=== PATIENT | male | born 1940 | race Caucasian/White ===

== ENCOUNTER 2018-04-21 15:10 | Emergency (ER) | payer MEDICARE ==
[2018-04-21 15:42] LABS: #Basophils 0.2 thou/uL (0.0-0.2); #Eosinphils 0.2 thou/uL (0.0-0.7); #Lymphocytes 0.9 thou/uL (1.20-3.40); #Monocytes 0.7 thou/uL (0.11-0.59); #Neutrophils 3.5 thou/uL (1.40-6.50); %Basophils 2.8 % (0.0-1.0); %Monocytes 12.7 % (0.0-10.0); %Neutrophils 65.5 % (42.0-75.0); Hemoglobin 8.1 g/dL (14.0-18.0); Mean Corpuscular Hemoglobin 32.4 pg (27.0-31.0); Mean Corpuscular Volume 98.4 fl (80.0-94.0); Mean Platelet Volume 7.6 fL (7.4-10.4); Platelet Count 163 thou/uL (130-400); RBC Distribution Width 14.8 % (11.5-14.5); Red Blood Cell (RBC) Count 2.51 mill/uL (4.70-6.10); White Blood Cell (WBC) Count 5.4 thou/uL (4.8-10.8)
[2018-04-21 15:51] LABS: Prothrombin Time 42.7 SEC (12.0-14.7)
[2018-04-21 15:53] LABS: INR-International Normal Ratio 4.2
[2018-04-21 16:05] LABS: ALT (SGPT) 8 U/L (8-55); AST (SGOT) 22 U/L (5-34); Albumin 3.9 g/dL (3.4-4.8); Alkaline Phosphatase 43 U/L (40-150); Anion Gap 14 mmol/L (10-20); BUN (Urea Nitrogen) 34 mg/dL (8.4-25.7); Bilirubin, Total 0.6 mg/dL (0.2-1.2); Calc. Creatinine Clearance 0 mL/min (70-130); Carbon Dioxide 24 mmol/L (23-31); Chloride 108 mmol/L (98-107); Estimated GFR-MDRD 39; Globulin 2.7 g/dL (2.4-3.5); Glucose 109 mg/dL (83-110); Potassium 3.5 mmol/L (3.5-5.1); Protein, Total 6.6 g/dL (5.8-8.1); Sodium 142 mmol/L (136-145)
[2018-04-21 16:08] LABS: CKMB 1.2 ng/mL (0-6.6); Troponin I Less than 0.010 ng/mL (< 0.028)
== END 2018-04-21 16:48 | disposition home or self-care (01) ==
LOC: ERS 15:10
DX: D50.0 Iron deficiency anemia secondary to blood loss (chronic) (principal); R79.1 Abnormal coagulation profile; E78.5 Hyperlipidemia, unspecified; I10 Essential (primary) hypertension; F17.210 Nicotine dependence, cigarettes, uncomplicated; Z79.899 Other long term (current) drug therapy; Z79.01 Long term (current) use of anticoagulants
CPT/HCPCS: 36415; 80053; 82553; 84484; 85025; 85610; 85730; 86850; 86900; 86901; 93005

== ENCOUNTER 2018-07-13 14:55 | Day surgery (SDC) | payer MEDICARE ==
[2018-07-14 05:58] LABS: Hemoglobin 9.6 g/dL (14.0-18.0)
[2018-07-14 08:09] VITALS: BP 145/76; TEMP 98.1
== END 2018-07-14 09:58 | disposition home or self-care (01) ==
LOC: ONC/OP 14:55 → 2SE 16:03 → ONC/OP 07-14 09:58
PROVIDERS: ATTEND Internal Medicine
PROC: 30233N1 Transfusion of Nonautologous Red Blood Cells into Peripheral Vein, Percutaneous Approach (ICD-10-PCS; principal; 2018-07-13)
DX: D64.9 Anemia, unspecified (principal)
CPT/HCPCS: 36415; 36430; 85014; 85018; 86850; 86900; 86901; P9016

== ENCOUNTER 2018-09-27 14:44 | Inpatient (IN) | payer MEDICARE ==
[2018-09-27 16:51] VITALS: BMI 22.3
[2018-09-27] MEDS ORDERED: Ondansetron PF 4 MG/2 ML Vial IVP PRN (17:28)
[2018-09-27] MEDS ORDERED: hydrALAZINE 20 MG/ML VIAL SLOW IVP PRN (17:28)
[2018-09-27 17:59] LABS: #Basophils 0.1 thou/uL (0.0-0.2); #Eosinphils 0.1 thou/uL (0.0-0.7); #Lymphocytes 0.6 thou/uL (1.20-3.40); #Monocytes 0.6 thou/uL (0.11-0.59); %Basophils 1.9 % (0.0-1.0); %Eosinophils 1.3 % (0.0-10.0); %Lymphocytes 11.3 % (21.0-51.0); %Monocytes 10.6 % (0.0-10.0); %Neutrophils 74.9 % (42.0-75.0); Mean Corpuscular HGB CONC 30.7 g/dL (32.0-36.0); Mean Corpuscular Hemoglobin 30.3 pg (27.0-31.0); Mean Corpuscular Volume 98.5 fL (78.0-98.0); Mean Platelet Volume 7.6 fL (7.4-10.4); Platelet Count 207 thou/uL (130-400); RBC Distribution Width 15.9 % (11.5-14.5); Red Blood Cell (RBC) Count 1.97 mill/uL (4.70-6.10); White Blood Cell (WBC) Count 5.3 thou/uL (4.8-10.8)
[2018-09-27] MEDS: Sodium Chloride 0.9% 1,000 ML IV SCH (18:04)
[2018-09-27 18:05] LABS: Prothrombin Time 48.3 SEC (12.0-14.7)
[2018-09-27 18:10] LABS: INR-International Normal Ratio 5.3
[2018-09-27 18:17] LABS: ALT (SGPT) 8 U/L (8-55); AST (SGOT) 17 U/L (5-34); Albumin 3.3 g/dL (3.4-4.8); Alkaline Phosphatase 41 U/L (40-150); Anion Gap 12 mmol/L (10-20); BUN (Urea Nitrogen) 45 mg/dL (8.4-25.7); Bilirubin, Total 0.5 mg/dL (0.2-1.2); Calc. Creatinine Clearance 34 mL/min (70-130); Calcium 8.4 mg/dL (7.8-10.44); Carbon Dioxide 28 mmol/L (23-31); Chloride 105 mmol/L (98-107); Estimated GFR-MDRD 40; Globulin 2.7 g/dL (2.4-3.5); Glucose 118 mg/dL (83-110); Potassium 3.4 mmol/L (3.5-5.1); Sodium 142 mmol/L (136-145)
[2018-09-27] MEDS ORDERED: Phytonadione 10 MG/ML AMP PO SCH (18:30)
--- NOTE | 2018-09-27 19:03 | HP ---
PRIMARY CARE PHYSICIAN: John Magana M.D. CHIEF COMPLAINT: Feeling weak and dizzy. HISTORY OF PRESENT ILLNESS: Mr. Desai is a pleasant 77-year-old gentleman that has a history of both aortic valve and mitral valve replacement. He says this was due to a "low grade fever" that he had f or years. He also has a history of recurrent GI bleeds, which he states in the past, they have not b een able to determine the source. He is on Coumadin. He was in his usual state of health until the last couple of days when he started feeling shaky and having "no energy." He also says that he feels dizzy when he gets up to start walking. He also notes some shortness of breath, but he says this is not more than usual. He denies having any abdominal pain, no vomiting. He has complained of some n ausea, but he equates that to feeling dizzy. He also says that he has dark stools and they are mushy , but he says this has been going on for years and is also noted that he is on iron therapy. He went in to see Dr. Magana and he did some lab work and has been reported that it was noted that his hemogl obin was approximately 5. It is unclear what his INR was, but he was referred to the Hospitalist Mendez son for direct admission. REVIEW OF SYSTEMS: All systems were reviewed and are negative except for that mentioned in history o f present illness. PAST MEDICAL HISTORY: Significant for atrial fibrillation as well as COPD and cerebrovascular accide nt. PAST SURGICAL HISTORY: He has had an aortic valve and mitral valve replacement. He also had a redo of his aortic valve about 20 years after the initial surgery. ALLERGIES: No known drug allergies. SOCIAL HISTORY: He is . He has 1 daughter, but they are estranged. He denies any alcohol us e, but he does smoke about a pack to a pack and a half a day. He would like to be a FULL CODE; usha er, he says that if he is on life support, he does not want to be on more than 3 days. If that is th e case, then he would like to be taken off. I asked if he has some surrogate decision maker or medic al power of regulatory attorney, he does not and says he would leave these decisions to his physicians. FAMILY HISTORY: Significant for breast cancer and a father who had cancer of the lungs due to coal m ining. MEDICATIONS: Include Plavix 75 mg daily, metoprolol 50 mg twice a day, furosemide 20 mg daily and Co umadin 10 mg daily. PHYSICAL EXAMINATION: GENERAL: He is alert and oriented. He appears to be in no acute distress. He is well-developed and well-nourished. VITAL SIGNS: Blood pressure was 116/58, heart rate 70, respiratory rate of 18, temperature is 97.9, O2 sat was 96% on room air. HEENT: His pupils are equal, round, and reactive. Extraocular muscles are intact. His sclerae slig htly pale and they are anicteric. Throat: There is no erythema, no exudates. NECK: There is no adenopathy, no bruits. LUNGS: Clear to auscultation. There is no wheezing, no rales, no rhonchi. CARDIOVASCULAR: He had a normal S1 and S2. There was no S3 or S4. No murmurs, clicks or rubs. ABDOMEN: Obese, it is soft, nontender, nondistended. Positive for bowel sounds. There is no reboun d, no guarding, no organomegaly. EXTREMITIES: There is no edema. He did have some chronic venous stasis changes. : Rectal exam was refused. He stated that his stools have not changed and he did not want an exam . NEUROLOGIC: His cranial nerves II-XII are intact. Muscle strength is 5/5 in both his upper and lowe r extremities. SKIN AND INTEGUMENT: There are some again chronic venous stasis changes, but no specific rash and no other lesions. LABORATORY DATA: We planned to recheck the CBC and the INR. ASSESSMENT AND PLAN: 1. This is a pleasant 77-year-old gentleman that was directly admitted from the physician's office d ue to generalized weakness with symptomatic anemia. He also is on chronic anticoagulation due to aor tic and mitral valve replacement. We will need to monitor his H&Hs, get a PT/INR stat to see what [place] his INR is currently. Place him on empiric proton pump inhibitors, place him on normal saline an d get stool for occult blood. Consult Gastroenterology for further recommendations. He will also be transfused 2 units. 2. For aortic and mitral valve replacement, depending on his INR will depend on whether or not Couma din will be discontinued. Given he has both the mitral and aortic valve replacement, if he does not show brisk active bleed, we will likely continue anticoagulation either in the form of Lovenox or a h eparin drip. Otherwise, further recommendations are to follow.
[2018-09-27] MEDS: Pantoprazole 40 MG VIAL IVP SCH (20:25)
[2018-09-28 05:23] LABS: #Basophils 0.1 thou/uL (0.0-0.2); #Eosinphils 0.1 thou/uL (0.0-0.7); #Lymphocytes 0.6 thou/uL (1.20-3.40); #Monocytes 0.5 thou/uL (0.11-0.59); #Neutrophils 3.1 thou/uL (1.40-6.50); %Basophils 1.7 % (0.0-1.0); %Eosinophils 1.6 % (0.0-10.0); %Lymphocytes 14.1 % (21.0-51.0); %Monocytes 11.6 % (0.0-10.0); Hemoglobin 7.1 g/dL (14.0-18.0); Mean Corpuscular Hemoglobin 29.7 pg (27.0-31.0); Mean Corpuscular Volume 95.9 fL (78.0-98.0); Mean Platelet Volume 7.3 fL (7.4-10.4); Platelet Count 175 thou/uL (130-400); Red Blood Cell (RBC) Count 2.38 mill/uL (4.70-6.10); White Blood Cell (WBC) Count 4.4 thou/uL (4.8-10.8)
[2018-09-28 05:29] LABS: Prothrombin Time 39.3 SEC (12.0-14.7)
[2018-09-28 05:35] LABS: INR-International Normal Ratio 4.1
[2018-09-28 05:39] LABS: Anion Gap 9 mmol/L (10-20); BUN (Urea Nitrogen) 44 mg/dL (8.4-25.7); Calc. Creatinine Clearance 39 mL/min (70-130); Calcium 8.2 mg/dL (7.8-10.44); Carbon Dioxide 28 mmol/L (23-31); Chloride 108 mmol/L (98-107); Estimated GFR-MDRD 46; Glucose 104 mg/dL (83-110); Potassium 3.4 mmol/L (3.5-5.1); Sodium 142 mmol/L (136-145)
[2018-09-28] MEDS: Sodium Chloride 0.9% 1,000 ML IV SCH ×3 (05:56→21:40)
[2018-09-28] MEDS: Pantoprazole 40 MG VIAL IVP SCH ×2 (09:03→21:39)
--- NOTE | 2018-09-28 10:10 | CON ---
DATE OF CONSULTATION: 09/27/2018 REASON FOR CONSULTATION: Symptomatic anemia, prior history of chronic gastrointestinal blood loss re lated to anticoagulation. HISTORY OF PRESENT ILLNESS: Mr. Giordano is a pleasant 77-year-old gentleman, who began having feelings of dyspnea and shortness of breath, went in to see his regular physician, Dr. John Magana, who perf ormed blood work and found to have he had a hemoglobin of 5. He was sent for admission to be transfu sed. He had had a hemoglobin of 8 or 9 back in July and had to get 3 units of blood at that kristina e. He is on Plavix 75 mg a day and Coumadin 2 mg a day for a prior history of aortic and mitral valv e replacement. He notes that his stools about once or twice a day and tend to always be dark and mus hy. He states he has not seen blood and they have not changed recently. He denies any weight loss o r change in appetite. He denies any NSAID use other than a baby aspirin. He last had endoscopies in 2011, at which time, Dr. Crabtree performed an EGD, which was normal and a colonoscopy that showed an as cending colon Dieulafoy lesion, 5 cm distal from the ileocecal valve and it was ablated. He has not had endoscopy since then and in 2013 he needed transfusion, he had a bleeding scan. Presently, he st ates he is inclined just to get the blood and to go home tomorrow as Thanksgiving is coming and then if his blood count is dropping in the outpatient setting, to proceed with endoscopy then. REVIEW OF SYSTEMS: Negative for nosebleeds, oral ulcers, erosions, hemorrhoidal bleeding, dysuria, f requency, urgency, hematuria, weight loss, change in appetite, abdominal pain, change in bowel functi on. He has had some shortness of breath. PAST MEDICAL HISTORY: Atrial fibrillation, COPD, CVA, noted to have valvular heart disease. ALLERGIES: None known. SOCIAL HISTORY: He is . He has a daughter. He does not drink. He does smoke a pack to a pa ck and half a day. FAMILY HISTORY: Breast cancer, lung cancer. MEDICATIONS AT HOME: As per HPI. MEDICATIONS HERE: Zofran, Protonix, normal saline at 75. PHYSICAL EXAMINATION: GENERAL: He is resting comfortably in bed. He has had snacks this evening. He is in no distress. VITAL SIGNS: Temperature 97, pulse 70, blood pressure 116/58. HEENT: Conjunctivae and sclerae are clear. Oropharynx without lesions. Nose without bleeding site. SKIN: Without ecchymosis. HEART: Regular rate and rhythm. Mechanical S1 and S2. EXTREMITIES: Reveal no clubbing, cyanosis, or edema. No spider angiomata. No palmar erythema. LABORATORY DATA: White count 5.3, hemoglobin 6, MCV 98, platelet count 207. INR is 5.3. BUN and cr eatinine are 45 and 1.69. Sodium 142, potassium 3.4. Liver function tests are normal. ASSESSMENT: Mr. Giordano was admitted with anemia. He states that he typically go and see Dr. Magana whe never he gets profoundly fatigued or anemic. He states the last time he was in was about a year ago, although it looks like he was transfused in July. He does not have any signs of acute gastroin testinal hemorrhage, although he has dark stools almost daily. This is usually just once or twice a day. He has had previous workup for the Dieulafoy found in the right colon. He is supratherapeutic with his INR. RECOMMENDATIONS: I agree with transfusion. I think if he shows any signs of bleeding, he will need to get some vitamin K, but otherwise they would be hold off on that for now. He is not inclined to h ave endoscopies presently. I will talk with Dr. Magana and see if we can find out what the history rodriguez s been recently and also review his chart in the clinic to see if he has had a capsule endoscopy of t he small bowel in the past. But if he is not acutely hemorrhaging, probably go home and have further workup in the outpatient setting; however, if this is something where his primary physician has felt that he needs to be reevaluated as he is requiring several transfusions in the past few months, then we can go ahead and embark on that here as he going to have to be bridged with Lovenox in light of h is prosthetic mitral valve.
--- NOTE | 2018-09-28 11:28 | PDOC.PN ---
- Subjective Encounter Start Date: 09/28/18 Encounter Start Time: 11:26 Mr. Desai was seen today in follow-up. He does not have any complaints. He says he needs to go home to take care of his animals. He refused any work-up from Dr. Haywood. - Objective Resuscitation Status: Resuscitation Status FULL:Full Resuscitation MAR Reviewed: Yes Vital Signs & Weight: Vital Signs (12 hours) Temp Pulse Pulse Pulse Resp BP BP 09/28/18 09:34 98.4 F 75 16 125/62 09/28/18 09:02 98.4 F 69 16 09/28/18 03:00 97.8 F 72 18 139/63 09/28/18 00:30 97 F L 72 18 112/80 09/28/18 00:11 97.9 F 74 18 116/70 09/28/18 00:10 97.9 F 74 18 09/28/18 00:00 97.8 F 74 18 116/70 BP Pulse Ox 09/28/18 09:34 94 L 09/28/18 09:02 110/80 94 L 09/28/18 03:00 95 09/28/18 00:30 95 09/28/18 00:11 96 09/28/18 00:10 116/70 96 09/28/18 00:00 Weight Weight 144 lb I&O: 09/27/18 09/28/18 09/29/18 06:59 06:59 06:59 Intake Total 1780 0 Output Total 700 Balance 1080 0 Result Diagrams: 09/28/18 05:12 09/28/18 05:12 Phys Exam - Physical Examination HEENT: PERRLA Respiratory: no wheezing, no rales, no rhonchi, clear to auscultation bilateral Cardiovascular: RRR, no significant murmur, no rub Gastrointestinal: soft, non-tender, no distention, positive bowel sounds Musculoskeletal: no edema Psychiatric: normal affect, A&O x 3 Dx/Plan (1) GI bleed Code(s): K92.2 - GASTROINTESTINAL HEMORRHAGE, UNSPECIFIED Status: Acute (2) Acute blood loss anemia Code(s): D62 - ACUTE POSTHEMORRHAGIC ANEMIA Status: Acute (3) Atrial fibrillation Code(s): I48.91 - UNSPECIFIED ATRIAL FIBRILLATION Status: Acute (4) Status post aortic valve and mitral valve replacement Code(s): Z95.2 - PRESENCE OF PROSTHETIC HEART VALVE Status: Acute - Plan * GI- bleed- source unknown- The patient declines work-up at this time- Will transfuse another unit of blood * Coagulaopthy- will give a small dose of Vitamin K. * AFIB- his heart rate is stable * AVR amd MVR- stable * He will need to follow-up tomorrow with Dr. Magana and have INR checked, and obtain further instructions on how to proceed.
[2018-09-28] MEDS ORDERED: GoLYTELY 4,000 ml Bottle PO SCH (12:30)
[2018-09-28] MEDS ORDERED: Phytonadione 10 MG/ML AMP SC SCH (14:45)
[2018-09-28 16:17] LABS: Hemoglobin 8.9 g/dL (14.0-18.0); Platelet Count 199 thou/uL (130-400)
--- NOTE | 2018-09-28 16:59 | PDOC.EVN ---
Event Note - Event Note Event Note: has decided to proceed with GI evaluation
[2018-09-29 05:57] LABS: Hemoglobin 7.6 g/dL (14.0-18.0)
[2018-09-29 05:59] LABS: INR-International Normal Ratio 1.6; Prothrombin Time 18.7 SEC (12.0-14.7)
[2018-09-29] MEDS: Pantoprazole 40 MG VIAL IVP SCH ×2 (08:10→21:45)
[2018-09-29] MEDS ORDERED: Promethazine HCl 25 MG/ML VIAL IM PRN (09:09)
[2018-09-29] MEDS ORDERED: Ondansetron HCl/PF 4 MG/2 ML Vial IVP PRN (09:09)
[2018-09-29] MEDS ORDERED: Promethazine HCl 25 MG/ML VIAL SLOW IVP PRN (09:09)
[2018-09-29] MEDS ORDERED: Lidocaine 1% PF 5 ML VIAL ONE (09:56)
[2018-09-29] MEDS ORDERED: PHENYLEPHRINE-NS 100 MCG/ML 10 ML SYRINGE ONE (09:56)
[2018-09-29] MEDS ORDERED: PROPOFOL 200 MG/20 ML VIAL ONE (09:56)
--- NOTE | 2018-09-29 11:08 | OP ---
DATE OF PROCEDURE: 09/29/2018. PROCEDURE PERFORMED: Esophagogastroduodenoscopy with biopsy, colonoscopy (diagnostic). INDICATION FOR PROCEDURE: Anemia, melena. DESCRIPTION OF PROCEDURE: After the risks and benefits of the procedures were explained to the patie nt including risks of bleeding, infection, perforation, reactions to anesthesia, aspiration and/or pa in, informed consent was obtained. The patient was then taken to the endoscopy suite where deep river tion was administered via propofol and anesthesia support. Once adequate sedation was achieved, the standard gastroscope was introduced into the mouth with intubation of the esophagus, stomach and the proximal small intestine with the findings listed below. Upon completion of this portion of the exam ination, all equipment was removed and the bed was rotated approximately 180 degrees. After external digital rectal examination, the standard colonoscope was introduced into the rectum and advanced to the cecum and terminal ileum with some difficulty requiring manual abdominal pressure in order to fac ilitate passage of the scope. The quality of the prep was poor with a significant amount of adherent black stool seen throughout the entire colon that was partially amenable to irrigation and suctionin g with copious amounts of sterile water. Inadequate views were obtained of the entire colon; however , despite irrigation and suctioning, the mucosa was then carefully examined upon withdrawal with the findings listed below. The patient tolerated the procedure well with no immediate perioperative comp lications and the patient was transferred to PACU in satisfactory condition. EGD FINDINGS: Esophagus: Normal appearing mucosa was seen in the proximal, mid and distal esophagus. There was no evidence of erosions, ulcerations, mass lesions or active/recent bleeding. Stomach: Mild increased mucosal erythema seen throughout the entire stomach and the cardia, fundus, body, greater curvature, antrum and incisura, but most especially within the lesser curvature and ant rum. There was the presence of small clots within the antrum and along the lesser curvature that upo n irrigation did not reveal any underlying pathology; however, in these areas, the lining of the stom ach assumed more of a mottled type appearance in addition to the increased mucosal erythema. Random biopsies were taken from the antrum and incisura for evaluation of possible H. pylori status. A 7-8 mm polyp was also seen in the gastric body with biopsies taken from the polyp for evaluation. Otherw ise, there were no erosions, ulcerations, mass lesions or active/recent bleeding. Duodenum: Normal appearing mucosa was seen in both the duodenal bulb and second portion of the duode num. There was no evidence of erosions, ulcerations, mass lesions or active/recent bleeding. IMPRESSION: 1. Mild diffuse gastritis with clot formation in the antrum and incisura, which could potentially ge nerate GI bleeding with a supratherapeutic INR. 2. A 7-8 mm gastric polyp most likely being hyperplastic. COLONOSCOPY FINDINGS: Digital rectal exam: Small perianal skin tags were seen on external examination. COLON FINDINGS: 1. A large amount of black adherent stool was seen throughout the entire colon as well as within the terminal ileum precluding any visualization of the colonic mucosa. With extensive irrigation and ashby ctioning of this adherent black stool, approximately 70% of the colonic mucosa was adequately visuali zed, but still inadequate for evaluation of fine mucosal lesions. However, there was no active/recen t bleeding seen throughout the entire colon. Upon visualization of approximately 70% of the colonic mucosa, there was increased friability with the passage of the standard colonoscope with increased mu cosal erythema with the passage of the scope. Otherwise, there were no erosions, ulcerations, mass l esions or active/recent bleeding seen in the terminal ileum, cecum, ascending colon, transverse colon , descending colon, sigmoid colon, and rectum. On rectal retroflexion, increased telangiectasias wer e seen adjacent to the anal orifice, but did not exhibit any active or recent bleeding. IMPRESSION: 1. A large amount of adherent black stool seen throughout the entire colon interfering with visualiz ation of the colonic mucosa (approximately 70% of the colonic mucosa adequately visualized during thi s examination). 2. Increased friability of the colonic mucosa with the passage of the standard colonoscope most like ly due to recent supratherapeutic INR. 3. Telangiectasias at the rectum consistent with possible radiation proctitis and/or hemorrhoidal fo rmation, but not actively bleeding. RECOMMENDATIONS: 1. We would continue to trend H&H and transfuse as necessary to maintain an H&H of 7/21. 2. Continue to monitor clinically for signs of active gastrointestinal bleeding. 3. We would hold any anticoagulation for the next 24-48 hours, but we would consider restarting Love nox or heparin based on the patient's mechanical valves. 4. We would continue PPI 40 mg b.i.d. at least for the next month. 5. Gastritis seen on upper endoscopy today and probable source of black stool seen within the colon today. 6. We will follow up on the biopsy results with placing the patient on triple therapy if positive fo r H. pylori. 7. If the patient's H&H continues to drop, we would consider a tagged red cell scan for further eval uation or localization of the GI bleed. 8. Agree with reversal of anticoagulation, but we would restart within the next 24-48 hours given th e patient's mechanical valves and we will monitor for any signs of bleeding after that. We will continue to follow. Please call with any questions.
[2018-09-29] MEDS: Sodium Chloride 0.9% 1,000 ML IV SCH ×3 (11:12→23:40)
--- NOTE | 2018-09-29 14:11 | PDOC.PN ---
- Subjective Encounter Start Date: 09/29/18 Encounter Start Time: 14:07 Mr. Desai was seen today in follow-up of GI Bleed. He does not have any complaints today - Objective Resuscitation Status: Resuscitation Status FULL:Full Resuscitation MAR Reviewed: Yes Vital Signs & Weight: Vital Signs (12 hours) Temp Pulse Resp BP BP Pulse Ox 09/29/18 11:10 97.7 F 74 18 154/67 H 96 09/29/18 07:27 98.6 F 94 16 140/67 95 09/29/18 04:40 98.8 F 91 14 117/56 L 92 L Weight Weight 146 lb 3.2 oz I&O: 09/28/18 09/29/18 09/30/18 06:59 06:59 06:59 Intake Total 1780 1140 Output Total 700 800 Balance 1080 340 Result Diagrams: 09/29/18 05:38 09/28/18 05:12 Phys Exam - Physical Examination HEENT: PERRLA Respiratory: no wheezing, no rales, no rhonchi Cardiovascular: RRR, no significant murmur, no rub Gastrointestinal: soft, non-tender, no distention, positive bowel sounds Musculoskeletal: no edema Dx/Plan (1) GI bleed Code(s): K92.2 - GASTROINTESTINAL HEMORRHAGE, UNSPECIFIED Status: Acute (2) Acute blood loss anemia Code(s): D62 - ACUTE POSTHEMORRHAGIC ANEMIA Status: Acute (3) Atrial fibrillation Code(s): I48.91 - UNSPECIFIED ATRIAL FIBRILLATION Status: Acute (4) Status post aortic valve and mitral valve replacement Code(s): Z95.2 - PRESENCE OF PROSTHETIC HEART VALVE Status: Acute - Plan * GI Bleed- probable upper GI bleed from gastritis- continue PPI, and will monitor his H&H. Coumadin is on hold. * Aortic and Mitral Valve replacement- will cover him with a Heparin drip- which can be turned off should he develop active bleeding * Acute blood loss anemia- transfuse for hemoglobin less than 7 * AFIB- his heart rate is stable. * Continue clear liquid diet to avoid injury to stomach
[2018-09-29 14:43] LABS: Hemoglobin 7.6 g/dL (14.0-18.0); Platelet Count 155 thou/uL (130-400)
[2018-09-29] MEDS: Heparin 25,000 units/D5W 500 ML IVPB SCH (15:41)
[2018-09-29] MEDS: Heparin 10,000 UNITS/ 10 ML VIAL SLOW IVP SCH ×2 (15:42→23:35)
[2018-09-30 06:18] LABS: #Eosinphils 0.1 thou/uL (0.0-0.7); #Lymphocytes 0.6 thou/uL (1.20-3.40); #Monocytes 0.6 thou/uL (0.11-0.59); #Neutrophils 2.9 thou/uL (1.40-6.50); %Eosinophils 2.5 % (0.0-10.0); %Lymphocytes 14.5 % (21.0-51.0); %Monocytes 14.5 % (0.0-10.0); %Neutrophils 68.5 % (42.0-75.0); Hemoglobin 7.6 g/dL (14.0-18.0); Mean Corpuscular HGB CONC 31.6 g/dL (32.0-36.0); Mean Corpuscular Hemoglobin 30.4 pg (27.0-31.0); Mean Corpuscular Volume 96.2 fL (78.0-98.0); Mean Platelet Volume 7.7 fL (7.4-10.4); Platelet Count 160 thou/uL (130-400); RBC Distribution Width 15.2 % (11.5-14.5); White Blood Cell (WBC) Count 4.2 thou/uL (4.8-10.8)
[2018-09-30] MEDS: Pantoprazole 40 MG VIAL IVP SCH ×2 (08:52→20:46)
[2018-09-30] MEDS: Acetaminophen 325 MG TAB PO PRN ×2 (08:56)
[2018-09-30 09:13] LABS: INR-International Normal Ratio 1.3; Prothrombin Time 16.2 SEC (12.0-14.7)
--- NOTE | 2018-09-30 11:28 | PDOC.PN ---
- Subjective Encounter Start Date: 09/30/18 Encounter Start Time: 11:26 Subjective: Doing well, saw some blood with stool - Objective Resuscitation Status: Resuscitation Status FULL:Full Resuscitation MAR Reviewed: Yes Vital Signs & Weight: Vital Signs (12 hours) Temp Pulse Resp BP BP Pulse Ox 09/30/18 08:40 98.7 F 103 H 16 139/74 139/74 95 09/30/18 04:00 98.9 F 87 16 132/60 92 L Weight Weight 148 lb I&O: 09/29/18 09/30/18 10/01/18 06:59 06:59 06:59 Intake Total 1140 1455.7 Output Total 800 1650 Balance 340 -194.3 Result Diagrams: 09/30/18 06:03 09/28/18 05:12 Phys Exam - Physical Examination HEENT: PERRLA, moist MMs, sclera anicteric, TM's clear, oral pharynx no lesions , 2+ tonsils Neck: no nodes, no JVD, supple, full ROM Respiratory: no wheezing, no rales Cardiovascular: RRR, no rub, irregular Gastrointestinal: soft, non-tender, no distention, positive bowel sounds Musculoskeletal: edema present Neurological: non-focal, normal sensation, moves all 4 limbs Psychiatric: normal affect, A&O x 3 Skin: no rash, normal turgor, cap refill <2 seconds Dx/Plan (1) Acute blood loss anemia Code(s): D62 - ACUTE POSTHEMORRHAGIC ANEMIA Status: Acute Comment: Admitted for acute blood loss anemia and Hb 6 and with complains of Melena. INR on admission was supratherapeuctic 4+. Patient treated with blood tansfusion, small dose of Vit K. Colonoscopy showed bloody stool allover the colon. No actual site of bleeding could be identified. Colon mucosa looked friable. Patient Hb now stable and is on heparin gtt and coumadin was on hold. Willl restart Coumadin and INR on 09/30 was 1.3 (2) Atrial fibrillation Code(s): I48.91 - UNSPECIFIED ATRIAL FIBRILLATION Status: Acute Qualifiers: Atrial fibrillation type: chronic Qualified Code(s): I48.2 - Chronic atrial fibrillation Comment: on heparin gtt, restart Coumadin, INR 1.3 (3) GI bleed Code(s): K92.2 - GASTROINTESTINAL HEMORRHAGE, UNSPECIFIED Status: Acute Qualifiers: GI bleed type/associated pathology: melena Qualified Code(s): K92.1 - Melena Comment: Restart Coumadin, Hb S/P transfusion is stable (4) Status post aortic valve and mitral valve replacement Code(s): Z95.2 - PRESENCE OF PROSTHETIC HEART VALVE Status: Acute (5) Melena Code(s): K92.1 - MELENA Status: Acute - Plan cont current plan of care, DVT proph w/heparin, DVT proph w/SCDs * .
[2018-09-30] MEDS ORDERED: Guaifenesin DM 100-10/5 ML UDCUP PO PRN (13:35)
[2018-09-30 15:02] LABS: PTT 59.5 SEC (22.9-36.1)
[2018-09-30 15:05] LABS: INR-International Normal Ratio 1.2; Prothrombin Time 15.3 SEC (12.0-14.7)
[2018-09-30] MEDS: Guaifenesin DM 100-10/5 ML UDCUP PO SCH ×2 (17:45→20:45)
[2018-09-30] MEDS: Heparin 25,000 units/D5W 500 ML IVPB SCH (17:52)
[2018-10-01] MEDS: Guaifenesin DM 100-10/5 ML UDCUP PO SCH ×6 (01:44→20:47)
[2018-10-01] MEDS: Sodium Chloride 0.9% 1,000 ML IV SCH ×2 (01:46→15:54)
[2018-10-01] MEDS: Pantoprazole 40 MG VIAL IVP SCH ×2 (09:27→20:48)
[2018-10-01 09:50] LABS: Anion Gap 9 mmol/L (10-20); BUN (Urea Nitrogen) 10 mg/dL (8.4-25.7); Calc. Creatinine Clearance 60 mL/min (70-130); Calcium 7.9 mg/dL (7.8-10.44); Carbon Dioxide 21 mmol/L (23-31); Chloride 110 mmol/L (98-107); Estimated GFR-MDRD 72; Glucose 108 mg/dL (83-110); Potassium 3.2 mmol/L (3.5-5.1); Sodium 137 mmol/L (136-145)
--- NOTE | 2018-10-01 14:45 | PDOC.PN ---
- Subjective Encounter Start Date: 10/01/18 Encounter Start Time: 10:30 Subjective: pt up in bed complains of not feeling well - Objective Resuscitation Status: Resuscitation Status FULL:Full Resuscitation Vital Signs & Weight: Vital Signs (12 hours) Temp Pulse Resp BP Pulse Ox 10/01/18 12:00 97.3 F L 89 16 136/75 10/01/18 08:00 98.3 F 86 18 143/63 H 94 L 10/01/18 04:00 98.5 F 90 16 132/63 93 L Weight Weight 152 lb I&O: 09/30/18 10/01/18 10/02/18 06:59 06:59 06:59 Intake Total 1455.7 3008 240 Output Total 1650 825 Balance -194.3 2183 240 Result Diagrams: 09/30/18 06:03 10/01/18 06:49 Phys Exam - Physical Examination Neck: no nodes, no JVD, supple, full ROM mild rhonchi all over Cardiovascular: RRR, no significant murmur, no rub, gallop, irregular Gastrointestinal: soft, non-tender, no distention, positive bowel sounds Musculoskeletal: no edema, pulses present, edema present Neurological: non-focal, normal sensation, moves all 4 limbs Dx/Plan (1) Acute blood loss anemia Code(s): D62 - ACUTE POSTHEMORRHAGIC ANEMIA Status: Acute Comment: Admitted for acute blood loss anemia and Hb 6 and with complains of Melena. INR on admission was supratherapeuctic 4+. Patient treated with blood tansfusion, small dose of Vit K. Colonoscopy showed bloody stool allover the colon. No actual site of bleeding could be identified. Colon mucosa looked friable. Patient Hb now stable and is on heparin gtt and coumadin was on hold. Willl restart Coumadin and INR on 09/30 was 1.3 (2) GI bleed Code(s): K92.2 - GASTROINTESTINAL HEMORRHAGE, UNSPECIFIED Status: Acute Qualifiers: GI bleed type/associated pathology: melena Qualified Code(s): K92.1 - Melena Comment: Restart Coumadin, Hb S/P transfusion is stable (3) Status post aortic valve and mitral valve replacement Code(s): Z95.2 - PRESENCE OF PROSTHETIC HEART VALVE Status: Acute - Plan pt states he just does not feel well -: mild rhonchi noted, will get cxr and viral swab -: will start his lasix and rx breathing tx -: diet advanced and coumadin started, discussed with gi * . Review of Systems - Review of Systems Respiratory: Cough Cardiovascular: negative: chest pain, palpitations, orthopnea, paroxysmal nocturnal dyspnea, edema, light headedness, other Gastrointestinal: negative: Nausea, Vomiting, Abdominal Pain, Diarrhea, Constipation, Melena, Hematochezia, Other Genitourinary: negative: Dysuria, Frequency, Incontinence, Hematuria, Retention , Other - Medications/Allergies Allergies/Adverse Reactions: Allergies Allergy/AdvReac Type Severity Reaction Status Date / Time No Known Allergies Allergy Verified 09/27/18 16:50 Medications: Current Medications Acetaminophen (Tylenol) 650 mg PO Q6H PRN PRN Reason: Headache/Fever or Pain Last Admin: 09/30/18 08:56 Dose: 650 mg Furosemide (Lasix) 40 mg PO DAILY [facility] Guaifenesin/Dextromethorphan (Robitussin Dm) 15 ml PO Q4HR [facility] Last Admin: 10/01/18 13:14 Dose: 15 ml Guaifenesin/Dextromethorphan (Robitussin Dm) 15 ml PO Q4H PRN PRN Reason: Cough Heparin Sodium (Porcine) (Heparin 1,000 Units/Ml (10 Ml)) 0 units SLOW IVP ASDIR [facility]; Protocol Last Admin: 09/29/18 23:35 Dose: 1,980 unit Hydralazine HCl (Apresoline) 10 mg SLOW IVP Q4H PRN PRN Reason: SBP > 180 and HR < 70 Sodium Chloride (Normal Saline 0.9%) 1,000 mls @ 75 mls/hr IV .[id number] [facility] Last Admin: 10/01/18 01:46 Dose: 1,000 mls Heparin Sodium/Dextrose (Heparin 25,000 Units/D5w 500 Ml) 500 mls @ 0 mls/hr IVPB INF [facility]; Protocol Last Admin: 09/30/18 17:52 Dose: 500 mls Ipratropium [place] (Atrovent) 2.5 ml NEB [id number] [facility] Metoprolol Tartrate (Lopressor) 50 mg PO BID [facility] Miscellaneous Medication (Pharmacy To Dose) 1 each PO DAILY PRN PRN Reason: LABS Ondansetron HCl (Zofran) 4 mg IVP Q6H PRN PRN Reason: Nausea/Vomiting Pantoprazole Sodium (Protonix) 40 mg IVP Q12HR [facility] Last Admin: 10/01/18 09:27 Dose: 40 mg Potassium Chloride (K-Dur) 40 meq PO ONE [facility] Sodium Chloride (Flush - Normal Saline) 10 ml IVF PRN PRN PRN Reason: Saline Flush Last Admin: 10/01/18 09:28 Dose: 10 ml Warfarin Sodium (Coumadin) 2.5 mg PO 1700 [facility]
[2018-10-01] MEDS ORDERED: Ipratropium Bromide 2.5 ml Neb ONE (14:55)
[2018-10-01] MEDS ORDERED: Potassium Chloride 20 MEQ TAB PO SCH (15:00)
[2018-10-01] MEDS ORDERED: Ipratropium Bromide 2.5 ml Neb NEB SCH (15:00)
--- NOTE | 2018-10-01 15:34 | RAD ---
RADIOGRAPH CHEST 1 VIEW: Date: 10/01/2018 Time: 2:03 p.m. HISTORY: A 77-year-old male with dyspnea. COMPARISON: 01/29/2015 FINDINGS: Again noted is the cardiomegaly, sternotomy wires, and triple-lead left subclavian pacemaker. Again noted is the pulmonary venous engorgement. There are interstitial densities in the bilateral lower l clem zones. The previously demonstrated elevation of the right hemidiaphragm has improved or resolved . There is a new finding of significant blunting of the lateral costophrenic angles bilaterally, lef t greater than right. No pneumothorax. IMPRESSION: 1. Evidence for congestive heart failure: Cardiomegaly and bilateral small pleural effusions. 2. Interstitial densities may or may not represent pulmonary interstitial edema. JUANA [] POS: [facility]
[2018-10-01 15:52] LABS: Hemoglobin 7.8 g/dL (14.0-18.0); Platelet Count 160 thou/uL (130-400)
[2018-10-01] MEDS ORDERED: Warfarin Sodium 2.5 MG TAB PO SCH (17:00)
[2018-10-01] MEDS: Ipratropium Bromide 2.5 ml Neb NEB SCH ×2 (19:31→22:33)
[2018-10-01] MEDS: Metoprolol Tartrate 50 MG TAB PO SCH (20:47)
[2018-10-01] MEDS: Heparin 25,000 units/D5W 500 ML IVPB SCH (22:59)
[2018-10-02] MEDS: Guaifenesin DM 100-10/5 ML UDCUP PO SCH ×6 (01:06→20:45)
[2018-10-02] MEDS: Ipratropium Bromide 2.5 ml Neb NEB SCH ×6 (03:05→23:10)
[2018-10-02] MEDS ORDERED: Furosemide 40 MG/4 ML VIAL SLOW IVP SCH (04:15)
[2018-10-02] MEDS: Sodium Chloride 0.9% 1,000 ML IV SCH (05:37)
[2018-10-02 06:10] LABS: INR-International Normal Ratio 1.2
[2018-10-02 06:11] LABS: PTT 70.6 SEC (22.9-36.1)
[2018-10-02 06:22] LABS: Anion Gap 11 mmol/L (10-20); BUN (Urea Nitrogen) 9 mg/dL (8.4-25.7); Calc. Creatinine Clearance 54 mL/min (70-130); Calcium 8.1 mg/dL (7.8-10.44); Carbon Dioxide 18 mmol/L (23-31); Chloride 113 mmol/L (98-107); Estimated GFR-MDRD 63; Glucose 134 mg/dL (83-110); Potassium 3.8 mmol/L (3.5-5.1); Sodium 138 mmol/L (136-145)
[2018-10-02] MEDS: Metoprolol Tartrate 50 MG TAB PO SCH ×2 (08:17→20:45)
[2018-10-02] MEDS: Furosemide 40 MG TAB PO SCH (08:17)
[2018-10-02] MEDS: Pantoprazole 40 MG VIAL IVP SCH ×2 (08:17→20:45)
[2018-10-02] MEDS ORDERED: WARFARIN PO PRN (09:00)
--- NOTE | 2018-10-02 12:41 | PDOC.PN ---
- Subjective Encounter Start Date: 10/02/18 Encounter Start Time: 10:30 Subjective: pt up in bed no complains - Objective Resuscitation Status: Resuscitation Status FULL:Full Resuscitation Vital Signs & Weight: Vital Signs (12 hours) Temp Pulse Resp BP BP Pulse Ox 10/02/18 10:40 73 16 91 L 10/02/18 08:00 98.2 F 71 18 142/61 H 92 L 10/02/18 07:44 72 16 92 L 10/02/18 04:00 98 F 75 16 127/68 93 L Weight Weight 155 lb I&O: 10/01/18 10/02/18 10/03/18 06:59 06:59 06:59 Intake Total 3008 2367 180 Output Total 825 952 Balance 2183 1415 180 Result Diagrams: 10/01/18 15:44 10/02/18 05:31 Phys Exam - Physical Examination Neck: no nodes, no JVD, supple, full ROM Respiratory: no wheezing, no rales, no rhonchi, wheezing present, clear to auscultation bilateral Cardiovascular: RRR, no significant murmur, no rub, gallop, irregular Gastrointestinal: soft, non-tender, no distention, positive bowel sounds Dx/Plan (1) Acute blood loss anemia Code(s): D62 - ACUTE POSTHEMORRHAGIC ANEMIA Status: Acute Comment: Admitted for acute blood loss anemia and Hb 6 and with complains of Melena. INR on admission was supratherapeuctic 4+. Patient treated with blood tansfusion, small dose of Vit K. Colonoscopy showed bloody stool allover the colon. No actual site of bleeding could be identified. Colon mucosa looked friable. Patient Hb now stable and is on heparin gtt and coumadin was on hold. Willl restart Coumadin and INR on 09/30 was 1.3 (2) GI bleed Code(s): K92.2 - GASTROINTESTINAL HEMORRHAGE, UNSPECIFIED Status: Acute Qualifiers: GI bleed type/associated pathology: melena Qualified Code(s): K92.1 - Melena Comment: Restart Coumadin, Hb S/P transfusion is stable (3) Status post aortic valve and mitral valve replacement Code(s): Z95.2 - PRESENCE OF PROSTHETIC HEART VALVE Status: Acute - Plan hh is stable -: pt states he feels much better -: inr is subtheraputic on heparin * . Review of Systems - Review of Systems Respiratory: negative: Cough, Dry, Shortness of Breath, Hemoptysis, SOB with Excertion, Pleuritic Pain, Sputum, Wheezing Cardiovascular: negative: chest pain, palpitations, orthopnea, paroxysmal nocturnal dyspnea, edema, light headedness, other Gastrointestinal: negative: Nausea, Vomiting, Abdominal Pain, Diarrhea, Constipation, Melena, Hematochezia, Other - Medications/Allergies Allergies/Adverse Reactions: Allergies Allergy/AdvReac Type Severity Reaction Status Date / Time No Known Allergies Allergy Verified 09/27/18 16:50 Medications: Current Medications Acetaminophen (Tylenol) 650 mg PO Q6H PRN PRN Reason: Headache/Fever or Pain Last Admin: 09/30/18 08:56 Dose: 650 mg Furosemide (Lasix) 40 mg PO DAILY [facility] Last Admin: 10/02/18 08:17 Dose: 40 mg Guaifenesin/Dextromethorphan (Robitussin Dm) 15 ml PO Q4HR [facility] Last Admin: 10/02/18 08:17 Dose: 15 ml Guaifenesin/Dextromethorphan (Robitussin Dm) 15 ml PO Q4H PRN PRN Reason: Cough Heparin Sodium (Porcine) (Heparin 1,000 Units/Ml (10 Ml)) 0 units SLOW IVP ASDIR [facility]; Protocol Last Admin: 09/29/18 23:35 Dose: 1,980 unit Hydralazine HCl (Apresoline) 10 mg SLOW IVP Q4H PRN PRN Reason: SBP > 180 and HR < 70 Heparin Sodium/Dextrose (Heparin 25,000 Units/D5w 500 Ml) 500 mls @ 0 mls/hr IVPB INF [facility]; Protocol Last Admin: 10/01/18 22:59 Dose: 500 mls Ipratropium [place] (Atrovent) 2.5 ml NEB [id number] [facility] Last Admin: 10/02/18 10:40 Dose: 2.5 ml Metoprolol Tartrate (Lopressor) 50 mg PO BID [facility] Last Admin: 10/02/18 08:17 Dose: 50 mg Miscellaneous Medication (Pharmacy To Dose) 1 each PO DAILY PRN PRN Reason: LABS Ondansetron HCl (Zofran) 4 mg IVP Q6H PRN PRN Reason: Nausea/Vomiting Pantoprazole Sodium (Protonix) 40 mg IVP Q12HR [facility] Last Admin: 10/02/18 08:17 Dose: 40 mg Sodium Chloride (Flush - Normal Saline) 10 ml IVF PRN PRN PRN Reason: Saline Flush Last Admin: 10/02/18 04:27 Dose: 10 ml Warfarin Sodium (Coumadin) 5 mg PO 1700 [facility]
[2018-10-02] MEDS ORDERED: Warfarin Sodium 5 MG TAB PO SCH (17:00)
[2018-10-02] MEDS: Heparin 25,000 units/D5W 500 ML IVPB SCH (22:56)
[2018-10-03] MEDS: Guaifenesin DM 100-10/5 ML UDCUP PO SCH ×6 (00:32→21:23)
[2018-10-03] MEDS: Ipratropium Bromide 2.5 ml Neb NEB SCH ×6 (03:30→23:47)
[2018-10-03 07:39] LABS: INR-International Normal Ratio 1.2; Prothrombin Time 15.4 SEC (12.0-14.7)
[2018-10-03 07:40] LABS: PTT 67.7 SEC (22.9-36.1)
[2018-10-03] MEDS: Pantoprazole 40 MG VIAL IVP SCH ×2 (09:23→21:23)
[2018-10-03] MEDS: Metoprolol Tartrate 50 MG TAB PO SCH ×2 (09:24→21:23)
[2018-10-03] MEDS: Furosemide 40 MG TAB PO SCH (09:24)
[2018-10-03 14:33] LABS: Hemoglobin 7.8 g/dL (14.0-18.0); Platelet Count 175 thou/uL (130-400)
--- NOTE | 2018-10-03 15:23 | PDOC.PN ---
- Subjective Encounter Start Date: 10/03/18 Encounter Start Time: 10:15 Subjective: pt up in bed no complains - Objective Resuscitation Status: Resuscitation Status FULL:Full Resuscitation Vital Signs & Weight: Vital Signs (12 hours) Temp Pulse Resp BP BP Pulse Ox 10/03/18 15:10 73 16 90 L 10/03/18 11:30 73 16 94 L 10/03/18 08:00 97.5 F L 69 14 141/60 H 96 10/03/18 07:36 74 16 93 L 10/03/18 03:50 98.8 F 74 14 127/59 L 93 L 10/03/18 03:30 92 L Weight Weight 158 lb 3.2 oz I&O: 10/02/18 10/03/18 10/04/18 06:59 06:59 06:59 Intake Total 2367 1164 Output Total 952 150 Balance 1415 1014 Result Diagrams: 10/03/18 14:21 10/02/18 05:31 Phys Exam - Physical Examination Neck: no nodes, no JVD, supple, full ROM Respiratory: no wheezing, no rales, no rhonchi, wheezing present, clear to auscultation bilateral Cardiovascular: RRR, no significant murmur, no rub, gallop, irregular Gastrointestinal: soft, non-tender, no distention, positive bowel sounds Dx/Plan (1) Acute blood loss anemia Code(s): D62 - ACUTE POSTHEMORRHAGIC ANEMIA Status: Acute Comment: Admitted for acute blood loss anemia and Hb 6 and with complains of Melena. INR on admission was supratherapeuctic 4+. Patient treated with blood tansfusion, small dose of Vit K. Colonoscopy showed bloody stool allover the colon. No actual site of bleeding could be identified. Colon mucosa looked friable. Patient Hb now stable and is on heparin gtt and coumadin was on hold. Willl restart Coumadin and INR on 09/30 was 1.3 (2) GI bleed Code(s): K92.2 - GASTROINTESTINAL HEMORRHAGE, UNSPECIFIED Status: Acute Qualifiers: GI bleed type/associated pathology: melena Qualified Code(s): K92.1 - Melena Comment: Restart Coumadin, Hb S/P transfusion is stable (3) Status post aortic valve and mitral valve replacement Code(s): Z95.2 - PRESENCE OF PROSTHETIC HEART VALVE Status: Acute - Plan pt's inr is still low, will get pt lovonox and continue bridge to coumadin -: pt concern about financial issues for lovonox -: pt's coumadin has been increased * . Review of Systems - Review of Systems Respiratory: negative: Cough, Dry, Shortness of Breath, Hemoptysis, SOB with Excertion, Pleuritic Pain, Sputum, Wheezing Cardiovascular: negative: chest pain, palpitations, orthopnea, paroxysmal nocturnal dyspnea, edema, light headedness, other Gastrointestinal: negative: Nausea, Vomiting, Abdominal Pain, Diarrhea, Constipation, Melena, Hematochezia, Other Genitourinary: negative: Dysuria, Frequency, Incontinence, Hematuria, Retention , Other - Medications/Allergies Allergies/Adverse Reactions: Allergies Allergy/AdvReac Type Severity Reaction Status Date / Time No Known Allergies Allergy Verified 09/27/18 16:50 Medications: Current Medications Acetaminophen (Tylenol) 650 mg PO Q6H PRN PRN Reason: Headache/Fever or Pain Last Admin: 09/30/18 08:56 Dose: 650 mg Furosemide (Lasix) 40 mg PO DAILY [facility] Last Admin: 10/03/18 09:24 Dose: 40 mg Guaifenesin/Dextromethorphan (Robitussin Dm) 15 ml PO Q4HR [facility] Last Admin: 10/03/18 12:35 Dose: Not Given Guaifenesin/Dextromethorphan (Robitussin Dm) 15 ml PO Q4H PRN PRN Reason: Cough Heparin Sodium (Porcine) (Heparin 1,000 Units/Ml (10 Ml)) 0 units SLOW IVP ASDIR [facility]; Protocol Last Admin: 09/29/18 23:35 Dose: 1,980 unit Hydralazine HCl (Apresoline) 10 mg SLOW IVP Q4H PRN PRN Reason: SBP > 180 and HR < 70 Heparin Sodium/Dextrose (Heparin 25,000 Units/D5w 500 Ml) 500 mls @ 0 mls/hr IVPB INF [facility]; Protocol Last Admin: 10/02/18 22:56 Dose: 500 mls Ipratropium [place] (Atrovent) 2.5 ml NEB [id number] [facility] Last Admin: 10/03/18 15:10 Dose: 2.5 ml Metoprolol Tartrate (Lopressor) 50 mg PO BID [facility] Last Admin: 10/03/18 09:24 Dose: 50 mg Miscellaneous Medication (Pharmacy To Dose) 1 each PO DAILY PRN PRN Reason: LABS Ondansetron HCl (Zofran) 4 mg IVP Q6H PRN PRN Reason: Nausea/Vomiting Pantoprazole Sodium (Protonix) 40 mg IVP Q12HR [facility] Last Admin: 10/03/18 09:23 Dose: 40 mg Sodium Chloride (Flush - Normal Saline) 10 ml IVF PRN PRN PRN Reason: Saline Flush Last Admin: 10/02/18 04:27 Dose: 10 ml Warfarin Sodium (Coumadin) 10 mg PO 1700 [facility]
[2018-10-03] MEDS: Warfarin Sodium 10 MG TAB PO SCH (16:35)
[2018-10-03] MEDS: Heparin 25,000 units/D5W 500 ML IVPB SCH (23:40)
[2018-10-04] MEDS: Guaifenesin DM 100-10/5 ML UDCUP PO SCH ×4 (01:01→12:00)
[2018-10-04] MEDS: Ipratropium Bromide 2.5 ml Neb NEB SCH ×4 (03:40→14:22)
[2018-10-04 05:55] LABS: INR-International Normal Ratio 1.3; Prothrombin Time 15.9 SEC (12.0-14.7)
[2018-10-04] MEDS ORDERED: Sodium Chloride 0.9% 20 ML ONE (08:29)
[2018-10-04] MEDS: Metoprolol Tartrate 50 MG TAB PO SCH (09:52)
[2018-10-04] MEDS: Pantoprazole 40 MG VIAL IVP SCH (09:52)
[2018-10-04] MEDS: Furosemide 40 MG TAB PO SCH (09:52)
[2018-10-04] MEDS ORDERED: Enoxaparin Sodium 80 MG/0.8 ML SYRINGE SC SCH (13:45)
[2018-10-04] MEDS: Warfarin Sodium 10 MG TAB PO SCH (16:26)
[2018-10-04 16:34] VITALS: BP 137/74; TEMP 97
--- NOTE | 2018-10-05 00:22 | DIS ---
DATE OF ADMISSION: 09/27/2018 DATE OF DISCHARGE: 10/04/2018 DISCHARGE DIAGNOSES: 1. Gastrointestinal bleed. 2. Melena. 3. Mechanical valve. 4. Supratherapeutic INR. 5. Coronary artery disease. HOSPITAL COURSE: The patient is a 77-year-old male who initially presented from his PCP's office for low H&H. The patient at this time was seen by GI and was found to have an INR of 4. The patient wa s given appropriate medications for reversal of INR and he did undergo a colonoscopy and an endoscopy . The patient's endoscopy findings indicated mild diffuse gastritis with clot formation in the antru m and incisura, which could potentially generate the GI bleed. A 7-8 mm gastric polyp most likely be nign, hyperplastic was noted also and the colonoscopy showed that he had a large amount of adherent b lack stool seen throughout the entire colon and also he had some telangiectasia in the rectum consist ent with possible inflammation, but no active bleed was noted. He also had increased friability of t he colonic mucosa with the passage of the standard colonoscope. The patient's H&H continued to remai n stable. He was put on PPI, continued on a PPI twice a day. He was bridged with Lovenox and his Co umadin was also continued. The patient tolerated p.o. meals well. He will be discharged home. Foll ow up with his primary care doctor. 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 At this time, I will restart the Plavix and also continue the Coumadin and also bridge him with Lovenox. MEDICATIONS: The patient's medications are as of the following: Lasix 40 mg daily, warfarin 10 mg d aily, metoprolol 50 mg b.i.d., pantoprazole 40 mg b.i.d., q.12 hours and clopidogrel connie y. FOLLOWUP: Again, he will follow up with his primary care doctor. PHYSICAL EXAMINATION: VITAL SIGNS: Temperature 97.5, pulse 71, respirations 16, sats 92% on room air, blood pressure 140/6 3. GENERAL: He is awake, alert, oriented x3. He does not appear in any distress. CARDIOVASCULAR: S1, S2 present. No murmurs, rubs or gallops. ABDOMEN: Soft, nontender. Bowel sounds are present x2. EXTREMITIES: No edema. Pedal pulses present x2.
--- NOTE | 2018-10-07 10:03 | PQF ---
CAITLIN DIANE BALA GARZA [id number] CLINICAL DOCUMENTATION CLARIFICATION FORM: POST DISCHARGE DATE: 10/07/2018 ATTN: Dr. Somers Please exercise your independent, professional judgment in responding to the clarification form. Clinical indicators are provided on the bottom of this form for your review Please clarify cause of patient's diffuse gastritis with bleeding as: Please check appropriate box(s): [ x ] Supratherapeutic INR. [ ] Other diagnosis (please specify) [ ] Unable to determine In addition, please specify: Present on Admission (POA): [ x] Yes [ ] No [ ] Unable to determine For continuity of documentation, please document condition throughout progress notes and discharge summary. Thank You. CLINICAL INDICATORS - SIGNS / SYMPTOMS / LABS Per H&P: Weak and dizzy. Symptomatic anemia with hemoglobin of 5. EGD showed diffuse gastritis with clot formation in the antrum and incisura, which could potentially generate the GI bleed. Supratherapeutic INR of 5.3 on 09/27. 4.1 on 09/28. . RISK FACTORS Per consult: On Coumadin due to aortic/mitral jamal replacements with supratherapeutic INR of 5.3 on admission with history of chronic GI blood loss related to anticoagulation. TREATMENTS: Blood transfusion. . EGD with biopsy/Colonoscopy. Zofran/Protonix. Normal saline at 75. Reversal of INR. (This form is maintained as a part of the permanent medical record) 2014 [employer]. All Rights Reserved Sanjana [email or web address] [phone] CLEO
== END 2018-10-04 16:38 | disposition home or self-care (01) | DRG 813 ==
LOC: 2NO 15:55
PROVIDERS: ADMIT Internal Medicine; ATTEND Internal Medicine
PROC: 30233N1 Transfusion of Nonautologous Red Blood Cells into Peripheral Vein, Percutaneous Approach (ICD-10-PCS; 2018-09-27)
PROC: 0DB68ZX Excision of Stomach, Via Natural or Artificial Opening Endoscopic, Diagnostic (ICD-10-PCS; principal; 2018-09-29)
PROC: 0DJD8ZZ Inspection of Lower Intestinal Tract, Via Natural or Artificial Opening Endoscopic (ICD-10-PCS; 2018-09-29)
DX: D68.32 Hemorrhagic disorder due to extrinsic circulating anticoagulants (principal); K29.71 Gastritis, unspecified, with bleeding; D62 Acute posthemorrhagic anemia; I48.91 Unspecified atrial fibrillation; J44.9 Chronic obstructive pulmonary disease, unspecified; F17.210 Nicotine dependence, cigarettes, uncomplicated; K31.7 Polyp of stomach and duodenum; Z86.73 Personal history of transient ischemic attack (TIA), and cerebral infarction without residual deficits; Z79.01 Long term (current) use of anticoagulants; Z95.2 Presence of prosthetic heart valve; Z79.02 Long term (current) use of antithrombotics/antiplatelets; Z79.899 Other long term (current) drug therapy; T45.515A Adverse effect of anticoagulants, initial encounter
CPT/HCPCS: 36415; 36430; 71045; 80048; 80053; 85014; 85018; 85025; 85049; 85610; 85730; 86850; 86900; 86901; 87633; 87798; 88305; 88312; 94640; C9113; J1644; J1650; J1940; J2001; J2704; J3430; P9016

== ENCOUNTER 2019-05-31 14:34 | Day surgery (SDC) | payer MEDICARE, OTHER ==
[2019-06-01 05:44] LABS: Hemoglobin 7.7 g/dL (14.0-18.0)
[2019-06-01 07:37] VITALS: BP 151/71; TEMP 98.4
== END 2019-06-01 08:23 | disposition home or self-care (01) ==
LOC: ONC/OP 14:34 → ONC 14:37 → ONC/OP 06-01 08:23
PROVIDERS: ATTEND Internal Medicine
DX: R79.9 Abnormal finding of blood chemistry, unspecified (principal)
CPT/HCPCS: 36415; 36430; 85014; 85018; 86850; 86900; 86901; P9016

== ENCOUNTER 2020-03-30 17:38 | Inpatient (IN) | payer MEDICARE ==
[~2020-03-30 17:38] MED LIST: Iopamidol-370 76% 500 ML 1 ML ONE
[2020-03-30] MEDS ORDERED: Fentanyl 100 MCG/2 ML VIAL ONE (17:46)
[2020-03-30] MEDS ORDERED: Adacel (T-DAP) 0.5 ML SYRINGE ONE (17:46)
[2020-03-30 18:21] LABS: #Basophils 0.2 thou/uL (0.0-0.2); #Eosinphils 0.2 thou/uL (0.0-0.7); #Lymphocytes 0.6 thou/uL (1.20-3.40); #Monocytes 0.7 thou/uL (0.11-0.59); #Neutrophils 9.3 thou/uL (1.40-6.50); %Basophils 1.5 % (0.0-1.0); %Eosinophils 1.9 % (0.0-10.0); %Lymphocytes 5.6 % (21.0-51.0); %Monocytes 6.5 % (0.0-10.0); %Neutrophils 84.6 % (42.0-75.0); Hemoglobin 8.5 g/dL (14.0-18.0); Mean Corpuscular HGB CONC 30.8 g/dL (32.0-36.0); Mean Corpuscular Hemoglobin 31.8 pg (27.0-31.0); Mean Platelet Volume 8.1 fL (7.4-10.4); Platelet Count 198 thou/uL (130-400); RBC Distribution Width 16.3 % (11.5-14.5); Red Blood Cell (RBC) Count 2.67 mill/uL (4.70-6.10); White Blood Cell (WBC) Count 10.9 thou/uL (4.8-10.8)
[2020-03-30 18:30] LABS: ALT (SGPT) 14 U/L (8-55); AST (SGOT) 32 U/L (5-34); Albumin 3.5 g/dL (3.4-4.8); Alkaline Phosphatase 52 U/L (40-110); Anion Gap 13 mmol/L (10-20); BUN (Urea Nitrogen) 25 mg/dL (8.4-25.7); Bilirubin, Total 0.9 mg/dL (0.2-1.2); Calc. Creatinine Clearance 0 mL/min (70-130); Calcium 8.3 mg/dL (7.8-10.44); Carbon Dioxide 23 mmol/L (23-31); Chloride 110 mmol/L (98-107); Estimated GFR-MDRD 27; Globulin 2.9 g/dL (2.4-3.5); Glucose 115 mg/dL (83-110); Potassium 3.6 mmol/L (3.5-5.1); Protein, Total 6.4 g/dL (5.8-8.1); Sodium 142 mmol/L (136-145)
--- NOTE | 2020-03-30 19:23 | RAD ---
PELVIS ONE VIEW: 03/30/20 HISTORY: Injury. COMPARISON: CT same day. FINDINGS: The left sacral fractures are not well seen nor are the left pubic root or inferior pubic rami fractu res. There is also poor visualization of the right iliac wing fracture. IMPRESSION: Poor visualization of the known pelvic fractures. POS: HOME
[2020-03-30] MEDS ORDERED: Morphine 4 MG/ML VIAL ONE (19:31)
--- NOTE | 2020-03-30 19:39 | RAD ---
CHEST ONE VIEW: 03/30/20 HISTORY: Trauma. COMPARISON: CT examination same day. FINDINGS: The right sided rib fractures are again seen. There is background emphysema. The right pleural effus ion is poorly delineated. Marked cardiomegaly. Left upper lobe mass also is not well seen. IMPRESSION: Poor visualization of the known right pleural effusion and left upper lobe mass. POS: HOME
--- NOTE | 2020-03-30 19:49 | RAD ---
RIGHT SHOULDER THREE VIEW: 03/30/20 HISTORY: Injury. Pain. COMPARISON: None. FINDINGS: There is a minimally superior displaced two cortex width distal clavicular fracture. There is some os sification and possibly a small fracture of the acromion near the acromioclavicular joint. Right fourth and fifth rib fractures are seen and are healing subacute fractures seen on CT. IMPRESSION: 1. Minimally displaced distal clavicular fracture near the acromioclavicular joint with possible small fracture superior aspect of the acromion at the acromioclavicular joint. 2. Subacute right fourth and fifth rib fractures as seen on the CT exam. POS: HOME
[2020-03-30 19:55] LABS: INR-International Normal Ratio 3.6; Prothrombin Time 35.5 sec (12.0-14.7)
--- NOTE | 2020-03-30 20:00 | CT ---
CT CERVICAL SPINE WITHOUT CONTRAST: 03/30/20 HISTORY: Trauma, injury. COMPARISON: None. FINDINGS: The occipital condyles are intact. The odontoid process is intact. Osseous fusion of the right C3-4 p osterior elements in the left C2-3 posterior elements. There is a grade I C4-5 anterolisthesis due to relatively high grade facet arthrosis. There is no acute fracture or malalignment of the cervical spine. Incomplete evaluation of what appea rs to be a spiculated mass in the left lung apex within the anterior pleura measuring approximately 1 4 mm. Relatively high grade centrilobular emphysema. Moderate layering right pleural effusion. The visualized ribs are intact. Transverse processes are intact. The spinous processes are intact. IMPRESSION: 1. No acute fracture or malalignment of the cervical spine. 2. Spiculated mass left upper lobe incompletely evaluated, highly suggestive of malignancy. None mergent pulmonary consultation advised. 3. Moderate right layering pleural effusion. 4. Moderate background centrilobular emphysema. POS: HOME
[2020-03-30 20:07] LABS: Magnesium 2.1 mg/dL (1.6-2.6); Phosphorus 3.1 mg/dL (2.3-4.7)
[2020-03-30 20:24] LABS: Actual Bicarbonate (HCO3a) 23.4 mEq/L (22-28); Analyzer IN Cardio ER; Calcium, Ionized 1.05 mmol/L (1.12-1.30); Carboxyhemoglobin (COHb) 1.5 gm% (0.0-3.0); Hemoglobin (Hb) 8.5 g/dL (14.0-18.0); Potassium - ABG Lab 3.68 mmol/L (3.70-5.30); pH, Arterial 7.42 (7.35-7.45)
[2020-03-30 20:25] LABS: O2 Tension (PaO2), arterial 57.8 mmHg (> 70.0); Puncture Site LRA
[2020-03-30] MEDS ORDERED: hydrALAZINE 20 MG/ML VIAL SLOW IVP PRN (20:38)
[2020-03-30] MEDS ORDERED: Dextrose 50% Abboject 50 ML SYRINGE SLOW IVP PRN (20:38)
[2020-03-30] MEDS ORDERED: Morphine 4 MG/ML VIAL SLOW IVP PRN (20:38)
[2020-03-30] MEDS ORDERED: Ondansetron PF 4 MG/2 ML Vial IVP PRN (20:38)
[2020-03-30] MEDS ORDERED: Dextrose 5% in Water 1,000 ML IV PRN (20:38)
[2020-03-30] MEDS ORDERED: Calcium Chloride 1 GM/10 ML Abboject SYRINGE IVP SCH (20:45)
[2020-03-30] MEDS ORDERED: traMADol HCl 50 MG TAB PO PRN (20:46)
[2020-03-30] MEDS ORDERED: Morphine 2 MG/ML SYRINGE SLOW IVP PRN (20:48)
[2020-03-30] MEDS ORDERED: Phytonadione 5 MG in Sodium Chloride 0.9% 50 ML IVPB SCH (21:15)
[2020-03-30] MEDS ORDERED: Acetaminophen 500 MG TAB ONE (21:34)
--- NOTE | 2020-03-30 21:37 | CT ---
CT CHEST WITH CONTRAST CT ABDOMEN WITH CONTRAST CT PELVIS WITH CONTRAST LIMITED CT THORACIC SPINE WITH CONTRAST LIMITED CT LUMBOSACRAL SPINE WITH CONTRAST: Date: 03/30/2020 HISTORY: Trauma. COMPARISON: None. FINDINGS: Spiculated mass left upper lobe measuring 1.4 cm in size. Moderate centrilobular emphysematous change s. Moderate right layering pleural effusion. No pneumothorax. No pneumatocele is appreciated. There is a nodule in the right lower lobe measuring 7.0 mm anterior segment right lower lobe. There is a 3.0 mm nodule in the posterior segment of right lower lobe. Pulmonary trunk is dilated. Heart size markedly enlarged. No significant pericardial fluid. No eviden ce of acute aortic injury. There is an incomplete burst fracture of T8 which involves the superior and inferior end plates and p osterior superior 1 mm retropulsion. The remainder of the thoracic spine is without acute fracture. Old right lateral T4 and T5 rib fractu res. Relatively acute right anterior 8th rib fracture. The sternum and manubrium appear to be intact. Visualized portions of the clavicles medially are inta ct. The distal clavicles are not evaluated. The lumbar spine transverse processes are intact. The transverse processes of the thoracic spine are intact. There is a mildly comminuted fracture of the right iliac wing with minimal external rotation. The fra cture does not extend into the SI joint. The right obturator ring is intact. The left obturator ring is intact. No acetabular fracture. The femoral heads and necks are intact. The left sacrum has a vertical fracture of S1 and S2 through Zone 1. No widening of the pubic symphys is. Nondisplaced fracture of the left pubic root and left inferior pubic ramus. Small volume ascites. There is cholelithiasis. Mildly nodular contour of the liver. Portal vein is pa tent. The perihepatic fluid is of low attenuation and not felt to be hemorrhage. No hydronephrosis. Aortic contour is nonaneurysmal. Mild atherosclerotic plaque. Adrenal glands are unremarkable. The aorta has extensive calcifications without aneurysmal dilatation . IMPRESSION: 1. 1.4 cm mass in the left upper lobe, highly suggestive of malignancy. Pulmonary consultation advis ed. 2. Nondisplaced right anterior 8th rib fracture. 3. Moderate right layering pleural effusion. 4. Right iliac wing fracture sparing the SI joint. 5. Left S1 and S2 vertically oriented fracture through Zone 1. 6. Nondisplaced pubic root fracture and left inferior pubic ramus fracture. 7. Small left pelvic side wall hematoma and right iliacus muscle hematoma from iliac wing fracture. 8. Hepatic cirrhosis with small volume ascites. 9. Incomplete burst fracture of T8 with 40% anterior height loss and minimal retropulsion of the pos terior superior end plate. Dr. Calderon notified of the findings via telephone at 1841 hours. CODE CR. POS: HOME
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
[2020-03-30 23:23] VITALS: BMI 24.9
[2020-03-31] MEDS: Acetaminophen 500 MG TAB PO SCH ×5 (02:13→19:42)
[2020-03-31] MEDS ORDERED: Senokot S 8.6-50 MG TAB PO SCH (02:15)
[2020-03-31] MEDS ORDERED: Gabapentin 100 MG CAP PO SCH (02:15)
[2020-03-31] MEDS ORDERED: Famotidine/PF 20 mg/2ml Vial SLOW IVP SCH (02:15)
[2020-03-31] MEDS: traMADol HCl 50 MG TAB PO SCH ×3 (02:18→19:42)
[2020-03-31] MEDS: methylPREDNISolone Sod Succ 40 MG VIAL IVP SCH ×4 (02:21→17:33)
[2020-03-31] MEDS: Famotidine/PF 20 mg/2ml Vial SLOW IVP SCH ×2 (02:50→08:27)
[2020-03-31] MEDS: Senokot S 8.6-50 MG TAB PO SCH ×3 (02:50→19:41)
[2020-03-31] MEDS: Sodium Chloride 0.9% 1,000 ML IV SCH ×2 (02:50→08:17)
[2020-03-31] MEDS: Gabapentin 100 MG CAP PO SCH ×3 (02:50→19:41)
[2020-03-31 04:06] LABS: INR-International Normal Ratio 1.7; Prothrombin Time 20.1 sec (12.0-14.7)
[2020-03-31 04:17] LABS: Anion Gap 13 mmol/L (10-20); BUN (Urea Nitrogen) 24 mg/dL (8.4-25.7); Calc. Creatinine Clearance 32 mL/min (70-130); Calcium 8.8 mg/dL (7.8-10.44); Carbon Dioxide 22 mmol/L (23-31); Chloride 111 mmol/L (98-107); Estimated GFR-MDRD 35; Glucose 127 mg/dL (83-110); Magnesium 2.1 mg/dL (1.6-2.6); Phosphorus 3.3 mg/dL (2.3-4.7); Potassium 3.4 mmol/L (3.5-5.1); Sodium 143 mmol/L (136-145)
[2020-03-31 04:44] LABS: Hemoglobin 6.9 g/dL (14.0-18.0); Mean Corpuscular HGB CONC 30.4 g/dL (32.0-36.0); Mean Corpuscular Hemoglobin 31.1 pg (27.0-31.0); Mean Platelet Volume 8.1 fL (7.4-10.4); Platelet Count 135 thou/uL (130-400); RBC Distribution Width 16.2 % (11.5-14.5); Red Blood Cell (RBC) Count 2.23 mill/uL (4.70-6.10); White Blood Cell (WBC) Count 5.8 thou/uL (4.8-10.8)
[2020-03-31 04:45] LABS: Band 8 % (5-11); Eosinophils 2 % (0-10); Lymphocytes 9 % (21-51); MDiff Complete? YES; Monocytes 4 % (0-10); Neutrophil 77 % (42-75)
[2020-03-31 05:51] LABS: #Lymphocytes 0.3 thou/uL (1.20-3.40); #Monocytes 0.2 thou/uL (0.11-0.59); #Neutrophils 4.6 thou/uL (1.40-6.50); %Basophils 0.3 % (0.0-1.0); %Eosinophils 0.8 % (0.0-10.0); %Lymphocytes 5.6 % (21.0-51.0); %Neutrophils 89.2 % (42.0-75.0); Hemoglobin 6.9 g/dL (14.0-18.0); Mean Corpuscular HGB CONC 30.7 g/dL (32.0-36.0); Mean Corpuscular Hemoglobin 31.3 pg (27.0-31.0); Mean Platelet Volume 7.9 fL (7.4-10.4); Platelet Count 126 thou/uL (130-400); RBC Distribution Width 16.1 % (11.5-14.5); Red Blood Cell (RBC) Count 2.19 mill/uL (4.70-6.10); White Blood Cell (WBC) Count 5.2 thou/uL (4.8-10.8)
[2020-03-31] MEDS ORDERED: Potassium Phosphate 30 MMOL in Sodium Chloride 0.9% 250 ML 250 ML IVPB SCH (06:15)
--- NOTE | 2020-03-31 06:48 | PDOC.EVN ---
Event Note - Event Note Event Note: Patient will receive 1U PRBC this AM for a HBG of 6.9 sp trauma. Shira Son PA-C Trauma Surgery
[2020-03-31] MEDS: Polyethylene Glycol 3350 17 GM Packet PO SCH (08:26)
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
[2020-03-31 15:50] LABS: Hemoglobin 8.6 g/dL (14.0-18.0)
[2020-03-31] MEDS: Cyclobenzaprine 10 MG TAB PO PRN (17:42)
[2020-03-31] MEDS: Metoprolol Tartrate 50 MG TAB PO SCH (19:41)
[2020-04-01] MEDS: methylPREDNISolone Sod Succ 40 MG VIAL IVP SCH ×5 (00:28→23:00)
[2020-04-01] MEDS: Acetaminophen 500 MG TAB PO SCH ×2 (02:19→08:55)
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
[2020-04-01 04:20] LABS: INR-International Normal Ratio 1.5; Prothrombin Time 17.8 sec (12.0-14.7)
[2020-04-01 04:32] LABS: Band 5 % (5-11); Hemoglobin 8.1 g/dL (14.0-18.0); Lymphocytes 3 % (21-51); MDiff Complete? YES; Mean Corpuscular Hemoglobin 31.9 pg (27.0-31.0); Mean Platelet Volume 9.4 fL (7.4-10.4); Monocytes 3 % (0-10); Neutrophil 89 % (42-75); Platelet Count 111 thou/uL (130-400); Platelet Morphology Comment Appears Decreased; RBC Distribution Width 15.9 % (11.5-14.5); Red Blood Cell (RBC) Count 2.53 mill/uL (4.70-6.10); White Blood Cell (WBC) Count 6.7 thou/uL (4.8-10.8)
[2020-04-01 04:54] LABS: Anion Gap 14 mmol/L (10-20); BUN (Urea Nitrogen) 37 mg/dL (8.4-25.7); Calc. Creatinine Clearance 30 mL/min (70-130); Calcium 7.8 mg/dL (7.8-10.44); Carbon Dioxide 20 mmol/L (23-31); Chloride 109 mmol/L (98-107); Estimated GFR-MDRD 31; Glucose 181 mg/dL (83-110); Magnesium 2.2 mg/dL (1.6-2.6); Phosphorus 5.2 mg/dL (2.3-4.7); Potassium 4.3 mmol/L (3.5-5.1); Sodium 139 mmol/L (136-145)
[2020-04-01] MEDS: traMADol HCl 50 MG TAB PO SCH (08:55)
[2020-04-01] MEDS: Metoprolol Tartrate 50 MG TAB PO SCH ×2 (08:56→20:14)
[2020-04-01] MEDS: Gabapentin 100 MG CAP PO SCH ×2 (08:56→20:14)
[2020-04-01] MEDS: Polyethylene Glycol 3350 17 GM Packet PO SCH (08:56)
[2020-04-01] MEDS: Senokot S 8.6-50 MG TAB PO SCH ×2 (08:56→20:14)
[2020-04-01] MEDS: Famotidine/PF 20 mg/2ml Vial SLOW IVP SCH (08:56)
[2020-04-01] MEDS ORDERED: Acetaminophen/Codeine 30-300mg Tablet PO PRN (10:45)
[2020-04-01] MEDS ORDERED: Acetaminophen/Codeine 30-300mg Tablet PO SCH (10:45)
[2020-04-01] MEDS: Acetaminophen/Codeine 30-300mg Tablet PO SCH ×3 (11:36→17:50)
[2020-04-01] MEDS: Cyclobenzaprine 10 MG TAB PO PRN (11:36)
[2020-04-01] MEDS ORDERED: Acetaminophen 325 MG TAB PO SCH (12:00)
--- NOTE | 2020-04-01 13:29 | RAD ---
EXAM CHEST ONE VIEW: History: Chest pain FINDINGS: There appear to be several nondisplaced right rib fractures. Cardiomegaly with post op midline sterno ariana and left ICD changes. Evidence for small right pleural effusion. Prominent proximal pulmonary ar nicholas segments bilaterally. Poorly defined small opacity in the left apex. Vertical height loss of T8 vertebral body. IMPRESSION: Stable cardiomegaly and some increased markings bilaterally. No pneumothorax. Poorly defined nodular density in the left apex. Continue short term follow up. No significant new process. POS: [facility]
[2020-04-01] MEDS ORDERED: Gabapentin 100 MG CAP PO SCH (15:00)
[2020-04-01] MEDS: Acetaminophen 325 MG TAB PO SCH ×2 (15:04→23:00)
[2020-04-01] MEDS ORDERED: Sodium Chloride 0.9% 500 ML IVPB ONE (18:00)
--- NOTE | 2020-04-01 18:53 | CT ---
CT BRAIN WITHOUT CONTRAST: History: Altered mental status, history of CVA. Confusion, forgetfulness. Comparison: 01-29-15 FINDINGS: Atrophy and chronic white matter ischemic changes are noted. No focal mass or midline shift. No intra or extraaxial hemorrhage. There are some scattered small old infarct changes, stable. IMPRESSION: Atrophy and chronic white matter ischemic changes and small stable old infarct change. No mass or ble ed or other acute process. POS: [facility]
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
[2020-04-02 05:29] LABS: Bilirubin Negative (Negative); Blood, Urine Negative (Negative); Clarity Clear (Clear); Glucose, Urine (Dipstick) Normal (Negative); Leukocyte Negative Leu/uL (Negative); Nitrite Negative (Negative); Protein, Urine (Dipstick) 10 mg/dL (Neg-Trace); RBC/HPF 0-3 HPF (0-3); Squamous Epithelial 0-3 HPF (0-3); WBC/HPF 0-3 HPF (0-3)
[2020-04-02 05:35] LABS: Bacteria/HPF 1+ HPF (None Seen)
[2020-04-02 05:36] LABS: Urine Culture Reflex Yes Yes
[2020-04-02] MEDS: methylPREDNISolone Sod Succ 40 MG VIAL IVP SCH ×3 (05:46→18:08)
[2020-04-02] MEDS: Acetaminophen 325 MG TAB PO SCH ×4 (05:46→22:14)
[2020-04-02 06:02] LABS: Anion Gap 16 mmol/L (10-20); BUN (Urea Nitrogen) 55 mg/dL (8.4-25.7); Calc. Creatinine Clearance 24 mL/min (70-130); Carbon Dioxide 20 mmol/L (23-31); Chloride 105 mmol/L (98-107); Estimated GFR-MDRD 24; Glucose 123 mg/dL (83-110); Magnesium 2.3 mg/dL (1.6-2.6); Phosphorus 5.3 mg/dL (2.3-4.7); Potassium 4.7 mmol/L (3.5-5.1); Sodium 136 mmol/L (136-145)
[2020-04-02 06:15] LABS: Mean Corpuscular HGB CONC 31.4 g/dL (32.0-36.0); Mean Corpuscular Hemoglobin 31.6 pg (27.0-31.0); Mean Platelet Volume 8.8 fL (7.4-10.4); Platelet Count 110 thou/uL (130-400); RBC Distribution Width 16.2 % (11.5-14.5); Red Blood Cell (RBC) Count 2.54 mill/uL (4.70-6.10); White Blood Cell (WBC) Count 12.9 thou/uL (4.8-10.8)
[2020-04-02 07:45] LABS: Anisocytosis MODERATE=16-30 cells (100X) (0-5/hpf); Band 15 % (5-11); Elliptocytes SLIGHT = 2-5 cells (100X) (0-1/hpf); Lymphocytes 4 % (21-51); MDiff Complete? YES; Monocytes 2 % (0-10); Neutrophil 79 % (42-75); Platelet Morphology Comment Appears Decreased
[2020-04-02] MEDS: Gabapentin 100 MG CAP PO SCH ×2 (09:05→22:05)
[2020-04-02] MEDS: Famotidine/PF 20 mg/2ml Vial SLOW IVP SCH (09:05)
[2020-04-02] MEDS: Cipro 250 MG TAB PO SCH ×2 (09:05→22:05)
[2020-04-02] MEDS: Senokot S 8.6-50 MG TAB PO SCH ×2 (09:06→22:04)
[2020-04-02] MEDS: Metoprolol Tartrate 50 MG TAB PO SCH ×2 (09:06→22:05)
[2020-04-02] MEDS: Polyethylene Glycol 3350 17 GM Packet PO SCH (09:07)
[2020-04-02] MEDS: Acetaminophen/Codeine 30-300mg Tablet PO PRN (09:07)
[2020-04-02] MEDS ORDERED: Sodium Chloride 0.9% 500 ML IV SCH ×2 (12:15→21:45)
[2020-04-02] MEDS ORDERED: Furosemide 20 MG/2 ML VIAL SLOW IVP SCH (14:30)
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
[2020-04-02 20:57] LABS: Hemoglobin 8.7 g/dL (14.0-18.0); Mean Corpuscular HGB CONC 30.7 g/dL (32.0-36.0); Mean Corpuscular Hemoglobin 31.3 pg (27.0-31.0); Mean Platelet Volume 9.3 fL (7.4-10.4); Platelet Count 140 thou/uL (130-400); RBC Distribution Width 16.1 % (11.5-14.5); Red Blood Cell (RBC) Count 2.78 mill/uL (4.70-6.10); White Blood Cell (WBC) Count 15.3 thou/uL (4.8-10.8)
[2020-04-02] MEDS ORDERED: Enoxaparin Sodium 40 MG/0.4 ML SYRINGE SC SCH (21:00)
[2020-04-02 21:14] LABS: Anion Gap 15 mmol/L (10-20); BUN (Urea Nitrogen) 61 mg/dL (8.4-25.7); Calc. Creatinine Clearance 23 mL/min (70-130); Carbon Dioxide 21 mmol/L (23-31); Chloride 105 mmol/L (98-107); Estimated GFR-MDRD 23; Glucose 112 mg/dL (83-110); Magnesium 2.4 mg/dL (1.6-2.6); Potassium 5.2 mmol/L (3.5-5.1); Sodium 136 mmol/L (136-145)
[2020-04-02 21:17] LABS: Band 7 % (5-11); Lymphocytes 2 % (21-51); MDiff Complete? YES; Monocytes 4 % (0-10); Neutrophil 87 % (42-75)
[2020-04-03] MEDS: methylPREDNISolone Sod Succ 40 MG VIAL IVP SCH ×4 (00:04→17:58)
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
[2020-04-03] MEDS: Acetaminophen 325 MG TAB PO SCH ×3 (05:18→23:33)
[2020-04-03 05:22] LABS: #Basophils 0.1 thou/uL (0.0-0.2); #Lymphocytes 0.4 thou/uL (1.20-3.40); #Monocytes 0.9 thou/uL (0.11-0.59); #Neutrophils 12.5 thou/uL (1.40-6.50); %Basophils 0.5 % (0.0-1.0); %Eosinophils 0.2 % (0.0-10.0); %Lymphocytes 2.6 % (21.0-51.0); %Monocytes 6.1 % (0.0-10.0); %Neutrophils 90.6 % (42.0-75.0); Hemoglobin 8.8 g/dL (14.0-18.0); Mean Corpuscular HGB CONC 31.1 g/dL (32.0-36.0); Mean Corpuscular Hemoglobin 31.8 pg (27.0-31.0); Mean Platelet Volume 9.6 fL (7.4-10.4); Platelet Count 124 thou/uL (130-400); RBC Distribution Width 16.2 % (11.5-14.5); Red Blood Cell (RBC) Count 2.77 mill/uL (4.70-6.10); White Blood Cell (WBC) Count 13.8 thou/uL (4.8-10.8)
[2020-04-03 05:31] LABS: INR-International Normal Ratio 1.9; PTT 38.3 sec (22.9-36.1); Prothrombin Time 21.4 sec (12.0-14.7)
[2020-04-03 05:51] LABS: Anion Gap 17 mmol/L (10-20); BUN (Urea Nitrogen) 66 mg/dL (8.4-25.7); Calc. Creatinine Clearance 23 mL/min (70-130); Calcium 7.8 mg/dL (7.8-10.44); Carbon Dioxide 17 mmol/L (23-31); Chloride 106 mmol/L (98-107); Estimated GFR-MDRD 23; Glucose 100 mg/dL (83-110); Magnesium 2.4 mg/dL (1.6-2.6); Phosphorus 4.7 mg/dL (2.3-4.7); Potassium 5.2 mmol/L (3.5-5.1); Sodium 135 mmol/L (136-145)
[2020-04-03] MEDS: Polyethylene Glycol 3350 17 GM Packet PO SCH (08:28)
[2020-04-03] MEDS: Senokot S 8.6-50 MG TAB PO SCH ×2 (08:29→20:09)
[2020-04-03] MEDS: Gabapentin 100 MG CAP PO SCH ×2 (08:29→20:09)
[2020-04-03] MEDS: Cipro 250 MG TAB PO SCH ×2 (08:29→20:09)
[2020-04-03] MEDS: Famotidine/PF 20 mg/2ml Vial SLOW IVP SCH (08:30)
[2020-04-03] MEDS: Acetaminophen/Codeine 30-300mg Tablet PO PRN ×2 (08:30→14:51)
[2020-04-03] MEDS: Metoprolol Tartrate 50 MG TAB PO SCH ×2 (08:31→20:09)
[2020-04-03] MEDS ORDERED: Milk Of Magnesia 30 ML UDCUP PO SCH (09:00)
--- NOTE | 2020-04-03 10:42 | RAD ---
Chest one view HISTORY: Dyspnea. CHF. COMPARISON: 03/02/2020. FINDINGS: Cardiac silhouette is magnified and enlarged. Pulmonary vasculature more engorged than on t he prior study. Ill-defined patchy areas of parenchymal infiltrate within each lung have also progressed slightly. Right hilar prominence correlates with large pulmonary arteries. Blunting of eac h costophrenic angle consistent with bilateral pleural fluid. Mediastinum is midline with postoperative changes, aortic calcification, and a multi lead left subcla vian cardiac electronic device. No evidence of pneumothorax. IMPRESSION : Increasing pulmonary vascular congestion. Bilateral pleural fluid and other findings are stable.
[2020-04-03] MEDS ORDERED: Furosemide 40 MG/4 ML VIAL SLOW IVP SCH (11:15)
[2020-04-03] MEDS: Warfarin Sodium 10 MG TAB PO SCH (15:59)
[2020-04-03] MEDS ORDERED: Furosemide 20 MG/2 ML VIAL SLOW IVP SCH (18:15)
[2020-04-03] MEDS ORDERED: Sodium Bicarbonate 150 MEQ in Dextrose 5% in Water 1,000 ML IV SCH ×2 (19:15→23:59)
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
[2020-04-03] MEDS: Enoxaparin Sodium 30 MG/0.3 ML SYRINGE SC SCH (20:08)
[2020-04-03] MEDS ORDERED: diphenhydrAMINE 25 MG CAP PO PRN (23:26)
[2020-04-04] MEDS: methylPREDNISolone Sod Succ 40 MG VIAL IVP SCH ×5 (00:36→23:21)
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
[2020-04-04] MEDS: Acetaminophen 325 MG TAB PO SCH ×4 (06:30→22:38)
[2020-04-04 06:31] LABS: Anion Gap 16 mmol/L (10-20); BUN (Urea Nitrogen) 80 mg/dL (8.4-25.7); Calc. Creatinine Clearance 21 mL/min (70-130); Calcium 7.9 mg/dL (7.8-10.44); Carbon Dioxide 20 mmol/L (23-31); Chloride 104 mmol/L (98-107); Estimated GFR-MDRD 21; Glucose 128 mg/dL (83-110); Magnesium 2.6 mg/dL (1.6-2.6); Phosphorus 4.5 mg/dL (2.3-4.7); Potassium 5.3 mmol/L (3.5-5.1); Sodium 135 mmol/L (136-145)
[2020-04-04 06:32] LABS: INR-International Normal Ratio 1.7; Prothrombin Time 19.6 sec (12.0-14.7)
[2020-04-04 06:33] LABS: PTT 37.5 sec (22.9-36.1)
[2020-04-04 07:02] LABS: #Basophils 0.1 thou/uL (0.0-0.2); #Lymphocytes 0.3 thou/uL (1.20-3.40); #Monocytes 0.6 thou/uL (0.11-0.59); %Basophils 0.6 % (0.0-1.0); %Eosinophils 0.1 % (0.0-10.0); %Lymphocytes 3.3 % (21.0-51.0); %Monocytes 6.2 % (0.0-10.0); %Neutrophils 89.8 % (42.0-75.0); Hemoglobin 8.6 g/dL (14.0-18.0); Mean Corpuscular HGB CONC 31.9 g/dL (32.0-36.0); Mean Corpuscular Hemoglobin 32.4 pg (27.0-31.0); Mean Platelet Volume 9.9 fL (7.4-10.4); Platelet Count 105 thou/uL (130-400); Red Blood Cell (RBC) Count 2.65 mill/uL (4.70-6.10)
[2020-04-04] MEDS ORDERED: Furosemide 40 MG/4 ML VIAL SLOW IVP ONE (08:30)
[2020-04-04] MEDS ORDERED: Furosemide 40 MG TAB PO SCH (09:00)
[2020-04-04] MEDS: Polyethylene Glycol 3350 17 GM Packet PO SCH (09:07)
[2020-04-04] MEDS: Gabapentin 100 MG CAP PO SCH ×2 (09:08→20:00)
[2020-04-04] MEDS: Senokot S 8.6-50 MG TAB PO SCH ×2 (09:09→20:00)
[2020-04-04] MEDS: Metoprolol Tartrate 50 MG TAB PO SCH ×2 (09:09→20:00)
[2020-04-04] MEDS: Cipro 250 MG TAB PO SCH ×2 (09:09→20:00)
[2020-04-04] MEDS ORDERED: Metolazone 2.5 MG TAB PO SCH (10:30)
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
[2020-04-04] MEDS: Warfarin Sodium 10 MG TAB PO SCH (17:42)
--- NOTE | 2020-04-04 19:13 | PRG ---
DATE OF SERVICE: 04/04/2020 The patient sustained bilateral inferior and superior iliac fractures, fractures at the S1 and S2, right distal clavicle fracture, and right acromion fracture. The patient is a little confused, but has fairly good pain control. She also had a T8 burst fractures treated with a TLSO. The right upper extremity is neurovascularly intact. The patient will continue to work with Physical and Occupational Therapy. The patient will follow up with me in 2 weeks after discharge. Job ID: [id number]
[2020-04-04] MEDS: Furosemide 40 MG TAB PO SCH (20:00)
[2020-04-04] MEDS: Enoxaparin Sodium 30 MG/0.3 ML SYRINGE SC SCH (20:00)
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
[2020-04-05 05:54] LABS: Anion Gap 17 mmol/L (10-20); BUN (Urea Nitrogen) 91 mg/dL (8.4-25.7); Calc. Creatinine Clearance 24 mL/min (70-130); Calcium 8.4 mg/dL (7.8-10.44); Carbon Dioxide 19 mmol/L (23-31); Chloride 104 mmol/L (98-107); Estimated GFR-MDRD 22; Glucose 100 mg/dL (83-110); Magnesium 2.9 mg/dL (1.6-2.6); Phosphorus 5.5 mg/dL (2.3-4.7); Potassium 5.3 mmol/L (3.5-5.1); Sodium 135 mmol/L (136-145)
[2020-04-05] MEDS: methylPREDNISolone Sod Succ 40 MG VIAL IVP SCH ×4 (06:08→23:37)
[2020-04-05] MEDS: Acetaminophen 325 MG TAB PO SCH ×3 (06:08→20:29)
[2020-04-05 06:41] LABS: Hemoglobin 8.9 g/dL (14.0-18.0); Mean Corpuscular HGB CONC 29.9 g/dL (32.0-36.0); Mean Corpuscular Hemoglobin 30.9 pg (27.0-31.0); Mean Platelet Volume 10.2 fL (7.4-10.4); Platelet Count 97 thou/uL (130-400); RBC Distribution Width 15.7 % (11.5-14.5); Red Blood Cell (RBC) Count 2.88 mill/uL (4.70-6.10)
[2020-04-05 06:47] LABS: #Lymphocytes 0.4 thou/uL (1.20-3.40); #Monocytes 0.3 thou/uL (0.11-0.59); #Neutrophils 7.2 thou/uL (1.40-6.50); %Basophils 0.3 % (0.0-1.0); %Eosinophils 0.1 % (0.0-10.0); %Lymphocytes 5.2 % (21.0-51.0); %Neutrophils 90.4 % (42.0-75.0); MDiff Complete? YES; Macrocytosis SLIGHT = 6-15 cells (100X) (0-5/hpf); Platelet Morphology Comment Appears Decreased
[2020-04-05] MEDS ORDERED: Metolazone 2.5 MG TAB PO SCH (09:00)
[2020-04-05] MEDS ORDERED: Furosemide 40 MG/4 ML VIAL SLOW IVP SCH (09:00)
[2020-04-05] MEDS: Gabapentin 100 MG CAP PO SCH ×2 (09:23→20:28)
[2020-04-05] MEDS: Cipro 250 MG TAB PO SCH (09:23)
[2020-04-05] MEDS: Metoprolol Tartrate 50 MG TAB PO SCH ×2 (09:24→20:29)
[2020-04-05] MEDS: Senokot S 8.6-50 MG TAB PO SCH ×2 (09:24→20:28)
[2020-04-05] MEDS: Furosemide 40 MG TAB PO SCH ×2 (09:25→20:29)
[2020-04-05 09:35] LABS: INR-International Normal Ratio 1.5; Prothrombin Time 17.6 sec (12.0-14.7)
[2020-04-05] MEDS: Polyethylene Glycol 3350 17 GM Packet PO SCH (09:39)
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
[2020-04-05] MEDS: Warfarin Sodium 10 MG TAB PO SCH (17:45)
[2020-04-05] MEDS: Enoxaparin Sodium 30 MG/0.3 ML SYRINGE SC SCH (20:28)
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
[2020-04-06 05:32] LABS: INR-International Normal Ratio 1.6; Prothrombin Time 18.5 sec (12.0-14.7)
[2020-04-06] MEDS: methylPREDNISolone Sod Succ 40 MG VIAL IVP SCH (05:35)
[2020-04-06] MEDS: Acetaminophen 325 MG TAB PO SCH (05:35)
[2020-04-06] MEDS ORDERED: Warfarin Sodium 5 MG TAB PO SCH (08:30)
[2020-04-06] MEDS: Furosemide 40 MG TAB PO SCH (10:34)
[2020-04-06] MEDS: Gabapentin 100 MG CAP PO SCH (10:34)
[2020-04-06] MEDS: Metoprolol Tartrate 50 MG TAB PO SCH (10:35)
[2020-04-06] MEDS: Polyethylene Glycol 3350 17 GM Packet PO SCH (10:35)
[2020-04-06] MEDS: Senokot S 8.6-50 MG TAB PO SCH (10:35)
[2020-04-06 11:29] VITALS: BP 152/74; TEMP 97.6
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
--- NOTE | 2020-04-09 01:29 | PQF ---
SAP Reporter Anchor Crystal Reports Winform Viewer CAITLIN DIANE TAJQUINCYNICHOLAS Daniel [id number] [facility]- [id number] CLINICAL DOCUMENTATION CLARIFICATION FORM: POST DISCHARGE Addendum to original discharge summary date: ____ Late entry note date: __ DATE:04/09/20 ATTN:Stanley Miller Please exercise your independent, professional judgment in responding to the clarification form. Clinical indicators are provided on the bottom of this form for your review Can you please further clarify the type of CHF exacerbation? Please check appropriate box(s): HEART FAILURE: A. TYPE: [ x ] Systolic / HFrEF [ ] Diastolic / HFpEF [ ] Combined Systolic / Diastolic [ ] Other diagnosis please specify [ ] Unable to determine In addition, please specify: Present on Admission (POA): [x ] Yes [ ] No [ ] Unable to determine For continuity of documentation, please document condition throughout progress notes and discharge summary. Thank You. CLINICAL INDICATORS - SIGNS / SYMPTOMS / LABS Echocardiogram-EF 50-55% PN 04/04 pg.1- he develop no sign of severe CHF at the moment PN 04/05- yesterday the patient experienced some dyspnea, work up suggestive of acute CHF exacerbation Laboratory- BNP 182.5H, 201.7H, 228.3H Chest X ray- poor visualization of the known right pleural effusion and left upper lobe mass Chest X ray 04/01- stable cardiomegaly ans some increased markings bilaterally Chest X ray 04/03- increasing pulmonary vascular congestion RISKS: AFIB- H and P pg.1 COPD- H and P pg.1 CKD 3- PN pg.2 acute respiratory distress 79 years old- H and P pg.1 CAD- PN pg.1 HTN- H and P pg.1 TREATMENTS: BNP Monitoring IV Lasix 40mg- MAR BiPAP H and P pg.4 Oxygen supplementation Chest X ray 04/01 Echocardiogram 04/04 BNP Monitoring- Laboratory (This form is maintained as a part of the permanent medical record) 2014 [employer]. All Rights Reserved [email or web address]
== END 2020-04-06 14:11 | DRG 551 ==
LOC: ERS 17:38 → IMCU/EMU 20:43 → SURG A 03-31 20:39
PROVIDERS: ADMIT Surgery; ATTEND Surgery
PROC: 30233N1 Transfusion of Nonautologous Red Blood Cells into Peripheral Vein, Percutaneous Approach (ICD-10-PCS; principal; 2020-03-30)
DX: S22.061A Stable burst fracture of T7-T8 vertebra, initial encounter for closed fracture (principal); J96.01 Acute respiratory failure with hypoxia; I50.23 Acute on chronic systolic (congestive) heart failure; S32.10XA Unspecified fracture of sacrum, initial encounter for closed fracture; S32.82XA Multiple fractures of pelvis without disruption of pelvic ring, initial encounter for closed fracture; N17.9 Acute kidney failure, unspecified; R18.8 Other ascites; D62 Acute posthemorrhagic anemia; S32.391A Other fracture of right ilium, initial encounter for closed fracture; S32.399A Other fracture of unspecified ilium, initial encounter for closed fracture; I13.0 Hypertensive heart and chronic kidney disease with heart failure and stage 1 through stage 4 chronic kidney disease, or unspecified chronic kidney disease; S42.001A Fracture of unspecified part of right clavicle, initial encounter for closed fracture; X58.XXXA Exposure to other specified factors, initial encounter; I25.10 Atherosclerotic heart disease of native coronary artery without angina pectoris; E78.5 Hyperlipidemia, unspecified; I48.91 Unspecified atrial fibrillation; J44.9 Chronic obstructive pulmonary disease, unspecified; S42.121A Displaced fracture of acromial process, right shoulder, initial encounter for closed fracture; S30.0XXA Contusion of lower back and pelvis, initial encounter; K74.60 Unspecified cirrhosis of liver; R91.8 Other nonspecific abnormal finding of lung field; S42.034A Nondisplaced fracture of lateral end of right clavicle, initial encounter for closed fracture; E87.6 Hypokalemia; R06.03 Acute respiratory distress; N18.3 Chronic kidney disease, stage 3 (moderate); Z95.1 Presence of aortocoronary bypass graft; Z95.2 Presence of prosthetic heart valve; Z95.810 Presence of automatic (implantable) cardiac defibrillator; R09.02 Hypoxemia
CPT/HCPCS: 36415; 36416; 36430; 70450; 71045; 71260; 72125; 72170; 74177; 80048; 80053; 81001; 82533; 82550; 82805; 83605; 83735; 83880; 84100; 85007; 85025; 85027; 85610; 85730; 86850; 86900; 86901; 87077; 87086; 87186; 90471; 90715; 93306; 94640; 94660; 96361; 96365; 96375; G0390; J1650; J1940; J2270; J2405; J2920; J3010; J3430; J7030; J7050; J7070; J7620; P9016; P9045; P9059; Q0163; Q9967; S0028

== ENCOUNTER 2020-07-15 10:36 | Inpatient (IN) | payer MEDICARE, OTHER ==
[2020-07-15] MEDS ORDERED: Albuterol Sulfate 2.5 mg/3 ml Neb ONE (11:10)
[2020-07-15] MEDS ORDERED: Dexamethasone 10 MG/ML VIAL ONE (11:11)
[2020-07-15] MEDS ORDERED: Magnesium 2 GM/50 ML BAG (IN WATER) ONE (11:14)
[2020-07-15 11:23] LABS: Actual Bicarbonate (HCO3a) 23.5 mEq/L (22-28); Analyzer IN Cardio ER; Base Excess (BEa) -2.5 mEq/L (-2.0 to +3.0); CO2 Tension 45.6 mmHg (35.0-45.0); Calcium, Ionized (arterial) 1.16 mmol/L (1.12-1.30); Hemoglobin (Hb) 10.7 g/dL (14.0-18.0); O2 Tension (PaO2), arterial 133.9 mmHg (> 70.0); Potassium - ABG Lab 3.91 mmol/L (3.70-5.30); pH, Arterial 7.33 (7.35-7.45)
[2020-07-15 11:23] LABS: #Basophils 0.1 thou/uL (0.0-0.2); #Eosinphils 0.1 thou/uL (0.0-0.7); #Lymphocytes 0.7 thou/uL (1.20-3.40); #Monocytes 1.1 thou/uL (0.11-0.59); #Neutrophils 5.6 thou/uL (1.40-6.50); %Eosinophils 0.7 % (0.0-10.0); %Lymphocytes 9.7 % (21.0-51.0); %Neutrophils 74.5 % (42.0-75.0); Hemoglobin 10.4 g/dL (14.0-18.0); Mean Corpuscular HGB CONC 30.5 g/dL (32.0-36.0); Mean Corpuscular Volume 98.3 fL (78.0-98.0); Mean Platelet Volume 8.6 fL (7.4-10.4); Platelet Count 155 thou/uL (130-400); RBC Distribution Width 15.2 % (11.5-14.5); Red Blood Cell (RBC) Count 3.47 mill/uL (4.70-6.10); White Blood Cell (WBC) Count 7.5 thou/uL (4.8-10.8)
--- NOTE | 2020-07-15 11:33 | RAD ---
PORTABLE CHEST 1 VIEW: DATE: 07/15/2020. TIME: 11:08 AM. HISTORY: Shortness of breath. COMPARISON: 06/19/2020. FINDINGS: Changes of median sternotomy are again seen. The heart size is stable. Left-sided pacing device rem ains in place. There is patchy consolidation in the right medial lung base. No pneumothoraces or pl eural effusions are seen. IMPRESSION: Findings suspicious for right basilar pneumonia. POS: OFF
[2020-07-15 11:40] LABS: ALT (SGPT) 7 U/L (8-55); AST (SGOT) 26 U/L (5-34); Albumin 3.8 g/dL (3.4-4.8); Alkaline Phosphatase 74 U/L (40-110); Anion Gap 18 mmol/L (10-20); BUN (Urea Nitrogen) 31 mg/dL (8.4-25.7); Bilirubin, Total 1.7 mg/dL (0.2-1.2); CK (CPK) 39 U/L (30-200); Calc. Creatinine Clearance 0 mL/min (70-130); Calcium 8.7 mg/dL (7.8-10.44); Carbon Dioxide 22 mmol/L (23-31); Chloride 106 mmol/L (98-107); Estimated GFR-MDRD 34; Glucose 104 mg/dL (83-110); Lipase 31 U/L (8-78); Potassium 4.2 mmol/L (3.5-5.1); Protein, Total 7.8 g/dL (5.8-8.1); Sodium 142 mmol/L (136-145)
[2020-07-15 11:44] LABS: CKMB 3.7 ng/mL (0-6.6)
[2020-07-15 11:52] LABS: Puncture Site RBRACH
[2020-07-15] MEDS ORDERED: Iopamidol-370 76% 500 ML 1 ML ONE (11:56)
--- NOTE | 2020-07-15 12:45 | CT ---
CT PULMONARY ANGIOGRAM WITH IV COTNRAST AND 3D POSTPROCESSING: HISTORY: Elevated D-dimer, COPD, CHF, worsening shortness of breath, and wheezing. FINDINGS: No filling defects are seen in the well opacified pulmonary arterial vasculature to suggest pulmonary embolism. There are vascular calcifications without evidence of aneurysmal dilatation of the thorac ic aorta. No pericardial effusion is seen. There is a small left and a moderate right pleural effus ion with adjacent atelectatic change. No pneumothoraces are identified. There is a 14 mm spiculated nodule in the left upper lobe. There are degenerative changes in the spine. Old right-sided rib fr actures are present. Upper abdominal tomograms demonstrate ascites. The 1.4 cm nodule in the left upper lobe is stable since 03/30/2020. The incomplete burst fracture of T8 with 40% anterior height loss and minimal retropulsion of the posterior superior end plate is sta ble. IMPRESSION: 1. No CT evidence of pulmonary embolism. 2. Bilateral pleural effusions, right larger than left. 3. Left upper lobe lung nodule is suspicious for malignancy. This should be evaluated with PET scan . 4. Ascites. CODE T POS: OFF
[2020-07-15 14:04] LABS: SARS-CoV-2 NAA Rapid Test Not Detected (NotDetected)
[2020-07-15] MEDS ORDERED: Ondansetron ODT 4 MG TAB SL PRN (15:10)
[2020-07-15] MEDS ORDERED: Ondansetron PF 4 MG/2 ML Vial IVP PRN ×2 (15:10→16:24)
[2020-07-15] MEDS ORDERED: Sodium Chloride 0.9% 1,000 ML IV SCH (15:15)
[2020-07-15] MEDS ORDERED: Ondansetron ODT 4 MG TAB PO PRN (16:24)
[2020-07-15] MEDS ORDERED: Acetaminophen 500 MG TAB PO PRN (16:24)
[2020-07-15] MEDS ORDERED: hydrALAZINE 20 MG/ML VIAL SLOW IVP PRN (16:24)
[2020-07-15] MEDS ORDERED: Furosemide 40 MG/4 ML VIAL SLOW IVP SCH (16:30)
[2020-07-15 19:15] LABS: Troponin I 0.029 ng/mL (< 0.028)
[2020-07-15] MEDS: Famotidine 20 MG TAB PO SCH (20:39)
[2020-07-15] MEDS: Metoprolol Tartrate 50 MG TAB PO SCH (20:39)
[2020-07-15 21:28] LABS: Troponin I 0.025 ng/mL (< 0.028)
[2020-07-15] MEDS ORDERED: Dexamethasone 4 mg/ml Vial SLOW IVP SCH (23:00)
--- NOTE | 2020-07-15 23:43 | HP ---
PRIMARY CARE PROVIDER: John Magana MD CHIEF COMPLAINT: Shortness of breath. HISTORY OF PRESENT ILLNESS: This is a 79-year-old male, who initially presented to [facility] Emergency Department complaining of increasing shortness of breath over the last 2 to 3 days. The patient states he had increased shortness of breath with minimal exertion, worse with lying down and associated with some swelling of his lower extremities. The patient states he has been taking a diuretic pill at home without specific improvement. The patient admits to dry cough. No fever, chills, recent exposure history. The patient states he was admitted in April 2020, after experiencing a crush injury after his truck fell on him while working on the vehicle, which led to a prolonged hospital stay and subsequent inpatient rehabilitation stay for approximately one month, transitioning to skilled care, which the patient was recently released back home two weeks prior to this evaluation. The patient states he has been ambulating with the use of a cane and has some assistance with meals and grocery shopping as he is unable to drive. The patient denies any use of nebulizers or metered-dose inhalers at home or home oxygen. The patient denied any other change to his chronic medication regimen and states he has been compliant. The patient denies any current smoking. In the emergency room, the patient underwent general evaluation including chest imaging showing likely bilateral pleural effusions. CT angiogram of the chest was also performed showing right greater than left pleural effusions without evidence of pulmonary embolus. The patient received IV normal saline x1 L in addition to DuoNeb, Levaquin, Decadron, and magnesium sulfate. PAST MEDICAL HISTORY: 1. Status post crush injury to the chest and pelvis with multiple fractures involving the pelvic, clavicle, acromion, thoracic, and S1-S2 region. 2. Chronic obstructive pulmonary disease. 3. Former tobacco use. 4. History of atrial fibrillation, on chronic anticoagulation with Coumadin. 5. Hypertension. 6. Congestive heart failure, unknown type. 7. Hyperlipidemia. 8. Coronary artery disease. 9. Aortic and mitral valvular disease. PAST SURGICAL HISTORY: 1. Status post aortic and mitral valve replacement. 2. Status post redo of the aortic valve replacement. 3. Status post coronary artery bypass grafting. 4. Status post hemorrhoidectomy. 5. Status post pacemaker placement. CURRENT MEDICATIONS: 1. Metoprolol tartrate 50 mg p.o. b.i.d. 2. Lasix 40 mg p.o. b.i.d. 3. Coumadin 10 mg p.o. daily. 4. Tylenol No. 3, 300/30 mg one tablet p.o. q.4 hours p.r.n. pain. ALLERGIES: NO KNOWN DRUG ALLERGIES. FAMILY HISTORY: Positive for breast cancer and a history of lung cancer due to exposure to coal mining. ALLERGIES: NO KNOWN DRUG ALLERGIES. SOCIAL HISTORY: . One daughter, who is the medical power of certified tumor registrar. No current alcohol, tobacco, or illicit drug use. Quit smoking in the last year after smoking for approximately 60 years. Remains full code. Ambulatory with a cane. Resides at his apartment in [place], [place]. REVIEW OF SYSTEMS: CONSTITUTIONAL: Negative for weight loss or gain, ability to conduct usual activities. SKIN: Negative for rash, itching. EYES: Negative for double vision, pain. ENT/MOUTH: Negative for nose bleeding, neck stiffness, pain, tenderness. CARDIOVASCULAR: Negative for palpitations, dyspnea on exertion, orthopnea. RESPIRATORY: Negative for shortness of breath, wheezing, cough, hemoptysis, fever or night sweats. GASTROINTESTINAL: Negative for poor appetite, abdominal pain, heartburn, nausea, vomiting, constipation, or diarrhea. GENITOURINARY: Negative for urgency, frequency, dysuria, nocturia. MUSCULOSKELETAL: Negative for pain, swelling. NEUROLOGIC/PSYCHIATRIC: Negative for anxiety, depression. ALLERGY/IMMUNOLOGIC: Negative for skin rash, bleeding tendency. Otherwise negative except as stated per HPI. PHYSICAL EXAMINATION: VITAL SIGNS: On admission, blood pressure 138/78, pulse 81, respiratory rate 16, temperature 98.3 degrees Fahrenheit, O2 saturation 98% on 2 L/minute by nasal cannula. GENERAL APPEARANCE: This is a 79-year-old male, alert and oriented x3, pleasant, responsive, in no acute distress. HEENT: Pupils are equal, round, reactive to light and accommodation. Extraocular muscles are intact. No scleral icterus. No conjunctival injection. Nares patent. OP is clear. Teeth in fair repair. NECK: Supple. No cervical adenopathy. No thyromegaly. No carotid bruits. No JVD appreciated. Cervical spine with full active and passive range of motion. No meningeal signs noted. CHEST: Diminished breath sounds in the bases bilaterally, right greater than left. Positive rhonchi and crackles bilaterally. CARDIOVASCULAR: S1, S2 with distant heart sounds. 2/6 systolic ejection murmur in the left upper sternal border. Left upper chest wall with pacemaker device in place. ABDOMEN: Rounded, soft with mild tenderness to palpation. No rebound or guarding noted. No palpable mass. Bowel sounds are positive in all 4 quadrants. EXTREMITIES: Warm and dry with fair turgor. No clubbing, cyanosis, or asymmetric edema appreciated. Pulses palpable distally at the dorsalis pedis, posterior tibial, and popliteal arteries bilaterally. Capillary refill less than 2 seconds. NEUROLOGIC: Cranial nerves 2 through 12 are grossly intact. No focal or lateralizing signs appreciated. PERTINENT LABORATORY AND X-RAY FINDINGS: Sodium 142, potassium 4.2, chloride 106, CO2 of 22, BUN 31, creatinine 1.92, estimated GFR of 34, glucose 104, lactic acid level 1.7, calcium 8.7, total bilirubin 1.7, AST 26, ALT of 7, alkaline phosphatase 74, total CK of 39. Troponin I negative x1. BNP 643; previously noted 159, 04/16/2020. Lipase 31. CBC showed a white blood cell count of 7.5, hemoglobin 10.4, hematocrit 34, MCV 98, platelet count 155 with normal differential. D-dimer 1.14. ABG dated 07/15/2020, showed a pH of 7.33, pCO2 of 46, pO2 of 134, bicarb 23.5, O2 saturation 98% on room air. SARS-CoV-2 PCR not detected. Portable chest x-ray dated, 07/15/2020, showed right basilar infiltrate. CT angiogram of the chest dated, 07/15/2020, showed bilateral pleural effusions, right greater than left. No evidence for pulmonary embolus. Left upper lobe lung nodule, suspicious for malignant process. Positive ascites. EKG dated, 07/15/2020, by my interpretation shows a V-paced rhythm in the 80s. ASSESSMENT AND PLAN: 1. Acute on chronic congestive heart failure. Review of the electronic medical record shows ejection fraction of 50% to 55% in March 2020. We will repeat 2D transthoracic echocardiogram given patient's presentation. Suspect multifactorial volume overload in addition to previous valvular disease with recent crush injury in April 2020. Continue Lasix 40 mg IV b.i.d. Repeat BNP in the a.m. Check magnesium level in the a.m. Continue serial cardiac biomarker monitoring. 2. Acute hypoxic respiratory failure. Continue oxygen supplementation to maintain O2 saturation greater than or equal to 90%. Add DuoNeb q.4 hours p.r.n. Suspect multifactorial. 3. Chronic obstructive pulmonary disease. No specific evidence of an acute exacerbation. Continue general pulmonary supportive management. 4. Chronic kidney disease stage 3. Avoid nephrotoxic agents and limit contrast exposure. Serial creatinine monitoring. 5. Chronic anticoagulation. Repeat PT/INR daily. Continue Coumadin 10 mg p.o. daily. 6. Status post crush injury to the chest and pelvis. Stable currently. We will obtain PT/OT evaluation for functional assessment. General fall risk precautions. 7. Prophylaxis. SCDs while in bed. Pepcid 20 mg p.o. b.i.d.. CODE STATUS: Full. Surrogate medical decision maker is the patient's daughter. Job ID: [id number]
[2020-07-16 04:20] LABS: INR-International Normal Ratio 2.4
[2020-07-16 04:23] LABS: #Basophils 0.1 thou/uL (0.0-0.2); #Lymphocytes 0.3 thou/uL (1.20-3.40); #Monocytes 0.4 thou/uL (0.11-0.59); #Neutrophils 2.7 thou/uL (1.40-6.50); %Basophils 1.6 % (0.0-1.0); %Eosinophils 0.5 % (0.0-10.0); %Lymphocytes 8.9 % (21.0-51.0); %Monocytes 10.4 % (0.0-10.0); %Neutrophils 78.6 % (42.0-75.0); Hemoglobin 9.1 g/dL (14.0-18.0); Mean Corpuscular HGB CONC 30.6 g/dL (32.0-36.0); Mean Corpuscular Hemoglobin 29.8 pg (27.0-31.0); Mean Corpuscular Volume 97.6 fL (78.0-98.0); Mean Platelet Volume 8.7 fL (7.4-10.4); Platelet Count 114 thou/uL (130-400); RBC Distribution Width 15.3 % (11.5-14.5); Red Blood Cell (RBC) Count 3.04 mill/uL (4.70-6.10); White Blood Cell (WBC) Count 3.4 thou/uL (4.8-10.8)
[2020-07-16 04:42] LABS: ALT (SGPT) Less than 7 U/L (8-55); AST (SGOT) 17 U/L (5-34); Albumin 3.2 g/dL (3.4-4.8); Alkaline Phosphatase 62 U/L (40-110); Anion Gap 12 mmol/L (10-20); BUN (Urea Nitrogen) 33 mg/dL (8.4-25.7); Calc. Creatinine Clearance 14 mL/min (70-130); Calcium 8.3 mg/dL (7.8-10.44); Carbon Dioxide 25 mmol/L (23-31); Chloride 106 mmol/L (98-107); Estimated GFR-MDRD 31; Globulin 3.5 g/dL (2.4-3.5); Glucose 152 mg/dL (83-110); Magnesium 2.6 mg/dL (1.6-2.6); Potassium 4.1 mmol/L (3.5-5.1); Protein, Total 6.7 g/dL (5.8-8.1); Sodium 139 mmol/L (136-145)
[2020-07-16] MEDS: Furosemide 40 MG/4 ML VIAL SLOW IVP SCH ×2 (05:30→14:31)
[2020-07-16] MEDS: Metoprolol Tartrate 50 MG TAB PO SCH ×2 (08:57→20:15)
[2020-07-16] MEDS: Famotidine 20 MG TAB PO SCH ×2 (08:57→20:15)
[2020-07-16] MEDS: Aspirin 81 mg Enteric Coated Tablet PO SCH (08:57)
[2020-07-16] MEDS ORDERED: Enoxaparin Sodium 40 MG/0.4 ML SYRINGE SC SCH (09:00)
[2020-07-16] MEDS ORDERED: Warfarin Sodium 10 MG TAB PO SCH (09:00)
[2020-07-16] MEDS: Piperacillin/Tazobactam 3.375 GM in Sodium Chloride 0.9% 100 ML IVPB SCH ×3 (11:01→23:48)
[2020-07-16] MEDS ORDERED: methylPREDNISolone Sod Succ 40 MG VIAL IVP SCH (12:15)
--- NOTE | 2020-07-16 15:34 | PDOC.HOSPP ---
- Subjective Encounter Date: 07/16/20 Encounter Time: 11:15 Subjective: pt up in bed no complains. - Objective Vital Signs & Weight: Vital Signs (12 hours) Temp Pulse Pulse Pulse Resp BP BP 07/16/20 13:37 77 18 07/16/20 12:29 97.6 F 74 16 07/16/20 09:37 78 78 141/71 H 148/69 H 07/16/20 07:57 98.4 F 77 14 07/16/20 07:55 BP Pulse Ox Pulse Ox 07/16/20 13:37 100 07/16/20 12:29 138/62 07/16/20 09:37 97 07/16/20 07:57 154/70 H 96 07/16/20 07:55 96 Weight Admit Weight 159 lb 6.4 oz Weight 157 lb 4.8 oz I&O: 07/15/20 07/16/20 07/17/20 06:59 06:59 06:59 Intake Total 720 360 Output Total 475 100 Balance 245 260 Result Diagrams: 07/16/20 04:00 07/16/20 04:00 Hospitalist ROS - Review of Systems Cardiovascular: denies: chest pain, palpitations, orthopnea, paroxysmal noc. dyspnea, edema, light headedness, other Gastrointestinal: denies: nausea, vomiting, abdominal pain, diarrhea, constipation, melena, hematochezia, other Genitourinary: denies: dysuria, frequency, incontinence, hematuria, retention, other - Medication Medications: Active Medications Generic Name Dose Route Start Last Admin Trade Name Freq PRN Reason Stop Dose Admin Aspirin 81 mg 07/16/20 09:00 07/16/20 08:57 Ecotrin PO 81 mg DAILY FRANDY Administration Famotidine 20 mg 07/15/20 21:00 07/16/20 08:57 Pepcid PO 20 mg BID FRANDY Administration Furosemide 40 mg 07/16/20 06:00 07/16/20 14:31 Lasix SLOW IVP 40 mg 0600,1400 FRANDY Administration Piperacillin Sod/Tazobactam 100 mls @ 200 mls/hr 07/16/20 12:00 07/16/20 11: 01 Sod 3.375 gm/ Sodium Chloride IVPB 100 mls Q6HR FRANDY Administration Metoprolol Tartrate 50 mg 07/15/20 21:00 07/16/20 08:57 Lopressor PO 50 mg BID FRANDY Administration Warfarin Sodium 10 mg 07/16/20 09:00 07/16/20 08:58 Coumadin PO 10 mg DAILY FRANDY Administration - Exam Heart: negative: RRR, no murmur, no gallops, no rubs, normal peripheral pulses, irregular, diminshed peripheral pulses, murmur present, II/IV, III/IV Respiratory: negative: CTAB, no wheezes, no rales, no ronchi, normal chest expansion, no tachypnea, normal percussion, rales, rhonchi, tachypneic, wheezes Gastrointestinal: negative: soft, non-tender, non-distended, normal bowel sounds , no palpable masses, no hepatomegaly, no splenomegaly, no bruit, no guarding, no rigidity, tender to palpation, distended, diminished bowl sounds, voluntary guarding Extremities: 2+ LE edema Extremities - other findings: lower ext Hosp A/P (1) Bacteremia Code(s): R78.81 - BACTEREMIA Status: Acute (2) Sepsis Code(s): A41.9 - SEPSIS, UNSPECIFIED ORGANISM Status: Acute (3) Atrial fibrillation Code(s): I48.91 - UNSPECIFIED ATRIAL FIBRILLATION Status: Acute Qualifiers: (4) Status post aortic valve and mitral valve replacement Code(s): Z95.2 - PRESENCE OF PROSTHETIC HEART VALVE Status: Acute (5) CKD (chronic kidney disease) Code(s): N18.9 - CHRONIC KIDNEY DISEASE, UNSPECIFIED Status: Acute (6) SOB (shortness of breath) Code(s): R06.02 - SHORTNESS OF BREATH Status: Acute (7) Lung nodule Code(s): R91.1 - SOLITARY PULMONARY NODULE Status: Acute - Plan will start pt on abx for now. will also put him on some steroids. sob possible due to copd exab vs valvular insufficiency. will also continue lasix for now. pt 's inr is therapeutic.
[2020-07-16] MEDS: Acetaminophen/Codeine 30-300mg Tablet PO PRN (16:13)
[2020-07-17 04:59] LABS: INR-International Normal Ratio 2.4; Prothrombin Time 25.9 sec (12.0-14.7)
[2020-07-17] MEDS: Piperacillin/Tazobactam 3.375 GM in Sodium Chloride 0.9% 100 ML IVPB SCH ×3 (05:18→17:49)
[2020-07-17] MEDS: Metolazone 2.5 MG TAB PO SCH (08:40)
[2020-07-17] MEDS: Aspirin 81 mg Enteric Coated Tablet PO SCH (08:40)
[2020-07-17] MEDS: Metoprolol Tartrate 50 MG TAB PO SCH ×2 (08:40→20:46)
[2020-07-17] MEDS ORDERED: predniSONE 20 MG TAB PO SCH (08:45)
[2020-07-17] MEDS ORDERED: Furosemide 40 MG/4 ML VIAL SLOW IVP SCH (09:00)
[2020-07-17] MEDS: Acetaminophen/Codeine 30-300mg Tablet PO PRN (09:57)
--- NOTE | 2020-07-17 13:27 | PDOC.HOSPP ---
- Subjective Encounter Date: 07/17/20 Encounter Time: 11:30 Subjective: pt up in bed no complains. - Objective Vital Signs & Weight: Vital Signs (12 hours) Temp Pulse Resp BP BP Pulse Ox 07/17/20 12:35 97.5 F L 65 14 120/56 L 98 07/17/20 07:10 97.6 F 77 16 144/72 H 99 07/17/20 03:47 97.9 F 77 18 156/74 H 97 Weight Admit Weight 159 lb 6.4 oz Weight 156 lb 6.4 oz I&O: 07/16/20 07/17/20 07/18/20 06:59 06:59 06:59 Intake Total 720 1437 Output Total 475 950 Balance 245 487 Result Diagrams: 07/16/20 04:00 07/16/20 04:00 Hospitalist ROS - Review of Systems Cardiovascular: denies: chest pain, palpitations, orthopnea, paroxysmal noc. dyspnea, edema, light headedness, other Gastrointestinal: denies: nausea, vomiting, abdominal pain, diarrhea, constipation, melena, hematochezia, other Genitourinary: denies: dysuria, frequency, incontinence, hematuria, retention, other - Medication Medications: Active Medications Generic Name Dose Route Start Last Admin Trade Name Freq PRN Reason Stop Dose Admin Acetaminophen/Codeine Phosphate 1 tab 07/15/20 16:24 07/17/20 09:57 Tylenol #3 PO 1 tab Q4H PRN Administration Moderate to Severe Pain (6-10) Aspirin 81 mg 07/16/20 09:00 07/17/20 08:40 Ecotrin PO 81 mg DAILY FRANDY Administration Furosemide 40 mg 07/17/20 09:00 07/17/20 08:40 Lasix SLOW IVP 40 mg DAILY FRANDY Administration Piperacillin Sod/Tazobactam 100 mls @ 200 mls/hr 07/16/20 12:00 07/17/20 12: 47 Sod 3.375 gm/ Sodium Chloride IVPB 100 mls Q6HR FRANDY Administration Metolazone 2.5 mg 07/17/20 08:30 07/17/20 08:40 Zaroxolyn PO 2.5 mg 0830 FRANDY Administration Metoprolol Tartrate 50 mg 07/15/20 21:00 07/17/20 08:40 Lopressor PO 50 mg BID FRANDY Administration - Exam Heart: negative: RRR, no murmur, no gallops, no rubs, normal peripheral pulses, irregular, diminshed peripheral pulses, murmur present, II/IV, III/IV Respiratory: wheezes Gastrointestinal: negative: soft, non-tender, non-distended, normal bowel sounds , no palpable masses, no hepatomegaly, no splenomegaly, no bruit, no guarding, no rigidity, tender to palpation, distended, diminished bowl sounds, voluntary guarding Extremities: 2+ LE edema Hosp A/P (1) Bacteremia Code(s): R78.81 - BACTEREMIA Status: Acute (2) Sepsis Code(s): A41.9 - SEPSIS, UNSPECIFIED ORGANISM Status: Acute (3) Atrial fibrillation Code(s): I48.91 - UNSPECIFIED ATRIAL FIBRILLATION Status: Acute Qualifiers: (4) Status post aortic valve and mitral valve replacement Code(s): Z95.2 - PRESENCE OF PROSTHETIC HEART VALVE Status: Acute (5) CKD (chronic kidney disease) Code(s): N18.9 - CHRONIC KIDNEY DISEASE, UNSPECIFIED Status: Acute (6) SOB (shortness of breath) Code(s): R06.02 - SHORTNESS OF BREATH Status: Acute (7) Lung nodule Code(s): R91.1 - SOLITARY PULMONARY NODULE Status: Acute - Plan will start pt on abx for now. will also put him on some steroids. sob possible due to copd exab vs valvular insufficiency. will also continue lasix for now. pt 's inr is therapeutic. 07/17 will continue to monitor. will continue lasix and steroids. INR is therapeutic. pt was suppose to see pulmonary and daughter wants me to consult pulm.
--- NOTE | 2020-07-17 14:14 | EKG ---
Test Reason : Blood Pressure : / mmHG Vent. Rate : 080 BPM Atrial Rate : 097 BPM P-R Int : 000 ms QRS Dur : 094 ms QT Int : 388 ms P-R-T Axes : 000 101 227 degrees QTc Int : 447 ms Ventricular-paced rhythm Abnormal ECG Confirmed by RONAK LUJAN MD ([id number]), dictionary editor LUCIANA ELIZALDE ([id number]) on 07/17/2020 2:13:54 PM Referred By: Confirmed By:RONAK LUJAN MD
[2020-07-17] MEDS: Warfarin Sodium 10 MG TAB PO SCH (17:50)
[2020-07-17] MEDS: Famotidine 20 MG TAB PO SCH (20:46)
[2020-07-18] MEDS: Piperacillin/Tazobactam 3.375 GM in Sodium Chloride 0.9% 100 ML IVPB SCH ×2 (00:55→05:29)
[2020-07-18 04:29] LABS: INR-International Normal Ratio 2.9; Prothrombin Time 29.7 sec (12.0-14.7)
[2020-07-18 04:43] LABS: Anion Gap 16 mmol/L (10-20); BUN (Urea Nitrogen) 48 mg/dL (8.4-25.7); Calc. Creatinine Clearance 25 mL/min (70-130); Calcium 8.4 mg/dL (7.8-10.44); Carbon Dioxide 24 mmol/L (23-31); Chloride 105 mmol/L (98-107); Estimated GFR-MDRD 26; Glucose 105 mg/dL (83-110); Potassium 4.1 mmol/L (3.5-5.1); Sodium 141 mmol/L (136-145)
[2020-07-18] MEDS: Aspirin 81 mg Enteric Coated Tablet PO SCH (08:44)
[2020-07-18] MEDS: predniSONE 20 MG TAB PO SCH (08:44)
[2020-07-18] MEDS: Metoprolol Tartrate 50 MG TAB PO SCH ×2 (08:44→20:19)
[2020-07-18] MEDS: Metolazone 2.5 MG TAB PO SCH (09:01)
--- NOTE | 2020-07-18 15:25 | PDOC.HOSPP ---
- Subjective Encounter Date: 07/18/20 Encounter Time: 11:30 Subjective: pt up in bed is oriented but unable to have a meaningful conversation. - Objective Vital Signs & Weight: Vital Signs (12 hours) Temp Pulse Pulse Pulse Resp BP BP 07/18/20 14:28 64 18 07/18/20 11:37 97.7 F 64 17 157/89 H 07/18/20 11:20 64 20 07/18/20 08:42 67 65 168/75 H 07/18/20 07:20 97.9 F 65 16 110/55 L 07/18/20 03:29 97.7 F 66 20 124/60 Pulse Ox 07/18/20 14:28 99 07/18/20 11:37 96 07/18/20 11:20 92 L 07/18/20 08:42 07/18/20 07:20 93 L 07/18/20 03:29 96 Weight Admit Weight 159 lb 6.4 oz Weight 157 lb 12.8 oz I&O: 07/17/20 07/18/20 07/19/20 06:59 06:59 06:59 Intake Total 1437 600 Output Total 950 175 Balance 487 425 Result Diagrams: 07/16/20 04:00 07/18/20 03:59 Hospitalist ROS - Review of Systems Cardiovascular: denies: chest pain, palpitations, orthopnea, paroxysmal noc. dyspnea, edema, light headedness, other Gastrointestinal: denies: nausea, vomiting, abdominal pain, diarrhea, constipation, melena, hematochezia, other Genitourinary: denies: dysuria, frequency, incontinence, hematuria, retention, other - Medication Medications: Active Medications Generic Name Dose Route Start Last Admin Trade Name Freq PRN Reason Stop Dose Admin Acetaminophen/Codeine Phosphate 1 tab 07/15/20 16:24 07/17/20 09:57 Tylenol #3 PO 1 tab Q4H PRN Administration Moderate to Severe Pain (6-10) Albuterol/Ipratropium 3 ml 07/18/20 10:30 07/18/20 14:28 Duoneb NEB 3 ml [id number] FRANDY Administration Aspirin 81 mg 07/16/20 09:00 07/18/20 08:44 Ecotrin PO 81 mg DAILY FRANDY Administration Famotidine 20 mg 07/17/20 21:00 07/17/20 20:46 Pepcid PO 20 mg 2100 FRANDY Administration Metoprolol Tartrate 50 mg 07/15/20 21:00 07/18/20 08:44 Lopressor PO 50 mg BID FRANDY Administration Prednisone 40 mg 07/18/20 08:00 07/18/20 08:44 Prednisone PO 07/20/20 09:00 40 mg QAM-WM FRANDY Administration Sodium Chloride 10 ml 07/17/20 21:00 07/18/20 08:48 Flush - Normal Saline IVF 10 ml Q12HR FRANDY Administration Warfarin Sodium 10 mg 07/17/20 17:00 07/17/20 17:50 Coumadin PO 10 mg 1700 FRANDY Administration - Exam Neck: negative: supple, symmetric, no JVD, no thyromegaly, no lymphadenopathy, no carotid bruit, JVD Heart: negative: RRR, no murmur, no gallops, no rubs, normal peripheral pulses, irregular, diminshed peripheral pulses, murmur present, II/IV, III/IV Respiratory: negative: CTAB, no wheezes, no rales, no ronchi, normal chest expansion, no tachypnea, normal percussion, rales, rhonchi, tachypneic, wheezes Gastrointestinal: negative: soft, non-tender, non-distended, normal bowel sounds , no palpable masses, no hepatomegaly, no splenomegaly, no bruit, no guarding, no rigidity, tender to palpation, distended, diminished bowl sounds, voluntary guarding Extremities: 2+ LE edema Hosp A/P (1) Bacteremia Code(s): R78.81 - BACTEREMIA Status: Acute (2) Sepsis Code(s): A41.9 - SEPSIS, UNSPECIFIED ORGANISM Status: Acute (3) Atrial fibrillation Code(s): I48.91 - UNSPECIFIED ATRIAL FIBRILLATION Status: Acute Qualifiers: (4) Status post aortic valve and mitral valve replacement Code(s): Z95.2 - PRESENCE OF PROSTHETIC HEART VALVE Status: Acute (5) CKD (chronic kidney disease) Code(s): N18.9 - CHRONIC KIDNEY DISEASE, UNSPECIFIED Status: Acute (6) SOB (shortness of breath) Code(s): R06.02 - SHORTNESS OF BREATH Status: Acute (7) Lung nodule Code(s): R91.1 - SOLITARY PULMONARY NODULE Status: Acute (8) SHANTELL (acute kidney injury) Code(s): N17.9 - ACUTE KIDNEY FAILURE, UNSPECIFIED Status: Acute - Plan will start pt on abx for now. will also put him on some steroids. sob possible due to copd exab vs valvular insufficiency. will also continue lasix for now. pt 's inr is therapeutic. 07/17 will continue to monitor. will continue lasix and steroids. INR is therapeutic. pt was suppose to see pulmonary and daughter wants me to consult pulm. 07/18 will stop lasix for now. will monitor creatinine. pt's is oriented x3 but i do not feel he can take care of himself at home.He is not safe to be alone. He gets confused at night. I spoke with his daughter who is trying to move him closer to her but this will take time. According to her he signed out AMA from the last [facility]. I do not think this pt can make safe decisions for himself. spoke with complex case manager for possible placement.
[2020-07-18] MEDS: Warfarin Sodium 10 MG TAB PO SCH (17:21)
[2020-07-18] MEDS: Famotidine 20 MG TAB PO SCH (20:19)
[2020-07-18] MEDS: Acetaminophen/Codeine 30-300mg Tablet PO PRN (20:19)
[2020-07-19 05:06] LABS: INR-International Normal Ratio 3.1; Prothrombin Time 31.7 sec (12.0-14.7)
[2020-07-19] MEDS: predniSONE 20 MG TAB PO SCH (08:10)
[2020-07-19] MEDS: Aspirin 81 mg Enteric Coated Tablet PO SCH (08:10)
[2020-07-19] MEDS: Metoprolol Tartrate 50 MG TAB PO SCH ×2 (08:10→21:29)
[2020-07-19 13:59] VITALS: BMI 24.7
--- NOTE | 2020-07-19 14:00 | PDOC.HOSPP ---
- Subjective Encounter Date: 07/19/20 Encounter Time: 11:30 Subjective: pt up in bed no complains. - Objective Vital Signs & Weight: Vital Signs (12 hours) Temp Pulse Resp BP Pulse Ox 07/19/20 11:22 98.2 F 74 16 120/56 L 98 07/19/20 10:27 76 16 89 L 07/19/20 08:03 97.6 F 53 L 20 134/72 94 L 07/19/20 07:14 89 L 07/19/20 07:13 69 16 89 L 07/19/20 04:35 97.7 F 74 18 144/72 H 93 L Weight Admit Weight 159 lb 6.4 oz Weight 157 lb 15.026 oz I&O: 07/18/20 07/19/20 07/20/20 06:59 06:59 06:59 Intake Total 600 1240 Output Total 175 850 Balance 425 390 Result Diagrams: 07/16/20 04:00 07/18/20 03:59 Hospitalist ROS - Review of Systems Respiratory: denies: cough, dry, shortness of breath, hemoptysis, SOB with excertion, pleuritic pain, sputum, wheezing, other Cardiovascular: denies: chest pain, palpitations, orthopnea, paroxysmal noc. dyspnea, edema, light headedness, other Gastrointestinal: denies: nausea, vomiting, abdominal pain, diarrhea, constipation, melena, hematochezia, other - Medication Medications: Active Medications Generic Name Dose Route Start Last Admin Trade Name Freq PRN Reason Stop Dose Admin Acetaminophen/Codeine Phosphate 1 tab 07/15/20 16:24 07/18/20 20:19 Tylenol #3 PO 1 tab Q4H PRN Administration Moderate to Severe Pain (6-10) Albuterol/Ipratropium 3 ml 07/18/20 10:30 07/19/20 10:27 Duoneb NEB 3 ml [id number] FRANDY Administration Aspirin 81 mg 07/16/20 09:00 07/19/20 08:10 Ecotrin PO 81 mg DAILY FRANDY Administration Famotidine 20 mg 07/17/20 21:00 07/18/20 20:19 Pepcid PO 20 mg 2100 FRANDY Administration Metoprolol Tartrate 50 mg 07/15/20 21:00 07/19/20 08:10 Lopressor PO 50 mg BID FRANDY Administration Prednisone 40 mg 07/18/20 08:00 07/19/20 08:10 Prednisone PO 07/20/20 09:00 40 mg QAM-WM FRANDY Administration Sodium Chloride 10 ml 07/17/20 21:00 07/19/20 08:10 Flush - Normal Saline IVF 10 ml Q12HR FRANDY Administration Warfarin Sodium 10 mg 07/17/20 17:00 07/18/20 17:21 Coumadin PO 10 mg 1700 FRANDY Administration - Exam Neck: negative: supple, symmetric, no JVD, no thyromegaly, no lymphadenopathy, no carotid bruit, JVD Heart: negative: RRR, no murmur, no gallops, no rubs, normal peripheral pulses, irregular, diminshed peripheral pulses, murmur present, II/IV, III/IV Respiratory: negative: CTAB, no wheezes, no rales, no ronchi, normal chest expansion, no tachypnea, normal percussion, rales, rhonchi, tachypneic, wheezes Gastrointestinal: negative: soft, non-tender, non-distended, normal bowel sounds , no palpable masses, no hepatomegaly, no splenomegaly, no bruit, no guarding, no rigidity, tender to palpation, distended, diminished bowl sounds, voluntary guarding Hosp A/P (1) Bacteremia Code(s): R78.81 - BACTEREMIA Status: Acute (2) Sepsis Code(s): A41.9 - SEPSIS, UNSPECIFIED ORGANISM Status: Acute (3) Atrial fibrillation Code(s): I48.91 - UNSPECIFIED ATRIAL FIBRILLATION Status: Acute Qualifiers: (4) Status post aortic valve and mitral valve replacement Code(s): Z95.2 - PRESENCE OF PROSTHETIC HEART VALVE Status: Acute (5) CKD (chronic kidney disease) Code(s): N18.9 - CHRONIC KIDNEY DISEASE, UNSPECIFIED Status: Acute (6) SOB (shortness of breath) Code(s): R06.02 - SHORTNESS OF BREATH Status: Acute (7) Lung nodule Code(s): R91.1 - SOLITARY PULMONARY NODULE Status: Acute (8) SHANTELL (acute kidney injury) Code(s): N17.9 - ACUTE KIDNEY FAILURE, UNSPECIFIED Status: Acute - Plan will start pt on abx for now. will also put him on some steroids. sob possible due to copd exab vs valvular insufficiency. will also continue lasix for now. pt 's inr is therapeutic. 07/17 will continue to monitor. will continue lasix and steroids. INR is therapeutic. pt was suppose to see pulmonary and daughter wants me to consult pulm. 07/18 will stop lasix for now. will monitor creatinine. pt's is oriented x3 but i do not feel he can take care of himself at home.He is not safe to be alone. He gets confused at night. I spoke with his daughter who is trying to move him closer to her but this will take time. According to her he signed out AMA from the last care home. I do not think this pt can make safe decisions for himself. spoke with corrections caseworker for possible placement. 07/19 pt medically improving. I was informed that pt's daughter will not be able to pick him up until Thursday. pt's inr is therapeutic.
[2020-07-19 14:46] LABS: Anion Gap 17 mmol/L (10-20); BUN (Urea Nitrogen) 55 mg/dL (8.4-25.7); Calc. Creatinine Clearance 22 mL/min (70-130); Calcium 8.7 mg/dL (7.8-10.44); Carbon Dioxide 22 mmol/L (23-31); Chloride 104 mmol/L (98-107); Estimated GFR-MDRD 23; Glucose 126 mg/dL (83-110); Potassium 4.4 mmol/L (3.5-5.1); Sodium 139 mmol/L (136-145)
[2020-07-19] MEDS: Warfarin Sodium 10 MG TAB PO SCH (16:39)
[2020-07-19] MEDS ORDERED: Sodium Chloride 0.9% 500 ML IV SCH (17:15)
[2020-07-19] MEDS: Acetaminophen/Codeine 30-300mg Tablet PO PRN (18:18)
[2020-07-19] MEDS: Famotidine 20 MG TAB PO SCH (21:29)
--- NOTE | 2020-07-19 21:34 | PQF ---
CLINICAL DOCUMENTATION CLARIFICATION FORM: Dear Dr. BALA TAYLOR Date: 07-19-20 Please exercise your independent, professional judgment in responding to the clarification form. Clinical indicators are provided on the bottom of this form for your review. Diagnosis: SEPSIS Present on Admission (POA): [ ] Yes [ x ] No [ ] Unable to determine For continuity of documentation, please document condition throughout progress notes and discharge summary. Thank You. To be completed by CDI/Coding staff for physician review: no penumonia noted. CLINICAL INDICATORS - SIGNS / SYMPTOMS / LABS / RESULTS AND LOCATION IN MR: ER DX: RLL PNEUMONIA WITH HYPOXIA, CHF, COPD H&P 07-15-20: ACUTE ON CHRONIC CHF, ACUTE HYPOXIC RESPIRATORY FAILURE, COPD, CKD [address] TAYLOR 07-16-20: BACTEREMIA, ACUTE SEPSIS WBC: 07-16-20: 3.4 NEUTROPHILS %: 07-16-20: 78.6% RISK FACTORS / RESULTS AND LOCATION IN MR: PN DR. TAYLOR 07-16-20: BACTEREMIA, ACUTE SEPSIS H&P 07-15-20: ACUTE ON CHRONIC CHF, ACUTE HYPOXIC RESPIRATORY FAILURE, COPD, CKD 3 TREATMENT / RESULTS AND LOCATION IN MR: ER NOTES 07-15-20: NS IVF, LEVAQUIN IVP, MAGNESIUM SULFATE IVP CDS Signature: Cher Buckley Phone #:[phone] Date: 07-19-20 This is a permanent part of the Medical Record [facility]
[2020-07-20] MEDS: Acetaminophen/Codeine 30-300mg Tablet PO PRN ×2 (03:30→19:57)
[2020-07-20 06:14] LABS: INR-International Normal Ratio 3.9; Prothrombin Time 37.7 sec (12.0-14.7)
[2020-07-20 06:32] LABS: Anion Gap 14 mmol/L (10-20); BUN (Urea Nitrogen) 59 mg/dL (8.4-25.7); Calc. Creatinine Clearance 24 mL/min (70-130); Calcium 8.3 mg/dL (7.8-10.44); Carbon Dioxide 25 mmol/L (23-31); Chloride 105 mmol/L (98-107); Estimated GFR-MDRD 24; Glucose 99 mg/dL (83-110); Potassium 4.3 mmol/L (3.5-5.1); Sodium 140 mmol/L (136-145)
[2020-07-20] MEDS ORDERED: Warfarin Sodium 7.5 MG TAB PO SCH (07:45)
[2020-07-20] MEDS: Metoprolol Tartrate 50 MG TAB PO SCH ×2 (08:41→19:55)
[2020-07-20] MEDS: Aspirin 81 mg Enteric Coated Tablet PO SCH (08:42)
[2020-07-20] MEDS: predniSONE 20 MG TAB PO SCH (08:42)
--- NOTE | 2020-07-20 09:23 | PRG ---
DATE OF SERVICE: 07/20/2020 SUBJECTIVE: Dustin Desai was seen in followup. He was scheduled to have an appointment with me this week, but was in the hospital. His radiographs have been reviewed. Pulmonary nodule, he is seeing me for is unchanged in size. As an outpatient, we need to set up PET imaging, although it is debatable whether he is a candidate for any type of surgical procedure. He may be a candidate for stereotactic radiation. Functionally, he is much older than his age in my opinion. An echocardiogram was done in this admission that is of poor quality. He can't tell me who his toll line mechanic is. Looking back through medical records, I do not see where he has been seen by any toll line mechanic here. He tells me he has been seen by Dr. Mahmood here, but does not routinely see Dr. Mahmood. He has spelled the name of a toll line mechanic that is not in this town, but he says the patient, his toll line mechanic is in town. CT scan shows stable nodule in his upper lobe. He has right greater than left pleural effusions, which are overwhelmingly likely to be of cardiac origin. He had no evidence of thromboembolic disease. PHYSICAL EXAMINATION: VITAL SIGNS: He is afebrile, heart rate is 80, respiratory rate is 20, oximetry is 95% on room air, blood pressure is 127/95. HEAD AND NECK: Unremarkable. He appears older than his age. He appears to be mildly encephalopathic. LUNGS: Clear. HEART: Regular rhythm. He has grade 2/6 systolic murmur. ABDOMEN: Soft and nontender. EXTREMITIES: Without edema. LABORATORY DATA: White count 3.4, hemoglobin 9.1, platelets 114,000. BUN is 59, creatinine is 2.59. Creatinine on the 7th was 2.05. Intakes and outputs, positive 450, although there is no output recorded. His BNP was 643 on admission. IMPRESSION AND PLAN: 1. Stable pulmonary nodule with marginal functional status. PET imaging would be helpful and working this up. It has not grown in 4 months. 2. Pancytopenia. 3. Acute on chronic kidney disease. 4. Hypoalbuminemia. 5. Right greater than left pleural effusion, most likely of cardiac etiology. I encouraged him to make an appointment to see me in 2 to 3 weeks. Job ID: [id number]
--- NOTE | 2020-07-20 10:19 | ULT ---
ULTRASOUND RETROPERITONEUM COMPLETE: (RENAL) DATE: 07/20/2020 HISTORY: 79-year-old male with acute kidney injury FINDINGS: Moderate volume of free intraperitoneal fluid. Right kidney: 7.5 x 4 x 4 cm. Left kidney: 9 x 4.5 x 4 cm. No hydronephrosis. No moderate sized or large renal cyst or solid mass. Urinary bladder volume 90 mL at time of scan with normal, thin galeano. IMPRESSION: 1) ascites. 2) no hydronephrosis. 3) bilateral kidneys are slightly small.
[2020-07-20] MEDS ORDERED: Sodium Chloride 0.9% 500 ML IV SCH (11:45)
--- NOTE | 2020-07-20 11:47 | PDOC.HOSPP ---
- Subjective Encounter Date: 07/20/20 Encounter Time: 11:45 Subjective: pt up in bed no complains. - Objective Vital Signs & Weight: Vital Signs (12 hours) Temp Pulse Resp BP Pulse Ox 07/20/20 08:00 98.0 F 76 20 144/65 H 89 L 07/20/20 07:00 95 07/20/20 06:57 76 24 H 07/20/20 03:34 97.5 F L 81 20 127/95 H 95 07/20/20 00:20 98.2 F 63 19 117/71 93 L Weight Admit Weight 159 lb 6.4 oz Weight 160 lb 9.708 oz I&O: 07/19/20 07/20/20 07/21/20 06:59 06:59 06:59 Intake Total 1240 450 Output Total 850 Balance 390 450 Result Diagrams: 07/16/20 04:00 07/20/20 05:37 Hospitalist ROS - Review of Systems Respiratory: denies: cough, dry, shortness of breath, hemoptysis, SOB with excertion, pleuritic pain, sputum, wheezing, other Cardiovascular: denies: chest pain, palpitations, orthopnea, paroxysmal noc. dyspnea, edema, light headedness, other Gastrointestinal: denies: nausea, vomiting, abdominal pain, diarrhea, constipation, melena, hematochezia, other - Medication Medications: Active Medications Generic Name Dose Route Start Last Admin Trade Name Freq PRN Reason Stop Dose Admin Acetaminophen/Codeine Phosphate 1 tab 07/15/20 16:24 07/20/20 03:30 Tylenol #3 PO 1 tab Q4H PRN Administration Moderate to Severe Pain (6-10) Albuterol/Ipratropium 3 ml 07/18/20 10:30 07/20/20 06:57 Duoneb NEB 3 ml [id number] FRANDY Administration Aspirin 81 mg 07/16/20 09:00 07/20/20 08:42 Ecotrin PO 81 mg DAILY FRANDY Administration Famotidine 20 mg 07/17/20 21:00 07/19/20 21:29 Pepcid PO 20 mg 2100 FRANDY Administration Metoprolol Tartrate 50 mg 07/15/20 21:00 07/20/20 08:41 Lopressor PO 50 mg BID FRANYD Administration Sodium Chloride 10 ml 07/17/20 21:07/20/20 08:43 Flush - Normal Saline IVF 10 ml Q12HR FRANDY Administration - Exam Neck: negative: supple, symmetric, no JVD, no thyromegaly, no lymphadenopathy, no carotid bruit, JVD Heart: negative: RRR, no murmur, no gallops, no rubs, normal peripheral pulses, irregular, diminshed peripheral pulses, murmur present, II/IV, III/IV Respiratory: negative: CTAB, no wheezes, no rales, no ronchi, normal chest expansion, no tachypnea, normal percussion, rales, rhonchi, tachypneic, wheezes Gastrointestinal: negative: soft, non-tender, non-distended, normal bowel sounds , no palpable masses, no hepatomegaly, no splenomegaly, no bruit, no guarding, no rigidity, tender to palpation, distended, diminished bowl sounds, voluntary guarding Extremities: 2+ LE edema Hosp A/P (1) Bacteremia Code(s): R78.81 - BACTEREMIA Status: Acute (2) Sepsis Code(s): A41.9 - SEPSIS, UNSPECIFIED ORGANISM Status: Acute (3) Atrial fibrillation Code(s): I48.91 - UNSPECIFIED ATRIAL FIBRILLATION Status: Acute Qualifiers: (4) Status post aortic valve and mitral valve replacement Code(s): Z95.2 - PRESENCE OF PROSTHETIC HEART VALVE Status: Acute (5) CKD (chronic kidney disease) Code(s): N18.9 - CHRONIC KIDNEY DISEASE, UNSPECIFIED Status: Acute (6) SOB (shortness of breath) Code(s): R06.02 - SHORTNESS OF BREATH Status: Acute (7) Lung nodule Code(s): R91.1 - SOLITARY PULMONARY NODULE Status: Acute (8) SHANTELL (acute kidney injury) Code(s): N17.9 - ACUTE KIDNEY FAILURE, UNSPECIFIED Status: Acute - Plan will start pt on abx for now. will also put him on some steroids. sob possible due to copd exab vs valvular insufficiency. will also continue lasix for now. pt 's inr is therapeutic. 07/17 will continue to monitor. will continue lasix and steroids. INR is therapeutic. pt was suppose to see pulmonary and daughter wants me to consult pulm. 07/18 will stop lasix for now. will monitor creatinine. pt's is oriented x3 but i do not feel he can take care of himself at home.He is not safe to be alone. He gets confused at night. I spoke with his daughter who is trying to move him closer to her but this will take time. According to her he signed [facility]. I do not think this pt can make safe decisions for himself. spoke with caser up for possible placement. 07/19 pt medically improving. I was informed that pt's daughter will not be able to pick him up until Thursday. pt's inr is therapeutic. 07/20 will give another 500ml bolus of ns. renal ultrasound no acute changes. pt seen by pulmonary will need to follow up with pulmonary in the next 2-4 weeks. pt and family updated. His inr was elelvated will cut back on his coumadin.
[2020-07-20] MEDS: Famotidine 20 MG TAB PO SCH (19:54)
[2020-07-21 06:49] LABS: INR-International Normal Ratio 3.8; Prothrombin Time 37.5 sec (12.0-14.7)
[2020-07-21 06:58] LABS: Anion Gap 13 mmol/L (10-20); BUN (Urea Nitrogen) 66 mg/dL (8.4-25.7); Calc. Creatinine Clearance 27 mL/min (70-130); Calcium 8.3 mg/dL (7.8-10.44); Carbon Dioxide 26 mmol/L (23-31); Chloride 105 mmol/L (98-107); Estimated GFR-MDRD 27; Glucose 96 mg/dL (83-110); Potassium 4.5 mmol/L (3.5-5.1); Sodium 139 mmol/L (136-145)
[2020-07-21] MEDS: Aspirin 81 mg Enteric Coated Tablet PO SCH (08:13)
[2020-07-21] MEDS: Metoprolol Tartrate 50 MG TAB PO SCH (08:14)
[2020-07-21 11:10] VITALS: TEMP 97.8
--- NOTE | 2020-07-21 12:15 | RAD ---
PORTABLE CHEST: Date: 07/21/2020 HISTORY: Pleural effusions. COMPARISON: 07/15/2020. FINDINGS: Cardiomegaly with postop sternotomy change. Pacemaker leads again noted. There is hazy infiltrate in the right lower lung which appears new. The bilateral effusions do not appear significantly changed o n this portable upright exam. Vascular markings upper normal and stable. IMPRESSION: Evidence of new or increasing infiltrate in the right lower lung. Bilateral effusions appear stable. POS: AGW
[2020-07-21 15:51] VITALS: BP 125/70
[2020-07-21] MEDS ORDERED: Warfarin Sodium 7.5 MG TAB PO SCH (17:00)
--- NOTE | 2020-07-23 12:32 | DIS ---
DATE OF ADMISSION: 07/15/2020 DATE OF DISCHARGE: 07/21/2020 DISCHARGE DIAGNOSES: 1. Acute hypoxic respiratory failure secondary to pulmonary edema versus right lower lobe pneumonia. 2. Acute kidney injury. 3. Elevated troponin, likely secondary to type 2 demand ischemia. 4. ESSIE nodule CONSULTATIONS: None. PROCEDURES PERFORMED: None. BRIEF HISTORY OF PRESENT ILLNESS: This is a 79-year-old male with a past medical history of tobacco use, atrial fibrillation, and hypertension, presented to the emergency room with increasing shortness of breath for the last 2 to 3 days. The patient reported orthopnea and peripheral edema. When the patient presented to the emergency room, he had a CT of his chest, which showed bilateral pleural effusions without evidence of a pulmonary embolism. He was given antibiotics and normal saline and admitted for further workup. HOSPITAL COURSE: Acute hypoxic respiratory failure secondary to pulmonary edema versus pneumonia: The patient was originally started on IV Zosyn on 07/15, steroids and lasix. His Lasix was discontinued due to worsening creatinine on 07/18. His oxygen requirement improved, and the patient was weaned down to room air. The patient states he has oxygen at home, but has not had to use it recently. Repeat chest x-ray on the day of discharge showed persistent bilateral effusions with a new or increasing infiltrate in the right lower lung. He was given a prescription for Levaquin for an additional 2 days to complete a 5-day course of antibiotics. Given that his creatinine improved with 2 days of IV fluids, he was told not to resume his Lasix until . He should get a repeat chest x-ray within 6 weeks. He should follow up with his PCP in a week. Left upper lobe lung nodule: This was incidentally noted on CT of the chest. It was [address] Ferguson saw the patient and recommended followup in 3 to 4 weeks. He should get an outpatient PET scan. Supratherapeutic INR: The patient received Coumadin while in the hospital, and his INR increased to 3.1 on 07/19. On 07/21, his INR was 3.8. His Coumadin was held on discharge. I spoke with his daughter and the patient as well to have INR rechecked on Thursday. She stated she would ask her home health nurse to check INR and follow up results with his PCP. Elevated troponin: The patient's troponin slightly peaked to 0.29. He denied any complaints of chest pain. Echocardiogram showed [id number]-[id number] tricuspid regurgitation, severely elevated pulmonary artery pressure, and an ejection fraction of 50% to 55%, but no wall motion abnormalities. Consider followup with a fiction and nonfiction writer prose as an outpatient. Acute kidney injury: The patient's creatinine was 1.92 on admission and increased to 2.72 with diuretic therapy. He was given IV fluids on 07/19 and 07/20, and his creatinine improved to 2.35. He should repeat his BMP in 1 week with his PCP. Renal ultrasound was done on 07/20, which showed mild ascites, but no hydronephrosis. DISCHARGE PHYSICAL EXAMINATION: VITAL SIGNS: Temperature 97.8, HR 74, RR 18, O2 saturation 93% on room air, BP 125/70. GENERAL: The patient is alert, awake, and oriented x3. CVS: The patient has a mechanical mitral valve. Difficult to assess murmurs. LUNGS: Slightly diminished at the bases. ABDOMEN: Positive bowel sounds. Soft, nontender, and nondistended. EXTREMITIES: No edema. PERTINENT LABORATORY DATA: CBC, 07/16: White count 3.4, hemoglobin 9.1, hematocrit 29.6, platelet count 114. BMP, 07/16: Shows a BUN of 33; creatinine 2.05, which is improved from 2.59 on 07/20. Troponin I: Peaked at 0.029 and then came down to 0.025. CK-MB: 3.7. LFTs, 07/16: Normal. BNP, 07/16: 634. TSH, 07/16: 1.4. COVID PCR, 07/15: Negative. IMAGING STUDIES: Chest x-ray, 07/15: Right basilar pneumonia. CTA thorax, 07/15: Bilateral pleural effusions, right greater than left. Left upper lobe nodule is suspicious for malignancy. Ascites. Renal ultrasound, 07/20: No hydronephrosis. Ascites. Bilateral kidneys are small. Chest x-ray, 07/21: Evidence of new or increasing infiltrate in the right lower lung. Bilateral effusions appear stable. Echo, 07/18: Ejection fraction 50% to 55%. Mechanical mitral valve in place. Lzcmzgyz-ij-ujwnoc tricuspid regurgitation. Xdeebpqx-we-heogennb elevated pulmonary artery pressure. DISCHARGE CONDITION: Stable. ACTIVITY: As tolerated. DIET: Heart-healthy diet with a 2 L fluid restriction. DISCHARGE MEDICATIONS: 1. Lasix 40 mg p.o. b.i.d. 2. Metoprolol 50 mg p.o. b.i.d. 3. Tylenol 650 mg p.o. q.8 hours. 4. Flexeril 5 mg p.o. t.i.d. 5. Levaquin 750 mg daily for 2 tables. DISCHARGE INSTRUCTIONS: The patient should follow up with her PCP in a week and get a BMP repeated in a week. He should resume his Lasix on 07/24. Continue antibiotics for an additional few days. Follow up with Dr. Ferguson in 3 to 4 weeks for his left upper lobe lung nodule. Please have your INR checked on Thursday. Job ID: [id number] MTDD
--- NOTE | 2020-07-24 08:14 | PQF ---
CLINICAL DOCUMENTATION CLARIFICATION FORM: Dear Dr. BALA TAYLOR Date: 07-23-20 Please exercise your independent, professional judgment in responding to the clarification form. Clinical indicators are provided on the bottom of this form for your review. Please check appropriate box(es) to clarify if the following diagnosis has been ruled in our ruled out: RLL PNEUMONIA [ ] Ruled in diagnosis [ ] Continue to treat [ ] Resolved [ ] Ruled out diagnosis [ ] Other diagnosis [ ] Unable to determine In addition, please specify: Present on Admission (POA): [ ] Yes [ ] No [ ] Unable to determine For continuity of documentation, please document condition throughout progress notes and discharge summary. Thank You. To be completed by CDI/Coding staff for physician review: CLINICAL INDICATORS - SIGNS / SYMPTOMS / LABS / RESULTS AND LOCATION IN MR: ER DX: 07-15-20: RLL PNEUMONIA WITH HYPOXIA, CHF, COPD H&P 07-15-20: SOB, A/P: ACUTE ON CHRONIC CONGESTIVE HEART FAILURE, ACUTE HYPOXIC RESPIRATORY FAILURE, COPD, CKD3 CTA CHEST 07-15-20: BILATERAL PLEURAL EFFUSIONS, RIGHT LARGER THAN LEFT, LEFT UPPER LOBE LUNG NODULE IS SUSPICIOUS FOR MALIGNANCY, ASCITES RISK FACTORS / RESULTS AND LOCATION IN MR: H&P: HX COPD, FORMER TOBACCO USE, CHF, CAD, HTN, A FIB TREATMENTS / RESULTS AND LOCATION IN MR: ER NOTES 07-15-20: NS IVF, DUONEBS, ALBUTEROL INH, LEVAQUIN IV Pulmonary consult 07-20-20 CDS Signature: Cher Buckley Phone #: [phone] Date: 07-23-20 This is a permanent part of the Medical Record [facility]
== END 2020-07-21 17:24 | disposition home or self-care (01) | DRG 189 ==
LOC: ERS 10:36 → 2NO 12:40 → T4-A 07-19 17:16
PROVIDERS: ADMIT Family Medicine; ATTEND Family Medicine
DX: J96.01 Acute respiratory failure with hypoxia (principal); A41.9 Sepsis, unspecified organism; J18.9 Pneumonia, unspecified organism; I13.0 Hypertensive heart and chronic kidney disease with heart failure and stage 1 through stage 4 chronic kidney disease, or unspecified chronic kidney disease; N17.9 Acute kidney failure, unspecified; J44.1 Chronic obstructive pulmonary disease with (acute) exacerbation; D61.818 Other pancytopenia; I24.8 Other forms of acute ischemic heart disease; I07.1 Rheumatic tricuspid insufficiency; Z20.828 Contact with and (suspected) exposure to other viral communicable diseases; R91.1 Solitary pulmonary nodule; I50.9 Heart failure, unspecified; E78.5 Hyperlipidemia, unspecified; I25.10 Atherosclerotic heart disease of native coronary artery without angina pectoris; I48.91 Unspecified atrial fibrillation; N18.3 Chronic kidney disease, stage 3 (moderate); Z95.1 Presence of aortocoronary bypass graft; Z95.2 Presence of prosthetic heart valve; Z95.0 Presence of cardiac pacemaker; Z87.891 Personal history of nicotine dependence; Z79.01 Long term (current) use of anticoagulants; Z79.899 Other long term (current) drug therapy
CPT/HCPCS: 36415; 36600; 71045; 71275; 76770; 80048; 80053; 82550; 82553; 82805; 83605; 83690; 83735; 83880; 84443; 84484; 85025; 85379; 85610; 87040; 87149; 93005; 93798; 94640; 94644; 97139; J1100; J1650; J1940; J1956; J2543; J2920; J3475; J3490; J7512; J7611; J7620; Q9967; U0002

== ENCOUNTER 2020-07-24 17:56 | Inpatient (IN) | payer MEDICARE ==
--- NOTE | 2020-07-24 19:02 | CT ---
Head CT without contrast 07/24/2020: COMPARISON: 04/01/2020 HISTORY: Altered mental status TECHNIQUE: Axial CT imaging at 5 mm intervals from vertex through skull base without contrast FINDINGS: The visualized paranasal sinuses and mastoid air cells are well aerated. No displaced jarrod rial fracture is seen. Stable periventricular hypodensity, right greater than left, suggesting small vessel disease. No intracranial hemorrhage, midline shift, or mass effect. IMPRESSION: No acute findings.
--- NOTE | 2020-07-24 19:15 | RAD ---
Portable frontal chest radiograph: 07/24/2020 COMPARISON: 07/21/2020 HISTORY: Altered mental status FINDINGS: Midline sternotomy wires are present. Stable transvenous pacing device. No pneumothorax is seen. Hazy increased density noted in the perihilar regions and both lung bases, right greater than left, w orsened when compared to the prior examination. Questionable small volume pleural effusions bilaterally. IMPRESSION: Worsening nonspecific perihilar and bibasilar parenchymal opacity, right greater than lef t. Findings may signify worsening edema, infectious pneumonitis, and/or aspiration. Follow-up imaging following treatment to document resolution advised.
[2020-07-24 19:29] LABS: Albumin 3.5 g/dL (3.4-4.8); Hemoglobin 6.3 g/dL (14.0-18.0); Mean Corpuscular Volume 96.8 fL (78.0-98.0); Mean Platelet Volume 8.4 fL (7.4-10.4); Platelet Count 191 thou/uL (130-400); RBC Distribution Width 16.3 % (11.5-14.5); White Blood Cell (WBC) Count 6.3 thou/uL (4.8-10.8)
[2020-07-24 19:30] LABS: Chloride 111 mmol/L (98-107); Sodium 144 mmol/L (136-145)
[2020-07-24 19:30] LABS: Bilirubin Negative (Negative); Blood, Urine Negative (Negative); Clarity Clear (Clear); Glucose, Urine (Dipstick) Normal (Negative); Ketone, Urine Negative (Negative); Leukocyte Negative Leu/uL (Negative); Nitrite Negative (Negative); Protein, Urine (Dipstick) Negative (Neg-Trace); Specific Gravity, Urine 1.016 (1.002-1.036); Urobilinogen Normal mg/dL (Less than 2); pH, Urine 5.5 (5.0-9.0)
[2020-07-24 19:31] LABS: Calcium 8.1 mg/dL (7.8-10.44); Glucose 103 mg/dL (83-110)
[2020-07-24 19:32] LABS: Globulin 2.8 g/dL (2.4-3.5); Protein, Total 6.3 g/dL (5.8-8.1)
[2020-07-24 19:33] LABS: Anion Gap 13 mmol/L (10-20); Bilirubin, Total 0.9 mg/dL (0.2-1.2); Carbon Dioxide 24 mmol/L (23-31); PTT 32.6 sec (22.9-36.1); Prothrombin Time 22.6 sec (12.0-14.7)
[2020-07-24 19:34] LABS: Alcohol Less than 10 mg/dL (Less than 10); Alkaline Phosphatase 54 U/L (40-110)
[2020-07-24 19:35] LABS: Calc. Creatinine Clearance 0 mL/min (70-130); Estimated GFR-MDRD 31
[2020-07-24 19:36] LABS: AST (SGOT) 19 U/L (5-34); BUN (Urea Nitrogen) 80 mg/dL (8.4-25.7)
[2020-07-24 19:37] LABS: ALT (SGPT) 8 U/L (8-55); Acetaminophen Less than 6.0 mcg/mL (10.0-30.0); Salicylate Less than 8.0 mg/dL (15.0-30.0)
[2020-07-24 19:40] LABS: Amphetamine Not Detected (NotDetected); Barbiturates Screen Not Detected (NotDetected); Benzodiazepine Screen Not Detected (NotDetected); Cocaine Metabolite Screen Not Detected (NotDetected); Medtox Control Line Valid? VALID (VALID); Medtox Reader # READER 4; Methadone Not Detected (NotDetected); Methamphetamine Not Detected (NotDetected); Opiate Screen Detected (NotDetected); Oxycodone Screen Not Detected (NotDetected); Phencyclidine (PCP) Not Detected (NotDetected); THC/Cannabinoid Screen Not Detected (NotDetected); Tricyclic Screen Not Detected (NotDetected)
[2020-07-24 19:45] LABS: Anisocytosis SLIGHT = 6-15 cells (100X) (0-5/hpf); Band 4 % (5-11); Eosinophils 1 % (0-10); Hypochromia SLIGHT = 6-15 cells (100X) (0-5/hpf); Lymphocytes 13 % (21-51); MDiff Complete? YES; Monocytes 13 % (0-10); Neutrophil 68 % (42-75); Platelet Morphology Comment Appears Adequate; Polychromasia SLIGHT = 2-3 cells (100X) (0-2/hpf); Reactive Lymphocytes 1 % (0-10)
[2020-07-24] MEDS ORDERED: Furosemide 40 MG/4 ML VIAL ONE (20:07)
[2020-07-25] MEDS ORDERED: Furosemide 40 MG/4 ML VIAL SLOW IVP SCH ×2 (00:30→12:30)
[2020-07-25] MEDS ORDERED: Metoprolol Tartrate 5 MG/5 ML VIAL IVP PRN (00:50)
[2020-07-25] MEDS ORDERED: Pantoprazole 40 MG VIAL IVP SCH (01:00)
--- NOTE | 2020-07-25 01:32 | HP ---
REASON FOR ADMISSION: Fatigue. HISTORY OF PRESENT ILLNESS: This is a 79-year-old male patient who was recently discharged from this hospital a couple of days ago. He was admitted and treated for CHF and pneumonia. He remained hospitalized for approximately 6 days, during which he was started on IV Zosyn and steroids and Lasix. At some point, his creatinine got worse. Lasix was put on hold. At the day of the discharge, his chest x-ray showed persistent bilateral pleural effusion with a new or increasing infiltrate in the right lower lung. He was given a prescription for Levaquin. An echocardiogram was done that showed severe tricuspid regurgitation and ejection fraction of 50% to 55%. After going home, there were conflicting reports by his neighbor that the patient did not fill his Levaquin prescription that his daughter who lives far away from here did not instruct him to fill the prescription. The neighbor was concerned and it is him who called the ambulance. The patient is currently on Med-Surg and he reports that he has been fatigued. Otherwise, denies chest pain. Denies cough. Denies sputum production. His blood work did reveal severe anemia when he was questioned by the ER physician concerning if he had episodes of melena, he told the ER physician no, but to me he said that he does have dark stools, but he denied abdominal pain. PAST MEDICAL HISTORY: 1. Pelvic fracture. 2. COPD. 3. Atrial fibrillation, on Coumadin. 4. High blood pressure. 5. CHF of unknown type. 6. High cholesterol. 7. Coronary artery disease. 8. Aortic and mitral valve disease. 9. Post aortic and mitral valve replacement. 10. Post redo of aortic valve replacement. 11. Post CABG. 12. Post hemorrhoidectomy. 13. Post pacemaker placement. ALLERGIES: NO NOTE OF ANY DRUG ALLERGY. FAMILY HISTORY: Positive for breast cancer. REVIEW OF SYSTEMS: All systems reviewed except the above mentioned, found to be negative. SOCIAL HISTORY: He does not smoke. Does not drink alcohol. PHYSICAL EXAMINATION: GENERAL: Awake, alert, and oriented, does not appear in distress. VITAL SIGNS: His blood pressure is , his heart rate 68, temperature is 97.6, and saturating 95% on 2.5 L nasal cannula. HEENT: Head is nontraumatic and normocephalic. Pupils equal and reactive. Extraocular movements are intact. Nonicteric sclerae. Well injected conjunctivae. Oral mucosa normal. Nasal mucosa normal. NECK: Supple. No adenopathy. No murmur. Thyroid is not palpable. Trachea is midline. No supraclavicular lymphadenopathy. HEART: S1 and S2, regular. No murmur. No gallops. No friction rubs. No displacement of PMI. LUNGS: Decreased air entry bilaterally. Poor inspiratory effort. Bowel sounds are positive. Nontender abdomen. No visceromegaly. No lower extremity edema. No cyanosis noted. NEUROLOGIC: Cranial nerves 2 through 12 within normal limits. Normal motor function. Normal sensory function. Normal reflexes. LABORATORY DATA: Blood work shows a WBC of 6.3, hemoglobin of 6.3, previously 9.1, platelets of 191. INR of 2. Sodium of 144, potassium 4, creatinine 2, previously 2.35. BNP 755.5. Urinalysis does not show any evidence of infection. A chest x-ray shows worsening nonspecific perihilar and bibasilar parenchymal opacity, right greater than left, may signify worsening edema/infectious pneumonitis and/or aspiration. CT of brain shows no acute findings. ASSESSMENT AND PLAN: This is a 79-year-old male patient, who is presenting with fatigue, found to be anemic. He is on Coumadin. He does have history of atrial fibrillation and he does have a mechanical mitral valve. It is possible that he is having a slow gastrointestinal bleed. Gastroenterology. The patient will be kept n.p.o., will be on IV Protonix. We will consult Gastroenterology. We will perform a guaiac and we need to stop the Coumadin at some point. Currently, his INR is therapeutic, but we need to have him on a heparin drip. I plan to start that at some point, but without giving him any bolus since he is already anticoagulated. We will decide when we recheck his INR. In regard of his anemia, we will transfuse him with PRBC and we will give him IV Lasix to prevent fluid overload. For his pneumonia, we will have him continued on IV Levaquin. For his congestive heart failure, he will be on IV Lasix. For his renal insufficiency, we will continue to monitor his kidney function. It might get worse with IV diuresis. For his blood pressure, we will control it with IV Lopressor. I did discuss with him his code status. He wishes to be a full code. Job ID: [id number]
[2020-07-25 08:33] LABS: INR-International Normal Ratio 1.8; Prothrombin Time 21.2 sec (12.0-14.7)
[2020-07-25 09:03] LABS: Anion Gap 14 mmol/L (10-20); BUN (Urea Nitrogen) 75 mg/dL (8.4-25.7); Calc. Creatinine Clearance 32 mL/min (70-130); Calcium 8.2 mg/dL (7.8-10.44); Carbon Dioxide 25 mmol/L (23-31); Chloride 110 mmol/L (98-107); Estimated GFR-MDRD 32; Glucose 91 mg/dL (83-110); Mean Corpuscular HGB CONC 32.4 g/dL (32.0-36.0); Mean Corpuscular Hemoglobin 31.1 pg (27.0-31.0); Mean Corpuscular Volume 95.9 fL (78.0-98.0); Mean Platelet Volume 7.9 fL (7.4-10.4); Platelet Count 152 thou/uL (130-400); Potassium 3.6 mmol/L (3.5-5.1); RBC Distribution Width 15.9 % (11.5-14.5); Red Blood Cell (RBC) Count 2.57 mill/uL (4.70-6.10); Sodium 145 mmol/L (136-145); White Blood Cell (WBC) Count 5.2 thou/uL (4.8-10.8)
[2020-07-25] MEDS: Pantoprazole 40 MG VIAL IVP SCH ×2 (09:43→21:00)
[2020-07-25 10:14] LABS: Band 3 % (5-11); Eosinophils 3 % (0-10); Hypochromia SLIGHT = 6-15 cells (100X) (0-5/hpf); Lymphocytes 11 % (21-51); MDiff Complete? YES; Monocytes 16 % (0-10); Myelocyte 3 % (0-0); Neutrophil 63 % (42-75); Platelet Morphology Comment Appears Adequate; Polychromasia MODERATE = 3-4 cells (100X) (0-2/hpf)
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
[2020-07-25 13:23] VITALS: BMI 25.0
[2020-07-25] MEDS ORDERED: Warfarin Sodium 5 MG TAB PO SCH (17:00)
--- NOTE | 2020-07-25 17:05 | CON ---
DATE OF CONSULTATION: 07/25/2020 REASON FOR CONSULTATION: Severe anemia, black stool. HISTORY OF PRESENT ILLNESS: Mr. Desai is a 79-year-old male, who was recently admitted to this facility 2 weeks ago for CHF and pneumonia. He was discharged to home on oral antibiotics, but it was unsure whether he actually took the medication or obtained the medication. The patient reports feeling fatigued with poor energy. He also reports having an episode of black tarry stool approximately 3 days ago. He denies any nausea or vomiting. There is no localized abdominal pain or discomfort. The patient does have sporadic cough, although states that he is not severely short of breath. The patient has a long history of recurrent GI bleeding, Coumadin taken for his heart valve. Over the years, he has had several admissions for transfusion. In 2018, he was admitted for supratherapeutic INR with GI bleeding. Upper endoscopy performed at that time showed nonbleeding gastritis, however, clot was noted in the gastric antrum and incisura. His colonoscopy showed melenic stool and radiation telangiectasia in the rectum that was nonbleeding. He subsequently underwent an outpatient small bowel capsule endoscopy that showed active bleeding in the small bowel, and determine whether from underlying small bowel ulcer or AVM. The patient was subsequently referred to Hematology for intravenous iron therapy. He also referred for deep small bowel enteroscopy, which he did not go. On current admission, he was noted to have an anemia with hemoglobin of 6. His current hemoglobin is 8 g/dL after 1 unit transfusion. Of note, his hemoglobin was 9.1 on discharge a week ago. PAST MEDICAL HISTORY: 1. COPD. 2. Atrial fibrillation. 3. Hypertension. 4. CHF. 5. Coronary artery disease. 6. Status post aortic and mitral valve replacement. 7. Coronary artery disease, status post CABG. 8. History of pacemaker placement. 9. Pelvic fracture. ALLERGIES: NO KNOWN DRUG ALLERGY. MEDICATIONS: At home include; 1. Flexeril. 2. Lopressor. 3. Levaquin. 4. Lasix. SOCIAL HISTORY: The patient lives by himself. He does have his daughter as his caregiver. No active tobacco usage. FAMILY HISTORY: Negative for any known GI problem, liver disease, GI malignancy. REVIEW OF SYSTEMS: Ten-point review of systems did not show any other symptoms, not otherwise reported in the HPI. PHYSICAL EXAMINATION: VITAL SIGNS: Temperature is 97.7, blood pressure 121/58, pulse of 67. GENERAL: He is alert, pale, but in no distress. HEENT: Shows anicteric sclerae. Oropharynx is clear and moist. CV: Shows normal S1 and S2. Regular rate and rhythm. CHEST: Shows distant breath sounds. No wheezing or rhonchi. ABDOMEN: Soft, mildly protuberant, but no tympanitic or distention. He has appreciated. He has active bowel sounds. No tenderness. EXTREMITIES: Show multiple ecchymosis. No peripheral edema. LABORATORY DATA: Electrolytes within normal range. Creatinine is 2.0. Bilirubin 0.9, AST of 19, ALT of 8, and alkaline phosphatase 54. His INR is 1.8. Today, his WBC is 5.2, hemoglobin 8.0 (after 1 unit from 6.3), platelet count of 152. Abdominal CT without contrast showed dilated pancreatic duct with a hypodense lesion in the pancreatic body, bilateral pleural effusion with atelectasis or consolidation in the right lower lung, ascites, and cirrhotic morphology of the liver. ASSESSMENT: 1. The patient with history of recurrent chronic GI bleed, on warfarin over the years with last GI evaluation 2 years ago showed active bleeding source in the small bowel on capsule endoscopy; however, the patient did not follow through with referral for deep bowel enteroscopy at that time. He was evaluated by Hematology for intravenous iron infusion for a brief period of time. He now presents back with an episode of melenic stool 2 to 3 days ago by report. Currently, there are no signs of active bleeding. He is not supratherapeutic on his INR (INR 2) when he presented this time with a hemoglobin of 6.3. I suspect he may have proximal source of GI bleed, likely in the small bowel, but can also be from the stomach or even from esophageal varices given his cirrhosis seen on imaging study. 2. Abnormal CT with suggestion of a hypodensity lesion in the body of the pancreas associated with pancreatic ductal dilatation. Possibilities include solid tumor versus cystic neoplasm of the pancreas. 3. Congestive heart failure/pneumonia. 4. Status post AVR and MVR, on Coumadin. 5. Hypertension. RECOMMENDATIONS: 1. Continue to trend hemoglobin, maintain above 7 g/dL. 2. Agree with resumption of warfarin at this point and watch for any overt bleeding. 3. We will proceed with upper endoscopy tomorrow given his isolated episode of melenic stool in the setting of acute on chronic anemia. 4. MRI of the pancreas to elucidate the hypodensity lesion seen on the CT involving the body of the pancreas. Job ID: [id number]
[2020-07-25] MEDS ORDERED: Enoxaparin Sodium 80 MG/0.8 ML SYRINGE SC SCH (21:00)
[2020-07-26 05:46] LABS: Hemoglobin 7.3 g/dL (14.0-18.0); Mean Corpuscular HGB CONC 31.8 g/dL (32.0-36.0); Mean Corpuscular Volume 94.4 fL (78.0-98.0); Mean Platelet Volume 8.1 fL (7.4-10.4); Platelet Count 151 thou/uL (130-400); Red Blood Cell (RBC) Count 2.42 mill/uL (4.70-6.10); White Blood Cell (WBC) Count 4.3 thou/uL (4.8-10.8)
[2020-07-26 06:07] LABS: ALT (SGPT) 9 U/L (8-55); AST (SGOT) 16 U/L (5-34); Alkaline Phosphatase 49 U/L (40-110); Anion Gap 12 mmol/L (10-20); BUN (Urea Nitrogen) 68 mg/dL (8.4-25.7); Bilirubin, Total 1.6 mg/dL (0.2-1.2); Calc. Creatinine Clearance 28 mL/min (70-130); Calcium 7.7 mg/dL (7.8-10.44); Carbon Dioxide 26 mmol/L (23-31); Chloride 107 mmol/L (98-107); Estimated GFR-MDRD 29; Globulin 2.7 g/dL (2.4-3.5); Glucose 85 mg/dL (83-110); Potassium 3.3 mmol/L (3.5-5.1); Protein, Total 5.7 g/dL (5.8-8.1); Sodium 142 mmol/L (136-145)
[2020-07-26 08:07] LABS: SARS-CoV-2 NAA Rapid Test Not Detected (NotDetected)
[2020-07-26] MEDS ORDERED: Potassium Chloride 20 MEQ in Premix Bag 1 BAG IVPB SCH (08:15)
[2020-07-26] MEDS: Pantoprazole 40 MG VIAL IVP SCH ×2 (08:23→20:16)
[2020-07-26] MEDS ORDERED: PROPOFOL 200 MG/20 ML VIAL ONE (10:36)
[2020-07-26] MEDS ORDERED: Enoxaparin Sodium 80 MG/0.8 ML SYRINGE SC SCH (13:00)
--- NOTE | 2020-07-26 13:46 | PDOC.HOSPP ---
- Subjective Encounter Date: 07/26/20 Encounter Time: 08:00 Subjective: The patient denies complaints. He has no abd pain, blood in stools, dizziness or lightheadedness. He has no SOB Plan for EGD today - Objective Vital Signs & Weight: Vital Signs (12 hours) Temp Pulse Resp BP BP Pulse Ox 07/26/20 08:00 96 07/26/20 07:51 97.9 F 95 16 104/55 L 89 L 07/26/20 04:00 98.2 F 68 18 100/52 L 96 Weight Admit Weight 166 lb 10.72 oz Weight 160 lb 1.6 oz I&O: 07/25/20 07/26/20 07/27/20 06:59 06:59 06:59 Intake Total 0 240 Output Total 500 Balance 0 -260 Result Diagrams: 07/26/20 05:23 07/26/20 05:23 Hospitalist ROS - Review of Systems Constitutional: denies: fever, chills - Medication Medications: Active Medications Generic Name Dose Route Start Last Admin Trade Name Jose Miguel PRN Reason Stop Dose Admin Levofloxacin 750 mg/ Device 150 mls @ 100 mls/hr 07/25/20 20:00 07/25/20 21:00 IVPB 150 mls Q24HR FRANDY Administration Pantoprazole Sodium 40 mg 07/25/20 09:00 07/26/20 08:23 Protonix IVP 40 mg Q12HR FRANDY Administration - Exam General Appearance: NAD, awake alert General - other findings: on nasal cannula Eye: PERRL, anicteric sclera ENT: normocephalic atraumatic, no oropharyngeal lesions Neck: no JVD Heart: RRR, no murmur, no gallops, no rubs Respiratory: CTAB, no wheezes, no rales, no ronchi Gastrointestinal: soft, non-tender, non-distended, normal bowel sounds, no palpable masses, no hepatomegaly, no splenomegaly, no bruit Extremities: no cyanosis, no clubbing, no edema Skin: normal turgor, no lesions, no rashes Neurological: cranial nerve grossly intact, normal sensation to touch, no focal deficits, no new deficit Musculoskeletal: normal tone, normal strength, no muscle wasting Psychiatric: normal affect, normal behavior, A&O x 3 Hosp A/P - Plan CT abdomen: cardiomegaly, moderate ascites, cirrhosis, L4 vertebral body fracture, remote fractures involving the pelvis and previously seen fracture T8 vertebral body. Cholelithiasis. This is 79 year old male with mechanical heart valve who was brought in by ambulance due to concerns that family was neglecting him Acute anemia - patient has received PRBC with improvement in hemoglobin to 8 - hemoglobin down to 7 today. Plan for EGD today -check iron panel, folate/B12/TSH in am Pancreatic hypodense lesion with ductal dilation -MRI cannot be done since not pacemaker compatible Bilateral pulmonary edema - got lasix 40 mg IV 07/26. Will repeat chest X ray to evaluate for improvement History of mechanical mitral valve - will resume coumadin tonight at 5 mg assuming no complications from EGD -s/p one dose of therapeutic lovenox 07/26 in the am CKD - creatinine stable at 2.19 Cirrhosis of liver with ascites - patient doesn't drink alcohol - s/p one dose of IV lasix 07/26 L4 vertebral body fracture and old pelvic fracture - chronic, patient is asymptomatic Choleithiasis - noted on CT scan, asymptomatic Dispo: d/c when anemia stable and INR therapeutic
[2020-07-26 14:06] LABS: Hemoglobin 7.6 g/dL (14.0-18.0); Platelet Count 143 thou/uL (130-400)
--- NOTE | 2020-07-26 14:40 | RAD ---
EXAM: Single view of the chest HISTORY: Pulmonary edema COMPARISON: 07/24/2020 FINDINGS: Single view of the chest shows an enlarged but stable cardiomediastinal silhouette. The pa tient is status post sternotomy. The pacemaker is unchanged in position. There are stable mixed multifocal infiltrates in the lungs. No acute osseous abnormality. IMPRESSION: Stable multifocal infiltrates versus pulmonary edema.
--- NOTE | 2020-07-26 16:27 | OP ---
DATE OF PROCEDURE: 07/26/2020 PROCEDURE PERFORMED: Esophagogastroduodenoscopy with control of hemorrhage and biopsy. PREOPERATIVE DIAGNOSES: Chronic iron-deficiency anemia and anemia of acute blood loss, on chronic anticoagulation with prior small-bowel capsule endoscopy suggesting a small bowel bleeding source. DESCRIPTION OF PROCEDURE: Informed consent was obtained from the patient. He was sedated with total intravenous anesthesia. The colonoscope was used to advance down to the proximal jejunum. The mucosa of the jejunum was unremarkable. There were 2 small vascular ectasias measuring 2 to 3 mm each in the second and third portions of the duodenum, which were cauterized with a 10-[place] Gold Probe. The rest of the duodenal mucosa was unremarkable. The pylorus was unremarkable. The stomach had atrophic-appearing gastritis and a biopsy was obtained from the antrum. He bled somewhat from the biopsy sites and multiple biopsies were not obtained. He did have a few polyps in the proximal gastric body, which were biopsied. Retroflexed views in the stomach were otherwise unremarkable. The stomach was normal. IMPRESSION: 1. Two vascular ectasias measuring 2 to 3 mm each were cauterized in the second portion of the duodenum with good hemostasis confirmed. They did bleed actively when touched with the Gold Probe. 2. Atrophic-appearing gastritis, antral biopsies obtained. 3. Gastric polyps in the proximal gastric body, biopsied. 4. Otherwise, unremarkable EGD. RECOMMENDATIONS: 1. Advance diet. 2. Follow trend of his hemoglobin. 3. Proton-pump inhibitor. Job ID: [id number]
[2020-07-26] MEDS: Warfarin Sodium 2 MG TAB PO SCH (17:56)
[2020-07-27 06:11] LABS: Hemoglobin 7.1 g/dL (14.0-18.0); Mean Corpuscular HGB CONC 31.5 g/dL (32.0-36.0); Mean Corpuscular Volume 95.3 fL (78.0-98.0); Mean Platelet Volume 8.2 fL (7.4-10.4); Platelet Count 149 thou/uL (130-400); RBC Distribution Width 16.1 % (11.5-14.5); Red Blood Cell (RBC) Count 2.37 mill/uL (4.70-6.10); White Blood Cell (WBC) Count 4.8 thou/uL (4.8-10.8)
[2020-07-27 06:19] LABS: INR-International Normal Ratio 1.4; Prothrombin Time 17.2 sec (12.0-14.7)
[2020-07-27 06:43] LABS: Iron 37 ug/dL (65-175); Iron Binding Capacity, Total 253 mcg/dL (261-462)
[2020-07-27 07:06] LABS: Ferritin 181.52 ng/mL (22-322); Thyroid Stimulating Hormone 7.9575 uIU/mL (0.35-4.94)
[2020-07-27 09:37] LABS: Anion Gap 12 mmol/L (10-20); BUN (Urea Nitrogen) 49 mg/dL (8.4-25.7); Calc. Creatinine Clearance 31 mL/min (70-130); Calcium 7.7 mg/dL (7.8-10.44); Carbon Dioxide 24 mmol/L (23-31); Chloride 107 mmol/L (98-107); Estimated GFR-MDRD 32; Glucose 86 mg/dL (83-110); Potassium 3.4 mmol/L (3.5-5.1); Sodium 140 mmol/L (136-145)
[2020-07-27] MEDS: Pantoprazole 40 MG VIAL IVP SCH ×2 (09:43→19:53)
[2020-07-27] MEDS: Folic Acid 1 MG TAB PO SCH (09:43)
[2020-07-27] MEDS ORDERED: Potassium Chloride 20 MEQ TAB PO SCH (12:15)
--- NOTE | 2020-07-27 15:43 | PDOC.HOSPP ---
- Subjective Encounter Date: 07/27/20 Encounter Time: 10:00 Subjective: F/u: GI bleed The patient reports that he is constipated and has not had a BM yet, but he feels he is not straining He does not have cough or SOB, he is off oxygen. Awaiting blood transfusion stilll - Objective Vital Signs & Weight: Vital Signs (12 hours) Temp Pulse Resp BP BP Pulse Ox 07/27/20 11:13 98.0 F 86 18 123/66 91 L 07/27/20 08:00 100 07/27/20 07:28 98.2 F 79 16 124/72 100 Weight Admit Weight 166 lb 10.72 oz Weight 160 lb 1.6 oz I&O: 07/26/20 07/27/20 07/28/20 06:59 06:59 06:59 Intake Total 240 630 200 Output Total 500 400 Balance -260 230 200 Result Diagrams: 07/27/20 05:41 07/27/20 05:41 Hospitalist ROS - Review of Systems Constitutional: denies: fever, chills - Medication Medications: Active Medications Generic Name Dose Route Start Last Admin Trade Name Freq PRN Reason Stop Dose Admin Folic Acid 1 mg 07/27/20 09:00 07/27/20 09:43 Folic Acid 1 Mg Tab PO 1 mg DAILY FRANDY Administration Pantoprazole Sodium 40 mg 07/25/20 09:00 07/27/20 09:43 Protonix IVP 40 mg Q12HR FRANDY Administration Warfarin Sodium 2 mg 07/26/20 17:00 07/26/20 17:56 Warfarin Sodium 2 Mg Tab PO 2 mg 1700 FRANDY Administration - Exam General Appearance: NAD, awake alert Eye: PERRL, anicteric sclera ENT: normocephalic atraumatic, no oropharyngeal lesions Neck: no JVD Heart: RRR, no murmur, no gallops, no rubs Respiratory: CTAB, no wheezes, no rales, no ronchi Gastrointestinal: soft, non-tender, non-distended, normal bowel sounds Extremities: no cyanosis, no clubbing, no edema Skin: normal turgor, no lesions, no rashes Neurological: cranial nerve grossly intact, normal sensation to touch, no focal deficits, no new deficit Musculoskeletal: normal tone, normal strength, no muscle wasting Hosp A/P - Plan CT abdomen: cardiomegaly, moderate ascites, cirrhosis, L4 vertebral body fracture, remote fractures involving the pelvis and previously seen fracture T8 vertebral body. Cholelithiasis. Endoscopy: two vascular ectasias measuring 3-3 mm that were cauterized in second portion of duodenum, bled actively. Atrophic appearing gastritis. Gastric polyps This is 79 year old male with mechanical heart valve who was brought in by ambulance due to concerns that family was neglecting him Acute GI bleed secondary to vascular ectasias s/p cauterization - patient had EGD 07/26 which showed vascular ectasias s/p cauterization. Hb downtrending to 7 today, will transfuse another unit of blood and repeat cBC after - iron panel consistent with anemia of chronic disease - start folate supplement for folic acid deficiency. B12 normal. TSH elevated but free T4 normal Pancreatic hypodense lesion with ductal dilation -MRI cannot be done since not pacemaker compatible Pneumonia with pulmonary edema - got lasix 40 mg IV 07/26. Repeat chest X ray 07/27 shows stable infiltrates - continue zosyn History of mechanical mitral valve -s/p one dose of therapeutic lovenox 07/26 in the am - INR 1.4. Hb 7, needs transfusion. Can resume coumadin after if no blood in stool noted CKD - creatinine stable at 2.0 Cirrhosis of liver with ascites - patient doesn't drink alcohol - s/p one dose of IV lasix 07/26 L4 vertebral body fracture and old pelvic fracture - chronic, patient is asymptomatic Choleithiasis - noted on CT scan, asymptomatic Dispo: d/c when anemia stable and INR therapeutic
--- NOTE | 2020-07-27 16:00 | PRG ---
DATE OF SERVICE: 07/27/2020 SUBJECTIVE: Mr. Desai reports one black stool today. His hemoglobin was 7.1 today, down from 7.6 yesterday. He is receiving a blood transfusion today. OBJECTIVE: VITAL SIGNS: Temperature 98, pulse 86, blood pressure 123/66. GENERAL: He is in no acute distress. Alert and oriented x3. LUNGS: Clear to auscultation bilaterally. HEART: Regular rate and rhythm without murmur. ABDOMEN: Soft, nontender, and nondistended. Bowel sounds are present. EXTREMITIES: No lower extremity edema. IMPRESSION: 1. Iron deficiency anemia. Cautery of two small arteriovenous malformations was performed. He could have further AVMs throughout the small bowel potentially. At this point, he can receive oral or plus-minus IV iron and is receiving blood transfusion today. 2. Pancreas lesion by CT scan, which was noncontrast. I will order a CT scan with contrast tomorrow to better define the pancreas lesion. He has a pacemaker and is not a candidate for MRI. 3. Dr. Clemens will be covering the weekend. Job ID: [id number]
[2020-07-27] MEDS: Warfarin Sodium 2 MG TAB PO SCH (18:21)
[2020-07-27] MEDS: Senokot S 8.6-50 MG TAB PO SCH (19:53)
[2020-07-27] MEDS: Sodium Chloride 0.9% (PF) 10 ML VIAL FS PRN (19:53)
[2020-07-28 00:12] LABS: Hemoglobin 8.4 g/dL (14.0-18.0); Mean Corpuscular HGB CONC 31.3 g/dL (32.0-36.0); Mean Corpuscular Hemoglobin 29.9 pg (27.0-31.0); Mean Corpuscular Volume 95.7 fL (78.0-98.0); Mean Platelet Volume 7.9 fL (7.4-10.4); Platelet Count 147 thou/uL (130-400); RBC Distribution Width 15.7 % (11.5-14.5); Red Blood Cell (RBC) Count 2.81 mill/uL (4.70-6.10); White Blood Cell (WBC) Count 5.3 thou/uL (4.8-10.8)
[2020-07-28 07:16] LABS: INR-International Normal Ratio 1.4; Prothrombin Time 16.9 sec (12.0-14.7)
[2020-07-28 07:35] LABS: Anion Gap 11 mmol/L (10-20); BUN (Urea Nitrogen) 33 mg/dL (8.4-25.7); Calc. Creatinine Clearance 36 mL/min (70-130); Calcium 7.9 mg/dL (7.8-10.44); Carbon Dioxide 23 mmol/L (23-31); Chloride 110 mmol/L (98-107); Estimated GFR-MDRD 39; Glucose 90 mg/dL (83-110); Potassium 3.7 mmol/L (3.5-5.1); Sodium 140 mmol/L (136-145)
[2020-07-28] MEDS: Pantoprazole 40 MG VIAL IVP SCH ×2 (09:00→20:45)
[2020-07-28] MEDS: Sodium Chloride 0.9% (PF) 10 ML VIAL FS PRN (09:00)
[2020-07-28] MEDS: Folic Acid 1 MG TAB PO SCH ×2 (09:00→10:56)
[2020-07-28] MEDS ORDERED: Iopamidol-370 76% 500 ML 1 ML ONE (10:12)
--- NOTE | 2020-07-28 10:30 | CT ---
ABDOMEN CT SCAN WITH AND WITHOUT CONTRAST WITH MULTIPHASE IMAGING: HISTORY: Pancreatic mass. COMPARISON: 07/25/2020 study. FINDINGS: There is abnormal tortuosity and dilatation of the pancreatic duct from approximately the pancreatic body into the pancreatic tail. At the level of the pancreatic body at the start of the dilatation of the duct there are 2 cystic foci. One measures 1.2 cm in size and another one measures 1.3 x 1.8 cm in size. These certainly could represent small cystic pancreatic neoplasms. The head and proximal body of the pancreas appear normal. Several gallstones are noted in a nondistended gallbladder. The re is again noted to be appearance of cirrhosis with extensive ascites as well as evidence for portal hypertension. No evidence for significant adenopathy. IMPRESSION: What appear to be 2 small cystic masses in the body of the pancreas as above with tortuosity and some dilatation of the pancreatic duct distal to these 2 small cystic masses, certainly neoplasm is a con sideration. Extensive ascites, evidence for cirrhosis, and gallstones within a nondistended gallbladder. No evidence for significant adenopathy. POS: OFF
--- NOTE | 2020-07-28 10:50 | PDOC.HOSPP ---
- Subjective Encounter Date: 07/28/20 Encounter Time: 07:00 Subjective: awake, drinking contrast for CT no complaints says he feels better - Objective Vital Signs & Weight: Vital Signs (12 hours) Temp Pulse Resp BP Pulse Ox 07/28/20 08:00 97.5 F L 97 07/28/20 07:37 97.5 F L 99 18 130/68 96 Weight Admit Weight 166 lb 10.72 oz Weight 160 lb 1.6 oz I&O: 07/27/20 07/28/20 07/29/20 06:59 06:59 06:59 Intake Total 630 1320 Output Total 400 650 Balance 230 670 Result Diagrams: 07/28/20 00:03 07/28/20 06:54 Hospitalist ROS - Medication Medications: Active Medications Generic Name Dose Route Start Last Admin Trade Name Freq PRN Reason Stop Dose Admin Folic Acid 1 mg 07/27/20 09:00 07/28/20 09:00 Folic Acid 1 Mg Tab PO Not Given DAILY FRANDY Pantoprazole Sodium 40 mg 07/25/20 09:00 07/28/20 09:00 Protonix IVP 40 mg Q12HR FRANDY Administration Senna/Docusate Sodium 1 tab 07/27/20 21:00 07/27/20 19:53 Senokot S 8.6-50 Mg Tab PO 1 tab BID FRANDY Administration Sodium Chloride 10 ml 07/25/20 00:55 07/27/20 19:53 Normal Saline Pf FS 10 ml PRN PRN Administration RECONSTITUTION Warfarin Sodium 2 mg 07/26/20 17:00 07/27/20 18:21 Warfarin Sodium 2 Mg Tab PO 2 mg 1700 FRANDY Administration - Exam General Appearance: awake alert Eye: PERRL, anicteric sclera ENT: normocephalic atraumatic, moist mucosa Neck: supple, no JVD Heart: RRR, no murmur Respiratory: no wheezes, no rales Gastrointestinal: soft, non-tender, non-distended, normal bowel sounds Extremities: no cyanosis, 1+ LE edema Neurological: cranial nerve grossly intact, no focal deficits Hosp A/P (1) PNA (pneumonia) Code(s): J18.9 - PNEUMONIA, UNSPECIFIED ORGANISM Status: Acute Qualifiers: Pneumonia type: due to unspecified organism Laterality: bilateral (2) Pancreatic lesion Code(s): K86.9 - DISEASE OF PANCREAS, UNSPECIFIED Status: Acute (3) Cirrhosis Code(s): K74.60 - UNSPECIFIED CIRRHOSIS OF LIVER Status: Suspected Qualifiers: Hepatic cirrhosis type: unspecified hepatic cirrhosis Ascites presence: with ascites Qualified Code(s): K74.60 - Unspecified cirrhosis of liver; R18.8 - Other ascites (4) SHANTELL (acute kidney injury) Code(s): N17.9 - ACUTE KIDNEY FAILURE, UNSPECIFIED Status: Acute (5) Acute blood loss anemia Code(s): D62 - ACUTE POSTHEMORRHAGIC ANEMIA Status: Acute (6) Atrial fibrillation Code(s): I48.91 - UNSPECIFIED ATRIAL FIBRILLATION Status: Chronic Qualifiers: Atrial fibrillation type: paroxysmal Qualified Code(s): I48.0 - Paroxysmal atrial fibrillation (7) CKD (chronic kidney disease) Code(s): N18.9 - CHRONIC KIDNEY DISEASE, UNSPECIFIED Status: Chronic Qualifiers: Chronic kidney disease stage: stage 2 (mild) Qualified Code(s): N18.2 - Chronic kidney disease, stage 2 (mild) (8) GI bleed Code(s): K92.2 - GASTROINTESTINAL HEMORRHAGE, UNSPECIFIED Status: Acute Qualifiers: GI bleed type/associated pathology: angiodysplasia of stomach and duodenum Qualified Code(s): K31.811 - Angiodysplasia of stomach and duodenum with bleeding - Plan is on levaquin for pna, protonix bid, coumadin 2mg daily inr is around 1.4 oral diet to mobilize as tolerated shantell is resolving, has mitral mech valve on coumadin pancreatic lesion per GI advice, not sure if he is a candidate for chemo?/surgery
[2020-07-28] MEDS: Senokot S 8.6-50 MG TAB PO SCH ×2 (10:56→20:42)
[2020-07-28] MEDS: Warfarin Sodium 2 MG TAB PO SCH (16:40)
--- NOTE | 2020-07-28 20:20 | PRG ---
DATE OF SERVICE: 07/28/2020 SUBJECTIVE: This is a 79-year-old male, hospitalized because of melena, anemia, etc. The patient underwent EGD and enteroscopy by Dr. 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 The patient had abdominal CAT scan done today. The CAT scan showed multiple abnormal findings. He had dilation of the pancreatic duct and also 2 cystic lesions at the junction of body and tail. He also had gallstones, and the liver appears to be cirrhotic and has some free fluid in the belly. The patient offers no complaints. No abdominal pain. No nausea. No vomiting. PHYSICAL EXAMINATION: GENERAL: He is thin built, appears comfortable, in no acute distress. VITAL SIGNS: Afebrile, pulse is 99, blood pressure 130/68. CARDIOVASCULAR: Normal heart sounds. LUNGS: Clear to auscultation. ABDOMEN: Soft. Abdomen is nondistended. Abdomen is nontender. LABORATORY DATA: CBC; WBC 5300, hemoglobin 8.4, hematocrit 26.9. Lytes are normal. BUN is 33, creatinine is 1.69. IMPRESSION: 1. Recurrent gastrointestinal bleeding. 2. Small-bowel arteriovenous malformations, status post cautery. 3. Dilation of pancreatic duct with 2 cystic lesions at the pancreas. 4. Gallstones. 5. Liver morphology suggests liver cirrhosis ascites. RECOMMENDATIONS: 1. Continue supportive care. 2. Transfuse p.r.n. 3. I leave to Dr. Marcus Cabrales to decide whether the patient . Job ID: [id number]
[2020-07-29 06:12] LABS: INR-International Normal Ratio 1.4; Prothrombin Time 16.7 sec (12.0-14.7)
[2020-07-29] MEDS: Furosemide 20 MG TAB PO SCH (08:13)
[2020-07-29] MEDS: Senokot S 8.6-50 MG TAB PO SCH ×2 (08:13→20:17)
[2020-07-29] MEDS: Folic Acid 1 MG TAB PO SCH (08:13)
[2020-07-29] MEDS: Metoprolol Tartrate 25 MG TAB PO SCH ×2 (08:14→20:17)
[2020-07-29] MEDS ORDERED: Metoprolol Tartrate 50 MG TAB PO SCH (09:00)
[2020-07-29] MEDS ORDERED: Furosemide 40 MG TAB PO SCH (09:00)
[2020-07-29 09:36] LABS: Platelet Count 134 thou/uL (130-400)
[2020-07-29 09:37] LABS: Hemoglobin 8.5 g/dL (14.0-18.0)
--- NOTE | 2020-07-29 15:20 | PDOC.HOSPP ---
- Subjective Encounter Date: 07/29/20 Encounter Time: 10:15 Subjective: no c/o abd pain or maciel bleeding no sob is eating better per patient says he mobilized to the door and back with rw - Objective Vital Signs & Weight: Vital Signs (12 hours) Temp Pulse Resp BP BP Pulse Ox 07/29/20 08:00 98.1 F 07/29/20 07:31 98.1 F 109 H 18 106/57 L 07/29/20 05:35 97.0 F L 93 16 114/69 89 L Weight Admit Weight 166 lb 10.72 oz Weight 160 lb 1.6 oz I&O: 07/28/20 07/29/20 07/30/20 06:59 06:59 06:59 Intake Total 1320 680 180 Output Total 650 350 Balance 670 330 180 Result Diagrams: 07/29/20 09:09 07/28/20 06:54 Additional Labs: Accuchecks 07/28/20 23:49 POC Glucose 118 H Hospitalist ROS - Medication Medications: Active Medications Generic Name Dose Route Start Last Admin Trade Name Freq PRN Reason Stop Dose Admin Folic Acid 1 mg 07/27/20 09:00 07/29/20 08:13 Folic Acid 1 Mg Tab PO 1 mg DAILY FRANDY Administration Furosemide 20 mg 07/29/20 09:00 07/29/20 08:13 Furosemide 20 Mg Tab PO 20 mg DAILY FRANDY Administration Levofloxacin 750 mg/ Device 150 mls @ 100 mls/hr 07/28/20 20:00 07/28/20 20:42 IVPB 150 mls Q2D@2000 FRANDY Administration Metoprolol Tartrate 25 mg 07/29/20 09:00 07/29/20 08:14 Metoprolol Tartrate 25 Mg Tab PO 25 mg BID FRANDY Administration Pantoprazole Sodium 40 mg 07/29/20 09:00 07/29/20 08:14 Pantoprazole 40 Mg Tab PO 40 mg BID FRANDY Administration Senna/Docusate Sodium 1 tab 07/27/20 21:00 07/29/20 08:13 Senokot S 8.6-50 Mg Tab PO Not Given BID FRANDY Sodium Chloride 10 ml 07/25/20 00:55 07/28/20 09:00 Normal Saline Pf FS 10 ml PRN PRN Administration RECONSTITUTION - Exam General Appearance: awake alert Eye: PERRL, anicteric sclera ENT: no oropharyngeal lesions, moist mucosa Neck: supple, no JVD Heart: RRR, murmur present Respiratory: no wheezes, no rales Gastrointestinal: soft, non-tender, non-distended, normal bowel sounds Extremities: no cyanosis, no edema Neurological: cranial nerve grossly intact, no focal deficits Hosp A/P (1) PNA (pneumonia) Code(s): J18.9 - PNEUMONIA, UNSPECIFIED ORGANISM Status: Acute Qualifiers: Pneumonia type: due to unspecified organism Laterality: bilateral (2) Pancreatic lesion Code(s): K86.9 - DISEASE OF PANCREAS, UNSPECIFIED Status: Acute (3) Cirrhosis Code(s): K74.60 - UNSPECIFIED CIRRHOSIS OF LIVER Status: Suspected Qualifiers: Hepatic cirrhosis type: unspecified hepatic cirrhosis Ascites presence: with ascites Qualified Code(s): K74.60 - Unspecified cirrhosis of liver; R18.8 - Other ascites (4) SHANTELL (acute kidney injury) Code(s): N17.9 - ACUTE KIDNEY FAILURE, UNSPECIFIED Status: Acute (5) Acute blood loss anemia Code(s): D62 - ACUTE POSTHEMORRHAGIC ANEMIA Status: Acute (6) Atrial fibrillation Code(s): I48.91 - UNSPECIFIED ATRIAL FIBRILLATION Status: Chronic Qualifiers: Atrial fibrillation type: paroxysmal Qualified Code(s): I48.0 - Paroxysmal atrial fibrillation (7) CKD (chronic kidney disease) Code(s): N18.9 - CHRONIC KIDNEY DISEASE, UNSPECIFIED Status: Chronic Qualifiers: Chronic kidney disease stage: stage 2 (mild) Qualified Code(s): N18.2 - Chronic kidney disease, stage 2 (mild) (8) GI bleed Code(s): K92.2 - GASTROINTESTINAL HEMORRHAGE, UNSPECIFIED Status: Acute Qualifiers: GI bleed type/associated pathology: angiodysplasia of stomach and duodenum Qualified Code(s): K31.811 - Angiodysplasia of stomach and duodenum with bleeding - Plan is on levaquin for pna, protonix bid, coumadin 3mg daily inr is around 1.4 oral diet to mobilize as tolerated shantell is resolving, has mitral mech valve on coumadin pancreatic lesion per GI advice, not sure if he is a candidate for chemo?/surgery dc plan when inr is around 2
[2020-07-29] MEDS ORDERED: Warfarin Sodium 3 MG TAB PO SCH (17:00)
--- NOTE | 2020-07-29 19:45 | PRG ---
DATE OF SERVICE: 07/29/2020 SUBJECTIVE: 79-year-old male with GI bleeding, status post small bowel AVM with BICAP therapy by Dr. Marcus Cabrales. The patient is doing well. He has had no active bleeding. He has no abdominal pain, no nausea, no vomiting. Denies any hematuria. No history of hematochezia or melena. He offers no complaints. He is anxious to get home. I did talk to Dr. Teresa Miller, the hospitalist. Apparently, he has had a valve replacement in the past and needs to be on anticoagulation OBJECTIVE: GENERAL: He appears very comfortable. He is thin built. VITAL SIGNS: Afebrile. Pulse is 69, blood pressure 132/ . CARDIOVASCULAR SYSTEM: Normal heart sounds. LUNGS: Clear to auscultation. ABDOMEN: Soft. No organomegaly. No tenderness. No masses. LABORATORY DATA: Hemoglobin 8.5, hematocrit 27.3. RECOMMENDATIONS: Continue present treatment. When the PT comes to therapeutic level, hopefully, the patient can be discharged home. Job ID: [id number]
[2020-07-30 05:52] LABS: INR-International Normal Ratio 1.3; Prothrombin Time 16.2 sec (12.0-14.7)
[2020-07-30] MEDS ORDERED: Enoxaparin Sodium 40 MG/0.4 ML SYRINGE SC SCH (07:15)
[2020-07-30] MEDS: [UNRECOGNIZED DRUG - OTHER] SC SCH ×2 (09:55→20:29)
[2020-07-30] MEDS: Senokot S 8.6-50 MG TAB PO SCH ×2 (09:57→20:31)
[2020-07-30] MEDS: Folic Acid 1 MG TAB PO SCH (09:58)
[2020-07-30] MEDS: Furosemide 20 MG TAB PO SCH (09:58)
[2020-07-30] MEDS: Metoprolol Tartrate 25 MG TAB PO SCH ×2 (09:59→20:31)
--- NOTE | 2020-07-30 11:26 | PDOC.HOSPP ---
- Subjective Encounter Date: 07/30/20 Encounter Time: 08:50 Subjective: no sob, feels better wants to go home - Objective Vital Signs & Weight: Vital Signs (12 hours) Temp Pulse Resp BP Pulse Ox 07/30/20 08:00 92 L 07/30/20 07:33 98.0 F 77 18 110/50 L 92 L Weight Admit Weight 166 lb 10.72 oz Weight 160 lb 1.6 oz I&O: 07/29/20 07/30/20 07/31/20 06:59 06:59 06:59 Intake Total 680 880 Output Total 350 600 Balance 330 280 Result Diagrams: 07/29/20 09:09 07/28/20 06:54 Hospitalist ROS - Medication Medications: Active Medications Generic Name Dose Route Start Last Admin Trade Name Freq PRN Reason Stop Dose Admin Enoxaparin Sodium 70 mg 07/30/20 09:00 07/30/20 09:55 Lonenox 80 Mg SC 70 mg Q12HR FRANDY Administration Folic Acid 1 mg 07/27/20 09:00 07/30/20 09:58 Folic Acid 1 Mg Tab PO 1 mg DAILY FRANDY Administration Furosemide 20 mg 07/29/20 09:00 07/30/20 09:58 Furosemide 20 Mg Tab PO 20 mg DAILY FRANDY Administration Levofloxacin 750 mg/ Device 150 mls @ 100 mls/hr 07/28/20 20:00 07/28/20 20:42 IVPB 150 mls Q2D@2000 FRANDY Administration Metoprolol Tartrate 25 mg 07/29/20 09:00 07/30/20 09:59 Metoprolol Tartrate 25 Mg Tab PO Not Given BID FRANDY Pantoprazole Sodium 40 mg 07/29/20 09:00 07/30/20 09:57 Pantoprazole 40 Mg Tab PO 40 mg BID FRANDY Administration Senna/Docusate Sodium 1 tab 07/27/20 21:00 07/30/20 09:57 Senokot S 8.6-50 Mg Tab PO 1 tab BID FRANDY Administration Sodium Chloride 10 ml 07/25/20 00:55 07/28/20 09:00 Normal Saline Pf FS 10 ml PRN PRN Administration RECONSTITUTION - Exam General Appearance: awake alert Eye: PERRL, anicteric sclera ENT: no oropharyngeal lesions, moist mucosa Neck: supple, no JVD Heart: RRR, murmur present Respiratory: no wheezes, no rales, rhonchi Gastrointestinal: soft, non-tender, non-distended, normal bowel sounds Extremities: no cyanosis, no edema Neurological: cranial nerve grossly intact, no focal deficits Psychiatric: normal affect, A&O x 3 Hosp A/P (1) Acute blood loss anemia Code(s): D62 - ACUTE POSTHEMORRHAGIC ANEMIA Status: Acute (2) SHANTELL (acute kidney injury) Code(s): N17.9 - ACUTE KIDNEY FAILURE, UNSPECIFIED Status: Acute (3) PNA (pneumonia) Code(s): J18.9 - PNEUMONIA, UNSPECIFIED ORGANISM Status: Acute Qualifiers: Pneumonia type: due to unspecified organism Laterality: bilateral (4) Pancreatic lesion Code(s): K86.9 - DISEASE OF PANCREAS, UNSPECIFIED Status: Acute (5) Cirrhosis Code(s): K74.60 - UNSPECIFIED CIRRHOSIS OF LIVER Status: Suspected Qualifiers: Hepatic cirrhosis type: unspecified hepatic cirrhosis Ascites presence: w ith ascites Qualified Code(s): K74.60 - Unspecified cirrhosis of liver; R18.8 - Other ascites (6) Atrial fibrillation Code(s): I48.91 - UNSPECIFIED ATRIAL FIBRILLATION Status: Chronic Qualifiers: Atrial fibrillation type: paroxysmal Qualified Code(s): I48.0 - Paroxysmal atrial fibrillation (7) CKD (chronic kidney disease) Code(s): N18.9 - CHRONIC KIDNEY DISEASE, UNSPECIFIED Status: Chronic Qualifiers: Chronic kidney disease stage: stage 2 (mild) Qualified Code(s): N18.2 - Chronic kidney disease, stage 2 (mild) (8) GI bleed Code(s): K92.2 - GASTROINTESTINAL HEMORRHAGE, UNSPECIFIED Status: Acute Qualifiers: GI bleed type/associated pathology: angiodysplasia of stomach and duodenum Qualified Code(s): K31.811 - Angiodysplasia of stomach and duodenum with bleeding - Plan is on levaquin for pna, protonix bid, coumadin 10mg daily (will bridge with lovenox in view of [facility] mitral valve) inr is around 1.3 oral diet to mobilize as tolerated shantell is resolving pancreatic lesion per GI advice, not sure if he is a candidate for chemo?/surgery dc plan when inr is around 2 atleast
[2020-07-30] MEDS: Warfarin Sodium 10 MG TAB PO SCH (16:35)
[2020-07-30] MEDS ORDERED: Warfarin Sodium 5 MG TAB PO SCH (17:00)
[2020-07-31 05:40] LABS: INR-International Normal Ratio 1.3; Prothrombin Time 15.7 sec (12.0-14.7)
[2020-07-31] MEDS: Senokot S 8.6-50 MG TAB PO SCH ×2 (08:31→20:31)
[2020-07-31] MEDS: Furosemide 20 MG TAB PO SCH (08:31)
[2020-07-31] MEDS: Metoprolol Tartrate 25 MG TAB PO SCH ×2 (08:31→20:30)
[2020-07-31] MEDS: Folic Acid 1 MG TAB PO SCH (08:31)
[2020-07-31] MEDS: [UNRECOGNIZED DRUG - OTHER] SC SCH ×2 (08:31→20:30)
--- NOTE | 2020-07-31 13:05 | PDOC.HOSPP ---
- Subjective Encounter Date: 07/31/20 Encounter Time: 11:15 Subjective: no sob, feels better is eager to go home/asst living - Objective Vital Signs & Weight: Vital Signs (12 hours) Temp Pulse Resp BP Pulse Ox 07/31/20 07:30 98.0 F 67 18 110/68 92 L Weight Admit Weight 166 lb 10.72 oz Weight 160 lb 1.6 oz I&O: 07/30/20 07/31/20 08/01/20 06:59 06:59 06:59 Intake Total 880 Output Total 600 Balance 280 Result Diagrams: 07/29/20 09:09 07/28/20 06:54 Hospitalist ROS - Medication Medications: Active Medications Generic Name Dose Route Start Last Admin Trade Name Freq PRN Reason Stop Dose Admin Enoxaparin Sodium 70 mg 07/30/20 09:00 07/31/20 08:31 Lonenox 80 Mg SC 70 mg Q12HR FRANDY Administration Furosemide 20 mg 07/29/20 09:00 07/31/20 08:31 Furosemide 20 Mg Tab PO 20 mg DAILY FRANDY Administration Metoprolol Tartrate 25 mg 07/29/20 09:00 07/31/20 08:31 Metoprolol Tartrate 25 Mg Tab PO 25 mg BID FRANDY Administration Pantoprazole Sodium 40 mg 07/29/20 09:00 07/31/20 08:31 Pantoprazole 40 Mg Tab PO 40 mg BID FRANDY Administration Senna/Docusate Sodium 1 tab 07/27/20 21:00 07/31/20 08:31 Senokot S 8.6-50 Mg Tab PO Not Given BID FRANDY Sodium Chloride 10 ml 07/25/20 00:55 07/28/20 09:00 Normal Saline Pf FS 10 ml PRN PRN Administration RECONSTITUTION Warfarin Sodium 10 mg 07/30/20 17:00 07/30/20 16:35 Warfarin Sodium 10 Mg Tab PO 10 mg 1700 FRANDY Administration - Exam General Appearance: awake alert Eye: PERRL, anicteric sclera ENT: no oropharyngeal lesions, moist mucosa Neck: symmetric, no JVD Heart: RRR, no murmur Respiratory: no wheezes, no rales Gastrointestinal: soft, non-tender, non-distended, normal bowel sounds Extremities: no cyanosis, no edema Neurological: cranial nerve grossly intact, no focal deficits Hosp A/P (1) Acute blood loss anemia Code(s): D62 - ACUTE POSTHEMORRHAGIC ANEMIA Status: Acute (2) SHANTELL (acute kidney injury) Code(s): N17.9 - ACUTE KIDNEY FAILURE, UNSPECIFIED Status: Acute (3) PNA (pneumonia) Code(s): J18.9 - PNEUMONIA, UNSPECIFIED ORGANISM Status: Acute Qualifiers: Pneumonia type: due to unspecified organism Laterality: bilateral (4) Pancreatic lesion Code(s): K86.9 - DISEASE OF PANCREAS, UNSPECIFIED Status: Acute (5) Cirrhosis Code(s): K74.60 - UNSPECIFIED CIRRHOSIS OF LIVER Status: Suspected Qualifiers: Hepatic cirrhosis type: unspecified hepatic cirrhosis Ascites presence: with ascites Qualified Code(s): K74.60 - Unspecified cirrhosis of liver; R18.8 - Other ascites (6) Atrial fibrillation Code(s): I48.91 - UNSPECIFIED ATRIAL FIBRILLATION Status: Chronic Qualifiers: Atrial fibrillation type: paroxysmal Qualified Code(s): I48.0 - Paroxysmal atrial fibrillation (7) CKD (chronic kidney disease) Code(s): N18.9 - CHRONIC KIDNEY DISEASE, UNSPECIFIED Status: Chronic Qualifiers: Chronic kidney disease stage: stage 2 (mild) Qualified Code(s): N18.2 - Chronic kidney disease, stage 2 (mild) (8) GI bleed Code(s): K92.2 - GASTROINTESTINAL HEMORRHAGE, UNSPECIFIED Status: Resolved Qualifiers: GI bleed type/associated pathology: angiodysplasia of stomach and duodenum Qualified Code(s): K31.811 - Angiodysplasia of stomach and duodenum with bleeding - Plan is on levaquin for pna, protonix bid, coumadin 10mg daily (will bridge with lovenox in view of [facility] mitral valve) inr is around 1.3 oral coumadin prudent diet to mobilize as tolerated shantell is resolving pancreatic lesion per GI advice, not sure if he is a candidate for chemo?/surgery dc plan when inr is around 2 atleast d/w daughter Ms.Patricia Alvarado [phone] and gave full updates.
[2020-07-31] MEDS: Warfarin Sodium 10 MG TAB PO SCH (19:07)
[2020-08-01 05:51] LABS: INR-International Normal Ratio 1.3; Prothrombin Time 16.3 sec (12.0-14.7)
[2020-08-01] MEDS: [UNRECOGNIZED DRUG - OTHER] SC SCH ×2 (08:29→21:30)
[2020-08-01] MEDS: Senokot S 8.6-50 MG TAB PO SCH ×2 (08:30→21:34)
[2020-08-01] MEDS: Metoprolol Tartrate 25 MG TAB PO SCH ×2 (08:31→21:30)
[2020-08-01] MEDS: Furosemide 20 MG TAB PO SCH (08:31)
[2020-08-01 09:34] LABS: Hemoglobin 8.4 g/dL (14.0-18.0)
[2020-08-01 09:40] LABS: Platelet Count 107 thou/uL (130-400)
--- NOTE | 2020-08-01 13:46 | PDOC.HOSPP ---
- Subjective Encounter Date: 08/01/20 Encounter Time: 08:45 Subjective: no sob or chest pain no bleeding per rectum - Objective Vital Signs & Weight: Vital Signs (12 hours) Temp Pulse Resp BP BP Pulse Ox 08/01/20 08:00 98.1 F 77 16 122/78 99 08/01/20 07:57 98.1 F 77 20 112/59 L 93 L Weight Admit Weight 166 lb 10.72 oz Weight 160 lb 1.6 oz Result Diagrams: 08/01/20 09:06 07/28/20 06:54 Hospitalist ROS - Medication Medications: Active Medications Generic Name Dose Route Start Last Admin Trade Name Freq PRN Reason Stop Dose Admin Enoxaparin Sodium 70 mg 07/30/20 09:00 08/01/20 08:29 Lonenox 80 Mg SC 70 mg Q12HR FRANDY Administration Furosemide 20 mg 07/29/20 09:00 08/01/20 08:31 Furosemide 20 Mg Tab PO 20 mg DAILY FRANDY Administration Levofloxacin 250 mg 08/01/20 06:00 08/01/20 05:42 Levofloxacin 250 Mg Tab PO 250 mg 0600 FRANDY Administration Metoprolol Tartrate 25 mg 07/29/20 09:00 08/01/20 08:31 Metoprolol Tartrate 25 Mg Tab PO 25 mg BID FRANDY Administration Pantoprazole Sodium 40 mg 07/29/20 09:00 08/01/20 08:31 Pantoprazole 40 Mg Tab PO 40 mg BID FRANDY Administration Senna/Docusate Sodium 1 tab 07/27/20 21:00 08/01/20 08:30 Senokot S 8.6-50 Mg Tab PO Not Given BID FRANDY Sodium Chloride 10 ml 07/25/20 00:55 07/28/20 09:00 Normal Saline Pf FS 10 ml PRN PRN Administration RECONSTITUTION - Exam General Appearance: awake alert Eye: PERRL, anicteric sclera ENT: no oropharyngeal lesions, moist mucosa Neck: supple, no JVD Heart: RRR, murmur present Respiratory: no wheezes, no rales Gastrointestinal: soft, non-tender, non-distended, normal bowel sounds Extremities: no cyanosis, no edema Neurological: cranial nerve grossly intact, no focal deficits Psychiatric: normal affect, A&O x 3 Hosp A/P (1) Acute blood loss anemia Code(s): D62 - ACUTE POSTHEMORRHAGIC ANEMIA Status: Acute (2) SHANTELL (acute kidney injury) Code(s): N17.9 - ACUTE KIDNEY FAILURE, UNSPECIFIED Status: Acute (3) PNA (pneumonia) Code(s): J18.9 - PNEUMONIA, UNSPECIFIED ORGANISM Status: Acute Qualifiers: Pneumonia type: due to unspecified organism Laterality: bilateral (4) Pancreatic lesion Code(s): K86.9 - DISEASE OF PANCREAS, UNSPECIFIED Status: Acute (5) Cirrhosis Code(s): K74.60 - UNSPECIFIED CIRRHOSIS OF LIVER Status: Suspected Qualifiers: Hepatic cirrhosis type: unspecified hepatic cirrhosis Ascites presence: with ascites Qualified Code(s): K74.60 - Unspecified cirrhosis of liver; R18.8 - Other ascites (6) Atrial fibrillation Code(s): I48.91 - UNSPECIFIED ATRIAL FIBRILLATION Status: Chronic Qualifiers: Atrial fibrillation type: paroxysmal Qualified Code(s): I48.0 - Paroxysmal atrial fibrillation (7) CKD (chronic kidney disease) Code(s): N18.9 - CHRONIC KIDNEY DISEASE, UNSPECIFIED Status: Chronic Qualifiers: Chronic kidney disease stage: stage 2 (mild) Qualified Code(s): N18.2 - Chronic kidney disease, stage 2 (mild) (8) GI bleed Code(s): K92.2 - GASTROINTESTINAL HEMORRHAGE, UNSPECIFIED Status: Resolved Qualifiers: GI bleed type/associated pathology: angiodysplasia of stomach and duodenum Qualified Code(s): K31.811 - Angiodysplasia of stomach and duodenum with bleeding - Plan is on levaquin for pna, protonix bid, coumadin 12mg daily (will bridge with lovenox in view of [facility] mitral valve) inr is around 1.3 oral coumadin prudent diet to mobilize as tolerated shantell is resolving pancreatic lesion per GI advice, not sure if he is a candidate for chemo?/surgery dc plan when inr is around 2 atleast d/w daughter Ms.Patricia Choiyesimassimo [phone] and gave full updates.
[2020-08-01] MEDS ORDERED: Warfarin Sodium 3 MG TAB PO SCH (17:00)
[2020-08-01] MEDS ORDERED: Warfarin Sodium 10 MG TAB PO SCH (17:00)
[2020-08-02 06:28] LABS: INR-International Normal Ratio 1.5; Prothrombin Time 18.1 sec (12.0-14.7)
[2020-08-02] MEDS: [UNRECOGNIZED DRUG - OTHER] SC SCH ×2 (08:19→20:16)
[2020-08-02] MEDS: Senokot S 8.6-50 MG TAB PO SCH ×2 (08:20→20:16)
[2020-08-02] MEDS: Furosemide 20 MG TAB PO SCH (08:21)
[2020-08-02] MEDS: Metoprolol Tartrate 25 MG TAB PO SCH ×2 (08:21→20:16)
[2020-08-02 08:45] LABS: #Eosinphils 0.1 thou/uL (0.0-0.7); #Lymphocytes 0.7 thou/uL (1.20-3.40); #Monocytes 0.6 thou/uL (0.11-0.59); #Neutrophils 3.1 thou/uL (1.40-6.50); %Eosinophils 3.2 % (0.0-10.0); %Lymphocytes 15.9 % (21.0-51.0); %Monocytes 13.7 % (0.0-10.0); %Neutrophils 67.2 % (42.0-75.0); Hemoglobin 8.4 g/dL (14.0-18.0); Mean Corpuscular HGB CONC 31.2 g/dL (32.0-36.0); Mean Corpuscular Hemoglobin 30.4 pg (27.0-31.0); Mean Corpuscular Volume 97.5 fL (78.0-98.0); Mean Platelet Volume 7.9 fL (7.4-10.4); Platelet Count 95 thou/uL (130-400); RBC Distribution Width 15.9 % (11.5-14.5); Red Blood Cell (RBC) Count 2.75 mill/uL (4.70-6.10); White Blood Cell (WBC) Count 4.7 thou/uL (4.8-10.8)
[2020-08-02 09:05] LABS: Anion Gap 11 mmol/L (10-20); BUN (Urea Nitrogen) 18 mg/dL (8.4-25.7); Calc. Creatinine Clearance 35 mL/min (70-130); Calcium 7.8 mg/dL (7.8-10.44); Carbon Dioxide 24 mmol/L (23-31); Chloride 106 mmol/L (98-107); Estimated GFR-MDRD 38; Glucose 94 mg/dL (83-110); Potassium 3.5 mmol/L (3.5-5.1); Sodium 137 mmol/L (136-145)
--- NOTE | 2020-08-02 09:47 | RAD ---
CHEST 1 VIEW: INDICATION: History of followup examination. COMPARISON: Prior exam dated 07/16/2020. FINDINGS: Airspace disease of the right lower lobe persists. Cardiomegaly is similar. Pulmonary vascular colt estion is similar-appearing. There are tiny bilateral pleural effusions. Dual-lead pacemaker is unc hanged. Midline sternotomy change is similar-appearing. IMPRESSION: Stable exam. POS: BH
--- NOTE | 2020-08-02 11:33 | PDOC.HOSPP ---
- Subjective Encounter Date: 08/02/20 Encounter Time: 07:35 Subjective: no sob, feels better no bleeding, is tolerating oral diet - Objective Vital Signs & Weight: Vital Signs (12 hours) Temp Pulse Resp BP Pulse Ox 08/02/20 08:00 98.8 F 65 18 121/63 94 L Weight Admit Weight 166 lb 10.72 oz Weight 160 lb 1.6 oz I&O: 08/01/20 08/02/20 08/03/20 06:59 06:59 06:59 Output Total 120 Balance -120 Result Diagrams: 08/02/20 08:31 08/02/20 08:31 Hospitalist ROS - Medication Medications: Active Medications Generic Name Dose Route Start Last Admin Trade Name Freq PRN Reason Stop Dose Admin Enoxaparin Sodium 70 mg 07/30/20 09:00 08/02/20 08:19 Lonenox 80 Mg SC 70 mg Q12HR FRANDY Administration Furosemide 20 mg 07/29/20 09:00 08/02/20 08:21 Furosemide 20 Mg Tab PO 20 mg DAILY FRANDY Administration Levofloxacin 250 mg 08/01/20 06:00 08/02/20 05:34 Levofloxacin 250 Mg Tab PO 250 mg 0600 FRANDY Administration Metoprolol Tartrate 25 mg 07/29/20 09:00 08/02/20 08:21 Metoprolol Tartrate 25 Mg Tab PO 25 mg BID FRANDY Administration Pantoprazole Sodium 40 mg 07/29/20 09:00 08/02/20 08:20 Pantoprazole 40 Mg Tab PO 40 mg BID FRANDY Administration Senna/Docusate Sodium 1 tab 07/27/20 21:00 08/02/20 08:20 Senokot S 8.6-50 Mg Tab PO 1 tab BID FRANDY Administration Sodium Chloride 10 ml 07/25/20 00:55 07/28/20 09:00 Normal Saline Pf FS 10 ml PRN PRN Administration RECONSTITUTION - Exam General Appearance: awake alert Eye: PERRL, anicteric sclera ENT: no oropharyngeal lesions, moist mucosa Neck: supple, no JVD Heart: RRR, murmur present Respiratory: no wheezes, no rales, rhonchi Gastrointestinal: soft, non-tender, non-distended, normal bowel sounds Extremities: no cyanosis, no edema Neurological: cranial nerve grossly intact, no focal deficits Psychiatric: A&O x 3 Hosp A/P (1) Acute blood loss anemia Code(s): D62 - ACUTE POSTHEMORRHAGIC ANEMIA Status: Acute (2) SHANTELL (acute kidney injury) Code(s): N17.9 - ACUTE KIDNEY FAILURE, UNSPECIFIED Status: Acute (3) PNA (pneumonia) Code(s): J18.9 - PNEUMONIA, UNSPECIFIED ORGANISM Status: Acute Qualifiers: Pneumonia type: due to unspecified organism Laterality: bilateral (4) Pancreatic lesion Code(s): K86.9 - DISEASE OF PANCREAS, UNSPECIFIED Status: Acute (5) Cirrhosis Code(s): K74.60 - UNSPECIFIED CIRRHOSIS OF LIVER Status: Suspected Qualifiers: Hepatic cirrhosis type: unspecified hepatic cirrhosis Ascites presence: with ascites Qualified Code(s): K74.60 - Unspecified cirrhosis of liver; R18.8 - Other ascites (6) Atrial fibrillation Code(s): I48.91 - UNSPECIFIED ATRIAL FIBRILLATION Status: Chronic Qualifiers: Atrial fibrillation type: paroxysmal Qualified Code(s): I48.0 - Paroxysmal atrial fibrillation (7) CKD (chronic kidney disease) Code(s): N18.9 - CHRONIC KIDNEY DISEASE, UNSPECIFIED Status: Chronic Qualifiers: Chronic kidney disease stage: stage 2 (mild) Qualified Code(s): N18.2 - Chronic kidney disease, stage 2 (mild) (8) GI bleed Code(s): K92.2 - GASTROINTESTINAL HEMORRHAGE, UNSPECIFIED Status: Resolved Qualifiers: GI bleed type/associated pathology: angiodysplasia of stomach and duodenum Qualified Code(s): K31.811 - Angiodysplasia of stomach and duodenum with bleeding - Plan is on levaquin for pna, protonix bid, coumadin 15mg daily (bridge with lovenox in view of [facility] mitral valve) inr is around 1.5 oral coumadin prudent diet to mobilize as tolerated shantell is resolving pancreatic lesion per GI advice, not sure if he is a candidate for chemo?/surgery dc plan when inr is around 2 atleast d/w daughter Ms.Patricia Alvarado [phone] and gave full updates 08/01.
[2020-08-02] MEDS: Warfarin Sodium 5 MG TAB PO SCH (17:24)
[2020-08-03 05:32] LABS: INR-International Normal Ratio 1.9; Prothrombin Time 21.3 sec (12.0-14.7)
[2020-08-03] MEDS: Senokot S 8.6-50 MG TAB PO SCH ×2 (09:38→20:18)
[2020-08-03] MEDS: Furosemide 20 MG TAB PO SCH (09:39)
[2020-08-03] MEDS: Metoprolol Tartrate 25 MG TAB PO SCH ×2 (09:39→20:18)
--- NOTE | 2020-08-03 12:19 | PDOC.HOSPP ---
- Subjective Encounter Date: 08/03/20 Encounter Time: 10:00 Subjective: no bleeding per rectum or abd pain no sob or palp feels better is eating well - Objective Vital Signs & Weight: Vital Signs (12 hours) Temp Pulse Resp BP Pulse Ox 08/03/20 08:00 95 08/03/20 07:22 97.7 F 66 18 103/62 95 Weight Admit Weight 166 lb 10.72 oz Weight 160 lb 1.6 oz I&O: 08/02/20 08/03/20 08/04/20 06:59 06:59 06:59 Output Total 120 Balance -120 Result Diagrams: 08/02/20 08:31 08/02/20 08:31 Hospitalist ROS - Medication Medications: Active Medications Generic Name Dose Route Start Last Admin Trade Name Freq PRN Reason Stop Dose Admin Furosemide 20 mg 07/29/20 09:00 08/03/20 09:39 Furosemide 20 Mg Tab PO 20 mg DAILY FRANDY Administration Levofloxacin 250 mg 08/01/20 06:00 08/03/20 06:05 Levofloxacin 250 Mg Tab PO 250 mg 0600 FRANDY Administration Metoprolol Tartrate 25 mg 07/29/20 09:00 08/03/20 09:39 Metoprolol Tartrate 25 Mg Tab PO Not Given BID FRANDY Pantoprazole Sodium 40 mg 07/29/20 09:00 08/03/20 09:38 Pantoprazole 40 Mg Tab PO 40 mg BID FRANDY Administration Senna/Docusate Sodium 1 tab 07/27/20 21:00 08/03/20 09:38 Senokot S 8.6-50 Mg Tab PO 1 tab BID FRANDY Administration Sodium Chloride 10 ml 07/25/20 00:55 07/28/20 09:00 Normal Saline Pf FS 10 ml PRN PRN Administration RECONSTITUTION Warfarin Sodium 15 mg 08/02/20 17:00 08/02/20 17:24 Warfarin Sodium 5 Mg Tab PO 15 mg 1700 FRANDY Administration - Exam General Appearance: awake alert Eye: PERRL, anicteric sclera ENT: no oropharyngeal lesions, moist mucosa Neck: supple, no JVD Heart: RRR, no murmur Respiratory: no wheezes, no rales Gastrointestinal: soft, non-tender, non-distended, normal bowel sounds Extremities: no cyanosis, no edema Neurological: cranial nerve grossly intact, no focal deficits Psychiatric: A&O x 3 Hosp A/P (1) Acute blood loss anemia Code(s): D62 - ACUTE POSTHEMORRHAGIC ANEMIA Status: Acute (2) SHANTELL (acute kidney injury) Code(s): N17.9 - ACUTE KIDNEY FAILURE, UNSPECIFIED Status: Acute (3) PNA (pneumonia) Code(s): J18.9 - PNEUMONIA, UNSPECIFIED ORGANISM Status: Acute Qualifiers: Pneumonia type: due to unspecified organism Laterality: bilateral (4) Pancreatic lesion Code(s): K86.9 - DISEASE OF PANCREAS, UNSPECIFIED Status: Acute (5) Cirrhosis Code(s): K74.60 - UNSPECIFIED CIRRHOSIS OF LIVER Status: Suspected Qualifiers: Hepatic cirrhosis type: unspecified hepatic cirrhosis Ascites presence: with ascites Qualified Code(s): K74.60 - Unspecified cirrhosis of liver; R18.8 - Other ascites (6) Atrial fibrillation Code(s): I48.91 - UNSPECIFIED ATRIAL FIBRILLATION Status: Chronic Qualifiers: Atrial fibrillation type: paroxysmal Qualified Code(s): I48.0 - Paroxysmal atrial fibrillation (7) CKD (chronic kidney disease) Code(s): N18.9 - CHRONIC KIDNEY DISEASE, UNSPECIFIED Status: Chronic Qualifiers: Chronic kidney disease stage: stage 2 (mild) Qualified Code(s): N18.2 - Chronic kidney disease, stage 2 (mild) (8) GI bleed Code(s): K92.2 - GASTROINTESTINAL HEMORRHAGE, UNSPECIFIED Status: Resolved Qualifiers: GI bleed type/associated pathology: angiodysplasia of stomach and duodenum Qualified Code(s): K31.811 - Angiodysplasia of stomach and duodenum with bleeding - Plan finished full course of levaquin for pna, protonix bid, coumadin 15mg daily inr is around 1.9, has [facility] mitral valve d/w pcp and who manages his coumadin, pt is on high dose coumadin now (prior to admission was on 6 or 7mg coumadin) 08/03/2020 oral coumadin prudent diet to mobilize as tolerated shantell is resolving pancreatic lesion per GI advice, not sure if he is a candidate for chemo?/surgery dc plan on thursday?, hoping his coumadin dose will be lower than 15mg daily d/w daughter Ms.Patricia Alvarado [phone] and gave full updates 08/01.
[2020-08-03] MEDS: Warfarin Sodium 5 MG TAB PO SCH (17:06)
[2020-08-04 05:41] LABS: INR-International Normal Ratio 2.3; Prothrombin Time 25.4 sec (12.0-14.7)
[2020-08-04] MEDS: Metoprolol Tartrate 25 MG TAB PO SCH ×2 (08:20→20:11)
[2020-08-04] MEDS: Furosemide 20 MG TAB PO SCH (08:20)
[2020-08-04] MEDS: Senokot S 8.6-50 MG TAB PO SCH ×2 (08:20→20:15)
[2020-08-04 08:37] LABS: Hemoglobin 8.4 g/dL (14.0-18.0)
[2020-08-04 08:42] LABS: Platelet Count 88 thou/uL (130-400)
--- NOTE | 2020-08-04 14:47 | PDOC.HOSPP ---
- Subjective Encounter Date: 08/04/20 Encounter Time: 14:45 Subjective: Mr. Desai was seen today in follow-up of GI bleed,and AV- malformation. He does not have any new complaints. - Objective Vital Signs & Weight: Vital Signs (12 hours) Temp Pulse Resp BP BP Pulse Ox 08/04/20 08:00 97.7 F 78 20 122/65 122/65 94 L Weight Admit Weight 166 lb 10.72 oz Weight 160 lb 1.6 oz Result Diagrams: 08/04/20 08:28 08/02/20 08:31 Hospitalist ROS - Medication Medications: Active Medications Generic Name Dose Route Start Last Admin Trade Name Freq PRN Reason Stop Dose Admin Furosemide 20 mg 07/29/20 09:00 08/04/20 08:20 Furosemide 20 Mg Tab PO 20 mg DAILY FRANDY Administration Metoprolol Tartrate 25 mg 07/29/20 09:00 08/04/20 08:20 Metoprolol Tartrate 25 Mg Tab PO 25 mg BID FRANDY Administration Pantoprazole Sodium 40 mg 08/04/20 09:00 08/04/20 08:20 Pantoprazole 40 Mg Tab PO 40 mg DAILY FRANDY Administration Senna/Docusate Sodium 1 tab 07/27/20 21:00 08/04/20 08:20 Senokot S 8.6-50 Mg Tab PO 1 tab BID FRANDY Administration Sodium Chloride 10 ml 07/25/20 00:55 07/28/20 09:00 Normal Saline Pf FS 10 ml PRN PRN Administration RECONSTITUTION - Exam Eye: PERRL, anicteric sclera Heart: RRR, no murmur, no gallops, no rubs, normal peripheral pulses Respiratory: CTAB, no wheezes, no rales, no ronchi, normal chest expansion, no tachypnea Gastrointestinal: soft, non-tender, non-distended, normal bowel sounds, no palpable masses, no hepatomegaly Extremities: no cyanosis, no edema Hosp A/P (1) AV malformation, acquired Code(s): I77.89 - OTHER SPECIFIED DISORDERS OF ARTERIES AND ARTERIOLES Status: Acute (2) PNA (pneumonia) Code(s): J18.9 - PNEUMONIA, UNSPECIFIED ORGANISM Status: Acute Qualifiers: Pneumonia type: due to unspecified organism Laterality: bilateral (3) Status post aortic valve and mitral valve replacement Code(s): Z95.2 - PRESENCE OF PROSTHETIC HEART VALVE Status: Acute (4) Atrial fibrillation Code(s): I48.91 - UNSPECIFIED ATRIAL FIBRILLATION Status: Chronic Qualifiers: Atrial fibrillation type: paroxysmal Qualified Code(s): I48.0 - Paroxysmal atrial fibrillation (5) GI bleed Code(s): K92.2 - GASTROINTESTINAL HEMORRHAGE, UNSPECIFIED Status: Resolved Qualifiers: GI bleed type/associated pathology: angiodysplasia of stomach and duodenum Qualified Code(s): K31.811 - Angiodysplasia of stomach and duodenum with bleeding (6) Chronic anticoagulation Code(s): Z79.01 - BREWMASTER (CURRENT) USE OF ANTICOAGULANTS Status: Chronic - Plan * GI bleed due to AV Malformation- he is s/p cautery, with hemostasis * Pneumonia- he has completed a full course of antibiotics * Chronic anticoagulation- his INR is now therapeutic. His dose is much different than his home dose. He says he was stable on 10mg a day for years. He notes that at home his diet consists mostly of meat and potatoes. Will reduce his dose to 12.5mg tonight and monitor his INR * The plan is discharge home on Thursday with Home Health if his INR is stable * AFIB- stable
[2020-08-04] MEDS ORDERED: Warfarin Sodium 5 MG TAB PO SCH ×3 (17:00)
[2020-08-04] MEDS ORDERED: Warfarin Sodium 7.5 MG TAB PO SCH ×2 (17:00)
[2020-08-04] MEDS: Acetaminophen 325 MG TAB PO PRN (22:13)
[2020-08-05 05:56] LABS: INR-International Normal Ratio 2.9; Prothrombin Time 29.7 sec (12.0-14.7)
[2020-08-05] MEDS: Senokot S 8.6-50 MG TAB PO SCH ×2 (08:21→22:07)
[2020-08-05] MEDS: Metoprolol Tartrate 25 MG TAB PO SCH ×2 (08:21→22:07)
[2020-08-05] MEDS: Furosemide 20 MG TAB PO SCH (08:22)
--- NOTE | 2020-08-05 15:36 | PDOC.HOSPP ---
- Subjective Encounter Date: 08/05/20 Encounter Time: 15:34 Subjective: Mr. Desai was seen today in follow-up of GI Bleed and anticoagulation. He does not have any complaints. - Objective Vital Signs & Weight: Vital Signs (12 hours) Temp Pulse Resp BP Pulse Ox 08/05/20 08:15 94 L 08/05/20 07:39 97.7 F 65 18 106/58 L 94 L Weight Admit Weight 166 lb 10.72 oz Weight 160 lb 1.6 oz I&O: 08/04/20 08/05/20 08/06/20 06:59 06:59 06:59 Intake Total 470 720 Balance 470 720 Result Diagrams: 08/04/20 08:28 08/02/20 08:31 Hospitalist ROS - Medication Medications: Active Medications Generic Name Dose Route Start Last Admin Trade Name Freq PRN Reason Stop Dose Admin Acetaminophen 650 mg 08/04/20 22:10 08/04/20 22:13 Acetaminophen 325 Mg Tab PO 650 mg Q6H PRN Administration Fever or Pain Furosemide 20 mg 07/29/20 09:00 08/05/20 08:22 Furosemide 20 Mg Tab PO 20 mg DAILY FRANDY Administration Metoprolol Tartrate 25 mg 07/29/20 09:00 08/05/20 08:21 Metoprolol Tartrate 25 Mg Tab PO 25 mg BID FRANDY Administration Pantoprazole Sodium 40 mg 08/04/20 09:00 08/05/20 08:21 Pantoprazole 40 Mg Tab PO 40 mg DAILY FRANDY Administration Senna/Docusate Sodium 1 tab 07/27/20 21:00 08/05/20 08:21 Senokot S 8.6-50 Mg Tab PO 1 tab BID FRANDY Administration Sodium Chloride 10 ml 07/25/20 00:55 07/28/20 09:00 Normal Saline Pf FS 10 ml PRN PRN Administration RECONSTITUTION - Exam Eye: PERRL, anicteric sclera Heart: RRR, no murmur, no gallops, no rubs, normal peripheral pulses Respiratory: CTAB, no wheezes, no rales, no ronchi, normal chest expansion, no tachypnea Gastrointestinal: soft, non-tender, non-distended, normal bowel sounds, no palpable masses, no hepatomegaly Extremities: no cyanosis, no edema Hosp A/P (1) AV malformation, acquired Code(s): I77.89 - OTHER SPECIFIED DISORDERS OF ARTERIES AND ARTERIOLES Status: Acute (2) PNA (pneumonia) Code(s): J18.9 - PNEUMONIA, UNSPECIFIED ORGANISM Status: Acute Qualifiers: Pneumonia type: due to unspecified organism Laterality: bilateral (3) Status post aortic valve and mitral valve replacement Code(s): Z95.2 - PRESENCE OF PROSTHETIC HEART VALVE Status: Acute (4) Atrial fibrillation Code(s): I48.91 - UNSPECIFIED ATRIAL FIBRILLATION Status: Chronic Qualifiers: Atrial fibrillation type: paroxysmal Qualified Code(s): I48.0 - Paroxysmal atrial fibrillation (5) GI bleed Code(s): K92.2 - GASTROINTESTINAL HEMORRHAGE, UNSPECIFIED Status: Resolved Qualifiers: GI bleed type/associated pathology: angiodysplasia of stomach and duodenum Qualified Code(s): K31.811 - Angiodysplasia of stomach and duodenum with bleeding (6) Chronic anticoagulation Code(s): Z79.01 - HALF-WAY (CURRENT) USE OF ANTICOAGULANTS Status: Chronic - Plan * GI bleed due to AV Malformation- he is s/p cautery, with hemostasis * Pneumonia- treated * Chronic anticoagulation-INR was 2.9 today- will reduce his dose to 10mg a day, which is his usual dose * AFIB- stable * Hopefully home tomorrow if the INR is stable
[2020-08-05 16:51] LABS: Anion Gap 10 mmol/L (10-20); BUN (Urea Nitrogen) 22 mg/dL (8.4-25.7); Calc. Creatinine Clearance 41 mL/min (70-130); Calcium 7.7 mg/dL (7.8-10.44); Carbon Dioxide 26 mmol/L (23-31); Chloride 106 mmol/L (98-107); Estimated GFR-MDRD 45; Glucose 109 mg/dL (83-110); Potassium 3.7 mmol/L (3.5-5.1); Sodium 138 mmol/L (136-145)
[2020-08-05] MEDS ORDERED: Warfarin Sodium 10 MG TAB PO SCH (17:00)
[2020-08-05] MEDS: Acetaminophen 325 MG TAB PO PRN (22:08)
[2020-08-06 05:52] LABS: Prothrombin Time 30.7 sec (12.0-14.7)
[2020-08-06] MEDS: Senokot S 8.6-50 MG TAB PO SCH (08:58)
[2020-08-06] MEDS: Metoprolol Tartrate 25 MG TAB PO SCH (08:58)
[2020-08-06] MEDS: Furosemide 20 MG TAB PO SCH (08:58)
--- NOTE | 2020-08-06 09:15 | PDOC.HOSPP ---
- Subjective Encounter Date: 08/06/20 Encounter Time: 09:13 - Objective Vital Signs & Weight: Vital Signs (12 hours) Temp Pulse Resp BP Pulse Ox 08/06/20 07:27 97.7 F 70 18 119/68 92 L Weight Admit Weight 166 lb 10.72 oz Weight 160 lb 1.6 oz I&O: 08/05/20 08/06/20 08/07/20 06:59 06:59 06:59 Intake Total 470 1560 Output Total 625 Balance 470 935 Result Diagrams: 08/04/20 08:28 08/05/20 16:10 Hospitalist ROS - Medication Medications: Active Medications Generic Name Dose Route Start Last Admin Trade Name Freq PRN Reason Stop Dose Admin Acetaminophen 650 mg 08/04/20 22:10 08/05/20 22:08 Acetaminophen 325 Mg Tab PO 650 mg Q6H PRN Administration Fever or Pain Furosemide 20 mg 07/29/20 09:00 08/06/20 08:58 Furosemide 20 Mg Tab PO 20 mg DAILY FRANDY Administration Metoprolol Tartrate 25 mg 07/29/20 09:00 08/06/20 08:58 Metoprolol Tartrate 25 Mg Tab PO 25 mg BID FRANDY Administration Pantoprazole Sodium 40 mg 08/04/20 09:00 08/06/20 08:58 Pantoprazole 40 Mg Tab PO 40 mg DAILY FRANDY Administration Senna/Docusate Sodium 1 tab 07/27/20 21:00 08/06/20 08:58 Senokot S 8.6-50 Mg Tab PO 1 tab BID FRANDY Administration Sodium Chloride 10 ml 07/25/20 00:55 07/28/20 09:00 Normal Saline Pf FS 10 ml PRN PRN Administration RECONSTITUTION Warfarin Sodium 10 mg 08/05/20 17:00 08/05/20 16:46 Warfarin Sodium 10 Mg Tab PO 10 mg 1700 FRANDY Administration - Exam Eye: PERRL, anicteric sclera Heart: RRR, no murmur, no gallops, no rubs, normal peripheral pulses Respiratory: CTAB, no wheezes, no rales, no ronchi, normal chest expansion, no tachypnea Gastrointestinal: soft, non-tender, non-distended, normal bowel sounds, no palpable masses Extremities: no cyanosis, no edema Hosp A/P (1) AV malformation, acquired Code(s): I77.89 - OTHER SPECIFIED DISORDERS OF ARTERIES AND ARTERIOLES Status: Acute (2) PNA (pneumonia) Code(s): J18.9 - PNEUMONIA, UNSPECIFIED ORGANISM Status: Acute Qualifiers: Pneumonia type: due to unspecified organism Laterality: bilateral (3) Status post aortic valve and mitral valve replacement Code(s): Z95.2 - PRESENCE OF PROSTHETIC HEART VALVE Status: Acute (4) Atrial fibrillation Code(s): I48.91 - UNSPECIFIED ATRIAL FIBRILLATION Status: Chronic Qualifiers: Atrial fibrillation type: paroxysmal Qualified Code(s): I48.0 - Paroxysmal atrial fibrillation (5) GI bleed Code(s): K92.2 - GASTROINTESTINAL HEMORRHAGE, UNSPECIFIED Status: Resolved Qualifiers: GI bleed type/associated pathology: angiodysplasia of stomach and duodenum Qualified Code(s): K31.811 - Angiodysplasia of stomach and duodenum with bleeding (6) Chronic anticoagulation Code(s): Z79.01 - CUSTODIAL (CURRENT) USE OF ANTICOAGULANTS Status: Chronic - Plan * GI bleed due to AV Malformation- resolved * Pneumonia- treated * Chronic anticoagulation-INR was 3.0 today- * Stable for discharge home
[2020-08-06 12:30] VITALS: BP 123/60; TEMP 97.4
--- NOTE | 2020-08-07 01:59 | DIS ---
DATE OF ADMISSION: 07/24/2020 DATE OF DISCHARGE: 08/06/2020 DISCHARGE DISPOSITION: Home with home health. DISCHARGE DIAGNOSES: 1. Gastrointestinal bleed secondary to AV malformation. 2. Acute blood loss anemia. 3. Atrial fibrillation. 4. Chronic anticoagulation. 5. History of aortic as well as mitral valve replacement. 6. Pneumonia, resolved. 7. Chronic kidney disease. 8. History of cirrhosis. DISCHARGE MEDICATIONS: Include: 1. Coumadin 10 mg p.o. daily. 2. Lopressor 50 mg p.o. b.i.d. 3. Lasix 40 mg p.o. twice a day. 4. Flexeril 5 mg p.o. t.i.d. IMAGING DONE DURING THE HOSPITAL STAY: The patient had a CT scan of the brain showing no acute intracranial abnormality. The patient had a CT scan of the abdomen showing dilatation of the pancreatic duct involving the distal body and tail of the pancreas. There was a markedly large right and small left pleural effusion and there was a superimposed pneumonia in the right lung and indeterminate age compression fracture in L4 vertebrae. The patient had a repeat scan of the abdomen three days later, this time showing extensive ascites, gallstones in the gallbladder and evidence of some cystic masses within the body of the pancreas. CODE STATUS: Full code. ALLERGIES: NO KNOWN DRUG ALLERGIES. HOSPITAL COURSE: Mr. Desai is a pleasant 79-year-old gentleman, who presented to the emergency room with fatigue. He was found to have a significant anemia and evidence of GI bleed. He was evaluated by the telecommunications administrator. He underwent an upper endoscopy showing vascular ectasias in the upper portion of the duodenum. These were cauterized and hemostasis was established. During this time, he was taken off Coumadin. After the procedure, the Coumadin was restarted and he was found to be a little bit refractory to Coumadin postop and required several days for him to reestablish an INR between 2 and 3. He was a bit deconditioned due to the anemia and his advanced age. He was approached about potentially going to penitentiary or rehab. However, he refused both and the patient elected to go home with home health instead. The patient was subsequently discharged home and he is to have followup in approximately 1 to 2 weeks. Job ID: [id number]
== END 2020-08-06 12:26 | disposition home or self-care (01) | DRG 377 ==
LOC: ERS 17:56 → T4-A 20:58 → EEVIPCON 20:58
PROVIDERS: ADMIT Internal Medicine; ATTEND Internal Medicine
PROC: 30233N1 Transfusion of Nonautologous Red Blood Cells into Peripheral Vein, Percutaneous Approach (ICD-10-PCS; 2020-07-25)
PROC: 0W3P8ZZ Control Bleeding in Gastrointestinal Tract, Via Natural or Artificial Opening Endoscopic (ICD-10-PCS; principal; 2020-07-26)
PROC: 0DB68ZX Excision of Stomach, Via Natural or Artificial Opening Endoscopic, Diagnostic (ICD-10-PCS; 2020-07-26)
PROC: 0DB78ZX Excision of Stomach, Pylorus, Via Natural or Artificial Opening Endoscopic, Diagnostic (ICD-10-PCS; 2020-07-26)
DX: K31.811 Angiodysplasia of stomach and duodenum with bleeding (principal); J18.9 Pneumonia, unspecified organism; D62 Acute posthemorrhagic anemia; I13.0 Hypertensive heart and chronic kidney disease with heart failure and stage 1 through stage 4 chronic kidney disease, or unspecified chronic kidney disease; J44.0 Chronic obstructive pulmonary disease with (acute) lower respiratory infection; M48.56XA Collapsed vertebra, not elsewhere classified, lumbar region, initial encounter for fracture; N17.9 Acute kidney failure, unspecified; R18.8 Other ascites; Z20.828 Contact with and (suspected) exposure to other viral communicable diseases; K74.60 Unspecified cirrhosis of liver; E78.5 Hyperlipidemia, unspecified; I50.9 Heart failure, unspecified; E78.00 Pure hypercholesterolemia, unspecified; K86.89 Other specified diseases of pancreas; K80.20 Calculus of gallbladder without cholecystitis without obstruction; K29.70 Gastritis, unspecified, without bleeding; K31.7 Polyp of stomach and duodenum; I48.0 Paroxysmal atrial fibrillation; N18.2 Chronic kidney disease, stage 2 (mild); Z79.899 Other long term (current) drug therapy; Z95.0 Presence of cardiac pacemaker; Z28.21 Immunization not carried out because of patient refusal; Z79.01 Long term (current) use of anticoagulants; Z95.2 Presence of prosthetic heart valve; Z95.1 Presence of aortocoronary bypass graft
CPT/HCPCS: 36415; 36416; 36430; 70450; 71045; 74150; 74170; 80048; 80053; 80306; 80307; 81003; 82274; 82607; 82728; 82746; 83540; 83550; 83605; 83880; 84439; 84443; 84484; 85014; 85018; 85025; 85027; 85610; 85730; 86850; 86900; 86901; 87635; 88305; 88312; 93005; 94760; 96365; 96366; 96375; C9113; J1650; J1940; J1956; J2704; J3480; P9016; Q9967; U0002; U0003

== ENCOUNTER 2020-08-27 01:39 | Inpatient (IN) | payer MEDICARE, OTHER ==
[2020-08-27 02:17] LABS: #Lymphocytes 0.5 thou/uL (1.20-3.40); #Monocytes 0.5 thou/uL (0.11-0.59); #Neutrophils 2.5 thou/uL (1.40-6.50); %Eosinophils 0.1 % (0.0-10.0); %Lymphocytes 15.3 % (21.0-51.0); %Monocytes 14.3 % (0.0-10.0); %Neutrophils 70.2 % (42.0-75.0); Hemoglobin 8.4 g/dL (14.0-18.0); Mean Corpuscular HGB CONC 31.1 g/dL (32.0-36.0); Mean Corpuscular Volume 86.7 fL (78.0-98.0); Mean Platelet Volume 9.4 fL (7.4-10.4); Platelet Count 114 thou/uL (130-400); RBC Distribution Width 17.3 % (11.5-14.5); Red Blood Cell (RBC) Count 3.12 mill/uL (4.70-6.10); White Blood Cell (WBC) Count 3.5 thou/uL (4.8-10.8)
[2020-08-27 02:35] LABS: Anion Gap 17 mmol/L (10-20); BUN (Urea Nitrogen) 66 mg/dL (8.4-25.7); Calc. Creatinine Clearance 0 mL/min (70-130); Calcium 7.9 mg/dL (7.8-10.44); Carbon Dioxide 23 mmol/L (23-31); Chloride 102 mmol/L (98-107); Estimated GFR-MDRD 20; Glucose 111 mg/dL (83-110); Potassium 4.3 mmol/L (3.5-5.1); Sodium 138 mmol/L (136-145)
--- NOTE | 2020-08-27 03:20 | PDOC.HHP ---
Hospitalist HPI - History of Present Illness Dizziness History of Present Illness: 79-year-old gentleman with a history of COPD, chronic atrial fibrillation on Coumadin anticoagulation, that is post pacemaker history of hypertension congestive heart failure on Lasix therapy presents to the emergency department with a complaint of dizziness which occurred yesterday in the afternoon. Patient denied any palpitation, denied any chest pain or shortness of breath. He is a very poor historian and could not provide much history. Blood work in the emergency department demonstrated SHANTELL with a creatinine of 3.1 compared to a baseline of 1.5. His hemoglobin was 8.4 which is about baseline. Noted patient is on maintenance Lasix therapy. He denied any dizziness during my examination in the ED. He is admitted for further management of SHANTELL. Hospitalist ROS - Review of Systems Other: Except as documented, all other systems reviewed and negative. - Medication Medications: Medication Instructions Recorded Confirmed Type Furosemide [Lasix] 40 mg PO BID 05/15/14 07/25/20 History Metoprolol Tartrate [Lopressor] 50 mg PO BID 05/15/14 07/25/20 History Acetaminophen [Tylenol Regular 650 mg PO Q8HR tab 04/06/20 07/25/20 Rx Strength] Cyclobenzaprine [Flexeril] 5 mg PO TID PRN tab 04/06/20 07/25/20 Rx Warfarin Sodium [Coumadin] 10 mg PO 1700 tab 08/06/20 Rx Warfarin Sodium [Coumadin] 10 mg PO DAILY #60 tab 08/06/20 Rx Hospitalist History - Past Medical History Other Medical History: COPD Chronic respiratory failure on home oxygen Atrial fibrillation on Coumadin Hypertension Congestive heart failure Coronary artery disease Aortic and mitral valve disease - Past Surgical History Other Surgical History: Aortic and mitral valve replacement Redo of aortic valve replacement CABG Hemorrhoidectomy Pacemaker placement - Family History Family History: reports: cancer (breast) - Social History Smoking Status: Never smoker Alcohol: reports: None Living Situation: Alone - Exam General Appearance: NAD, awake alert, ill appearing Eye: PERRL, anicteric sclera ENT: normocephalic atraumatic, no oropharyngeal lesions, moist mucosa Neck: supple, symmetric, no JVD, no thyromegaly Heart: no murmur, no gallops, irregular Respiratory: CTAB, no wheezes, no rales, no ronchi Gastrointestinal: soft, distended (Mildly distended, ascites.) Extremities: no cyanosis, 2+ LE edema (Bilateral) Skin: normal turgor, no rashes Skin - other findings: Healing abrasion on left forehead. Neurological: cranial nerve grossly intact, no weakness, no focal deficits Musculoskeletal: normal tone, normal strength Psychiatric: normal affect, A&O x 3 Hospitalist Results - Labs Result Diagrams: 08/27/20 02:02 08/27/20 02:02 Lab results: WBC 3.5 thou/uL (4.8-10.8) L 08/27/20 02:02 Hgb 8.4 g/dL (14.0-18.0) L 08/27/20 02:02 Hct 27.0 % (42.0-52.0) L 08/27/20 02:02 MCV 86.7 fL (78.0-98.0) 08/27/20 02:02 Plt Count 114 thou/uL (130-400) L 08/27/20 02:02 Neutrophils % 70.2 % (42.0-75.0) 08/27/20 02:02 Sodium 138 mmol/L (136-145) 08/27/20 02:02 Potassium 4.3 mmol/L (3.5-5.1) 08/27/20 02:02 Chloride 102 mmol/L (98-107) 08/27/20 02:02 Carbon Dioxide 23 mmol/L (23-31) 08/27/20 02:02 BUN 66 mg/dL (8.4-25.7) H 08/27/20 02:02 Creatinine 3.10 mg/dL (0.7-1.3) H 08/27/20 02:02 Glucose 111 mg/dL (83-110) H 08/27/20 02:02 Calcium 7.9 mg/dL (7.8-10.44) 08/27/20 02:02 Hospitalist H&P A/P - Problem (1) Dizziness Code(s): R42 - DIZZINESS AND GIDDINESS Status: Acute Assessment and Plan: Now resolved. (2) Acute worsening of stage 3 chronic kidney disease Code(s): N18.30 - CHRONIC KIDNEY DISEASE, STAGE 3 UNSPECIFIED Status: Acute (3) Atrial fibrillation Code(s): I48.91 - UNSPECIFIED ATRIAL FIBRILLATION Status: Chronic Qualifiers: Atrial fibrillation type: paroxysmal Qualified Code(s): I48.0 - Paroxysmal atrial fibrillation (4) Chronic anemia Code(s): D64.9 - ANEMIA, UNSPECIFIED Status: Acute (5) Status post aortic valve and mitral valve replacement Code(s): Z95.2 - PRESENCE OF PROSTHETIC HEART VALVE Status: Acute (6) Cirrhosis Code(s): K74.60 - UNSPECIFIED CIRRHOSIS OF LIVER Status: Suspected Qualifiers: Hepatic cirrhosis type: unspecified hepatic cirrhosis Ascites presence: with ascites Qualified Code(s): K74.60 - Unspecified cirrhosis of liver; R18.8 - Other ascites (7) Chronic anticoagulation Code(s): Z79.01 - NURSING HOME (CURRENT) USE OF ANTICOAGULANTS Status: Chronic - Plan Plan: Admit to the medical floor. Patient dizziness is resolved. It could be related to his atrial fibrillation. He has been normotensive since presentation. Obtain EKG and chest x-ray. Hold Lasix Patient given IV fluid in the ED. We will not continue IV fluid given the presence of significant anasarca/ascites. Obtain renal ultrasound Consult to nephrology. Lasix and albumin infusion per nephrology. Monitor CBC, transfuse for hemoglobin less than 8. Hemoglobin is at baseline. Check PT and INR and continue Coumadin as appropriate. Patient is a poor historian with poor insight and could not discuss advanced care planning with him.
[2020-08-27 06:41] LABS: Albumin 3.2 g/dL (3.4-4.8); Anion Gap 15 mmol/L (10-20); BUN (Urea Nitrogen) 67 mg/dL (8.4-25.7); BUN/Creatinine Ratio 21.75; Calc. Creatinine Clearance 18 mL/min (70-130); Calcium 7.5 mg/dL (7.8-10.44); Carbon Dioxide 26 mmol/L (23-31); Chloride 103 mmol/L (98-107); Estimated GFR-MDRD 20; Glucose 102 mg/dL (83-110); Phosphorus 5.8 mg/dL (2.3-4.7); Potassium 4.1 mmol/L (3.5-5.1); Sodium 140 mmol/L (136-145)
--- NOTE | 2020-08-27 07:32 | ULT ---
Renal sonogram HISTORY: Renal insufficiency. FINDINGS: Right kidney is 7.7 cm length and left is 8.5 cm. Diffuse increase in echogenicity of the c ortex with thinning of the right renal cortex. No hydronephrosis or mass evident. Urinary bladder is unremarkable. Ureteral jets not seen at the time of sonography. Large amount of free fluid evident throughout the abdomen. IMPRESSION : No evidence of urinary tract obstruction. Findings of nonspecific chronic medical renal disease. Ascites.
[2020-08-27] MEDS ORDERED: FLU VACC QS2020-21(65YR UP)/PF 240 MCG/0.7 ML SYRINGE IM ONE (08:00)
--- NOTE | 2020-08-27 08:29 | PDOC.HOSPP ---
- Subjective Encounter Date: 08/27/20 Encounter Time: 08:23 Subjective: no secific complaints - Objective Vital Signs & Weight: Vital Signs (12 hours) Temp Pulse Resp BP BP Pulse Ox 08/27/20 08:19 97.3 F L 65 20 144/70 H 08/27/20 04:10 98 F 66 18 138/76 100 Weight Weight 147 lb 9.6 oz I&O: 08/26/20 08/27/20 08/28/20 06:59 06:59 06:59 Intake Total 110 Balance 110 Result Diagrams: 08/27/20 02:02 08/27/20 05:53 - Exam General Appearance: ill appearing Neck: no JVD Heart: irregular Respiratory - other findings: coarse on left, markedly diminished on R Gastrointestinal: soft, normal bowel sounds Extremities: no edema Hosp A/P (1) PNA (pneumonia) Code(s): J18.9 - PNEUMONIA, UNSPECIFIED ORGANISM Status: Acute Qualifiers: Pneumonia type: due to unspecified organism Laterality: right Lung location: middle lobe of lung Qualified Code(s): J18.9 - Pneumonia, unspecified organism (2) Acute worsening of stage 3 chronic kidney disease Code(s): N18.30 - CHRONIC KIDNEY DISEASE, STAGE 3 UNSPECIFIED Status: Chronic (3) Chronic anemia Code(s): D64.9 - ANEMIA, UNSPECIFIED Status: Chronic (4) SHANTELL (acute kidney injury) Code(s): N17.9 - ACUTE KIDNEY FAILURE, UNSPECIFIED Status: Acute (5) Status post aortic valve and mitral valve replacement Code(s): Z95.2 - PRESENCE OF PROSTHETIC HEART VALVE Status: Chronic (6) Atrial fibrillation Code(s): I48.91 - UNSPECIFIED ATRIAL FIBRILLATION Status: Chronic Qualifiers: Atrial fibrillation type: paroxysmal Qualified Code(s): I48.0 - Paroxysmal atrial fibrillation (7) Chronic anticoagulation Code(s): Z79.01 - REC THERAPIST (CURRENT) USE OF ANTICOAGULANTS Status: Chronic (8) Cirrhosis Code(s): K74.60 - UNSPECIFIED CIRRHOSIS OF LIVER Status: Suspected Qualifiers: Hepatic cirrhosis type: unspecified hepatic cirrhosis Ascites presence: with ascites Qualified Code(s): K74.60 - Unspecified cirrhosis of liver; R18.8 - Other ascites - Plan pulmonary consult
[2020-08-27] MEDS ORDERED: Heparin 5,000 UNITS/ML VIAL SC SCH (09:00)
--- NOTE | 2020-08-27 09:08 | RAD ---
PORTABLE CHEST: COMPARISON: 08/02/2020 exam. HISTORY: Dizziness. FINDINGS: Heart size is enlarged. There are postop sternotomy changes. Pleural and parenchymal changes in the right lung base are somewhat more consolidated in appearance on this exam. A more prominent density in the right infrahilar region. The left lung remains clear. IMPRESSION: Worsening appearance to the right infrahilar lung changes. Also some associated pleural changes. El evation of the right hemidiaphragm, some of which could represent a subpulmonic effusion. POS: NAMITA
[2020-08-27 09:30] LABS: ALT (SGPT) 8 U/L (8-55); AST (SGOT) 47 U/L (5-34); Albumin 3.3 g/dL (3.4-4.8); Alkaline Phosphatase 66 U/L (40-110); Bilirubin, Direct 0.8 mg/dL (0.1-0.3); Bilirubin, Total 1.1 mg/dL (0.2-1.2); Protein, Total 6.7 g/dL (5.8-8.1)
[2020-08-27 10:00] LABS: Prothrombin Time 49.2 sec (12.0-14.7)
[2020-08-27 10:02] LABS: INR-International Normal Ratio 5.2
[2020-08-27 10:20] LABS: Iron 22 ug/dL (65-175); Iron Binding Capacity, Total 279 mcg/dL (261-462)
[2020-08-27 10:23] LABS: Albumin 3.2 g/dL (3.4-4.8); Anion Gap 13 mmol/L (10-20); BUN (Urea Nitrogen) 66 mg/dL (8.4-25.7); BUN/Creatinine Ratio 21.78; Calc. Creatinine Clearance 19 mL/min (70-130); Calcium 7.7 mg/dL (7.8-10.44); Carbon Dioxide 26 mmol/L (23-31); Chloride 104 mmol/L (98-107); Estimated GFR-MDRD 20; Glucose 106 mg/dL (83-110); Iron 21 ug/dL (65-175); Phosphorus 5.8 mg/dL (2.3-4.7); Potassium 4.2 mmol/L (3.5-5.1); Sodium 139 mmol/L (136-145)
--- NOTE | 2020-08-27 11:39 | CON ---
DATE OF CONSULTATION: 08/27/2020 REASON FOR CONSULTATION: Abnormal x-ray. CONSULTING PHYSICIAN: Kulwinder Kendrick MD HISTORY OF PRESENT ILLNESS: The following encompassed 75 minutes of time. The patient is a 79-year-old male, who was admitted to the hospital yesterday because he was uncomfortable when lying in a flat position. He said he had been having some shortness of breath, but it was mainly bothered by dizziness. He is a very poor historian. History and physical indicates that he had a history of valvular heart disease. I have also found that he had a history of cirrhosis. PAST MEDICAL HISTORY: 1. COPD. 2. Chronic hypoxic respiratory failure requiring home oxygen. 3. Atrial fibrillation. 4. Hypertension. 5. Diastolic congestive heart failure. 6. Coronary artery disease. 7. Aortic and mitral valve disease. 8. Question of cirrhosis. PAST SURGICAL HISTORY: 1. Aortic and mitral valve replacements. 2. CABG. 3. Redo aortic valve replacement. 4. Hemorrhoidectomy. 5. Pacemaker placement. FAMILY MEDICAL HISTORY: Remarkable for breast cancer. SOCIAL HISTORY: Does not smoke. Says he quit drinking many years ago. MEDICATIONS: Prior to admission; 1. Furosemide. 2. Metoprolol. 3. Acetaminophen. 4. Flexeril. 5. Coumadin. REVIEW OF SYSTEMS: Remarkable for shortness of breath, abdominal swelling, and lower extremity swelling. PHYSICAL EXAMINATION: VITAL SIGNS: Temperature 97.3, pulse 65, respirations 20, O2 saturation 100% on 4 L, and blood pressure 144/70. GENERAL: He is a disheveled appearing male. HEENT: Pupils are reactive. Sclerae anicteric. Oropharynx, poor dentition. NECK: No adenopathy or JVD. LUNGS: Coarse rhonchi bilaterally with diminished breath sounds at bases. CARDIOVASCULAR: S1 and S2. Regular. ABDOMEN: Tense ascites present. EXTREMITIES: Edematous. LABORATORY DATA: Sodium 140, potassium 4.1, chloride 103, CO2 of 26, BUN 67, creatinine 3.0, glucose 102, and albumin is 3.3. INR is 5.2. White blood cell count 3.5, hematocrit 27, and platelet count 114. His x-ray shows right lower lobe effusion versus some atelectasis. BNP level is pending. ASSESSMENT: The patient is presenting with ascites, pleural effusion, and a state consistent with overall fluid overload. Additionally, he has renal insufficiency, hypoalbuminemia, and a history of congestive heart failure with an aortic valve and mitral valve replacement. RECOMMENDATION: When his INR is corrected, I would recommend therapeutic paracentesis and see what his x-ray looks like afterward. In the meantime, continue diuresis. Based on constellation of symptoms, I doubt this is pneumonia. SBP would be a possibility given the degree of ascites. Therefore, a paracentesis should help with some. Job ID: [id number]
[2020-08-27] MEDS: Piperacillin/Tazobactam 3.375 GM in Sodium Chloride 0.9% 100 ML IVPB SCH ×3 (13:05→23:40)
--- NOTE | 2020-08-27 15:11 | PDOC.EVN ---
Event Note - Event Note Event Note: INR 5.2. hold warfarin. monitor INR. will get therapeutic paracentesis when safe
[2020-08-27 16:40] LABS: SARS-CoV-2 MS2 Positive; SARS-CoV-2 N Gene Positive; SARS-CoV-2 S Gene Positive; SARS-CoV-2 by NAA DETECTED (NotDetected); SARS-CoV-2 orf1ab Positive
--- NOTE | 2020-08-27 20:30 | CON ---
DATE OF CONSULTATION: CONSULTING PHYSICIAN: Andrés Ward MD. REQUESTING PHYSICIAN: Dr. Kendrick. REASON FOR CONSULTATION: Acute on chronic kidney disease. IMPRESSION: 1. Acute on chronic kidney disease. This is likely multifactorial including but not limited to cardiohepatorenal syndrome. 2. Hypoalbuminemia. 3. Gross ascites, likely related to either liver or cardiac decompensation. 4. Hypervolemia, on diuretics. 5. Anemia, likely that of chronic disease. PLAN: 1. Diuresis. 2. The patient to benefit from diagnostic/therapeutic paracentesis with albumin coverage. The patient is going to undergo large volume paracentesis to avoid worsening possible hepatorenal syndrome. 3. Renally dose all medications and avoid potentially nephrotoxic agents. 4. Iron studies to evaluate for potential need for iron infusion as well as erythropoiesis-stimulating agents. 5. Further management will be dependent on the clinical course as well as further findings from investigation. HISTORY OF PRESENT ILLNESS: History is that of a 79-year-old gentleman who presented here with dizziness and noted to have evidence of very tense gross ascites, coagulopathic on Coumadin with INR of 5.2. The patient claimed to have to be much more hypervolemic and has shrunken down since starting diuretics, however, not up to his baseline body habitus. In any case, the evaluation did review the creatinine of 3 above the patient's baseline creatinine of about 1.5 to 2. As a result of these findings, decision has been taken to involve Renal in the management of this case. PAST MEDICAL HISTORY: Significant for: 1. Chronic respiratory failure. 2. Atrial fibrillation, on Coumadin. 3. Hypertension. 4. Congestive heart failure. 5. Coronary artery disease. 6. Diabetes. 7. Mitral valve disease. FAMILY HISTORY: No family history of kidney disease. SOCIAL HISTORY: No alcohol, no tobacco, no illicit drug use. REVIEW OF SYSTEMS: As documented in the body of the history. All other systems highly limited given the patient has not been a very good historian. PHYSICAL EXAMINATION: GENERAL: The patient was found to be ill-looking, somewhat disheveled. VITAL SIGNS: Noted with the following vital signs; afebrile, temperature 97.3, pulse 65, respiratory rate of 20, O2 saturation of 96% on 4 L, with a blood pressure 144/70. HEENT: Unremarkable. CARDIOVASCULAR SYSTEM: First and second heart sounds were heard. RESPIRATORY SYSTEM: Clear to auscultation with limited breath sounds on the right. DIGESTIVE SYSTEM: Revealed a tense abdomen with evidence of ascites. Positive bowel sounds. EXTREMITIES: Did not show significant peripheral edema. SKIN: No new gross rash. LYMPHATICS: No peripheral lymphadenopathy. SUMMARY: A 79-year-old gentleman who presented here with elevated creatinine with a complaint of dizziness, noted to have tense ascites. Will benefit from therapeutic paracentesis. Thank you for this consultation. We will follow with you. Job ID: [id number]
[2020-08-27] MEDS: Furosemide 40 MG TAB PO SCH (21:08)
[2020-08-27] MEDS: Acetaminophen 325 MG TAB PO PRN (21:08)
[2020-08-27] MEDS: Metoprolol Tartrate 50 MG TAB PO SCH (21:08)
--- NOTE | 2020-08-27 21:30 | CON ---
DATE OF CONSULTATION: 08/27/2020 REASON FOR CONSULTATION: COVID pneumonia. HISTORY OF PRESENT ILLNESS: A 79-year-old, who has a history of coronary artery disease, CHF, pacemaker, and bypass graft surgery and two valve replacements, mitral and aortic in the past, who lives in a long term and developed dizziness reportedly during lunchtime. No vomiting. No headaches. No seizure activity. No respiratory symptoms to speak off. He on arrival had a BP 120/80, pulse 65, respirations 16, temperature 98.3, and O2 saturations were 98% on 4 L. He did not appear in distress and the exam description from the emergency room physician is not particularly remarkable. Initial findings included a sodium 138, creatinine 3.10 and bilirubin 0.8, AST 47, and albumin 3.2. SARS-CoV was positive at 3 a.m. and the x-ray showed worsening appearance of right infrahilar lung changes with somewhat more consolidated infiltrate in the right lung base and a prominent density in the right infrahilar region. The left lung remained clear. So, he was transferred to the floor and he is on Decadron, furosemide, metoprolol Zosyn, warfarin, and hydrocodone. Currently, Mr. Desai is awake, but is drowsy and apparently has significant hearing impairment and was hard to communicate with him. He was obviously tachypneic and in some respiratory distress. He had a hard time in having interaction with the examiner, was difficult to obtain a review of systems. PAST MEDICAL HISTORY: Includes COPD, respiratory insufficiency on O2 supplementation, atrial fibrillation, hypertension, CHF, coronary artery disease, aortic and mitral valve replacement, and coronary artery bypass graft surgery. He had redo of the aortic valve replacement, hemorrhoidectomy, and pacemaker. FAMILY HISTORY: Cancer developed at the breast. SOCIAL HISTORY: Reportedly never smoker. ALLERGIES: NO ALLERGIES NOTED. MEDICATIONS: The medications have been discussed above. PHYSICAL EXAMINATION: VITAL SIGNS: T-max 98, blood pressure 120/58, heart rate 65, respiratory rate 20, and O2 saturation 96 on 4 L nasal cannula. When I went into the room, his O2 saturations are 85 with 4 L nasal cannula. SKIN: His skin color is a sort of reyes and acevedo look and he was obviously having some difficulty breathing. No skin lesions are noted. He has a peripheral IV access and did not have a Malone catheter. No lymphadenopathy. HEENT: Ocular movements are conjugate. Pupils are 2 mm. Oral cavity with still few teeth in place with dry oral mucosa. NECK: Supple with some jugular vein distention. LUNGS: With scattered rhonchi and a few crackles at the bases, both sides. HEART: S1 and S2 with a very sharp click of aortic and a mitral valve. No obvious murmurs noted. ABDOMEN: Baqt-om-ahjgvlsppb distended with a positive fluid wave suggestive of ascites. GENITALS: Not edematous. EXTREMITIES: He had trace edema in the lower extremities. Pulses are diminished in dorsalis pedis. Plantar responses are indifferent. He is able to move extremities, but he is diffusely weak. NEUROLOGIC: He knew his name, but had a hard time and interacting with examiner with severe hearing impairment. ASSESSMENT: Coronary artery disease, bypass graft surgery, ischemic cardiomyopathy, pacemaker, aortic and mitral valve replacements and dizziness with now positive COVID PCR and evidence of worsening hypoxemia. DISCUSSION: The patient has a doyqxhuj-mu-gjtghh COVID infection and in view of his cardiomyopathy, it is difficult to see, which is contributed by the volume overload or by the COVID process itself, but he is at quite high risk of progression of the illness. He is not eligible for anti-viral remdesivir due to his renal function. He would be eligible for convalescent plasma, although the extra volume would be a problem in this case. So, I am going to forego convalescent plasma for now and just can continue the Decadron. The patient has a high risk of poor outcome and may have to consider transfer to [facility] since he is still a full code at this point. Palliative care consul- leonid. Job ID: [id number] MTDD
[2020-08-28 00:22] LABS: Protein, Urine Random Quant 17 mg/dL (1-14); Sodium, Urine 46 mmol/L (Not Available)
[2020-08-28] MEDS: Piperacillin/Tazobactam 3.375 GM in Sodium Chloride 0.9% 100 ML IVPB SCH ×4 (05:24→23:13)
[2020-08-28 07:48] LABS: PTT 81.9 sec (22.9-36.1); Prothrombin Time 72.5 sec (12.0-14.7)
[2020-08-28 07:50] LABS: INR-International Normal Ratio 8.5
--- NOTE | 2020-08-28 09:07 | PDOC.HOSPP ---
- Subjective Encounter Date: 08/28/20 Encounter Time: 09:06 Subjective: on high flow O2, 'I don't feel bad" - Objective Vital Signs & Weight: Vital Signs (12 hours) Temp Pulse Resp BP Pulse Ox 08/28/20 00:10 99.5 F 65 20 106/52 L 95 Weight Weight 144 lb 6.4 oz I&O: 08/27/20 08/28/20 08/29/20 06:59 06:59 06:59 Intake Total 410 Output Total 300 Balance 110 Result Diagrams: 08/27/20 02:02 08/27/20 09:41 Hospitalist ROS - Medication Medications: Active Medications Generic Name Dose Route Start Last Admin Trade Name Freq PRN Reason Stop Dose Admin Acetaminophen 650 mg 08/27/20 20:56 08/27/20 21:08 Acetaminophen 325 Mg Tab PO 650 mg Q4H PRN Administration Headache/Fever or Pain Furosemide 40 mg 08/27/20 21:00 08/27/20 21:08 Furosemide 40 Mg Tab PO 40 mg BID FRANDY Administration Piperacillin Sod/Tazobactam 100 mls @ 200 mls/hr 08/27/20 12:00 08/28/20 05:24 Sod 3.375 gm/ Sodium Chloride IVPB 100 mls Q6HR FRANDY Administration Metoprolol Tartrate 50 mg 08/27/20 21:00 08/27/20 21:08 Metoprolol Tartrate 50 Mg Tab PO 50 mg BID FRANDY Administration - Exam General Appearance: awake alert Neck: no JVD Heart: no murmur, irregular Respiratory - other findings: bilat rales, R>L Gastrointestinal: soft, non-distended, normal bowel sounds Extremities: no edema Hosp A/P (1) Pneumonia due to COVID-19 virus Code(s): U07.1 - COVID-19; J12.89 - OTHER VIRAL PNEUMONIA Status: Acute (2) Acute worsening of stage 3 chronic kidney disease Code(s): N18.30 - CHRONIC KIDNEY DISEASE, STAGE 3 UNSPECIFIED Status: Chronic (3) Chronic anemia Code(s): D64.9 - ANEMIA, UNSPECIFIED Status: Chronic (4) SHANTELL (acute kidney injury) Code(s): N17.9 - ACUTE KIDNEY FAILURE, UNSPECIFIED Status: Acute (5) Status post aortic valve and mitral valve replacement Code(s): Z95.2 - PRESENCE OF PROSTHETIC HEART VALVE Status: Chronic (6) Atrial fibrillation Code(s): I48.91 - UNSPECIFIED ATRIAL FIBRILLATION Status: Chronic Qualifiers: Atrial fibrillation type: paroxysmal Qualified Code(s): I48.0 - Paroxysmal atrial fibrillation (7) Chronic anticoagulation Code(s): Z79.01 - RN WELLNESS (CURRENT) USE OF ANTICOAGULANTS Status: Chronic (8) Cirrhosis Code(s): K74.60 - UNSPECIFIED CIRRHOSIS OF LIVER Status: Suspected Qualifiers: Hepatic cirrhosis type: unspecified hepatic cirrhosis Ascites presence: with ascites Qualified Code(s): K74.60 - Unspecified cirrhosis of liver; R18.8 - Other ascites (9) Coagulopathy Status: Acute - Plan on high flow O2 iv decadron INR 8+, transfuse 6 ubits FFP, then rpt PT/INR cont to monitor renaal fcn, etc prognosis poorr, have discussed with patient
[2020-08-28] MEDS: Dexamethasone 4 mg/ml Vial SLOW IVP SCH (09:17)
[2020-08-28] MEDS: Furosemide 40 MG TAB PO SCH ×2 (09:18→20:29)
[2020-08-28] MEDS: Spironolactone 25 MG TAB PO SCH (09:18)
[2020-08-28 10:02] LABS: Albumin 2.8 g/dL (3.4-4.8); Anion Gap 16 mmol/L (10-20); BUN (Urea Nitrogen) 66 mg/dL (8.4-25.7); BUN/Creatinine Ratio 22.07; Calc. Creatinine Clearance 19 mL/min (70-130); Calcium 7.4 mg/dL (7.8-10.44); Carbon Dioxide 27 mmol/L (23-31); Chloride 105 mmol/L (98-107); Estimated GFR-MDRD 20; Glucose 108 mg/dL (83-110); Phosphorus 5.1 mg/dL (2.3-4.7); Potassium 4.2 mmol/L (3.5-5.1); Sodium 144 mmol/L (136-145)
[2020-08-28] MEDS: Metoprolol Tartrate 50 MG TAB PO SCH ×2 (10:46→20:29)
[2020-08-28 15:36] LABS: Prothrombin Time 42.8 sec (12.0-14.7)
[2020-08-28 15:41] LABS: INR-International Normal Ratio 4.4
[2020-08-28] MEDS ORDERED: Dextrose 5% in Water 1,000 ML IV SCH (15:45)
--- NOTE | 2020-08-28 15:49 | PDOC.EVN ---
Event Note - Event Note Event Note: INR 8+ this AM, $.$ post FFP infusion, will give 2 more units. daily PT/INR
--- NOTE | 2020-08-28 20:01 | PRG ---
DATE OF SERVICE: 08/28/2020 SUBJECTIVE: Mr. Giordano is in no distress. He looks surprisingly comfortable. OBJECTIVE: VITAL SIGNS: He is afebrile, respiratory rate is 20, oximetry is 95%. He is on 45% high-flow oxygen. Heart rates in the 60s, blood pressure 106/61. LUNGS: Distant and clear. HEART: Regular rate and rhythm. ABDOMEN: Soft. IMPRESSION: 1. COVID pneumonia. 2. Ascites. 3. Pleural effusion. 4. Anemia of chronic disease. 5. Borderline neutropenia. 6. Thrombocytopenia. 7. Coagulopathy, corrected significantly with plasma today. PLAN: Continue supportive care. Job ID: [id number]
[2020-08-28 22:03] LABS: Hemoglobin 7.7 g/dL (14.0-18.0)
[2020-08-28 22:08] LABS: PTT 62.2 sec (22.9-36.1); Prothrombin Time 43.1 sec (12.0-14.7)
[2020-08-28 22:20] LABS: INR-International Normal Ratio 4.4
[2020-08-28] MEDS: Pantoprazole 80 MG in Sodium Chloride 0.9% 100 ML IVPB SCH (23:13)
--- NOTE | 2020-08-29 01:49 | PRG ---
DATE OF SERVICE: 08/29/2020 SUBJECTIVE: The patient is seen and examined with no new complaints. OBJECTIVE: Noted with the following: VITAL SIGNS: Afebrile, temperature 98.8, pulse of 62, respiratory rate of 18 to 20, oximetry of 95% to 99% on high-flow nasal oxygen. HEENT: Unremarkable. CARDIOVASCULAR: First and second heart sounds were heard. RESPIRATORY SYSTEM: Clear to auscultation anteriorly. DIGESTIVE SYSTEM: Revealed distended abdomen. EXTREMITIES: Showed minimal edema. LABORATORY INVESTIGATION: Showed a hemoglobin of 7.7. Chemistry showed a creatinine of 2.99, BUN of 66, calcium 7.4 with a phosphorus of 5.1. IMPRESSION: 1. Acute on chronic kidney disease, multifactorial etiology. 2. Coagulopathy with worsened INR. 3. Multiorgan failure. PLAN: 1. Continue current renal supportive measures. 2. Patient likely to still benefit from therapeutic/diagnostic paracentesis. 3. Coagulopathy needs to be managed. The primary service already on the case. Job ID: [id number]
[2020-08-29 05:22] LABS: Hemoglobin 7.5 g/dL (14.0-18.0)
[2020-08-29] MEDS: Piperacillin/Tazobactam 3.375 GM in Sodium Chloride 0.9% 100 ML IVPB SCH ×3 (05:23→18:39)
[2020-08-29 05:27] LABS: Prothrombin Time 46.4 sec (12.0-14.7)
[2020-08-29 05:29] LABS: #Lymphocytes 0.5 thou/uL (1.20-3.40); #Monocytes 0.2 thou/uL (0.11-0.59); #Neutrophils 3.4 thou/uL (1.40-6.50); %Basophils 0.1 % (0.0-1.0); %Monocytes 3.7 % (0.0-10.0); %Neutrophils 84.2 % (42.0-75.0); Hemoglobin 7.4 g/dL (14.0-18.0); Mean Corpuscular HGB CONC 30.6 g/dL (32.0-36.0); Mean Corpuscular Hemoglobin 26.5 pg (27.0-31.0); Mean Corpuscular Volume 86.8 fL (78.0-98.0); Mean Platelet Volume 9.9 fL (7.4-10.4); Platelet Count 77 thou/uL (130-400); RBC Distribution Width 17.3 % (11.5-14.5); Red Blood Cell (RBC) Count 2.79 mill/uL (4.70-6.10); White Blood Cell (WBC) Count 4.1 thou/uL (4.8-10.8)
[2020-08-29 05:38] LABS: INR-International Normal Ratio 4.8
[2020-08-29 05:43] LABS: Albumin 2.7 g/dL (3.4-4.8); Anion Gap 18 mmol/L (10-20); BUN (Urea Nitrogen) 65 mg/dL (8.4-25.7); BUN/Creatinine Ratio 22.97; Calc. Creatinine Clearance 20 mL/min (70-130); Calcium 7.7 mg/dL (7.8-10.44); Carbon Dioxide 24 mmol/L (23-31); Chloride 104 mmol/L (98-107); Estimated GFR-MDRD 22; Glucose 141 mg/dL (83-110); Phosphorus 5.1 mg/dL (2.3-4.7); Potassium 3.9 mmol/L (3.5-5.1); Sodium 142 mmol/L (136-145)
[2020-08-29 05:49] LABS: ALT (SGPT) 9 U/L (8-55); AST (SGOT) 38 U/L (5-34); Albumin 2.8 g/dL (3.4-4.8); Alkaline Phosphatase 50 U/L (40-110); Bilirubin, Direct 0.7 mg/dL (0.1-0.3); Protein, Total 5.7 g/dL (5.8-8.1)
[2020-08-29] MEDS: Spironolactone 25 MG TAB PO SCH (08:35)
[2020-08-29] MEDS: Furosemide 40 MG TAB PO SCH ×2 (08:35→22:08)
[2020-08-29] MEDS: Dexamethasone 4 mg/ml Vial SLOW IVP SCH (08:35)
[2020-08-29] MEDS: Metoprolol Tartrate 50 MG TAB PO SCH ×2 (08:37→22:08)
[2020-08-29 09:12] LABS: Hemoglobin 7.4 g/dL (14.0-18.0)
[2020-08-29] MEDS: Pantoprazole 80 MG in Sodium Chloride 0.9% 100 ML IVPB SCH ×2 (09:54→16:42)
--- NOTE | 2020-08-29 10:14 | PDOC.HOSPP ---
- Subjective Encounter Date: 08/29/20 Encounter Time: 10:02 Subjective: on high flow O2. states feeling ok - Objective Vital Signs & Weight: Vital Signs (12 hours) Temp Pulse Resp BP Pulse Ox 08/29/20 08:00 98.2 F 65 18 110/64 96 08/29/20 05:10 98.5 F 65 18 100/60 95 08/28/20 23:25 65 18 111/63 96 Weight Weight 147 lb 1.6 oz I&O: 08/28/20 08/29/20 08/30/20 06:59 06:59 06:59 Intake Total 410 2030 Output Total 300 1650 Balance 110 380 Result Diagrams: 08/29/20 08:26 08/29/20 02:38 Hospitalist ROS - Medication Medications: Active Medications Generic Name Dose Route Start Last Admin Trade Name Freq PRN Reason Stop Dose Admin Acetaminophen 650 mg 08/27/20 20:56 08/27/20 21:08 Acetaminophen 325 Mg Tab PO 650 mg Q4H PRN Administration Headache/Fever or Pain Dexamethasone 8 mg 08/28/20 09:00 08/29/20 08:35 Dexamethasone 4 Mg/Ml Vial SLOW IVP 8 mg DAILY FRANDY Administration Furosemide 40 mg 08/27/20 21:00 08/29/20 08:35 Furosemide 40 Mg Tab PO 40 mg BID FRANDY Administration Piperacillin Sod/Tazobactam 100 mls @ 200 mls/hr 08/27/20 12:00 08/29/20 05:2 3 Sod 3.375 gm/ Sodium Chloride IVPB 100 mls Q6HR FRANDY Administration Pantoprazole Sodium 80 mg/ 100 mls @ 10 mls/hr 08/28/20 22:30 08/29/20 09:54 Sodium Chloride IVPB 100 mls INF FRANDY Administration Metoprolol Tartrate 50 mg 08/27/20 21:00 08/29/20 08:37 Metoprolol Tartrate 50 Mg Tab PO Not Given BID FRANDY Spironolactone 25 mg 08/28/20 08:00 08/29/20 08:35 Spironolactone 25 Mg Tab PO 25 mg QAM-WM FRANDY Administration - Exam General Appearance: awake alert Neck: no JVD Heart: RRR Heart - other findings: crisp valve sounds (mechanical valve) Gastrointestinal: soft, non-tender, normal bowel sounds Extremities: no edema Hosp A/P (1) Pneumonia due to COVID-19 virus Code(s): U07.1 - COVID-19; J12.89 - OTHER VIRAL PNEUMONIA Status: Acute (2) Acute worsening of stage 3 chronic kidney disease Code(s): N18.30 - CHRONIC KIDNEY DISEASE, STAGE 3 UNSPECIFIED Status: Chronic (3) Chronic anemia Code(s): D64.9 - ANEMIA, UNSPECIFIED Status: Chronic (4) SHANTELL (acute kidney injury) Code(s): N17.9 - ACUTE KIDNEY FAILURE, UNSPECIFIED Status: Acute (5) Status post aortic valve and mitral valve replacement Code(s): Z95.2 - PRESENCE OF PROSTHETIC HEART VALVE Status: Chronic (6) Atrial fibrillation Code(s): I48.91 - UNSPECIFIED ATRIAL FIBRILLATION Status: Chronic Qualifiers: Atrial fibrillation type: paroxysmal Qualified Code(s): I48.0 - Paroxysmal atrial fibrillation (7) Chronic anticoagulation Code(s): Z79.01 - HALFWAY (CURRENT) USE OF ANTICOAGULANTS Status: Chronic (8) Cirrhosis Code(s): K74.60 - UNSPECIFIED CIRRHOSIS OF LIVER Status: Suspected Qualifiers: Hepatic cirrhosis type: unspecified hepatic cirrhosis Ascites presence: with ascites Qualified Code(s): K74.60 - Unspecified cirrhosis of liver; R18.8 - Other ascites (9) Coagulopathy Status: Acute - Plan on high flow O2 iv decadron INR 4.8, transfuse 3 units FFP, then rpt PT/INR cont to monitor renal fcn, etc prognosis poor, have discussed with patient appreciate Dr Harrington input move to [facility]
[2020-08-29 15:06] LABS: Hemoglobin 7.6 g/dL (14.0-18.0)
--- NOTE | 2020-08-29 16:05 | PRG ---
DATE OF SERVICE: 08/29/2020 SUBJECTIVE: Dustin Giordano continues to report that he does not feel that bad. Heart rate in the 60s, blood pressure 105/60, respiratory rates in the 20s, oximetry is in the high 90s. He has been moved down to the intermediate care unit today. LABORATORY DATA: His hemoglobin is stable at 7.6. Creatinine is 2.83. IMPRESSION: 1. COVID. 2. Cirrhosis. 3. Ascites. 4. Small effusion on the right. PLAN: Continue supportive care. Job ID: [id number]
[2020-08-29 19:56] LABS: INR-International Normal Ratio 3.8; Prothrombin Time 38.2 sec (12.0-14.7)
--- NOTE | 2020-08-29 20:29 | CON ---
DATE OF CONSULTATION: 08/29/2020 REASON FOR CONSULTATION: Possible GI bleed. HISTORY OF PRESENT ILLNESS: Mr. Desai is a 79-year-old man, who was admitted to the hospital with acute on chronic renal failure and was found to have severe persistent coagulopathy despite 5 units of FFP transfusion. He now has COVID-19 pneumonia and is on high-flow oxygen. The patient has multiple medical problems including COPD, atrial fibrillation, hypertension, coronary artery disease, congestive heart failure, and previous aortic and mitral valve replacement on chronic anticoagulation with Coumadin because of his valve replacement. The patient has reportedly had an episode of bloody stool and rectal bleeding last night. However, he has not had any further bleeding over the last 24 hours. He has no nausea or vomiting. His abdomen is uncomfortable without any localizing pain. During this admission, the patient was found to have COVID-19 pneumonia and has been transferred down to the [facility]. He also has acute on renal failure with creatinine bumped up to 3, now at 2.8. He also has persistent coagulopathy with INR 4.8 despite 5 FFPs given. 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 At that time, he had a small amount of ascites. 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 PAST MEDICAL HISTORY: 1. COPD. 2. Atrial fibrillation. 3. Hypertension. 4. CHF. 5. Coronary artery disease. 6. Status post aortic and mitral valve replacement. 7. Status post CABG/CAD. 8. History of pacemaker placement. 9. History of pelvic fracture. ALLERGIES: NONE. MEDICATIONS: At home include; 1. Coumadin 15 mg daily. 2. Metoprolol. 3. Furosemide. 4. Magnesium hydroxide. 5. Tylenol 3. SOCIAL HISTORY: The patient lives alone, daughter is his caregiver. No tobacco or alcohol usage. FAMILY HISTORY: Negative for any known GI problem, liver disease, or GI malignancy. REVIEW OF SYSTEMS: Not obtained. PHYSICAL EXAMINATION: VITAL SIGNS: Temperature 98.2, blood pressure 106/62, and pulse 62. ASSESSMENT: 1. 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 At this point, only has limited one episode of rectal bleeding without any ongoing bleeding. Blood count has generally remained fairly stable since admission. 2. Severe coagulopathy. The patient previously on Coumadin, but also has underlying liver disease/cirrhosis. 3. COVID pneumonia. 4. Heart failure. 5. Acute renal failure. 6. Ascites. RECOMMENDATION: 1. No plan to go for any endoscopy unless the patient has ongoing active bleeding, even then yield of controlling bleeding would be low given on persistent coagulopathy. 2. Continue with FFP transfusion as needed to correct the coagulopathy. 3. Vitamin K. 4. Overall supportive care. The patient can resume diet from GI standpoint. Job ID: [id number] MTDD
--- NOTE | 2020-08-29 21:35 | PRG ---
DATE OF SERVICE: 08/29/2020 SUBJECTIVE: The patient was examined. Noted with the following vital signs. OBJECTIVE: VITAL SIGNS: Afebrile, temperature 98.1, blood pressure 102/54, respiratory rate of 20, and O2 saturations are 99%. HEENT: Unremarkable. CARDIOVASCULAR SYSTEM: First and second heart sounds were heard. LABORATORY INVESTIGATION: Showed hemoglobin 7.6. Chemistry showed a creatinine of 2.83 and BUN of 65. IMPRESSION: 1. Acute on chronic kidney disease. 2. COVID infection. 3. Anemia. PLAN: 1. We will continue with current renal supportive measures. 2. Renally dose all medications. 3. Avoid potentially nephrotoxic agents. 4. Further management to be dependent on the clinical course. Job ID: [id number]
[2020-08-30] MEDS: Piperacillin/Tazobactam 3.375 GM in Sodium Chloride 0.9% 100 ML IVPB SCH ×5 (01:26→23:55)
[2020-08-30 03:57] LABS: INR-International Normal Ratio 3.5; Prothrombin Time 35.7 sec (12.0-14.7)
[2020-08-30 04:06] LABS: Albumin 3.2 g/dL (3.4-4.8); Anion Gap 18 mmol/L (10-20); BUN (Urea Nitrogen) 65 mg/dL (8.4-25.7); BUN/Creatinine Ratio 23.05; Calc. Creatinine Clearance 20 mL/min (70-130); Calcium 7.7 mg/dL (7.8-10.44); Carbon Dioxide 26 mmol/L (23-31); Chloride 103 mmol/L (98-107); Estimated GFR-MDRD 22; Glucose 130 mg/dL (83-110); Phosphorus 4.8 mg/dL (2.3-4.7); Potassium 3.7 mmol/L (3.5-5.1); Sodium 143 mmol/L (136-145)
[2020-08-30] MEDS: Pantoprazole 80 MG in Sodium Chloride 0.9% 100 ML IVPB SCH ×2 (05:35→18:51)
[2020-08-30] MEDS: Spironolactone 25 MG TAB PO SCH (07:34)
[2020-08-30] MEDS: Furosemide 40 MG TAB PO SCH ×2 (07:34→22:07)
[2020-08-30] MEDS: Dexamethasone 4 mg/ml Vial SLOW IVP SCH (07:34)
[2020-08-30] MEDS: Metoprolol Tartrate 50 MG TAB PO SCH ×2 (07:34→22:07)
--- NOTE | 2020-08-30 08:40 | PDOC.HOSPP ---
- Subjective Encounter Date: 08/30/20 Encounter Time: 08:38 Subjective: sob stable, no fever, etc - Objective Vital Signs & Weight: Vital Signs (12 hours) Temp 08/30/20 04:00 96.9 F L 08/30/20 01:30 97.9 F 08/29/20 23:39 98.0 F 08/29/20 23:24 98.1 F Weight Weight 153 lb 1.6 oz Most Recent Monitor Data Heart Rate from ECG 80 NIBP 112/71 NIBP BP-Mean 84 Respiration from ECG 23 SpO2 96 I&O: 08/29/20 08/30/20 08/31/20 06:59 06:59 06:59 Intake Total 2029 1922 Output Total 1650 1350 Balance 380 572 Result Diagrams: 08/29/20 14:59 08/30/20 03:35 Hospitalist ROS - Medication Medications: Active Medications Generic Name Dose Route Start Last Admin Trade Name Freq PRN Reason Stop Dose Admin Acetaminophen 650 mg 08/27/20 20:56 08/27/20 21:08 Acetaminophen 325 Mg Tab PO 650 mg Q4H PRN Administration Headache/Fever or Pain Dexamethasone 8 mg 08/28/20 09:00 08/30/20 07:34 Dexamethasone 4 Mg/Ml Vial SLOW IVP 8 mg DAILY FRANDY Administration Furosemide 40 mg 08/27/20 21:00 08/30/20 07:34 Furosemide 40 Mg Tab PO 40 mg BID FRANDY Administration Piperacillin Sod/Tazobactam 100 mls @ 200 mls/hr 08/27/20 12:00 08/30/20 05:35 Sod 3.375 gm/ Sodium Chloride IVPB 100 mls Q6HR FRANYD Administration Pantoprazole Sodium 80 mg/ 100 mls @ 10 mls/hr 08/28/20 22:30 08/30/20 05:35 Sodium Chloride IVPB 100 mls INF FRANDY Administration Metoprolol Tartrate 50 mg 08/27/20 21:00 08/30/20 07:34 Metoprolol Tartrate 50 Mg Tab PO 50 mg BID FRANDY Administration Spironolactone 25 mg 08/28/20 08:00 08/30/20 07:34 Spironolactone 25 Mg Tab PO 25 mg QAM-WM FRANDY Administration - Exam General Appearance: awake alert Neck: no JVD Heart: irregular Respiratory - other findings: coarse BS with raless, bilat Gastrointestinal: soft, normal bowel sounds Extremities: no edema Hosp A/P (1) Pneumonia due to COVID-19 virus Code(s): U07.1 - COVID-19; J12.89 - OTHER VIRAL PNEUMONIA Status: Acute (2) Acute worsening of stage 3 chronic kidney disease Code(s): N18.30 - CHRONIC KIDNEY DISEASE, STAGE 3 UNSPECIFIED Status: Chronic (3) Chronic anemia Code(s): D64.9 - ANEMIA, UNSPECIFIED Status: Chronic (4) SHANTELL (acute kidney injury) Code(s): N17.9 - ACUTE KIDNEY FAILURE, UNSPECIFIED Status: Acute (5) Status post aortic valve and mitral valve replacement Code(s): Z95.2 - PRESENCE OF PROSTHETIC HEART VALVE Status: Chronic (6) Atrial fibrillation Code(s): I48.91 - UNSPECIFIED ATRIAL FIBRILLATION Status: Chronic Qualifiers: Atrial fibrillation type: paroxysmal Qualified Code(s): I48.0 - Paroxysmal atrial fibrillation (7) Chronic anticoagulation Code(s): Z79.01 - DETENTION (CURRENT) USE OF ANTICOAGULANTS Status: Chronic (8) Cirrhosis Code(s): K74.60 - UNSPECIFIED CIRRHOSIS OF LIVER Status: Suspected Qualifiers: Hepatic cirrhosis type: unspecified hepatic cirrhosis Ascites presence: with ascites Qualified Code(s): K74.60 - Unspecified cirrhosis of liver; R18.8 - Other ascites (9) Coagulopathy Status: Acute - Plan on high flow O2 iv decadron INR 3.5, at target cont to monitor renal fcn, etc prognosis poor, have discussed with patient appreciate Dr Juany ross
[2020-08-30 08:51] LABS: #Lymphocytes 0.3 thou/uL (1.20-3.40); #Monocytes 0.3 thou/uL (0.11-0.59); %Basophils 0.1 % (0.0-1.0); %Eosinophils 0.4 % (0.0-10.0); %Lymphocytes 4.6 % (21.0-51.0); %Monocytes 4.7 % (0.0-10.0); %Neutrophils 90.3 % (42.0-75.0); Hemoglobin 7.9 g/dL (14.0-18.0); Mean Corpuscular HGB CONC 32.4 g/dL (32.0-36.0); Mean Corpuscular Hemoglobin 28.4 pg (27.0-31.0); Mean Corpuscular Volume 87.7 fL (78.0-98.0); Mean Platelet Volume 10.6 fL (7.4-10.4); Platelet Count 96 thou/uL (130-400); RBC Distribution Width 17.6 % (11.5-14.5); Red Blood Cell (RBC) Count 2.78 mill/uL (4.70-6.10); White Blood Cell (WBC) Count 6.6 thou/uL (4.8-10.8)
--- NOTE | 2020-08-30 12:14 | PQF ---
CLINICAL DOCUMENTATION CLARIFICATION FORM: Dear Dr. Kendrick Date: 08/30/2020 Please exercise your independent, professional judgment in responding to the clarification form. Clinical indicators are provided on the bottom of this form for your review. Please check appropriate box(es): [ ] Acute Respiratory Failure: [ ] with Hypoxia [ ] with Hypercapnia [ ] Acute On Chronic Respiratory Failure: [ ] with Hypoxia [ ] with Hypercapnia [ ] Acute Respiratory Failure due to: (etiology) [ ] Chronic Respiratory Failure only [ ] with Hypoxia [ ] with Hypercapnia [ ] Other diagnosis [ ] Unable to determine In addition, please specify: Present on Admission (POA): [ ] Yes [ ] No [ ] Unable to determine For continuity of documentation, please document condition throughout progress notes and discharge summary. Thank You. To be completed by CDI/Coding staff for physician review: CLINICAL INDICATORS - SIGNS / SYMPTOMS / LABS / RESULTS AND LOCATION IN MR *Nursing VS: 08/27 @ 0800. O2 sat 95% on 4L nc. *Nurse Note 08/27 @ 2126 (Geovanna) Called to pt's room by Dr. Harrington. Per pt's O2 sats were in the 80's and pt was acevedo in color. Pt had pulled off his 4L NC that he was previously wearing. Pt's O2 sats between 94-96% now on HFNC 45L 52% FiO2. *08/27 Consult (Juany) VS: T-max 98, BP 120/58, HR 65, Resp. 20, and O2 saturation 96 on 4 L nc. When I went into the room, his O2 saturations are 85 with 4 L nc. Assessment: now positive COVID PCR and evidence of worsening hypoxemia *08/27 Consult (Dave) Lab data: His x-ray shows right lower lobe effusion vs some atelectasis *08/28 pn (Phyllis) VS: resp. rate 20, oximetry is 95%. He is on 45% high-flow oxygen. RISK FACTORS / RESULTS AND LOCATION IN MR H&P 08/27 (Dee) PMH: COPD. Chronic respiratory failure on home oxygen. CHF. Atrial fib on coumadin. 09/06 pn (Aroldo) Pneumonia due to COVID-19 virus. SHANTELL. Coagulopathy TREATMENTS / RESULTS AND LOCATION IN MR Order 08/27 Resp: O2 to keep sats 92% Hi Flow. 08/29 pn (Kendrick) on high flow O2; IV Decadron move to [facility] Thank you, Sherin Encarnacion, RN, BSN [email or web address] Cell This is a permanent part of the Medical Record [facility]
--- NOTE | 2020-08-30 16:37 | PRG ---
DATE OF SERVICE: 08/30/2020 SUBJECTIVE: Dustin Desai remains hemodynamically stable. Oximetry is 94% on 45% high-flow oxygen. Blood pressure 123/77, heart rate in the 60s. Overall, he is otherwise unchanged. He is standing in the room with therapy. LABORATORY DATA: White count is 6.6, hemoglobin 7.9, platelets 96. Electrolytes are unremarkable. Creatinine is stable at 2.82. IMPRESSION: 1. Ascites. 2. Right pleural effusion. 3. COVID-19. Overall, he appears to be stable at this time. Job ID: [id number]
--- NOTE | 2020-08-30 20:01 | PRG ---
DATE OF SERVICE: 08/30/2020 SUBJECTIVE: Patient examined and noted with the following vital signs. OBJECTIVE: VITAL SIGNS: Afebrile, temperature 98.1; blood pressure 102/54; respiratory rate of 20; O2 saturations are 99%. HEENT EXAMINATION: Unremarkable. CARDIOVASCULAR SYSTEM: First and second heart sounds were heard. RESPIRATORY SYSTEM: Clear to auscultation. DIGESTIVE SYSTEM: Revealed a distended abdomen with ascites and positive bowel sounds. EXTREMITIES: No peripheral edema. SKIN EXAMINATION: No new gross rash. LYMPHATICS: No peripheral lymphadenopathy. IMPRESSION: 1. Acute on chronic kidney disease. 2. Cirrhotic liver with gross ascites. 3. Coagulopathy. 4. Atrial fibrillation. PLAN: 1. Continue with current renal supportive measures. 2. Patient may benefit from therapeutic/diagnostic paracentesis. We will defer to the primary team and the Gastroenterology Service on these. 3. Further management to be dependent on the clinical course. Job ID: [id number]
--- NOTE | 2020-08-30 23:45 | PRG ---
DATE OF SERVICE: 08/30/2020 SUBJECTIVE: Mr. Giordano had one large bowel movement this evening with brown stool with streaks of red blood. PHYSICAL EXAMINATION: VITAL SIGNS: Temperature 98.1, blood pressure 134/75, pulse 71. GENERAL: He is in no acute distress. ABDOMEN: Soft. Hemoglobin is 7.9, INR 3.5. IMPRESSION: 1. Small volume bleeding this evening with brown stool streaked with red blood would be more consistent with the radiation proctitis. Previously, he had more proximal bleeding. 2. Heart failure, cirrhosis, ascites. 3. Coronavirus disease pneumonia. 4. History of mitral valve and atrial fibrillation, requiring anticoagulation. 5. Anemia of acute blood loss. His hemoglobin is stable. RECOMMENDATIONS: 1. Continue pantoprazole. This can be changed to b.i.d. dosing. 2. Transfuse as needed. 3. I will sign off for now. Please call if GI can be of assistance. Job ID: [id number]
[2020-08-31 04:02] LABS: #Lymphocytes 0.2 thou/uL (1.20-3.40); #Monocytes 0.3 thou/uL (0.11-0.59); #Neutrophils 5.1 thou/uL (1.40-6.50); %Basophils 0.3 % (0.0-1.0); %Eosinophils 0.1 % (0.0-10.0); %Lymphocytes 2.9 % (21.0-51.0); %Monocytes 4.6 % (0.0-10.0); Hemoglobin 7.3 g/dL (14.0-18.0); Mean Corpuscular HGB CONC 31.1 g/dL (32.0-36.0); Mean Corpuscular Hemoglobin 26.8 pg (27.0-31.0); Mean Platelet Volume 10.5 fL (7.4-10.4); Platelet Count 83 thou/uL (130-400); RBC Distribution Width 17.7 % (11.5-14.5); Red Blood Cell (RBC) Count 2.72 mill/uL (4.70-6.10); White Blood Cell (WBC) Count 5.5 thou/uL (4.8-10.8)
[2020-08-31 04:05] LABS: Prothrombin Time 42.1 sec (12.0-14.7)
[2020-08-31 04:06] LABS: INR-International Normal Ratio 4.3
[2020-08-31 04:19] LABS: Anion Gap 18 mmol/L (10-20); BUN (Urea Nitrogen) 67 mg/dL (8.4-25.7); BUN/Creatinine Ratio 24.45; Calc. Creatinine Clearance 21 mL/min (70-130); Calcium 7.7 mg/dL (7.8-10.44); Carbon Dioxide 22 mmol/L (23-31); Chloride 104 mmol/L (98-107); Estimated GFR-MDRD 23; Glucose 152 mg/dL (83-110); Phosphorus 3.9 mg/dL (2.3-4.7); Potassium 3.3 mmol/L (3.5-5.1); Sodium 141 mmol/L (136-145)
[2020-08-31] MEDS: Piperacillin/Tazobactam 3.375 GM in Sodium Chloride 0.9% 100 ML IVPB SCH ×4 (05:22→23:45)
[2020-08-31] MEDS: Pantoprazole 80 MG in Sodium Chloride 0.9% 100 ML IVPB SCH (05:22)
[2020-08-31] MEDS: Spironolactone 25 MG TAB PO SCH (09:04)
[2020-08-31] MEDS: Metoprolol Tartrate 50 MG TAB PO SCH ×2 (09:04→21:10)
[2020-08-31] MEDS: Dexamethasone 4 mg/ml Vial SLOW IVP SCH (09:04)
[2020-08-31] MEDS: Furosemide 40 MG TAB PO SCH ×2 (09:04→21:10)
--- NOTE | 2020-08-31 09:42 | PQF ---
CLINICAL DOCUMENTATION CLARIFICATION FORM: Dear Dr. Somers Date: 08/31/2020 Please exercise your independent, professional judgment in responding to the clarification form. Clinical indicators are provided on the bottom of this form for your review. Please check appropriate box(es): [x ] Acute Respiratory Failure: [ x] with Hypoxia [ ] with Hypercapnia [ ] Acute On Chronic Respiratory Failure: [ ] with Hypoxia [ ] with Hypercapnia [ ] Acute Respiratory Failure due to: (etiology) [ ] Chronic Respiratory Failure only [ ] with Hypoxia [ ] with Hypercapnia [ ] Other diagnosis [ ] Unable to determine In addition, please specify: Present on Admission (POA): [ x] Yes [ ] No [ ] Unable to determine For continuity of documentation, please document condition throughout progress notes and discharge summary. Thank You. To be completed by CDI/Coding staff for physician review: CLINICAL INDICATORS - SIGNS / SYMPTOMS / LABS / RESULTS AND LOCATION IN MR *Nursing VS: 08/27 @ 0800. O2 sat 95% on 4L nc. *Nurse Note 08/27 @ 2126 (Geovanna) Called to pt's room by Dr. Harrington. Per , pt's O2 sats were in the 80's and pt was acevedo in color. Pt had pulled off his 4L NC that he was previously wearing. Pt's O2 sats between 94-96% now on HFNC 45L 52% FiO2. *08/27 Consult (Juany) VS: T-max 98, BP 120/58, HR 65, Resp. 20, and O2 saturation 96 on 4 L nc. When I went into the room, his O2 saturations are 85 with 4 L nc. Assessment: now positive COVID PCR and evidence of worsening hypoxemia *08/27 Consult (Dave) Lab data: His x-ray shows r lower lobe effusion vs some atelectasis *08/28 pn (Phyllis) VS: resp. rate 20, oximetry is 95%. He is on 45% high-flow oxygen. RISK FACTOR / RESULTS AND LOCATION IN MR *H&P 08/27 (Dee) PMH: COPD. Chronic respiratory failure on home oxygen. CHF. Atrial fib on coumadin. *09/06 pn (Aroldo) Pneumonia due to COVID-19 virus. SHANTELL. Coagulopathy TREATMENTS / RESULTS AND LOCATION IN MR Order 08/27 Resp: O2 to keep sats 92% Hi Flow. 08/29 pn (Aroldo) on high flow O2, IV Decadron move to [facility] Thank you, Sherin Encarnacion, RN, BSN [email or web address] Cell phone: [phone] This is a permanent part of the Medical Record [facility]
--- NOTE | 2020-08-31 11:48 | PRG ---
DATE OF SERVICE: 08/31/2020 SUBJECTIVE: Mr. Giordano is stable. He actually exercised with Physical Therapy yesterday. OBJECTIVE: VITAL SIGNS: He is afebrile, heart rate is in the 60s, and blood pressure 129/65. Intake and outputs positive for 18. LUNGS: Remarkable for decreased breath sounds in the right base. HEART: Regular rate and rhythm. ABDOMEN: Distended. EXTREMITIES: With edema. LABORATORY STUDIES: White count 5.5, hemoglobin 7.3, and platelets 83,000. He will likely need blood in the morning. Sodium 141, potassium 3.3, chloride 104, bicarb 22, BUN 67, and creatinine 2.74, down from 2.82 yesterday. IMPRESSION: 1. COVID-19. 2. Pleural effusion associated with ascites and likely cirrhosis. 3. Chronic kidney disease. 4. Chronic obstructive pulmonary disease, clinically stable. 5. History of atrial fibrillation. 6. History of diastolic heart failure, which may be contributing to his right-sided effusion and ascites. 7. History of valvular heart disease with aortic and mitral valve replacements in the past. 8. History of coronary artery bypass grafting in the past. 9. History of redo aortic valve replacement. PLAN: Overall, he appears better than I would suspect at this point in time during this hospitalization. He appears to be plateauing as far as severity of his illness. It is currently unclear when his illness started, but I suspect it is more than just a few days prior to his admission. We will continue supportive care. Job ID: [id number]
--- NOTE | 2020-08-31 16:37 | PDOC.HOSPP ---
- Subjective Encounter Date: 08/31/20 Encounter Time: 10:00 Subjective: Patient up in bed still complains of shortness of breath. - Objective Vital Signs & Weight: Vital Signs (12 hours) Temp Pulse BP Pulse Ox Pulse Ox Pulse Ox 08/31/20 14:30 70 133/71 86 L 90 L 08/31/20 08:00 97.5 F L 94 L Weight Admit Weight 147 lb 9.6 oz Weight 155 lb 14.4 oz Most Recent Monitor Data Heart Rate from ECG 67 NIBP 140/76 NIBP BP-Mean 97 Respiration from ECG 24 SpO2 89 I&O: 08/30/20 08/31/20 09/01/20 06:59 06:59 06:59 Intake Total 1922 1518 Output Total 1350 1100 Balance 572 418 Result Diagrams: 08/31/20 03:41 08/31/20 03:41 Hospitalist ROS - Review of Systems Respiratory: denies: cough, dry, shortness of breath, hemoptysis, SOB with excertion, pleuritic pain, sputum, wheezing, other Cardiovascular: denies: chest pain, palpitations, orthopnea, paroxysmal noc. dyspnea, edema, light headedness, other Gastrointestinal: denies: nausea, vomiting, abdominal pain, diarrhea, constipation, melena, hematochezia, other - Medication Medications: Active Medications Generic Name Dose Route Start Last Admin Trade Name Freq PRN Reason Stop Dose Admin Acetaminophen 650 mg 08/27/20 20:56 08/27/20 21:08 Acetaminophen 325 Mg Tab PO 650 mg Q4H PRN Administration Headache/Fever or Pain Dexamethasone 8 mg 08/28/20 09:00 08/31/20 09:04 Dexamethasone 4 Mg/Ml Vial SLOW IVP 8 mg DAILY FRANDY Administration Furosemide 40 mg 08/27/20 21:00 08/31/20 09:04 Furosemide 40 Mg Tab PO 40 mg BID FRANDY Administration Piperacillin Sod/Tazobactam 100 mls @ 200 mls/hr 08/27/20 12:00 08/31/20 12:27 Sod 3.375 gm/ Sodium Chloride IVPB 100 mls Q6HR FRANDY Administration Pantoprazole Sodium 80 mg/ 100 mls @ 10 mls/hr 08/28/20 22:30 08/31/20 05:22 Sodium Chloride IVPB 100 mls INF FRANDY Administration Metoprolol Tartrate 50 mg 08/27/20 21:00 08/31/20 09:04 Metoprolol Tartrate 50 Mg Tab PO 50 mg BID FRANDY Administration Spironolactone 25 mg 08/28/20 08:00 08/31/20 09:04 Spironolactone 25 Mg Tab PO 25 mg QAM-WM FRANDY Administration - Exam Heart: negative: RRR, no murmur, no gallops, no rubs, normal peripheral pulses, irregular, diminshed peripheral pulses, murmur present, II/IV, III/IV Respiratory: negative: CTAB, no wheezes, no rales, no ronchi, normal chest expansion, no tachypnea, normal percussion, rales, rhonchi, tachypneic, wheezes Gastrointestinal: negative: soft, non-tender, non-distended, normal bowel sounds, no palpable masses, no hepatomegaly, no splenomegaly, no bruit, no guarding, no rigidity, tender to palpation, distended, diminished bowl sounds, voluntary guarding Extremities: 1+ LE edema Hosp A/P (1) Dizziness Code(s): R42 - DIZZINESS AND GIDDINESS Status: Acute (2) Pneumonia due to COVID-19 virus Code(s): U07.1 - COVID-19; J12.89 - OTHER VIRAL PNEUMONIA Status: Acute (3) CKD (chronic kidney disease) Code(s): N18.9 - CHRONIC KIDNEY DISEASE, UNSPECIFIED Status: Chronic Qualifiers: Chronic kidney disease stage: stage 2 (mild) Qualified Code(s): N18.2 - Chronic kidney disease, stage 2 (mild) (4) Chronic anticoagulation Code(s): Z79.01 - FIRE BEHAVIOR ANALYST (CURRENT) USE OF ANTICOAGULANTS Status: Chronic (5) Status post aortic valve and mitral valve replacement Code(s): Z95.2 - PRESENCE OF PROSTHETIC HEART VALVE Status: Chronic (6) GI bleed Code(s): K92.2 - GASTROINTESTINAL HEMORRHAGE, UNSPECIFIED Status: Resolved Qualifiers: GI bleed type/associated pathology: angiodysplasia of stomach and duodenum Qualified Code(s): K31.811 - Angiodysplasia of stomach and duodenum with bleeding (7) Protein-calorie malnutrition, moderate Code(s): E44.0 - MODERATE PROTEIN-CALORIE MALNUTRITION Status: Acute - Plan We will check CRP and ferritin level. We will continue to hold Coumadin for now. Patient's Protonix drip will be converted to Protonix p.o. twice daily. We will continue IV Decadron. Will continue with antibiotics. Patient has not received any convalescent plasma. He still on high flow.
[2020-09-01 03:54] LABS: #Lymphocytes 0.3 thou/uL (1.20-3.40); #Monocytes 0.4 thou/uL (0.11-0.59); #Neutrophils 7.9 thou/uL (1.40-6.50); %Eosinophils 0.1 % (0.0-10.0); %Lymphocytes 3.4 % (21.0-51.0); %Monocytes 4.4 % (0.0-10.0); %Neutrophils 92.2 % (42.0-75.0); Hemoglobin 7.9 g/dL (14.0-18.0); Mean Corpuscular HGB CONC 30.9 g/dL (32.0-36.0); Mean Corpuscular Hemoglobin 26.6 pg (27.0-31.0); Mean Corpuscular Volume 86.1 fL (78.0-98.0); Mean Platelet Volume 10.1 fL (7.4-10.4); Platelet Count 95 thou/uL (130-400); RBC Distribution Width 17.7 % (11.5-14.5); Red Blood Cell (RBC) Count 2.96 mill/uL (4.70-6.10); White Blood Cell (WBC) Count 8.6 thou/uL (4.8-10.8)
[2020-09-01 03:56] LABS: INR-International Normal Ratio 3.8; Prothrombin Time 38.1 sec (12.0-14.7)
[2020-09-01 04:23] LABS: Albumin 3.2 g/dL (3.4-4.8); Anion Gap 17 mmol/L (10-20); BUN (Urea Nitrogen) 62 mg/dL (8.4-25.7); BUN/Creatinine Ratio 23.75; Calc. Creatinine Clearance 23 mL/min (70-130); Carbon Dioxide 24 mmol/L (23-31); Chloride 105 mmol/L (98-107); Estimated GFR-MDRD 24; Glucose 120 mg/dL (83-110); Potassium 3.3 mmol/L (3.5-5.1); Sodium 143 mmol/L (136-145)
[2020-09-01] MEDS: Piperacillin/Tazobactam 3.375 GM in Sodium Chloride 0.9% 100 ML IVPB SCH ×4 (06:33→23:17)
[2020-09-01] MEDS: Furosemide 40 MG TAB PO SCH ×2 (07:48→20:11)
[2020-09-01] MEDS: Metoprolol Tartrate 50 MG TAB PO SCH ×2 (07:48→20:11)
[2020-09-01] MEDS: Spironolactone 25 MG TAB PO SCH (07:48)
[2020-09-01] MEDS: Dexamethasone 4 mg/ml Vial SLOW IVP SCH (07:49)
--- NOTE | 2020-09-01 10:49 | PDOC.HOSPP ---
- Subjective Encounter Date: 09/01/20 Encounter Time: 10:47 Subjective: Mr. Desai was seen today in follow-up of COVID pneumonia. He says he is breathing a little better. He still feels weak. He does not like the modified diet, and thickened liquids, but was reported to have eaten more today. - Objective Vital Signs & Weight: Vital Signs (12 hours) Temp Pulse Ox 09/01/20 08:00 97.6 F 94 L 09/01/20 04:00 97.6 F 09/01/20 00:22 93 L 08/31/20 23:50 97.4 F L Weight Admit Weight 147 lb 9.6 oz Weight 149 lb 12.8 oz Most Recent Monitor Data Heart Rate from ECG 65 NIBP 133/67 NIBP BP-Mean 89 Respiration from ECG 18 SpO2 91 I&O: 08/31/20 09/01/20 09/02/20 06:59 06:59 06:59 Intake Total 1518 1960 Output Total 1100 2420 Balance 418 -460 Result Diagrams: 09/01/20 03:34 09/01/20 03:34 Hospitalist ROS - Medication Medications: Active Medications Generic Name Dose Route Start Last Admin Trade Name Freq PRN Reason Stop Dose Admin Acetaminophen 650 mg 08/27/20 20:56 08/27/20 21:08 Acetaminophen 325 Mg Tab PO 650 mg Q4H PRN Administration Headache/Fever or Pain Dexamethasone 6 mg 09/01/20 09:00 09/01/20 07:49 Dexamethasone 4 Mg/Ml Vial SLOW IVP 6 mg DAILY FRANDY Administration Furosemide 40 mg 08/27/20 21:00 09/01/20 07:48 Furosemide 40 Mg Tab PO 40 mg BID FRANDY Administration Piperacillin Sod/Tazobactam 100 mls @ 200 mls/hr 08/27/20 12:00 09/01/20 06:33 Sod 3.375 gm/ Sodium Chloride IVPB 100 mls Q6HR FRANDY Administration Metoprolol Tartrate 50 mg 08/27/20 21:00 09/01/20 07:48 Metoprolol Tartrate 50 Mg Tab PO 50 mg BID FRANDY Administration Pantoprazole Sodium 40 mg 08/31/20 21:00 09/01/20 07:48 Pantoprazole 40 Mg Tab PO 40 mg BID FRANDY Administration Spironolactone 25 mg 08/28/20 08:00 09/01/20 07:48 Spironolactone 25 Mg Tab PO 25 mg [facility]AM-[facility] Administration - Exam Eye: PERRL, anicteric sclera Heart: RRR, no murmur, no gallops, no rubs, normal peripheral pulses Respiratory: no wheezes, no ronchi, rales Gastrointestinal: soft, non-tender, non-distended, normal bowel sounds, no palpable masses, no hepatomegaly Extremities: no cyanosis, no edema Hosp A/P (1) Acute respiratory failure with hypoxemia Code(s): J96.01 - ACUTE RESPIRATORY FAILURE WITH HYPOXIA Status: Acute (2) Pneumonia due to COVID-19 virus Code(s): U07.1 - COVID-19; J12.89 - OTHER VIRAL PNEUMONIA Status: Acute (3) Atrial fibrillation Code(s): I48.91 - UNSPECIFIED ATRIAL FIBRILLATION Status: Chronic Qualifiers: Atrial fibrillation type: paroxysmal Qualified Code(s): I48.0 - Paroxysmal atrial fibrillation (4) CKD (chronic kidney disease) Code(s): N18.9 - CHRONIC KIDNEY DISEASE, UNSPECIFIED Status: Chronic Qualifiers: Chronic kidney disease stage: stage 4 (severe) Qualified Code(s): N18.4 - Chronic kidney disease, stage 4 (severe) - Plan * Acute respiratory failure due to COVID pneumonia- continue Dexamethasone, and empiric antibiotics ( his radiographic findings are not typical of COVID and he could have a super-imposed bacterial pneumonia * Continue to monitor his inflammatory markers * CKD stage 4 - stable * AFIB- his heart rate is stable * His INR is 3.8 today- continue to hold coumadin
--- NOTE | 2020-09-01 13:22 | PRG ---
DATE OF SERVICE: 09/01/2020 SUBJECTIVE: He feels okay. Currently, he is on high-flow nasal cannula at about 48%. OBJECTIVE: VITAL SINGS: Temperature 97.6, pulse rate 68, blood pressure 130/64, and O2 saturation generally in the low 90s. HEENT: Unremarkable. NECK: No adenopathy or JVD. LUNGS: Crackles. CARDIAC: S1 and S2, regular. ABDOMEN: Ascites. Extremities: No edema. ASSESSMENT: 1. COVID-19 pneumonia. 2. Ascites with translocation of pleural fluid. 3. Chronic obstructive pulmonary disease. PLAN: He is continuing steroids, antibiotics, diuretics, and close monitoring. His prognosis is poor. Job ID: [id number]
[2020-09-01] MEDS ORDERED: Epoetin (ESRD) 20,000 UNITS/ML SC SCH (19:00)
--- NOTE | 2020-09-01 19:19 | PRG ---
DATE OF SERVICE: 09/01/2020 SUBJECTIVE: Noted with the following vital signs. OBJECTIVE: VITAL SIGNS: Afebrile, blood pressure 136/69, pulse , O2 saturations of 95%. HEENT: Unremarkable. CARDIOVASCULAR SYSTEM: First and second heart sounds were heard. RESPIRATORY SYSTEM: Clear to auscultation anteriorly. DIGESTIVE SYSTEM: Revealed a distended abdomen with gross ascites. EXTREMITIES: No significant peripheral edema. LABORATORY INVESTIGATION: Showed a hemoglobin of 7.9. Chemistry showed a creatinine of 2.61 with BUN of 62. IMPRESSION: 1. [id number] kidney disease. 2. Chronic kidney disease stage 4. 3. Mild hypokalemia. 4. Anemia, likely that of chronic illness. 5. Hepatic failure. We will defer to the Gastroenterology. PLAN: 1. Replete potassium. 2. No indication for renal replacement therapy at this point. 3. The patient likely to benefit from erythropoiesis stimulating agent. Therefore, we will administer one today. Job ID: [id number]
[2020-09-01] MEDS: EPOETIN ALFA-EPBX (ESRD) 4,000 UNIT/ML VIAL SC SCH (20:11)
[2020-09-02] MEDS: Piperacillin/Tazobactam 3.375 GM in Sodium Chloride 0.9% 100 ML IVPB SCH ×4 (06:10→23:45)
[2020-09-02 06:14] LABS: Anisocytosis SLIGHT = 6-15 cells (100X) (0-5/hpf); Band 12 % (5-11); Hemoglobin 7.7 g/dL (14.0-18.0); Lymphocytes 4 % (21-51); MDiff Complete? YES; Mean Corpuscular HGB CONC 32.7 g/dL (32.0-36.0); Mean Corpuscular Hemoglobin 28.3 pg (27.0-31.0); Mean Corpuscular Volume 86.7 fL (78.0-98.0); Mean Platelet Volume 10.2 fL (7.4-10.4); Neutrophil 83 % (42-75); Platelet Count 82 thou/uL (130-400); Platelet Morphology Comment Appears Decreased; RBC Distribution Width 17.4 % (11.5-14.5); Reactive Lymphocytes 1 % (0-10); Red Blood Cell (RBC) Count 2.72 mill/uL (4.70-6.10); White Blood Cell (WBC) Count 9.2 thou/uL (4.8-10.8)
[2020-09-02] MEDS ORDERED: Potassium Chloride 20 MEQ TAB PO SCH (07:30)
[2020-09-02] MEDS: Metoprolol Tartrate 50 MG TAB PO SCH ×2 (09:03→23:45)
[2020-09-02] MEDS: Dexamethasone 4 mg/ml Vial SLOW IVP SCH (09:04)
[2020-09-02] MEDS: Spironolactone 25 MG TAB PO SCH (09:04)
[2020-09-02] MEDS: Furosemide 40 MG TAB PO SCH ×2 (09:04→23:45)
--- NOTE | 2020-09-02 09:53 | PDOC.HOSPP ---
- Subjective Encounter Date: 09/02/20 Encounter Time: 09:52 Subjective: Mr. Desai was seen today in follow-up of COVID pneumonia. He still has a poor appetite. His sense of dyspnea is the same. He is still requiring high flow oxygen - Objective Vital Signs & Weight: Vital Signs (12 hours) Temp Pulse Ox 09/02/20 04:00 97 F L 09/02/20 01:18 94 L Weight Admit Weight 147 lb 9.6 oz Weight 144 lb 9.6 oz Most Recent Monitor Data Heart Rate from ECG 69 NIBP 128/66 NIBP BP-Mean 86 Respiration from ECG 21 SpO2 87 I&O: 09/01/20 09/02/20 09/03/20 06:59 06:59 06:59 Intake Total 1960 1580 Output Total 2420 2350 Balance -460 -770 Result Diagrams: 09/02/20 03:55 09/01/20 03:34 Hospitalist ROS - Medication Medications: Active Medications Generic Name Dose Route Start Last Admin Trade Name Freq PRN Reason Stop Dose Admin Acetaminophen 650 mg 08/27/20 20:56 08/27/20 21:08 Acetaminophen 325 Mg Tab PO 650 mg Q4H PRN Administration Headache/Fever or Pain Dexamethasone 6 mg 09/01/20 09:00 09/02/20 09:04 Dexamethasone 4 Mg/Ml Vial SLOW IVP 6 mg DAILY FRANDY Administration Epoetin Stas-epbx 7,500 unit 09/01/20 20:00 09/01/20 20:11 Epoetin Stas-Epbx (Esrd) 4,000 Unit/Ml Vial SC 7,500 unit Q7D FRANDY Administration Furosemide 40 mg 08/27/20 21:00 09/02/20 09:04 Furosemide 40 Mg Tab PO 40 mg BID FRANDY Administration Piperacillin Sod/Tazobactam 100 mls @ 200 mls/hr 08/27/20 12:00 09/02/20 06:10 Sod 3.375 gm/ Sodium Chloride IVPB 100 mls Q6HR FRANDY Administration Metoprolol Tartrate 50 mg 08/27/20 21:00 09/02/20 09:03 Metoprolol Tartrate 50 Mg Tab PO 50 mg BID FRANDY Administration Pantoprazole Sodium 40 mg 08/31/20 21:00 09/02/20 09:04 Pantoprazole 40 Mg Tab PO 40 mg BID FRANDY Administration Potassium Chloride 40 meq 09/02/20 07:30 09/02/20 09:04 Potassium Chloride 20 Meq Tab PO 09/02/20 10:00 40 meq NOW FRANDY Administration Spironolactone 25 mg 08/28/20 08:00 09/02/20 09:04 Spironolactone 25 Mg Tab PO 25 mg QAM-WM FRANDY Administration - Exam Eye: PERRL, anicteric sclera Heart: RRR, no murmur, no gallops, no rubs, normal peripheral pulses Respiratory: no wheezes, no ronchi, rales (+ rales at both bases) Gastrointestinal: soft, non-tender, non-distended, normal bowel sounds, no palpable masses, no hepatomegaly, no splenomegaly Extremities: no cyanosis, no edema Hosp A/P (1) Acute respiratory failure with hypoxemia Code(s): J96.01 - ACUTE RESPIRATORY FAILURE WITH HYPOXIA Status: Acute (2) Pneumonia due to COVID-19 virus Code(s): U07.1 - COVID-19; J12.89 - OTHER VIRAL PNEUMONIA Status: Acute (3) Atrial fibrillation Code(s): I48.91 - UNSPECIFIED ATRIAL FIBRILLATION Status: Chronic Qualifiers: Atrial fibrillation type: paroxysmal Qualified Code(s): I48.0 - Paroxysmal atrial fibrillation (4) CKD (chronic kidney disease) Code(s): N18.9 - CHRONIC KIDNEY DISEASE, UNSPECIFIED Status: Chronic Qualifiers: Chronic kidney disease stage: stage 4 (severe) Qualified Code(s): N18.4 - Chronic kidney disease, stage 4 (severe) - Plan * Acute respiratory failure due to COVID pneumonia- continue Dexamethasone, and empiric antibiotics - will discontinue IV antibiotics tomorrow * Continue to monitor his inflammatory markers * CKD stage 4 - stable * AFIB- his heart rate is stable- continue Metoprolol * His INR is 3.8 today- continue to hold coumadin- will continue to monitor INR * Continue to encourage oral intake, and ambulation
--- NOTE | 2020-09-02 13:34 | PRG ---
DATE OF SERVICE: 09/02/2020 SUBJECTIVE: Mr. Desai seems to be getting along fairly well in the high-flow oxygen. He has no complaints. OBJECTIVE: VITAL SIGNS: Temperature 97, pulse 68, blood pressure 143/66, O2 saturation 94% on 45% high-flow oxygen. HEENT: Unremarkable. NECK: No JVD. LUNGS: Inspiratory crackles bilaterally. CARDIAC: S1, S2. Regular. ABDOMEN: Soft. EXTREMITIES: No edema. LABORATORY DATA: White blood cell count 9.2, hematocrit 23.6, and platelet count 82. Sodium 143, potassium 3.3, BUN 62, creatinine 2.6, and glucose 120. ASSESSMENT: 1. COVID-19 pneumonia. 2. Ascites. 3. Chronic obstructive pulmonary disease. 4. Thrombocytopenia. PLAN: The patient is continuing steroid therapy and high-flow oxygen. He is currently not anticoagulated secondary to his liver disease and thrombocytopenia. Job ID: [id number]
--- NOTE | 2020-09-02 20:01 | PRG ---
DATE OF SERVICE: 09/02/2020 SUBJECTIVE: The patient noted with the following vital signs. OBJECTIVE: VITAL SIGNS: Blood pressure 126/58, pulse of 86, respiratory rate of 26, O2 saturations are 95%. HEENT: Unremarkable. CARDIOVASCULAR SYSTEM: First and second heart sounds were heard. RESPIRATORY SYSTEM: Clear to auscultation. DIGESTIVE SYSTEM: Revealed a benign abdomen. Positive bowel sounds. EXTREMITIES: No peripheral edema. SKIN: No new gross rash. LYMPHATICS: No peripheral lymphadenopathy. LABORATORY DATA: Showed hemoglobin of 7.7. Creatinine down to 2.61 with BUN of 62, potassium 3.5, this is from yesterday. IMPRESSION: Acute on chronic kidney disease, probably this is a new baseline of this patient. PLAN: We will continue current renal supportive measures, further management to be dependent on the clinical course. Job ID: [id number]
[2020-09-03 03:47] LABS: INR-International Normal Ratio 3.9; Prothrombin Time 39.1 sec (12.0-14.7)
[2020-09-03 04:03] LABS: Anion Gap 16 mmol/L (10-20); BUN (Urea Nitrogen) 54 mg/dL (8.4-25.7); Calc. Creatinine Clearance 24 mL/min (70-130); Calcium 8.1 mg/dL (7.8-10.44); Carbon Dioxide 25 mmol/L (23-31); Chloride 104 mmol/L (98-107); Estimated GFR-MDRD 28; Glucose 132 mg/dL (83-110); Sodium 142 mmol/L (136-145)
[2020-09-03 04:13] LABS: Potassium 2.9 mmol/L (3.5-5.1)
[2020-09-03] MEDS ORDERED: Electrolyte Replacement Protoc 1 EACH EACH FS SCH (04:30)
[2020-09-03] MEDS: Piperacillin/Tazobactam 3.375 GM in Sodium Chloride 0.9% 100 ML IVPB SCH (05:26)
[2020-09-03] MEDS: Dexamethasone 4 mg/ml Vial SLOW IVP SCH (09:28)
[2020-09-03] MEDS: Metoprolol Tartrate 50 MG TAB PO SCH ×2 (09:28→20:16)
[2020-09-03] MEDS: Spironolactone 25 MG TAB PO SCH (09:28)
[2020-09-03] MEDS: Saccharomyces boulardii 250 MG CAP PO SCH (09:28)
[2020-09-03] MEDS: Furosemide 40 MG TAB PO SCH ×2 (09:28→20:16)
[2020-09-03] MEDS: Potassium Chloride 20 MEQ TAB PO SCH ×2 (09:32→12:32)
--- NOTE | 2020-09-03 09:57 | PDOC.HOSPP ---
- Subjective Encounter Date: 09/03/20 Encounter Time: 09:56 Subjective: Mr. Desai was seen today in follow-up of COVID pneumonia, He does not have any new complaints. He continues to feel very weak, and his appetite is poor. - Objective Vital Signs & Weight: Vital Signs (12 hours) Temp Pulse Ox 09/03/20 04:00 97.9 F 09/03/20 03:44 95 09/03/20 00:00 97.8 F Weight Admit Weight 147 lb 9.6 oz Weight 144 lb 9.6 oz Most Recent Monitor Data Heart Rate from ECG 72 NIBP 147/72 NIBP BP-Mean 97 Respiration from ECG 28 SpO2 93 I&O: 09/02/20 09/03/20 09/04/20 06:59 06:59 06:59 Intake Total 1580 1730 Output Total 2350 2400 Balance -770 -670 Result Diagrams: 09/02/20 03:55 09/03/20 03:21 Hospitalist ROS - Medication Medications: Active Medications Generic Name Dose Route Start Last Admin Trade Name Freq PRN Reason Stop Dose Admin Acetaminophen 650 mg 08/27/20 20:56 08/27/20 21:08 Acetaminophen 325 Mg Tab PO 650 mg Q4H PRN Administration Headache/Fever or Pain Dexamethasone 6 mg 09/01/20 09:00 09/03/20 09:28 Dexamethasone 4 Mg/Ml Vial SLOW IVP 6 mg DAILY FRANDY Administration Epoetin Stas-epbx 7,500 unit 09/01/20 20:00 09/01/20 20:11 Epoetin Stas-Epbx (Esrd) 4,000 Unit/Ml Vial SC 7,500 unit Q7D FRANDY Administration Furosemide 40 mg 08/27/20 21:00 09/03/20 09:28 Furosemide 40 Mg Tab PO 40 mg BID FRANDY Administration Piperacillin Sod/Tazobactam 100 mls @ 200 mls/hr 08/27/20 12:00 09/03/20 05:26 Sod 3.375 gm/ Sodium Chloride IVPB 100 mls Q6HR FRANDY Administration Metoprolol Tartrate 50 mg 08/27/20 21:00 09/03/20 09:28 Metoprolol Tartrate 50 Mg Tab PO 50 mg BID FRANDY Administration Pantoprazole Sodium 40 mg 08/31/20 21:00 09/03/20 09:28 Pantoprazole 40 Mg Tab PO 40 mg BID FRANDY Administration Potassium Chloride 40 meq 09/03/20 07:00 09/03/20 09:32 Potassium Chloride 20 Meq Tab PO 09/03/20 11:01 40 meq Q4H FRANDY Administration Saccharomyces Boulardii 250 mg 09/03/20 09:00 09/03/20 09:28 Saccharomyces Boulardii 250 Mg Cap PO 250 mg DAILY FRANDY Administration Spironolactone 25 mg 08/28/20 08:00 09/03/20 09:28 Spironolactone 25 Mg Tab PO 25 mg QAM-WM FRANDY Administration - Exam Eye: PERRL, anicteric sclera Heart: RRR, no murmur, no gallops, no rubs, normal peripheral pulses Respiratory: no ronchi, rales (+ rales at both bases) Gastrointestinal: soft, non-tender, non-distended, normal bowel sounds, no palp able masses, no hepatomegaly Extremities: no cyanosis, no edema Hosp A/P (1) Acute respiratory failure with hypoxemia Code(s): J96.01 - ACUTE RESPIRATORY FAILURE WITH HYPOXIA Status: Acute (2) Pneumonia due to COVID-19 virus Code(s): U07.1 - COVID-19; J12.89 - OTHER VIRAL PNEUMONIA Status: Acute (3) Atrial fibrillation Code(s): I48.91 - UNSPECIFIED ATRIAL FIBRILLATION Status: Chronic Qualifiers: Atrial fibrillation type: paroxysmal Qualified Code(s): I48.0 - Paroxysmal atrial fibrillation (4) CKD (chronic kidney disease) Code(s): N18.9 - CHRONIC KIDNEY DISEASE, UNSPECIFIED Status: Chronic Qualifiers: Chronic kidney disease stage: stage 4 (severe) Qualified Code(s): N18.4 - Chronic kidney disease, stage 4 (severe) - Plan * Acute respiratory failure due to COVID pneumonia- continue Dexamethasone * Will discontinue Zosyn * Continue to monitor his inflammatory markers * CKD stage 4 - stable * AFIB- his heart rate is stable- continue Metoprolol * His INR is 3.9 today- continue to hold coumadin- will continue to monitor INR * Continue to encourage oral intake, and ambulation
[2020-09-03 13:55] LABS: Potassium 3.4 mmol/L (3.5-5.1)
--- NOTE | 2020-09-03 15:05 | PRG ---
DATE OF SERVICE: 09/03/2020 SUBJECTIVE: Dustin Giordano has no new complaints. He looks surprisingly comfortable. OBJECTIVE: VITAL SIGNS: His heart rate is 82, blood pressure 137/69, respiratory rates in the 20s. LUNGS: Unchanged. HEART: Unchanged. ABDOMEN: Unchanged. LABORATORY DATA: Sodium 142, potassium 2.9, chloride 104, bicarb 25, BUN 54, creatinine 2.27. IMPRESSION: 1. COVID pneumonia, clinically stable. 2. Underlying obstructive lung disease. 3. Underlying cirrhosis. 4. Chronic kidney disease. He is on 45% oxygen, so oxygen toxicity with this treatment is less of a concern. We will continue to follow. Job ID: [id number]
--- NOTE | 2020-09-03 18:47 | PRG ---
DATE OF SERVICE: 09/03/2020 SUBJECTIVE: The patient continues to require high-flow nasal cannulation with the following vital signs. OBJECTIVE: VITAL SIGNS: Heart rate of 65 to 130, with a blood pressure 138/74, respiratory rate of 26. HEENT: Unremarkable. CARDIOVASCULAR SYSTEM: First and second heart sounds were heard. RESPIRATORY SYSTEM: Clear to auscultation. DIGESTIVE SYSTEM: Revealed a benign abdomen with positive bowel sounds with some degree of ascites. EXTREMITIES: Unremarkable. IMPRESSION: 1. Acute on chronic kidney disease. 2. COVID pneumonitis. 3. Cirrhosis. PLAN: 1. Continue current renal supportive measures. 2. Further management will be dependent on the clinical course. No indication for renal replacement therapy. Job ID: [id number]
[2020-09-04 04:50] LABS: INR-International Normal Ratio 3.6; Prothrombin Time 36.4 sec (12.0-14.7)
[2020-09-04] MEDS ORDERED: Potassium Chloride 20 MEQ TAB PO SCH (06:30)
[2020-09-04 07:27] LABS: Anion Gap 15 mmol/L (10-20); BUN (Urea Nitrogen) 47 mg/dL (8.4-25.7); Calc. Creatinine Clearance 28 mL/min (70-130); Calcium 8.2 mg/dL (7.8-10.44); Carbon Dioxide 29 mmol/L (23-31); Chloride 103 mmol/L (98-107); Estimated GFR-MDRD 32; Glucose 114 mg/dL (83-110); Potassium 3.5 mmol/L (3.5-5.1); Sodium 143 mmol/L (136-145)
[2020-09-04] MEDS: Furosemide 40 MG TAB PO SCH ×2 (09:18→21:00)
[2020-09-04] MEDS: Metoprolol Tartrate 50 MG TAB PO SCH ×2 (09:18→21:00)
[2020-09-04] MEDS: Spironolactone 25 MG TAB PO SCH (09:18)
[2020-09-04] MEDS: Dexamethasone 4 mg/ml Vial SLOW IVP SCH (09:18)
[2020-09-04] MEDS: Saccharomyces boulardii 250 MG CAP PO SCH (09:18)
--- NOTE | 2020-09-04 10:46 | PDOC.HOSPP ---
- Subjective Encounter Date: 09/04/20 Encounter Time: 10:44 Subjective: Mr. Desai was seen today in follow-up of COVID pneumonia. He is about the same. He does not have any new complaints. - Objective Vital Signs & Weight: Vital Signs (12 hours) Temp Pulse Ox 09/04/20 08:17 94 L 09/04/20 07:44 94 L 09/04/20 04:00 98.4 F 09/04/20 00:00 98.3 F Weight Admit Weight 147 lb 9.6 oz Weight 144 lb 9.6 oz Most Recent Monitor Data Heart Rate from ECG 79 NIBP 134/74 NIBP BP-Mean 94 Respiration from ECG 29 SpO2 93 I&O: 09/03/20 09/04/20 09/05/20 06:59 06:59 06:59 Intake Total 1730 1320 Output Total 2400 2700 Balance -670 -1380 Result Diagrams: 09/02/20 03:55 09/04/20 06:54 Hospitalist ROS - Medication Medications: Active Medications Generic Name Dose Route Start Last Admin Trade Name Freq PRN Reason Stop Dose Admin Acetaminophen 650 mg 08/27/20 20:56 08/27/20 21:08 Acetaminophen 325 Mg Tab PO 650 mg Q4H PRN Administration Headache/Fever or Pain Dexamethasone 6 mg 09/01/20 09:00 09/04/20 09:18 Dexamethasone 4 Mg/Ml Vial SLOW IVP 6 mg DAILY FRANDY Administration Epoetin Stas-epbx 7,500 unit 09/01/20 20:00 09/01/20 20:11 Epoetin Stas-Epbx (Esrd) 4,000 Unit/Ml Vial SC 7,500 unit Q7D FRANDY Administration Furosemide 40 mg 08/27/20 21:00 09/04/20 09:18 Furosemide 40 Mg Tab PO 40 mg BID FRANDY Administration Metoprolol Tartrate 50 mg 08/27/20 21:00 09/04/20 09:18 Metoprolol Tartrate 50 Mg Tab PO 50 mg BID FRANDY Administration Pantoprazole Sodium 40 mg 08/31/20 21:00 09/04/20 09:18 Pantoprazole 40 Mg Tab PO 40 mg BID FRANDY Administration Saccharomyces Boulardii 250 mg 09/03/20 09:00 09/04/20 09:18 Saccharomyces Boulardii 250 Mg Cap PO 250 mg DAILY FRANDY Administration Spironolactone 25 mg 08/28/20 08:00 09/04/20 09:18 Spironolactone 25 Mg Tab PO 25 mg QAM-WM FRANDY Administration - Exam Eye: PERRL, anicteric sclera Heart: RRR, no murmur, no gallops, no rubs, normal peripheral pulses Respiratory: no wheezes, no ronchi, rales (+ rales at both bases) Gastrointestinal: soft, non-tender, non-distended, normal bowel sounds, no palpable masses, no hepatomegaly Extremities: no cyanosis, no edema Hosp A/P (1) Acute respiratory failure with hypoxemia Code(s): J96.01 - ACUTE RESPIRATORY FAILURE WITH HYPOXIA Status: Acute (2) Pneumonia due to COVID-19 virus Code(s): U07.1 - COVID-19; J12.89 - OTHER VIRAL PNEUMONIA Status: Acute (3) Atrial fibrillation Code(s): I48.91 - UNSPECIFIED ATRIAL FIBRILLATION Status: Chronic Qualifiers: Atrial fibrillation type: paroxysmal Qualified Code(s): I48.0 - Paroxysmal atrial fibrillation (4) CKD (chronic kidney disease) Code(s): N18.9 - CHRONIC KIDNEY DISEASE, UNSPECIFIED Status: Chronic Qualifiers: Chronic kidney disease stage: stage 4 (severe) Qualified Code(s): N18.4 - Chronic kidney disease, stage 4 (severe) - Plan * Acute respiratory failure due to COVID pneumonia- continue Dexamethasone * Continue to monitor his inflammatory markers * CKD stage 4 - stable * AFIB- his heart rate is stable- continue Metoprolol * His INR is 3.6 today- Coumadin is on Hold * Continue to encourage oral intake, and ambulation
[2020-09-04 13:39] LABS: Potassium 4.1 mmol/L (3.5-5.1)
--- NOTE | 2020-09-04 19:32 | PRG ---
DATE OF SERVICE: 09/04/2020 SUBJECTIVE: Dustin Giordano continues to be stable. Blood pressure 124/64, heart rates in the 60s, respiratory rates in the 20s, oximetry is in the high 90s. We probably can switch him to nasal cannula tomorrow. OBJECTIVE: LUNGS: Clear. HEART: Regular rhythm. ABDOMEN: Soft. LABORATORY DATA: White count 9.2, hemoglobin 7.7, platelets 82,000. Sodium 143, potassium 3.5, chloride 103, bicarb 29, BUN 47, creatinine 2.02. His renal function continues to improve. IMPRESSION: 1. COVID pneumonia. 2. Cirrhosis. 3. 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 Overall, he appears to be slowly improving. We will continue supportive care. Consider switching him to a cannula tomorrow. He probably could be moved out of the intermediate care unit. He is quite stable. Job ID: [id number]
[2020-09-05 03:53] LABS: INR-International Normal Ratio 3.3; Prothrombin Time 34.4 sec (12.0-14.7)
[2020-09-05] MEDS: Dexamethasone 4 mg/ml Vial SLOW IVP SCH (08:59)
[2020-09-05] MEDS: Spironolactone 25 MG TAB PO SCH (08:59)
[2020-09-05] MEDS: Furosemide 40 MG TAB PO SCH ×2 (09:00→21:29)
[2020-09-05] MEDS: Acetaminophen 325 MG TAB PO PRN (09:00)
[2020-09-05] MEDS: Saccharomyces boulardii 250 MG CAP PO SCH (09:00)
[2020-09-05] MEDS: Metoprolol Tartrate 50 MG TAB PO SCH ×2 (09:00→21:29)
--- NOTE | 2020-09-05 14:08 | PDOC.HOSPP ---
- Subjective Encounter Date: 09/05/20 Encounter Time: 14:07 Subjective: Mr. Desai was seen today in follow-up of COVID pneumonia. He says he is about the same. He seems a little brighter today. He says he ate most of his breakfast. - Objective Vital Signs & Weight: Vital Signs (12 hours) Temp Pulse Ox 09/05/20 12:00 97.6 F 09/05/20 08:00 97.7 F 92 L 09/05/20 04:00 97.6 F 09/05/20 03:30 90 L Weight Admit Weight 147 lb 9.6 oz Weight 147 lb Most Recent Monitor Data Heart Rate from ECG 73 NIBP 135/70 NIBP BP-Mean 91 Respiration from ECG 25 SpO2 90 I&O: 09/04/20 09/05/20 09/06/20 06:59 06:59 06:59 Intake Total 1320 1270 Output Total 2700 2300 Balance -1380 -1030 Result Diagrams: 09/02/20 03:55 09/04/20 13:16 Hospitalist ROS - Medication Medications: Active Medications Generic Name Dose Route Start Last Admin Trade Name Freq PRN Reason Stop Dose Admin Acetaminophen 650 mg 08/27/20 20:56 08/27/20 21:08 Acetaminophen 325 Mg Tab PO 650 mg Q4H PRN Administration Headache/Fever or Pain Dexamethasone 6 mg 09/01/20 09:00 09/05/20 08:59 Dexamethasone 4 Mg/Ml Vial SLOW IVP 6 mg DAILY FRANDY Administration Epoetin Stas-epbx 7,500 unit 09/01/20 20:00 09/01/20 20:11 Epoetin Stas-Epbx (Esrd) 4,000 Unit/Ml Vial SC 7,500 unit Q7D FRANDY Administration Furosemide 40 mg 08/27/20 21:00 09/05/20 09:00 Furosemide 40 Mg Tab PO 40 mg BID FRANDY Administration Metoprolol Tartrate 50 mg 08/27/20 21:00 09/05/20 09:00 Metoprolol Tartrate 50 Mg Tab PO 50 mg BID FRANDY Administration Pantoprazole Sodium 40 mg 08/31/20 21:00 09/05/20 08:59 Pantoprazole 40 Mg Tab PO 40 mg BID FRANDY Administration Saccharomyces Boulardii 250 mg 09/03/20 09:00 09/05/20 09:00 Saccharomyces Boulardii 250 Mg Cap PO 250 mg DAILY FRANDY Administration Spironolactone 25 mg 08/28/20 08:00 09/05/20 08:59 Spironolactone 25 Mg Tab PO 25 mg QAM-WM FRANDY Administration - Exam Eye: PERRL, anicteric sclera Heart: RRR, no murmur, no gallops, no rubs, normal peripheral pulses Respiratory: rales, rhonchi (+ rales at the bases, and some rhonchi) Gastrointestinal: soft, non-tender, non-distended, normal bowel sounds, no palpable masses, no hepatomegaly, no splenomegaly Extremities: no cyanosis, no edema Hosp A/P (1) Acute respiratory failure with hypoxemia Code(s): J96.01 - ACUTE RESPIRATORY FAILURE WITH HYPOXIA Status: Acute (2) Pneumonia due to COVID-19 virus Code(s): U07.1 - COVID-19; J12.89 - OTHER VIRAL PNEUMONIA Status: Acute (3) Atrial fibrillation Code(s): I48.91 - UNSPECIFIED ATRIAL FIBRILLATION Status: Chronic Qualifiers: Atrial fibrillation type: paroxysmal Qualified Code(s): I48.0 - Paroxysmal atrial fibrillation (4) CKD (chronic kidney disease) Code(s): N18.9 - CHRONIC KIDNEY DISEASE, UNSPECIFIED Status: Chronic Qualifiers: Chronic kidney disease stage: stage 4 (severe) Qualified Code(s): N18.4 - Chronic kidney disease, stage 4 (severe) - Plan * Acute respiratory failure due to COVID pneumonia- continue Dexamethasone * His Inflammatory markers are beginning to decline * CKD stage 4 - stable * AFIB- his heart rate is stable- continue Metoprolol * His INR is 3.3 today- Coumadin is on Hold * Continue to encourage oral intake, and ambulation
--- NOTE | 2020-09-05 16:40 | PRG ---
DATE OF SERVICE: 09/05/2020 SUBJECTIVE: Mr. Desai still is doing reasonably well. He does not look acutely ill. Apparently, he was tried on a cannula he still on high-flow. Blood pressures in the 130s. Heart rate is in 80s. Respiratory rates in the teens. He is in no distress. He is otherwise unchanged. IMPRESSION: 1. COVID pneumonia. 2. Cirrhosis. 3. Chronic obstructive pulmonary disease. 4. Acute on chronic renal insufficiency with improving renal function, appears to be stable. Job ID: [id number]
--- NOTE | 2020-09-05 18:38 | PRG ---
DATE OF SERVICE: 09/05/2020 SUBJECTIVE: The patient is still on high-flow nasal oxygen, noted with the following vital signs. OBJECTIVE: VITAL SIGNS: Blood pressure 131/85, looks afebrile, temperature 97.7, pulse of 70, and respiratory rate of 29. HEENT: Remarkable for high-flow nasal oxygen cannula in place. CARDIOVASCULAR SYSTEM: First and second heart sounds were heard. RESPIRATORY SYSTEM: Clear to auscultation. DIGESTIVE SYSTEM: Revealed a benign abdomen. EXTREMITIES: No significant peripheral edema. SKIN: No new gross rash. LYMPHATICS: No peripheral lymphadenopathy. IMPRESSION: 1. Acute on chronic kidney disease. 2. End-stage liver disease. 3. COVID pneumonitis. PLAN: 1. Continue current renal supportive measures. 2. No indication for renal replacement therapy. 3. Further management to be dependent on the clinical course. Job ID: [id number]
[2020-09-06 03:48] LABS: INR-International Normal Ratio 2.6; Prothrombin Time 28.7 sec (12.0-14.7)
[2020-09-06] MEDS: Spironolactone 25 MG TAB PO SCH (09:06)
[2020-09-06] MEDS: Furosemide 40 MG TAB PO SCH ×2 (09:06→20:19)
[2020-09-06] MEDS: Metoprolol Tartrate 50 MG TAB PO SCH ×2 (09:06→20:19)
[2020-09-06] MEDS: Dexamethasone 4 mg/ml Vial SLOW IVP SCH (09:06)
[2020-09-06] MEDS: Saccharomyces boulardii 250 MG CAP PO SCH (09:06)
[2020-09-06 09:55] LABS: Anion Gap 13 mmol/L (10-20); BUN (Urea Nitrogen) 39 mg/dL (8.4-25.7); Calc. Creatinine Clearance 35 mL/min (70-130); Carbon Dioxide 28 mmol/L (23-31); Chloride 100 mmol/L (98-107); Estimated GFR-MDRD 42; Glucose 92 mg/dL (83-110); Potassium 3.3 mmol/L (3.5-5.1); Sodium 138 mmol/L (136-145)
[2020-09-06 10:19] LABS: #Basophils 0.1 thou/uL (0.0-0.2); #Lymphocytes 0.3 thou/uL (1.20-3.40); #Monocytes 0.5 thou/uL (0.11-0.59); #Neutrophils 6.6 thou/uL (1.40-6.50); %Eosinophils 0.5 % (0.0-10.0); %Lymphocytes 3.4 % (21.0-51.0); %Monocytes 6.2 % (0.0-10.0); Elliptocytes SLIGHT = 2-5 cells (100X) (0-1/hpf); Hemoglobin 7.9 g/dL (14.0-18.0); Hypochromia SLIGHT = 6-15 cells (100X) (0-5/hpf); MDiff Complete? YES; Mean Corpuscular Hemoglobin 26.6 pg (27.0-31.0); Mean Corpuscular Volume 88.7 fL (78.0-98.0); Mean Platelet Volume 8.9 fL (7.4-10.4); Platelet Count 188 thou/uL (130-400); Platelet Morphology Comment Appears Adequate; Poikilocytosis SLIGHT = 6-15 cells (100X) (0-5/hpf); RBC Distribution Width 18.8 % (11.5-14.5); Red Blood Cell (RBC) Count 2.96 mill/uL (4.70-6.10); White Blood Cell (WBC) Count 7.5 thou/uL (4.8-10.8)
[2020-09-06] MEDS ORDERED: Potassium Chloride 20 MEQ TAB PO SCH (11:30)
[2020-09-06] MEDS: Nystatin 500,000 UNITS/5 ML UDCUP SSW SCH ×3 (12:39→20:19)
--- NOTE | 2020-09-06 14:30 | PDOC.HOSPP ---
- Subjective Encounter Date: 09/06/20 Encounter Time: 14:28 Subjective: Mr. Desai was seen today in follow-up of COVID pneumonia and respiratory failure. He is about the same. No new complaints. - Objective Vital Signs & Weight: Vital Signs (12 hours) Temp Pulse Ox 09/06/20 12:00 97.6 F 09/06/20 07:43 93 L 09/06/20 07:09 97.6 F 09/06/20 04:00 97.4 F L Weight Admit Weight 147 lb 9.6 oz Weight 145 lb 12.8 oz Most Recent Monitor Data Heart Rate from ECG 65 NIBP 138/60 NIBP BP-Mean 86 Respiration from ECG 25 SpO2 97 I&O: 09/05/20 09/06/20 09/07/20 06:59 06:59 06:59 Intake Total 1270 950 Output Total 2300 1650 Balance -1030 -700 Result Diagrams: 09/06/20 09:18 09/06/20 09:18 Hospitalist ROS - Medication Medications: Active Medications Generic Name Dose Route Start Last Admin Trade Name Freq PRN Reason Stop Dose Admin Acetaminophen 650 mg 08/27/20 20:56 08/27/20 21:08 Acetaminophen 325 Mg Tab PO 650 mg Q4H PRN Administration Headache/Fever or Pain Dexamethasone 6 mg 09/01/20 09:00 09/06/20 09:06 Dexamethasone 4 Mg/Ml Vial SLOW IVP 6 mg DAILY FRANDY Administration Epoetin Stas-epbx 7,500 unit 09/01/20 20:00 09/01/20 20:11 Epoetin Stas-Epbx (Esrd) 4,000 Unit/Ml Vial SC 7,500 unit Q7D FRANDY Administration Furosemide 40 mg 08/27/20 21:00 09/06/20 09:06 Furosemide 40 Mg Tab PO 40 mg BID FRANDY Administration Metoprolol Tartrate 50 mg 08/27/20 21:00 09/06/20 09:06 Metoprolol Tartrate 50 Mg Tab PO 50 mg BID FRANDY Administration Nystatin 500,000 units 09/06/20 13:00 09/06/20 12:39 Nystatin 500,000 Units/5 Ml Udcup SSW 500,000 units QID FRANDY Administration Pantoprazole Sodium 40 mg 08/31/20 21:00 09/06/20 09:06 Pantoprazole 40 Mg Tab PO 40 mg BID FRANDY Administration Potassium Chloride 40 meq 09/06/20 11:30 09/06/20 12:39 Potassium Chloride 20 Meq Tab PO 09/06/20 15:00 40 meq NOW FRANDY Administration Saccharomyces Boulardii 250 mg 09/03/20 09:00 09/06/20 09:06 Saccharomyces Boulardii 250 Mg Cap PO 250 mg DAILY FRANDY Administration Spironolactone 25 mg 08/28/20 08:00 09/06/20 09:06 Spironolactone 25 Mg Tab PO 25 mg QAM-WM FRANDY Administration - Exam Eye: PERRL, anicteric sclera Heart: RRR, no murmur, no gallops, no rubs, normal peripheral pulses Respiratory: CTAB, no wheezes, rhonchi Gastrointestinal: soft, non-tender, non-distended, normal bowel sounds, no palpable masses, no hepatomegaly Extremities: no cyanosis, no edema Hosp A/P (1) Acute respiratory failure with hypoxemia Code(s): J96.01 - ACUTE RESPIRATORY FAILURE WITH HYPOXIA Status: Acute (2) Pneumonia due to COVID-19 virus Code(s): U07.1 - COVID-19; J12.89 - OTHER VIRAL PNEUMONIA Status: Acute (3) Atrial fibrillation Code(s): I48.91 - UNSPECIFIED ATRIAL FIBRILLATION Status: Chronic Qualifiers: Atrial fibrillation type: paroxysmal Qualified Code(s): I48.0 - Paroxysmal atrial fibrillation (4) CKD (chronic kidney disease) Code(s): N18.9 - CHRONIC KIDNEY DISEASE, UNSPECIFIED Status: Chronic Qualifiers: Chronic kidney disease stage: stage 4 (severe) Qualified Code(s): N18.4 - Chronic kidney disease, stage 4 (severe) - Plan * Acute respiratory failure due to COVID pneumonia- continue Dexamethasone * He continues to require high flow oxygen * CKD stage 4 - stable * AFIB- his heart rate is stable- continue Metoprolol * His INR is 2.6 today- Coumadin is on Hold * Continue to encourage oral intake, and ambulation
--- NOTE | 2020-09-06 16:14 | PRG ---
DATE OF SERVICE: 09/06/2020 SUBJECTIVE: Dustin Giordano is feeling about the same. We have been able to get him to a nasal cannula. OBJECTIVE: VITAL SIGNS: Saturations are 95% to 97%, heart rate is in 60s, blood pressure 130/67. LUNGS: Clear anteriorly. Surprisingly, he is not wheezing. HEART: Regular rhythm. ABDOMEN: Soft. LABORATORY DATA: White count 7.5, hemoglobin 10.9, platelets 188. Electrolytes are normal. Creatinine 1.6. IMPRESSION: 1. Chronic obstructive pulmonary disease. 2. Cirrhosis. 3. Pleural effusion. 4. COVID pneumonia. 5. Chronic kidney disease with dramatically improved renal function. PLAN: Continue supportive care. He appears to be improving and hopefully within a few days will be on a nasal cannula. Once he is on a nasal cannula, we can consider discharging him home. Job ID: [id number]
--- NOTE | 2020-09-06 19:33 | PRG ---
DATE OF SERVICE: 09/06/2020 SUBJECTIVE: The patient is seen and examined. Still on high-flow nasal oxygenation with the following vital signs. OBJECTIVE: VITAL SIGNS: Blood pressure 143/67, afebrile, temperature 98.7, O2 saturation of 96%. HEENT: Unremarkable. CARDIOVASCULAR SYSTEM: First and second heart sounds were heard. RESPIRATORY SYSTEM: Clear to auscultation. DIGESTIVE SYSTEM: Revealed a distended abdomen. EXTREMITIES: No peripheral edema. LABORATORY INVESTIGATION: Showed a creatinine down to 1.6, potassium 3.3. Hemoglobin 7.9. IMPRESSION: 1. Acute on chronic kidney disease, seems to be improving. 2. Hypokalemia. 3. Anemia. PLAN: 1. Replete potassium. 2. Continue renal supportive measures. 3. Further management to be dependent on the clinical course. Job ID: [id number]
[2020-09-07 03:36] LABS: INR-International Normal Ratio 2.2; Prothrombin Time 24.6 sec (12.0-14.7)
[2020-09-07] MEDS: Dexamethasone 4 mg/ml Vial SLOW IVP SCH (08:37)
[2020-09-07] MEDS: Nystatin 500,000 UNITS/5 ML UDCUP SSW SCH ×4 (08:37→20:45)
[2020-09-07] MEDS: Saccharomyces boulardii 250 MG CAP PO SCH (08:38)
[2020-09-07] MEDS: Metoprolol Tartrate 50 MG TAB PO SCH ×2 (08:38→20:45)
[2020-09-07] MEDS: Spironolactone 25 MG TAB PO SCH (08:38)
[2020-09-07] MEDS: Furosemide 40 MG TAB PO SCH ×2 (08:38→20:45)
[2020-09-07 08:46] LABS: Potassium 3.7 mmol/L (3.5-5.1)
--- NOTE | 2020-09-07 09:51 | PRG ---
DATE OF SERVICE: 09/07/2020 SUBJECTIVE: Dustin Desai remains stable. His heart rate is in 60s, blood pressure 130/65, respiratory rates in the teens, oximetry is in the high 80s on high-flow oxygen. He is in no distress. His exam is unchanged. White count 7.5 yesterday. There is no lab today. IMPRESSION: 1. COVID pneumonia. 2. Cirrhosis. 3. Ascites and right pleural effusion. 4. Chronic obstructive pulmonary disease. 5. Anemia. 6. Acute on chronic kidney disease, it is improving. My opinion he could transfer to a medical [facility]oor. Job ID: [id number]
--- NOTE | 2020-09-07 13:43 | PDOC.HOSPP ---
- Subjective Encounter Date: 09/07/20 Encounter Time: 13:42 Subjective: Mr. Desai was seen today in follow-up of Respiratory failure due to COVID pneumonia. He says today he is just tired and wants to get some sleep. - Objective Vital Signs & Weight: Vital Signs (12 hours) Temp Pulse Ox 09/07/20 10:00 89 L 09/07/20 08:00 90 L 09/07/20 04:00 97.3 F L Weight Admit Weight 147 lb 9.6 oz Weight 139 lb 11.2 oz Most Recent Monitor Data Heart Rate from ECG 79 NIBP 126/94 NIBP BP-Mean 104 Respiration from ECG 18 SpO2 98 I&O: 09/06/20 09/07/20 09/08/20 06:59 06:59 06:59 Intake Total 950 1350 Output Total 1650 0 Balance -700 -700 Result Diagrams: 09/06/20 09:18 09/07/20 08:19 Hospitalist ROS - Medication Medications: Active Medications Generic Name Dose Route Start Last Admin Trade Name Freq PRN Reason Stop Dose Admin Acetaminophen 650 mg 08/27/20 20:56 08/27/20 21:08 Acetaminophen 325 Mg Tab PO 650 mg Q4H PRN Administration Headache/Fever or Pain Dexamethasone 6 mg 09/01/20 09:00 09/07/20 08:37 Dexamethasone 4 Mg/Ml Vial SLOW IVP 6 mg DAILY FRANDY Administration Epoetin Stas-epbx 7,500 unit 09/01/20 20:00 09/01/20 20:11 Epoetin Stas-Epbx (Esrd) 4,000 Unit/Ml Vial SC 7,500 unit Q7D FRANDY Administration Furosemide 40 mg 08/27/20 21:00 09/07/20 08:38 Furosemide 40 Mg Tab PO 40 mg BID FRANDY Administration Metoprolol Tartrate 50 mg 08/27/20 21:00 09/07/20 08:38 Metoprolol Tartrate 50 Mg Tab PO 50 mg BID FRANDY Administration Nystatin 500,000 units 09/06/20 13:00 09/07/20 12:33 Nystatin 500,000 Units/5 Ml Udcup SSW Not Given QID FRANDY Pantoprazole Sodium 40 mg 08/31/20 21:00 09/07/20 08:38 Pantoprazole 40 Mg Tab PO 40 mg BID FRANDY Administration Saccharomyces Boulardii 250 mg 09/03/20 09:00 09/07/20 08:38 Saccharomyces Boulardii 250 Mg Cap PO 250 mg DAILY FRANDY Administration Spironolactone 25 mg 08/28/20 08:00 09/07/20 08:38 Spironolactone 25 Mg Tab PO 25 mg QAM-WM FRANDY Administration - Exam Eye: PERRL, anicteric sclera Heart: RRR, no murmur, no gallops, no rubs, normal peripheral pulses Respiratory: rales (+ rales at both bases) Gastrointestinal: soft, non-tender, non-distended, normal bowel sounds, no palpable masses, no hepatomegaly Extremities: no cyanosis, no edema Hosp A/P (1) Acute respiratory failure with hypoxemia Code(s): J96.01 - ACUTE RESPIRATORY FAILURE WITH HYPOXIA Status: Acute (2) Pneumonia due to COVID-19 virus Code(s): U07.1 - COVID-19; J12.89 - OTHER VIRAL PNEUMONIA Status: Acute (3) Atrial fibrillation Code(s): I48.91 - UNSPECIFIED ATRIAL FIBRILLATION Status: Chronic Qualifiers: Atrial fibrillation type: paroxysmal Qualified Code(s): I48.0 - Paroxysmal atrial fibrillation (4) CKD (chronic kidney disease) Code(s): N18.9 - CHRONIC KIDNEY DISEASE, UNSPECIFIED Status: Chronic Qualifiers: Chronic kidney disease stage: stage 4 (severe) Qualified Code(s): N18.4 - Chronic kidney disease, stage 4 (severe) - Plan * Acute respiratory failure due to COVID pneumonia- continue Dexamethasone * Continue High flow oxygen * CKD stage 4 - stable * AFIB- his heart rate is stable- continue Metoprolol * His INR is 2.2 today- re-start coumadin tomorrow * Continue to encourage oral intake, and ambulation
--- NOTE | 2020-09-07 17:57 | PRG ---
DATE OF SERVICE: 09/07/2020 SUBJECTIVE: The patient continues to do well with the following vital signs. OBJECTIVE: VITAL SIGNS: Afebrile, temperature 98.6, O2 saturations of 98%, blood pressure 113/64. The patient is still on high-flow nasal cannula. HEENT: Unremarkable. CARDIOVASCULAR SYSTEM: First and second heart sounds were heard. RESPIRATORY SYSTEM: Clear to auscultation. DIGESTIVE SYSTEM: Revealed evidence of ascites. EXTREMITIES: No peripheral edema. IMPRESSION: 1. Acute on chronic kidney disease, much improved with the last creatinine of 1.6. 2. End-stage liver disease. PLAN: 1. We will continue current renal supportive measures. 2. Further management to be dependent on the clinical course. Job ID: [id number]
[2020-09-08 04:01] LABS: INR-International Normal Ratio 1.6; Prothrombin Time 19.6 sec (12.0-14.7)
[2020-09-08 04:08] LABS: Hemoglobin 7.5 g/dL (14.0-18.0); Mean Corpuscular HGB CONC 31.2 g/dL (32.0-36.0); Mean Corpuscular Hemoglobin 26.9 pg (27.0-31.0); Mean Corpuscular Volume 86.3 fL (78.0-98.0); Mean Platelet Volume 8.8 fL (7.4-10.4); Platelet Count 197 thou/uL (130-400); RBC Distribution Width 19.2 % (11.5-14.5); Red Blood Cell (RBC) Count 2.77 mill/uL (4.70-6.10); White Blood Cell (WBC) Count 8.1 thou/uL (4.8-10.8)
[2020-09-08 04:09] LABS: Band 9 % (5-11); Lymphocytes 6 % (21-51); MDiff Complete? YES; Monocytes 4 % (0-10); Neutrophil 81 % (42-75); Platelet Morphology Comment Appears Adequate
[2020-09-08 04:19] LABS: Anion Gap 14 mmol/L (10-20); BUN (Urea Nitrogen) 42 mg/dL (8.4-25.7); Calc. Creatinine Clearance 37 mL/min (70-130); Calcium 8.4 mg/dL (7.8-10.44); Carbon Dioxide 32 mmol/L (23-31); Chloride 98 mmol/L (98-107); Estimated GFR-MDRD 47; Glucose 92 mg/dL (83-110); Potassium 3.7 mmol/L (3.5-5.1); Sodium 140 mmol/L (136-145)
[2020-09-08] MEDS: Dexamethasone 4 mg/ml Vial SLOW IVP SCH (10:57)
[2020-09-08] MEDS: Saccharomyces boulardii 250 MG CAP PO SCH (10:59)
[2020-09-08] MEDS: Nystatin 500,000 UNITS/5 ML UDCUP SSW SCH ×4 (10:59→22:37)
[2020-09-08] MEDS: Metoprolol Tartrate 50 MG TAB PO SCH ×2 (10:59→22:38)
[2020-09-08] MEDS: Furosemide 40 MG TAB PO SCH ×2 (10:59→22:38)
[2020-09-08] MEDS: Acetaminophen 325 MG TAB PO PRN (10:59)
[2020-09-08] MEDS: Spironolactone 25 MG TAB PO SCH (11:00)
--- NOTE | 2020-09-08 12:19 | PRG ---
DATE OF SERVICE: 09/08/2020 SUBJECTIVE: There has been no significant change. He continues to be on supplemental oxygen, currently at 45 L of 55% high-flow. There is no cough or sputum. There is no pain. He is taking a diet. OBJECTIVE: VITAL SIGNS: Blood pressure 142/65, heart rate 67, respiratory rate is 22, oxygen saturation 92%. NECK: There is no JVD. LUNGS: Show bronchial breath sounds without wheezing. HEART: Regular rate and rhythm. ABDOMEN: Soft. Bowel sounds are normal. There is no guarding. There is no rebound. EXTREMITIES: There is no edema. There are no cords. LABORATORY DATA: White count 8100, hemoglobin 7.5 with hematocrit of 23.9. These are stable over several days. Platelet count 197,000. There are 81 neutrophils and 9 bands. Chemistry is remarkable for a BUN of 42 and a creatinine of 1.4. There has been no recent x-ray. IMPRESSION: COVID pneumonia, hemodynamically stable. PLAN: We will continue current therapies. Medically, he is not requiring a lot of support and could go to the medical floor if bed and support services were available. Job ID: [id number]
--- NOTE | 2020-09-08 16:08 | PDOC.HOSPP ---
- Subjective Encounter Date: 09/08/20 Encounter Time: 12:25 Subjective: is on nasal canula this am no sob, feels better is trying to eat his lunch - Objective Vital Signs & Weight: Vital Signs (12 hours) Temp Pulse Ox 09/08/20 08:00 90 L 09/08/20 07:22 98 F Weight Admit Weight 147 lb 9.6 oz Weight 139 lb 11.2 oz Most Recent Monitor Data Heart Rate from ECG 67 NIBP 126/59 NIBP BP-Mean 81 Respiration from ECG 21 SpO2 93 I&O: 09/07/20 09/08/20 09/09/20 06:59 06:59 05:59 Intake Total 1350 990 Output Total 2050 1150 Balance -700 -160 Result Diagrams: 09/08/20 03:39 09/08/20 03:39 Hospitalist ROS - Medication Medications: Active Medications Generic Name Dose Route Start Last Admin Trade Name Freq PRN Reason Stop Dose Admin Acetaminophen 650 mg 08/27/20 20:56 09/08/20 10:59 Acetaminophen 325 Mg Tab PO 650 mg Q4H PRN Administration Headache/Fever or Pain Dexamethasone 6 mg 09/01/20 09:00 09/08/20 10:57 Dexamethasone 4 Mg/Ml Vial SLOW IVP 6 mg DAILY FRANDY Administration Epoetin Stas-epbx 7,500 unit 09/01/20 20:00 09/01/20 20:11 Epoetin Stas-Epbx (Esrd) 4,000 Unit/Ml Vial SC 7,500 unit Q7D FRANDY Administration Furosemide 40 mg 08/27/20 21:00 09/08/20 10:59 Furosemide 40 Mg Tab PO 40 mg BID FRANDY Administration Metoprolol Tartrate 50 mg 08/27/20 21:00 09/08/20 10:59 Metoprolol Tartrate 50 Mg Tab PO 50 mg BID FRANDY Administration Nystatin 500,000 units 09/06/20 13:00 09/08/20 15:45 Nystatin 500,000 Units/5 Ml Udcup SSW Not Given QID FRANDY Pantoprazole Sodium 40 mg 08/31/20 21:00 09/08/20 10:59 Pantoprazole 40 Mg Tab PO 40 mg BID FRANDY Administration Saccharomyces Boulardii 250 mg 09/03/20 09:00 09/08/20 10:59 Saccharomyces Boulardii 250 Mg Cap PO 250 mg DAILY FRANDY Administration Sodium Chloride 10 ml 08/27/20 03:13 09/07/20 20:45 Flush - Normal Saline 10 Ml Syringe IVF 10 ml Q12HR PRN Administration Saline Flush Spironolactone 25 mg 08/28/20 08:00 09/08/20 11:00 Spironolactone 25 Mg Tab PO 25 mg QAM-WM FRANDY Administration - Exam General Appearance: awake alert, ill appearing Eye: PERRL, anicteric sclera ENT: no oropharyngeal lesions, dry oral mucosa Neck: supple, no JVD Heart: RRR, murmur present Respiratory: no wheezes, no ronchi, rhonchi Gastrointestinal: soft, non-tender, non-distended, normal bowel sounds Extremities: no cyanosis, no edema Neurological: cranial nerve grossly intact, no focal deficits Psychiatric: A&O x 3 Hosp A/P (1) Pneumonia due to COVID-19 virus Code(s): U07.1 - COVID-19; J12.89 - OTHER VIRAL PNEUMONIA Status: Acute (2) Acute respiratory failure with hypoxemia Code(s): J96.01 - ACUTE RESPIRATORY FAILURE WITH HYPOXIA Status: Acute (3) h/o mitral and aortic valve replacement Status: Chronic (4) Coagulopathy Status: Resolved (5) Protein-calorie malnutrition, moderate Code(s): E44.0 - MODERATE PROTEIN-CALORIE MALNUTRITION Status: Chronic (6) Acute worsening of stage 3 chronic kidney disease Code(s): N18.30 - CHRONIC KIDNEY DISEASE, STAGE 3 UNSPECIFIED Status: Chronic (7) Chronic anemia Code(s): D64.9 - ANEMIA, UNSPECIFIED Status: Chronic (8) Atrial fibrillation Code(s): I48.91 - UNSPECIFIED ATRIAL FIBRILLATION Status: Chronic Qualifiers: Atrial fibrillation type: paroxysmal Qualified Code(s): I48.0 - Paroxysmal atrial fibrillation (9) Cirrhosis Code(s): K74.60 - UNSPECIFIED CIRRHOSIS OF LIVER Status: Suspected Qualifiers: Hepatic cirrhosis type: unspecified hepatic cirrhosis Ascites presence: with ascites Qualified Code(s): K74.60 - Unspecified cirrhosis of liver; R18.8 - Other ascites - Plan is on dexamethasone for covid pna is on lasix, lopressor, protonix, spironolactone and coumadin 15mg daily inr around 1.6, has mech mitral valve has recieved a total of 5 FFP's on admission for coagulopathy was not a candidate for remdesivir due to hailee/suspected cirrhosis and convalescent plasma was not given due to vol overload on admission is intermittently on high flow and nasal canula may tx to med floor overall prognosis is guarded, I have given full updates to daughter over phone chronic anemia with Hg around 7g and needing coumadin for mech valve, prior h/o av malformations as well. PT to mobilize as tolerated
[2020-09-08] MEDS: Warfarin Sodium 5 MG TAB PO SCH (16:13)
--- NOTE | 2020-09-08 17:07 | RAD ---
Chest AP view INDICATION: History of Covid pneumonia COMPARISON: August 27, 2020 FINDINGS: Lungs: There is worsening bilateral airspace disease Cardiac silhouette: There is stable moderate cardiomegaly Pulmonary vasculature: There is worsening moderate pulmonary vascular congestion Pleural spaces: There are worsening bilateral tiny pleural effusions Upper abdomen: No abnormality seen. Osseous structures: No acute osseous abnormality. Additional findings: No pneumothorax. Stable multi lead AICD and post-CABG change IMPRESSION: Worsening bilateral airspace disease is suspicious for worsening pneumonia. Component of airspace yane ma may also be responsible for this finding, as there is worsening pulmonary vascular congestion small bilateral pleural effusions.
[2020-09-08] MEDS: EPOETIN ALFA-EPBX (ESRD) 4,000 UNIT/ML VIAL SC SCH (22:37)
[2020-09-09 06:48] LABS: INR-International Normal Ratio 1.4; Prothrombin Time 17.5 sec (12.0-14.7)
[2020-09-09 06:58] LABS: Band 2 % (5-11); Hemoglobin 7.6 g/dL (14.0-18.0); Hypochromia SLIGHT = 6-15 cells (100X) (0-5/hpf); Lymphocytes 5 % (21-51); MDiff Complete? YES; Mean Corpuscular HGB CONC 30.5 g/dL (32.0-36.0); Mean Corpuscular Hemoglobin 26.8 pg (27.0-31.0); Mean Corpuscular Volume 87.9 fL (78.0-98.0); Mean Platelet Volume 9.1 fL (7.4-10.4); Monocytes 6 % (0-10); Neutrophil 87 % (42-75); Platelet Count 201 thou/uL (130-400); Platelet Morphology Comment Appears Adequate; RBC Distribution Width 20.2 % (11.5-14.5); Red Blood Cell (RBC) Count 2.82 mill/uL (4.70-6.10)
[2020-09-09 07:09] LABS: Anion Gap 17 mmol/L (10-20); BUN (Urea Nitrogen) 49 mg/dL (8.4-25.7); Calc. Creatinine Clearance 34 mL/min (70-130); Calcium 8.4 mg/dL (7.8-10.44); Carbon Dioxide 29 mmol/L (23-31); Chloride 97 mmol/L (98-107); Estimated GFR-MDRD 44; Glucose 89 mg/dL (83-110); Potassium 3.9 mmol/L (3.5-5.1); Sodium 139 mmol/L (136-145)
[2020-09-09] MEDS: Dexamethasone 4 mg/ml Vial SLOW IVP SCH (08:10)
[2020-09-09] MEDS: Spironolactone 25 MG TAB PO SCH (08:11)
[2020-09-09] MEDS: Furosemide 40 MG TAB PO SCH (08:11)
[2020-09-09] MEDS: Saccharomyces boulardii 250 MG CAP PO SCH (08:11)
[2020-09-09] MEDS: Metoprolol Tartrate 50 MG TAB PO SCH ×2 (08:11→21:14)
[2020-09-09] MEDS: Nystatin 500,000 UNITS/5 ML UDCUP SSW SCH ×4 (08:16→21:14)
[2020-09-09] MEDS: Enoxaparin Sodium 60 MG/0.6 ML SYRINGE SC SCH ×2 (08:16→21:13)
--- NOTE | 2020-09-09 12:35 | PDOC.HOSPP ---
- Subjective Encounter Date: 09/09/20 Encounter Time: 08:30 Subjective: is sleeping, not in distress - Objective Vital Signs & Weight: Vital Signs (12 hours) Temp Pulse Resp BP BP Pulse Ox 09/09/20 08:00 98.0 F 72 18 128/66 92 L 09/09/20 04:00 97.6 F 65 20 126/62 92 L Weight Admit Weight 147 lb 9.6 oz Weight 136 lb 11.2 oz Most Recent Monitor Data Heart Rate from ECG 69 NIBP 109/49 NIBP BP-Mean 69 Respiration from ECG 21 SpO2 93 I&O: 09/08/20 09/09/20 09/10/20 07:59 06:59 06:59 Intake Total 240 Output Total Balance 240 Result Diagrams: 09/09/20 06:21 09/09/20 06:21 Hospitalist ROS - Medication Medications: Active Medications Generic Name Dose Route Start Last Admin Trade Name Freq PRN Reason Stop Dose Admin Acetaminophen 650 mg 08/27/20 20:56 09/08/20 10:59 Acetaminophen 325 Mg Tab PO 650 mg Q4H PRN Administration Headache/Fever or Pain Dexamethasone 6 mg 09/01/20 09:00 09/09/20 08:10 Dexamethasone 4 Mg/Ml Vial SLOW IVP 6 mg DAILY FRANDY Administration Enoxaparin Sodium 60 mg 09/09/20 09:00 09/09/20 08:16 Enoxaparin Sodium 60 Mg/0.6 Ml Syringe SC 60 mg 0900,2100 FRANDY Administration Epoetin Stas-epbx 7,500 unit 09/01/20 20:00 09/08/20 22:37 Epoetin Stas-Epbx (Esrd) 4,000 Unit/Ml Vial SC 7,500 unit Q7D FRANDY Administration Furosemide 40 mg 08/27/20 21:00 09/09/20 08:11 Furosemide 40 Mg Tab PO 40 mg BID FRANDY Administration Metoprolol Tartrate 50 mg 08/27/20 21:00 09/09/20 08:11 Metoprolol Tartrate 50 Mg Tab PO 50 mg BID FRANDY Administration Nystatin 500,000 units 09/06/20 13:00 09/09/20 08:16 Nystatin 500,000 Units/5 Ml Udcup SSW 500,000 units QID FRANDY Administration Pantoprazole Sodium 40 mg 08/31/20 21:00 09/09/20 08:11 Pantoprazole 40 Mg Tab PO 40 mg BID FRANDY Administration Saccharomyces Boulardii 250 mg 09/03/20 09:00 09/09/20 08:11 Saccharomyces Boulardii 250 Mg Cap PO 250 mg DAILY FRANDY Administration Sodium Chloride 10 ml 08/27/20 03:13 09/07/20 20:45 Flush - Normal Saline 10 Ml Syringe IVF 10 ml Q12HR PRN Administration Saline Flush Spironolactone 25 mg 08/28/20 08:00 09/09/20 08:11 Spironolactone 25 Mg Tab PO 25 mg QAM-WM FRANDY Administration Warfarin Sodium 15 mg 09/08/20 18:00 09/08/20 16:13 Warfarin Sodium 5 Mg Tab PO 15 mg 1800 FRANDY Administration - Exam Eye: PERRL, anicteric sclera ENT: no oropharyngeal lesions, dry oral mucosa Neck: supple, no JVD Heart: RRR, no murmur Respiratory: no wheezes, no rales, rhonchi Gastrointestinal: soft, non-tender, non-distended, normal bowel sounds Extremities: no cyanosis, no edema Neurological: cranial nerve grossly intact, no new deficit Hosp A/P (1) Pneumonia due to COVID-19 virus Code(s): U07.1 - COVID-19; J12.89 - OTHER VIRAL PNEUMONIA Status: Acute (2) Acute respiratory failure with hypoxemia Code(s): J96.01 - ACUTE RESPIRATORY FAILURE WITH HYPOXIA Status: Acute (3) h/o mitral and aortic valve replacement Status: Chronic (4) Coagulopathy Status: Resolved (5) Protein-calorie malnutrition, moderate Code(s): E44.0 - MODERATE PROTEIN-CALORIE MALNUTRITION Status: Chronic (6) Acute worsening of stage 3 chronic kidney disease Code(s): N18.30 - CHRONIC KIDNEY DISEASE, STAGE 3 UNSPECIFIED Status: Chronic (7) Chronic anemia Code(s): D64.9 - ANEMIA, UNSPECIFIED Status: Chronic (8) Atrial fibrillation Code(s): I48.91 - UNSPECIFIED ATRIAL FIBRILLATION Status: Chronic Qualifiers: Atrial fibrillation type: paroxysmal Qualified Code(s): I48.0 - Paroxysmal atrial fibrillation (9) Cirrhosis Code(s): K74.60 - UNSPECIFIED CIRRHOSIS OF LIVER Status: Suspected Qualifiers: Hepatic cirrhosis type: unspecified hepatic cirrhosis Ascites presence: with ascites Qualified Code(s): K74.60 - Unspecified cirrhosis of liver; R18.8 - Other ascites - Plan is on dexamethasone for covid pna is on lower dose of lasix, lopressor, protonix, and coumadin 15mg daily inr around 1.4, has mech mitral valve, will add lovenox until inr is therape utic. has recieved a total of 5 FFP's on admission for coagulopathy was not a candidate for remdesivir due to hailee/suspected cirrhosis and convalescent plasma was not given due to vol overload on admission is on 3 lts nasal canula, taper for spo2 of >90% overall prognosis is guarded, I have given full updates to daughter over phone 09/08 chronic anemia with Hg around 7g and needing coumadin for mech valve, prior h/o av malformations as well. PT to mobilize as tolerated off spironolactone and is on lower lasix to worsening bun.
[2020-09-09] MEDS: Furosemide 20 MG TAB PO SCH (13:51)
[2020-09-09] MEDS: Warfarin Sodium 5 MG TAB PO SCH (17:34)
--- NOTE | 2020-09-09 17:39 | PRG ---
DATE OF SERVICE: 09/09/2020 SUBJECTIVE: He is continuing to slowly improve and is now on oxygen 3 L with saturation 92%. PHYSICAL EXAMINATION: VITAL SIGNS: Blood pressure is 128/66, afebrile, heart rate 72. LUNGS: Coarse rhonchi, but no wheezing. HEART: Regular rate and rhythm. ABDOMEN: Soft. EXTREMITIES: There are no cords or tenderness. IMPRESSION: COVID pneumonia, improving. PLAN: We will continue current therapy. He is on nasal oxygen at 3 L and soon would approach the point that he could be discharged to an appropriate outpatient setting. Job ID: [id number]
--- NOTE | 2020-09-09 20:55 | PRG ---
DATE OF SERVICE: OBJECTIVE: VITAL SIGNS: Afebrile, temperature 97.9, pulse , blood pressure 117/56. HEENT: Unremarkable. CARDIOVASCULAR SYSTEM: First and second heart sounds were heard. RESPIRATORY SYSTEM: Clear to auscultation. DIGESTIVE SYSTEM: Revealed a distended abdomen. EXTREMITIES: Showed no significant edema. LABORATORY INVESTIGATION: Revealed a hemoglobin of 7.6. Chemistry showed a creatinine down to 1.53 with BUN of 49. IMPRESSION: 1. Acute on chronic kidney disease, which seems to have improved. 2. End-stage liver disease. 3. Anemia. PLAN: 1. Continue current renal supportive measures. 2. Discontinue daily blood draws to avoid iatrogenic anemia. 3. Further management will be dependent on the clinical course. Job ID: [id number]
[2020-09-10 06:07] LABS: INR-International Normal Ratio 1.7; Prothrombin Time 20.1 sec (12.0-14.7)
[2020-09-10] MEDS: Dexamethasone 4 mg/ml Vial SLOW IVP SCH (08:32)
[2020-09-10] MEDS: Furosemide 20 MG TAB PO SCH ×2 (08:32→13:55)
[2020-09-10] MEDS: Saccharomyces boulardii 250 MG CAP PO SCH (08:32)
[2020-09-10] MEDS: Metoprolol Tartrate 50 MG TAB PO SCH ×2 (08:33→21:03)
[2020-09-10] MEDS: Nystatin 500,000 UNITS/5 ML UDCUP SSW SCH ×4 (08:36→21:07)
[2020-09-10] MEDS: Enoxaparin Sodium 60 MG/0.6 ML SYRINGE SC SCH ×2 (08:36→21:14)
--- NOTE | 2020-09-10 16:40 | PRG ---
DATE OF SERVICE: 09/10/2020 OBJECTIVE: VITAL SIGNS: The patient is noted with the following vital signs. Afebrile, temperature 98, pulse 72, respiratory rate of 18, O2 saturations of 91%, and blood pressure 120/62. HEENT: Unremarkable. CARDIOVASCULAR SYSTEM: First and second heart sounds were heard. RESPIRATORY SYSTEM: Clear to auscultation. DIGESTIVE SYSTEM: Revealed an obese abdomen. EXTREMITIES: No peripheral edema. SKIN: No new gross rash. LYMPHATICS: No peripheral lymphadenopathy. LABORATORY INVESTIGATION: Showed a hemoglobin of 7.6, this was yesterday. IMPRESSION: 1. Acute on chronic kidney disease, much improved. 2. End-stage liver disease. PLAN: Continue current renal supportive measures. Job ID: [id number]
[2020-09-10] MEDS: Warfarin Sodium 5 MG TAB PO SCH (17:11)
[2020-09-10] MEDS: Acetaminophen 325 MG TAB PO PRN (21:20)
--- NOTE | 2020-09-10 21:33 | PDOC.HOSPP ---
- Subjective Encounter Date: 09/10/20 Encounter Time: 18:00 Subjective: Patient seen and examined for respiratory failure due to COVID 19 pneumonia. Intermittent confusion. - Objective Vital Signs & Weight: Vital Signs (12 hours) Pulse Ox Pulse Ox Pulse Ox Pulse Ox 09/10/20 19:15 91 L 09/10/20 11:00 91 L 86 L 91 L Weight Admit Weight 147 lb 9.6 oz Weight 139 lb 15.861 oz Most Recent Monitor Data Heart Rate from ECG 69 NIBP 109/49 NIBP BP-Mean 69 Respiration from ECG 21 SpO2 93 I&O: 09/09/20 09/10/20 09/11/20 06:59 06:59 06:59 Intake Total 1430 720 Output Total 1550 600 Balance -120 120 Result Diagrams: 09/09/20 06:21 09/09/20 06:21 Additional Labs: Abnormal Lab Results - Last 48 hrs 09/09/20 06:21: Chloride 97 L, BUN 49 H, Creatinine 1.53 H 09/09/20 06:21: RBC 2.82 L, Hgb 7.6 L, Hct 24.8 L, MCH 26.8 L, MCHC 30.5 L, RDW 20.2 H, Neutrophils % (Manual) 87 H, Band Neuts % (Manual) 2 L, Lymphocytes % (Manual) 5 L 09/09/20 06:21: PT 17.5 H 09/10/20 05:47: PT 20.1 H Microbiology - Entire Visit 08/27/20 08:53 Venous blood - Right Arm Blood Culture - Final NO GROWTH IN 5 DAYS 08/27/20 08:53 Venous blood - Left Hand Blood Culture - Final NO GROWTH IN 5 DAYS Hospitalist ROS - Review of Systems ROS unobtainable: due to mental status - Medication Medications: Active Medications Generic Name Dose Route Start Last Admin Trade Name Freq PRN Reason Stop Dose Admin Acetaminophen 650 mg 08/27/20 20:56 09/10/20 21:20 Acetaminophen 325 Mg Tab PO 650 mg Q4H PRN Administration Headache/Fever or Pain Dexamethasone 6 mg 09/01/20 09:00 09/10/20 08:32 Dexamethasone 4 Mg/Ml Vial SLOW IVP 6 mg DAILY FRANDY Administration Enoxaparin Sodium 60 mg 09/09/20 09:00 09/10/20 21:14 Enoxaparin Sodium 60 Mg/0.6 Ml Syringe SC 60 mg 0900,2100 FRANDY Administration Epoetin Stas-epbx 7,500 unit 09/01/20 20:00 09/08/20 22:37 Epoetin Stas-Epbx (Esrd) 4,000 Unit/Ml Vial SC 7,500 unit Q7D FRANDY Administration Furosemide 20 mg 09/09/20 14:00 09/10/20 13:55 Furosemide 20 Mg Tab PO 20 mg 0900,1400 FRANDY Administration Metoprolol Tartrate 50 mg 08/27/20 21:00 09/10/20 21:03 Metoprolol Tartrate 50 Mg Tab PO 50 mg BID FRANDY Administration Nystatin 500,000 units 09/06/20 13:00 09/10/20 21:07 Nystatin 500,000 Units/5 Ml Udcup SSW 500,000 units QID FRANDY Administration Pantoprazole Sodium 40 mg 08/31/20 21:00 09/10/20 21:03 Pantoprazole 40 Mg Tab PO 40 mg BID FRANDY Administration Saccharomyces Boulardii 250 mg 09/03/20 09:00 09/10/20 08:32 Saccharomyces Boulardii 250 Mg Cap PO 250 mg DAILY FRANDY Administration Sodium Chloride 10 ml 08/27/20 03:13 09/07/20 20:45 Flush - Normal Saline 10 Ml Syringe IVF 10 ml Q12HR PRN Administration Saline Flush Warfarin Sodium 15 mg 09/08/20 18:00 09/10/20 17:11 Warfarin Sodium 5 Mg Tab PO 15 mg 1800 FRANDY Administration - Exam General Appearance: ill appearing Heart: RRR, no gallops Respiratory: rales, rhonchi Gastrointestinal: soft, non-tender, normal bowel sounds Extremities: no cyanosis, no clubbing Hosp A/P - Plan DVT proph w/SCDs Acute hypoxic respiratory failure due to COVID 19 pneumonia Acute kidney injury on CKD stage III Hypokalemia Supratherapeutic INR Anemia probably due to nutritional deficiency Moderate protein calorie malnutrition Paroxysmal atrial fibrillation History of aortic/mitral valve replacement Coronary artery disease s/p CABG Hypertension Plan: Continue dexamethasone. Continue Lovenox until INR is therapeutic. Warfarin restarted. Check PT/INR in a.m. Wean O2 as tolerated. Fall precautions. Recheck labs in a.m. Continue beta-blockers. Continue other medications as above.
[2020-09-11 06:06] LABS: #Lymphocytes 0.3 thou/uL (1.20-3.40); #Monocytes 0.4 thou/uL (0.11-0.59); #Neutrophils 3.2 thou/uL (1.40-6.50); %Basophils 0.4 % (0.0-1.0); %Eosinophils 0.9 % (0.0-10.0); %Lymphocytes 7.9 % (21.0-51.0); %Monocytes 9.9 % (0.0-10.0); Hemoglobin 7.7 g/dL (14.0-18.0); Mean Corpuscular Volume 87.1 fL (78.0-98.0); Mean Platelet Volume 9.5 fL (7.4-10.4); Platelet Count 148 thou/uL (130-400); RBC Distribution Width 20.1 % (11.5-14.5); Red Blood Cell (RBC) Count 2.84 mill/uL (4.70-6.10)
[2020-09-11 06:10] LABS: INR-International Normal Ratio 2.6; Prothrombin Time 28.6 sec (12.0-14.7)
[2020-09-11 06:36] LABS: ALT (SGPT) 9 U/L (8-55); AST (SGOT) 20 U/L (5-34); Albumin 3.1 g/dL (3.4-4.8); Alkaline Phosphatase 73 U/L (40-110); Anion Gap 14 mmol/L (10-20); BUN (Urea Nitrogen) 51 mg/dL (8.4-25.7); Bilirubin, Total 1.3 mg/dL (0.2-1.2); CRP (Inflammatory) 1.34 mg/dL (= or < 0.5); Calc. Creatinine Clearance 30 mL/min (70-130); Calcium 8.3 mg/dL (7.8-10.44); Carbon Dioxide 33 mmol/L (23-31); Chloride 99 mmol/L (98-107); Estimated GFR-MDRD 37; Globulin 3.4 g/dL (2.4-3.5); Glucose 103 mg/dL (83-110); Potassium 3.6 mmol/L (3.5-5.1); Protein, Total 6.5 g/dL (5.8-8.1); Sodium 142 mmol/L (136-145)
[2020-09-11] MEDS: Saccharomyces boulardii 250 MG CAP PO SCH (08:21)
[2020-09-11] MEDS: Nystatin 500,000 UNITS/5 ML UDCUP SSW SCH ×4 (08:21→19:48)
[2020-09-11] MEDS: Dexamethasone 4 mg/ml Vial SLOW IVP SCH (08:21)
[2020-09-11] MEDS: Metoprolol Tartrate 50 MG TAB PO SCH ×2 (08:21→19:48)
[2020-09-11] MEDS: Furosemide 20 MG TAB PO SCH ×2 (08:21→14:13)
[2020-09-11] MEDS: Acetaminophen 325 MG TAB PO PRN ×2 (13:01→19:47)
--- NOTE | 2020-09-11 14:10 | PDOC.HOSPP ---
- Subjective Encounter Date: 09/11/20 Encounter Time: 11:00 Subjective: no sob, not eating much didn't feel like eating his breakfast no cough or abd pain, is on bed responds well to verbal stimuli - Objective Vital Signs & Weight: Vital Signs (12 hours) Temp Pulse Resp BP Pulse Ox 09/11/20 13:00 97.6 F 65 18 121/67 93 L 09/11/20 10:00 62 18 135/57 L 92 L 09/11/20 08:30 97.3 F L 63 18 117/57 L 93 L 09/11/20 04:22 97.9 F 64 20 126/64 91 L Weight Admit Weight 147 lb 9.6 oz Weight 138 lb Most Recent Monitor Data Heart Rate from ECG 69 NIBP 109/49 NIBP BP-Mean 69 Respiration from ECG 21 SpO2 93 I&O: 09/10/20 09/11/20 09/12/20 06:59 06:59 06:59 Intake Total 1430 1070 Output Total 1550 1400 Balance -120 -330 Result Diagrams: 09/11/20 05:11 09/11/20 05:11 Hospitalist ROS - Medication Medications: Active Medications Generic Name Dose Route Start Last Admin Trade Name Freq PRN Reason Stop Dose Admin Acetaminophen 650 mg 08/27/20 20:56 09/11/20 13:01 Acetaminophen 325 Mg Tab PO 650 mg Q4H PRN Administration Headache/Fever or Pain Dexamethasone 6 mg 09/01/20 09:00 09/11/20 08:21 Dexamethasone 4 Mg/Ml Vial SLOW IVP 6 mg DAILY FRANDY Administration Epoetin Stas-epbx 7,500 unit 09/01/20 20:00 09/08/20 22:37 Epoetin Stas-Epbx (Esrd) 4,000 Unit/Ml Vial SC 7,500 unit Q7D FRANDY Administration Furosemide 20 mg 09/09/20 14:00 09/11/20 08:21 Furosemide 20 Mg Tab PO 20 mg 0900,1400 FRANDY Administration Metoprolol Tartrate 50 mg 08/27/20 21:00 09/11/20 08:21 Metoprolol Tartrate 50 Mg Tab PO 50 mg BID FRANDY Administration Nystatin 500,000 units 09/06/20 13:00 09/11/20 13:01 Nystatin 500,000 Units/5 Ml Udcup SSW 500,000 units QID FRANDY Administration Pantoprazole Sodium 40 mg 08/31/20 21:00 09/11/20 08:21 Pantoprazole 40 Mg Tab PO 40 mg BID FRANDY Administration Saccharomyces Boulardii 250 mg 09/03/20 09:00 09/11/20 08:21 Saccharomyces Boulardii 250 Mg Cap PO 250 mg DAILY FRANDY Administration Sodium Chloride 10 ml 08/27/20 03:13 09/11/20 08:21 Flush - Normal Saline 10 Ml Syringe IVF 10 ml Q12HR PRN Administration Saline Flush Warfarin Sodium 15 mg 09/08/20 18:00 09/10/20 17:11 Warfarin Sodium 5 Mg Tab PO 15 mg 1800 FRANDY Administration - Exam General Appearance: ill appearing Eye: PERRL, anicteric sclera ENT: no oropharyngeal lesions, dry oral mucosa Neck: supple, no JVD Heart: RRR, murmur present Respiratory: no wheezes, no rales, rhonchi Gastrointestinal: soft, non-tender, non-distended, normal bowel sounds Extremities: no cyanosis, no edema Neurological: cranial nerve grossly intact, no focal deficits Hosp A/P (1) Pneumonia due to COVID-19 virus Code(s): U07.1 - COVID-19; J12.89 - OTHER VIRAL PNEUMONIA Status: Acute (2) Acute respiratory failure with hypoxemia Code(s): J96.01 - ACUTE RESPIRATORY FAILURE WITH HYPOXIA Status: Acute (3) h/o mitral and aortic valve replacement Status: Chronic (4) Coagulopathy Status: Resolved (5) Protein-calorie malnutrition, moderate Code(s): E44.0 - MODERATE PROTEIN-CALORIE MALNUTRITION Status: Chronic (6) Acute worsening of stage 3 chronic kidney disease Code(s): N18.30 - CHRONIC KIDNEY DISEASE, STAGE 3 UNSPECIFIED Status: Chronic (7) Chronic anemia Code(s): D64.9 - ANEMIA, UNSPECIFIED Status: Chronic (8) Atrial fibrillation Code(s): I48.91 - UNSPECIFIED ATRIAL FIBRILLATION Status: Chronic Qualifiers: Atrial fibrillation type: paroxysmal Qualified Code(s): I48.0 - Paroxysmal atrial fibrillation (9) Cirrhosis Code(s): K74.60 - UNSPECIFIED CIRRHOSIS OF LIVER Status: Suspected Qualifiers: Hepatic cirrhosis type: unspecified hepatic cirrhosis Ascites presence: with ascites Qualified Code(s): K74.60 - Unspecified cirrhosis of liver; R18.8 - Other ascites - Plan is on dexamethasone for covid pna is on lower dose of lasix, lopressor, protonix, and coumadin 15mg daily inr around 2.6, has mech mitral valve, dc myriam has recieved a total of 5 FFP's on admission for coagulopathy was not a candidate for remdesivir due to hailee/suspected cirrhosis and convalescent plasma was not given due to vol overload on admission is on 3 lts nasal canula, taper for spo2 of >90% overall prognosis is guarded, I have given full updates to daughter over phone 09/08 chronic anemia with Hg around 7g and needing coumadin for mech valve, prior h/o av malformations as well. PT to mobilize as tolerated Gentle iv fluids due to hailee, encourage po intake of fluids and diet.
--- NOTE | 2020-09-11 15:40 | PRG ---
DATE OF SERVICE: 09/11/2020 SUBJECTIVE: Mr. Desai is resting comfortably. He is at least 15 days into this, now appears to be stable his isolation can be discontinued. We probably should continue three or four more days since he does not know when his symptoms started. I suspect they started several days prior to admission, so he is probably closer to 20 days into this illness. OBJECTIVE: VITAL SIGNS: He is afebrile. Heart rate is in the 60s, respiratory rate is 18, oximetry is 93% on 3 L cannula. Blood pressure 121/67. Oximetry is 93% on 3 L. LUNGS: Clear. HEART: Regular rhythm. LABORATORY DATA: White count 4, hemoglobin 7.7, platelets 148,000. Electrolytes are unremarkable. BUN is 51, creatinine is 1.7. Intake and outputs negative 330. Probably need to be careful with a negative fluid balance with his renal insufficiency and his liver dysfunction. He could probably be switched to prednisone. He is on warfarin and his INR is 2.6. His dose probably needs to be held or cut back with his liver dysfunction. Prednisone can be tapered over two weeks. Deconditioning and p.o. intake will be the biggest factor in surviving this. He will need to go at some point to a skilled unit in my opinion. Probably will be switched to prednisone if we can get him to eat something with it. We will follow from a distance. Job ID: [id number]
[2020-09-11] MEDS: Warfarin Sodium 5 MG TAB PO SCH (17:38)
--- NOTE | 2020-09-11 20:56 | PRG ---
DATE OF SERVICE: 09/11/2020 SUBJECTIVE: The patient noted with the following vital signs. OBJECTIVE: VITAL SIGNS: Afebrile, temperature 97.6, pulse 64, respiratory rate of 16, O2 saturations are 93%, and blood pressure 107/61. HEENT: Unremarkable. CARDIOVASCULAR SYSTEM: First and second heart sounds were heard. RESPIRATORY SYSTEM: Clear to auscultation. DIGESTIVE SYSTEM: Revealed evidence of ascites. EXTREMITIES: No peripheral edema. LABORATORY INVESTIGATION: Showed hemoglobin of 7.7. Chemistry showed a creatinine of 1.77 and BUN of 51. IMPRESSION: 1. Acute on chronic kidney disease. 2. COVID infection. PLAN: 1. We will continue current renal supportive measures. 2. Further management to be dependent on the clinical course. Job ID: [id number]
[2020-09-12 05:54] LABS: INR-International Normal Ratio 3.8; Prothrombin Time 38.3 sec (12.0-14.7)
[2020-09-12] MEDS: Metoprolol Tartrate 50 MG TAB PO SCH ×2 (08:45→20:48)
[2020-09-12] MEDS: Dexamethasone 4 mg/ml Vial SLOW IVP SCH (08:45)
[2020-09-12] MEDS: Saccharomyces boulardii 250 MG CAP PO SCH (08:45)
[2020-09-12] MEDS: Nystatin 500,000 UNITS/5 ML UDCUP SSW SCH ×4 (08:50→21:07)
[2020-09-12] MEDS: Furosemide 20 MG TAB PO SCH (08:50)
[2020-09-12 11:20] VITALS: BMI 21.2
--- NOTE | 2020-09-12 13:18 | PDOC.HOSPP ---
- Subjective Encounter Date: 09/12/20 Encounter Time: 08:00 Subjective: no sob awake, oriented well says he will try to ambulate with PT today - Objective Vital Signs & Weight: Vital Signs (12 hours) Temp Pulse Resp BP Pulse Ox 09/12/20 08:00 100 09/12/20 03:29 97.9 F 69 20 130/53 L 100 Weight Admit Weight 147 lb 9.6 oz Weight 135 lb 3.2 oz Most Recent Monitor Data Heart Rate from ECG 69 NIBP 109/49 NIBP BP-Mean 69 Respiration from ECG 21 SpO2 93 I&O: 09/11/20 09/12/20 09/13/20 06:59 06:59 06:59 Intake Total 1070 380 Output Total 1400 1025 Balance -330 -645 Result Diagrams: 09/11/20 05:11 09/11/20 05:11 Hospitalist ROS - Medication Medications: Active Medications Generic Name Dose Route Start Last Admin Trade Name Freq PRN Reason Stop Dose Admin Acetaminophen 650 mg 08/27/20 20:56 09/11/20 19:47 Acetaminophen 325 Mg Tab PO 650 mg Q4H PRN Administration Headache/Fever or Pain Dexamethasone 6 mg 09/01/20 09:00 09/12/20 08:45 Dexamethasone 4 Mg/Ml Vial SLOW IVP 6 mg DAILY FRANDY Administration Epoetin Stas-epbx 7,500 unit 09/01/20 20:00 09/08/20 22:37 Epoetin Stas-Epbx (Esrd) 4,000 Unit/Ml Vial SC 7,500 unit Q7D FRANDY Administration Metoprolol Tartrate 50 mg 08/27/20 21:00 09/12/20 08:45 Metoprolol Tartrate 50 Mg Tab PO 50 mg BID FRANDY Administration Nystatin 500,000 units 09/06/20 13:00 09/12/20 08:50 Nystatin 500,000 Units/5 Ml Udcup SSW 500,000 units QID FRANDY Administration Pantoprazole Sodium 40 mg 08/31/20 21:00 09/12/20 08:45 Pantoprazole 40 Mg Tab PO 40 mg BID FRANDY Administration Saccharomyces Boulardii 250 mg 09/03/20 09:00 09/12/20 08:45 Saccharomyces Boulardii 250 Mg Cap PO 250 mg DAILY FRANDY Administration Sodium Chloride 10 ml 08/27/20 03:13 09/11/20 08:21 Flush - Normal Saline 10 Ml Syringe IVF 10 ml Q12HR PRN Administration Saline Flush - Exam General Appearance: awake alert Eye: PERRL, anicteric sclera ENT: no oropharyngeal lesions, moist mucosa Neck: supple, no JVD Heart: RRR, no murmur Respiratory: no wheezes, no rales, rhonchi Gastrointestinal: soft, non-tender, non-distended, normal bowel sounds Extremities: no cyanosis, no edema Neurological: cranial nerve grossly intact, no focal deficits Psychiatric: A&O x 3 Hosp A/P (1) Pneumonia due to COVID-19 virus Code(s): U07.1 - COVID-19; J12.89 - OTHER VIRAL PNEUMONIA Status: Acute (2) Acute respiratory failure with hypoxemia Code(s): J96.01 - ACUTE RESPIRATORY FAILURE WITH HYPOXIA Status: Acute (3) h/o mitral and aortic valve replacement Status: Chronic (4) Coagulopathy Status: Resolved (5) Protein-calorie malnutrition, moderate Code(s): E44.0 - MODERATE PROTEIN-CALORIE MALNUTRITION Status: Chronic (6) Acute worsening of stage 3 chronic kidney disease Code(s): N18.30 - CHRONIC KIDNEY DISEASE, STAGE 3 UNSPECIFIED Status: Chronic (7) Chronic anemia Code(s): D64.9 - ANEMIA, UNSPECIFIED Status: Chronic (8) Atrial fibrillation Code(s): I48.91 - UNSPECIFIED ATRIAL FIBRILLATION Status: Chronic Qualifiers: Atrial fibrillation type: paroxysmal Qualified Code(s): I48.0 - Paroxysmal atrial fibrillation (9) Cirrhosis Code(s): K74.60 - UNSPECIFIED CIRRHOSIS OF LIVER Status: Suspected Qualifiers: Hepatic cirrhosis type: unspecified hepatic cirrhosis Ascites presence: with ascites Qualified Code(s): K74.60 - Unspecified cirrhosis of liver; R18.8 - Other ascites - Plan is on dexamethasone for covid pna lopressor, protonix, and reduce coumadin to 10mg daily, dc lasix due to increasing bun inr around 3, has [facility] mitral valve has recieved a total of 5 FFP's on admission for coagulopathy was not a candidate for remdesivir due to hailee/suspected cirrhosis and convalescent plasma was not given due to vol overload on admission is on 3 lts nasal canula, taper for spo2 of >90% overall prognosis is guarded, I have given full updates to daughter over phone 09/08 chronic anemia with Hg around 7g and needing coumadin for mech valve, prior h/o av malformations as well. PT to mobilize as tolerated Gentle iv fluids due to hailee, encourage po intake of fluids and diet. dc planning to lampstand
[2020-09-12] MEDS ORDERED: Warfarin Sodium 10 MG TAB PO SCH (17:00)
--- NOTE | 2020-09-12 18:27 | PRG ---
DATE OF SERVICE: 09/12/2020 SUBJECTIVE: The patient noted with the following vital signs. OBJECTIVE: VITAL SIGNS: Afebrile, temperature 97.9, pulse 69, respiratory rate of 20, O2 saturation 100%, blood pressure 130/53. HEENT: Unremarkable. CARDIOVASCULAR SYSTEM: First and second heart sounds. RESPIRATORY SYSTEM: Clear to auscultation. DIGESTIVE SYSTEM: Revealed a benign abdomen. EXTREMITIES: No peripheral edema. SKIN: No new gross rash. LYMPHATICS: No peripheral lymphadenopathy. IMPRESSION: 1. Acute on chronic kidney disease. 2. End-stage liver disease. PLAN: 1. Continue current renal supportive measures. 2. Further management to be dependent on the clinical course. Job ID: [id number]
[2020-09-13 06:04] LABS: Prothrombin Time 53.1 sec (12.0-14.7)
[2020-09-13 06:08] LABS: INR-International Normal Ratio 5.8
[2020-09-13 08:41] LABS: Hemoglobin 7.2 g/dL (14.0-18.0); Mean Corpuscular HGB CONC 29.9 g/dL (32.0-36.0); Mean Corpuscular Hemoglobin 26.7 pg (27.0-31.0); Mean Corpuscular Volume 89.3 fL (78.0-98.0); Red Blood Cell (RBC) Count 2.71 mill/uL (4.70-6.10); White Blood Cell (WBC) Count 4.2 thou/uL (4.8-10.8)
[2020-09-13 08:44] LABS: ALT (SGPT) 8 U/L (8-55); AST (SGOT) 16 U/L (5-34); Albumin 3.1 g/dL (3.4-4.8); Alkaline Phosphatase 63 U/L (40-110); Anion Gap 10 mmol/L (10-20); BUN (Urea Nitrogen) 48 mg/dL (8.4-25.7); Bilirubin, Total 0.9 mg/dL (0.2-1.2); Calc. Creatinine Clearance 36 mL/min (70-130); Calcium 8.1 mg/dL (7.8-10.44); Carbon Dioxide 36 mmol/L (23-31); Chloride 102 mmol/L (98-107); Estimated GFR-MDRD 47; Globulin 3.2 g/dL (2.4-3.5); Glucose 76 mg/dL (83-110); Potassium 3.4 mmol/L (3.5-5.1); Protein, Total 6.3 g/dL (5.8-8.1); Sodium 145 mmol/L (136-145)
[2020-09-13 08:58] LABS: #Lymphocytes 0.2 thou/uL (1.20-3.40); #Monocytes 0.5 thou/uL (0.11-0.59); #Neutrophils 3.4 thou/uL (1.40-6.50); %Basophils 0.7 % (0.0-1.0); %Eosinophils 0.7 % (0.0-10.0); %Lymphocytes 5.6 % (21.0-51.0); %Monocytes 11.2 % (0.0-10.0); %Neutrophils 81.9 % (42.0-75.0); Anisocytosis SLIGHT = 6-15 cells (100X) (0-5/hpf); Hypochromia SLIGHT = 6-15 cells (100X) (0-5/hpf); MDiff Complete? YES; Mean Platelet Volume 9.3 fL (7.4-10.4); Platelet Count 115 thou/uL (130-400); Platelet Morphology Comment Appears Decreased; Polychromasia SLIGHT = 2-3 cells (100X) (0-2/hpf)
[2020-09-13] MEDS ORDERED: Potassium Chloride 20 MEQ TAB PO SCH (09:15)
[2020-09-13] MEDS: Saccharomyces boulardii 250 MG CAP PO SCH (10:05)
[2020-09-13] MEDS: predniSONE 20 MG TAB PO SCH (10:05)
[2020-09-13] MEDS: Metoprolol Tartrate 50 MG TAB PO SCH ×2 (10:05→20:32)
[2020-09-13] MEDS: Nystatin 500,000 UNITS/5 ML UDCUP SSW SCH ×4 (10:08→20:32)
--- NOTE | 2020-09-13 13:05 | PDOC.HOSPP ---
- Subjective Encounter Date: 09/13/20 Encounter Time: 08:30 Subjective: no sob, feels better no complaints - Objective Vital Signs & Weight: Vital Signs (12 hours) Temp Pulse Resp BP Pulse Ox 09/13/20 06:39 97.3 F L 65 18 126/57 L 92 L Weight Admit Weight 147 lb 9.6 oz Weight 135 lb Most Recent Monitor Data Heart Rate from ECG 69 NIBP 109/49 NIBP BP-Mean 69 Respiration from ECG 21 SpO2 93 I&O: 09/12/20 09/13/20 09/14/20 06:59 06:59 06:59 Intake Total 380 985 Output Total 1025 1350 Balance -644 -365 Result Diagrams: 09/13/20 07:49 09/13/20 07:49 Hospitalist ROS - Medication Medications: Active Medications Generic Name Dose Route Start Last Admin Trade Name Freq PRN Reason Stop Dose Admin Acetaminophen 650 mg 08/27/20 20:56 09/11/20 19:47 Acetaminophen 325 Mg Tab PO 650 mg Q4H PRN Administration Headache/Fever or Pain Epoetin Stas-epbx 7,500 unit 09/01/20 20:00 09/08/20 22:37 Epoetin Stas-Epbx (Esrd) 4,000 Unit/Ml Vial SC 7,500 unit Q7D FRANDY Administration Metoprolol Tartrate 50 mg 08/27/20 21:00 09/13/20 10:05 Metoprolol Tartrate 50 Mg Tab PO 50 mg BID FRANDY Administration Nystatin 500,000 units 09/06/20 13:00 09/13/20 10:08 Nystatin 500,000 Units/5 Ml Udcup SSW 500,000 units QID FRANDY Administration Pantoprazole Sodium 40 mg 08/31/20 21:00 09/13/20 10:05 Pantoprazole 40 Mg Tab PO 40 mg BID FRANDY Administration Prednisone 20 mg 09/13/20 08:00 09/13/20 10:05 Prednisone 20 Mg Tab PO 20 mg QAM-WM FRANDY Administration Saccharomyces Boulardii 250 mg 09/03/20 09:00 09/13/20 10:05 Saccharomyces Boulardii 250 Mg Cap PO 250 mg DAILY FRANDY Administration Sodium Chloride 10 ml 08/27/20 03:13 09/11/20 08:21 Flush - Normal Saline 10 Ml Syringe IVF 10 ml Q12HR PRN Administration Saline Flush - Exam General Appearance: awake alert Eye: anicteric sclera ENT: no oropharyngeal lesions, moist mucosa Neck: supple, no JVD Heart: RRR, no murmur Respiratory: no wheezes, no rales Gastrointestinal: soft, non-tender, non-distended, normal bowel sounds Extremities: no cyanosis, no edema Neurological: cranial nerve grossly intact, no focal deficits Hosp A/P (1) Pneumonia due to COVID-19 virus Code(s): U07.1 - COVID-19; J12.89 - OTHER VIRAL PNEUMONIA Status: Acute (2) Acute respiratory failure with hypoxemia Code(s): J96.01 - ACUTE RESPIRATORY FAILURE WITH HYPOXIA Status: Acute (3) h/o mitral and aortic valve replacement Status: Chronic (4) Coagulopathy Status: Resolved (5) Protein-calorie malnutrition, moderate Code(s): E44.0 - MODERATE PROTEIN-CALORIE MALNUTRITION Status: Chronic (6) Acute worsening of stage 3 chronic kidney disease Code(s): N18.30 - CHRONIC KIDNEY DISEASE, STAGE 3 UNSPECIFIED Status: Chronic (7) Chronic anemia Code(s): D64.9 - ANEMIA, UNSPECIFIED Status: Chronic (8) Atrial fibrillation Code(s): I48.91 - UNSPECIFIED ATRIAL FIBRILLATION Status: Chronic Qualifiers: Atrial fibrillation type: paroxysmal Qualified Code(s): I48.0 - Paroxysmal atrial fibrillation (9) Cirrhosis Code(s): K74.60 - UNSPECIFIED CIRRHOSIS OF LIVER Status: Suspected Qualifiers: Hepatic cirrhosis type: unspecified hepatic cirrhosis Ascites presence: with ascites Qualified Code(s): K74.60 - Unspecified cirrhosis of liver; R18.8 - Other ascites - Plan is on dexamethasone for covid pna lopressor, protonix, and reduce coumadin to 5mg daily, off lasix due to elevated bun. inr around 5, has [facility] mitral valve has recieved a total of 5 FFP's on admission for coagulopathy was not a candidate for remdesivir due to hailee/suspected cirrhosis and convalescent plasma was not given due to vol overload on admission is on 3 lts nasal canula, taper for spo2 of >90% overall prognosis is guarded, I have given full updates to daughter over phone 09/08, 09/13 chronic anemia with Hg around 7g and needing coumadin for mech valve, prior h/o av malformations as well. PT to mobilize as tolerated Gentle iv fluids due to hailee, encourage po intake of fluids and diet. dc planning to lampstand, may dc anytime, needs inr check daily and if needed transfusion if Hb drops to less than 7g.
[2020-09-13] MEDS: Ondansetron PF 4 MG/2 ML Vial IVP PRN ×2 (15:23→20:33)
[2020-09-13] MEDS ORDERED: Warfarin Sodium 10 MG TAB PO SCH ×2 (17:00)
[2020-09-13] MEDS ORDERED: Warfarin Sodium 5 MG TAB PO SCH (17:00)
--- NOTE | 2020-09-13 18:15 | PRG ---
DATE OF SERVICE: 09/13/2020 OBJECTIVE: VITAL SIGNS: Noted with the following vital signs. Afebrile, temperature 97.6, pulse 69, respiratory rate of 18, O2 saturations of 94%, blood pressure 117/54. HEENT: Unremarkable. CARDIOVASCULAR SYSTEM: First and second heart sounds were heard. RESPIRATORY SYSTEM: Clear to auscultation. DIGESTIVE SYSTEM: Revealed a distended abdomen. EXTREMITIES: No peripheral edema. IMPRESSION: 1. Acute on chronic kidney disease, much improved. 2. End-stage liver disease with gross ascites. PLAN: 1. Continue current renal supportive measures. 2. Further management will be dependent on the clinical course. Job ID: [id number]
[2020-09-13] MEDS: Acetaminophen 325 MG TAB PO PRN (20:32)
[2020-09-14 07:11] LABS: Prothrombin Time 49.8 sec (12.0-14.7)
[2020-09-14 07:28] LABS: ALT (SGPT) 9 U/L (8-55); AST (SGOT) 18 U/L (5-34); Albumin 2.9 g/dL (3.4-4.8); Alkaline Phosphatase 62 U/L (40-110); Anion Gap 13 mmol/L (10-20); BUN (Urea Nitrogen) 47 mg/dL (8.4-25.7); Bilirubin, Total 0.8 mg/dL (0.2-1.2); Calc. Creatinine Clearance 37 mL/min (70-130); Calcium 7.8 mg/dL (7.8-10.44); Carbon Dioxide 29 mmol/L (23-31); Chloride 105 mmol/L (98-107); Estimated GFR-MDRD 49; Globulin 3.3 g/dL (2.4-3.5); Glucose 80 mg/dL (83-110); Potassium 4.3 mmol/L (3.5-5.1); Protein, Total 6.2 g/dL (5.8-8.1); Sodium 143 mmol/L (136-145)
[2020-09-14 07:31] LABS: INR-International Normal Ratio 5.3
[2020-09-14] MEDS: Nystatin 500,000 UNITS/5 ML UDCUP SSW SCH (07:58)
[2020-09-14] MEDS: Metoprolol Tartrate 50 MG TAB PO SCH ×2 (07:58→21:48)
[2020-09-14] MEDS: predniSONE 20 MG TAB PO SCH (07:58)
[2020-09-14] MEDS: Saccharomyces boulardii 250 MG CAP PO SCH (07:59)
--- NOTE | 2020-09-14 14:14 | PDOC.HOSPP ---
- Subjective Encounter Date: 09/14/20 Encounter Time: 08:45 Subjective: no complaints no bleeding, is sleeping well and eating better per patient no cough or sob - Objective Vital Signs & Weight: Vital Signs (12 hours) Temp Pulse Resp BP Pulse Ox 09/14/20 11:45 65 132/68 95 09/14/20 08:00 97.3 F L 65 17 136/66 94 L Weight Admit Weight 147 lb 9.6 oz Weight 135 lb Most Recent Monitor Data Heart Rate from ECG 69 NIBP 109/49 NIBP BP-Mean 69 Respiration from ECG 21 SpO2 93 I&O: 09/13/20 09/14/20 09/15/20 06:59 06:59 06:59 Intake Total 985 850 Output Total 1350 350 Balance -365 500 Result Diagrams: 09/13/20 07:49 09/14/20 06:44 Hospitalist ROS - Medication Medications: Active Medications Generic Name Dose Route Start Last Admin Trade Name Freq PRN Reason Stop Dose Admin Acetaminophen 650 mg 08/27/20 20:56 09/13/20 20:32 Acetaminophen 325 Mg Tab PO 650 mg Q4H PRN Administration Headache/Fever or Pain Epoetin Stas-epbx 7,500 unit 09/01/20 20:00 09/08/20 22:37 Epoetin Stas-Epbx (Esrd) 4,000 Unit/Ml Vial SC 7,500 unit Q7D FRANDY Administration Metoprolol Tartrate 50 mg 08/27/20 21:00 09/14/20 07:58 Metoprolol Tartrate 50 Mg Tab PO 50 mg BID FRANDY Administration Ondansetron HCl 4 mg 09/13/20 12:35 09/13/20 20:33 Ondansetron Pf 4 Mg/2 Ml Vial IVP 4 mg Q6H PRN Administration Nausea/Vomiting Saccharomyces Boulardii 250 mg 09/03/20 09:00 09/14/20 07:59 Saccharomyces Boulardii 250 Mg Cap PO 250 mg DAILY FRANDY Administration Sodium Chloride 10 ml 08/27/20 03:13 09/11/20 08:21 Flush - Normal Saline 10 Ml Syringe IVF 10 ml Q12HR PRN Administration Saline Flush - Exam General Appearance: awake alert Eye: PERRL, anicteric sclera ENT: no oropharyngeal lesions, moist mucosa Neck: supple, no JVD Heart: RRR, murmur present Respiratory: no wheezes, no rales Gastrointestinal: soft, non-tender, non-distended, normal bowel sounds Extremities: no cyanosis, no edema Neurological: cranial nerve grossly intact, no focal deficits Psychiatric: normal affect, A&O x 3 Hosp A/P (1) Pneumonia due to COVID-19 virus Code(s): U07.1 - COVID-19; J12.89 - OTHER VIRAL PNEUMONIA Status: Acute (2) Acute respiratory failure with hypoxemia Code(s): J96.01 - ACUTE RESPIRATORY FAILURE WITH HYPOXIA Status: Acute (3) h/o mitral and aortic valve replacement Status: Chronic (4) Coagulopathy Status: Resolved (5) Protein-calorie malnutrition, moderate Code(s): E44.0 - MODERATE PROTEIN-CALORIE MALNUTRITION Status: Chronic (6) Acute worsening of stage 3 chronic kidney disease Code(s): N18.30 - CHRONIC KIDNEY DISEASE, STAGE 3 UNSPECIFIED Status: Chronic (7) Chronic anemia Code(s): D64.9 - ANEMIA, UNSPECIFIED Status: Chronic (8) Atrial fibrillation Code(s): I48.91 - UNSPECIFIED ATRIAL FIBRILLATION Status: Chronic Qualifiers: Atrial fibrillation type: paroxysmal Qualified Code(s): I48.0 - Paroxysmal atrial fibrillation (9) Cirrhosis Code(s): K74.60 - UNSPECIFIED CIRRHOSIS OF LIVER Status: Suspected Qualifiers: Hepatic cirrhosis type: unspecified hepatic cirrhosis Ascites presence: with ascites Qualified Code(s): K74.60 - Unspecified cirrhosis of liver; R18.8 - Other ascites - Plan is on dexamethasone for covid pna lopressor, protonix, and reduce coumadin to 5mg daily, off lasix due to elevated bun. inr around 5, has mech mitral valve has recieved a total of 5 FFP's on admission for coagulopathy was not a candidate for remdesivir due to hailee/suspected cirrhosis and convalescent plasma was not given due to vol overload on admission is on 3 lts nasal canula, taper for spo2 of >90% overall prognosis is guarded, I have given full updates to daughter over phone 1 , 09/13 chronic anemia with Hg around 7g and needing coumadin for mech valve, prior h/o av malformations as well. PT to mobilize as tolerated encourage po intake of fluids and diet. dc planning to lampstand, may dc anytime, needs inr check daily and if needed transfusion if Hb drops to less than 7g.
[2020-09-14] MEDS: Acetaminophen 325 MG TAB PO PRN (21:47)
[2020-09-15] MEDS: Acetaminophen 325 MG TAB PO PRN (04:40)
[2020-09-15] MEDS ORDERED: Sodium Chloride 0.9% 250 ML IVPB SCH (05:00)
[2020-09-15 09:05] LABS: Prothrombin Time 42.5 sec (12.0-14.7)
[2020-09-15 09:11] LABS: Anion Gap 13 mmol/L (10-20); BUN (Urea Nitrogen) 43 mg/dL (8.4-25.7); Calc. Creatinine Clearance 36 mL/min (70-130); Calcium 7.8 mg/dL (7.8-10.44); Carbon Dioxide 29 mmol/L (23-31); Chloride 102 mmol/L (98-107); Estimated GFR-MDRD 48; Glucose 88 mg/dL (83-110); Potassium 4.4 mmol/L (3.5-5.1); Sodium 140 mmol/L (136-145)
[2020-09-15 09:13] LABS: INR-International Normal Ratio 4.3
[2020-09-15] MEDS: predniSONE 5 MG TAB PO SCH (09:15)
[2020-09-15] MEDS: Saccharomyces boulardii 250 MG CAP PO SCH (09:15)
[2020-09-15 09:16] LABS: #Lymphocytes 0.4 thou/uL (1.20-3.40); #Monocytes 0.5 thou/uL (0.11-0.59); #Neutrophils 2.8 thou/uL (1.40-6.50); %Eosinophils 1.2 % (0.0-10.0); %Lymphocytes 10.7 % (21.0-51.0); %Monocytes 13.2 % (0.0-10.0); %Neutrophils 74.9 % (42.0-75.0); Hemoglobin 7.3 g/dL (14.0-18.0); MDiff Complete? YES; Mean Corpuscular HGB CONC 30.4 g/dL (32.0-36.0); Mean Corpuscular Hemoglobin 27.1 pg (27.0-31.0); Mean Corpuscular Volume 89.2 fL (78.0-98.0); Mean Platelet Volume 10.2 fL (7.4-10.4); Platelet Count 92 thou/uL (130-400); Platelet Morphology Comment Appears Decreased; RBC Distribution Width 19.7 % (11.5-14.5); Red Blood Cell (RBC) Count 2.71 mill/uL (4.70-6.10); White Blood Cell (WBC) Count 3.8 thou/uL (4.8-10.8)
[2020-09-15] MEDS: Metoprolol Tartrate 50 MG TAB PO SCH ×2 (10:32→20:05)
--- NOTE | 2020-09-15 16:50 | EKG ---
Test Reason : DEHYDRATION Blood Pressure : / mmHG Vent. Rate : 067 BPM Atrial Rate : 062 BPM P-R Int : 000 ms QRS Dur : 142 ms QT Int : 502 ms P-R-T Axes : 000 269 077 degrees QTc Int : 530 ms Electronic ventricular pacemaker Confirmed by VINCE BHARDWAJ M.D. ([id number]), editor house organ AGUS NICHOLSON ([id number] on 09/15/2020 4:49:43 PM Referred By: Confirmed By:VINCE BHARDWAJ M.D.
--- NOTE | 2020-09-15 17:13 | PDOC.HOSPP ---
- Subjective Subjective: INR down to 4.3; no acute event overnight - Objective Vital Signs & Weight: Vital Signs (12 hours) Temp Pulse Pulse Pulse Resp BP BP 09/15/20 15:14 70 70 139/66 145/71 H 09/15/20 12:30 97.5 F L 65 18 09/15/20 09:00 97.3 F L 65 18 09/15/20 08:00 BP Pulse Ox Pulse Ox Pulse Ox 09/15/20 15:14 90 L 92 L 09/15/20 12:30 125/63 93 L 09/15/20 09:00 108/67 97 09/15/20 08:00 97 Weight Admit Weight 147 lb 9.6 oz Weight 134 lb 6.4 oz Most Recent Monitor Data Heart Rate from ECG 69 NIBP 109/49 NIBP BP-Mean 69 Respiration from ECG 21 SpO2 93 I&O: 09/14/20 09/15/20 09/16/20 06:59 06:59 06:59 Intake Total 850 1160 Output Total 350 575 Balance 500 585 Result Diagrams: 09/15/20 08:42 09/15/20 08:41 Radiology Reviewed by me: Yes EKG Reviewed by me: Yes Hospitalist ROS - Medication Medications: Active Medications Generic Name Dose Route Start Last Admin Trade Name Freq PRN Reason Stop Dose Admin Acetaminophen 650 mg 08/27/20 20:56 09/15/20 04:40 Acetaminophen 325 Mg Tab PO 650 mg Q4H PRN Administration Headache/Fever or Pain Epoetin Stas-epbx 7,500 unit 09/01/20 20:00 09/08/20 22:37 Epoetin Stas-Epbx (Esrd) 4,000 Unit/Ml Vial SC 7,500 unit Q7D FRANDY Administration Metoprolol Tartrate 50 mg 08/27/20 21:00 09/15/20 10:32 Metoprolol Tartrate 50 Mg Tab PO Not Given BID FRANDY Ondansetron HCl 4 mg 09/13/20 12:35 09/13/20 20:33 Ondansetron Pf 4 Mg/2 Ml Vial IVP 4 mg Q6H PRN Administration Nausea/Vomiting Pantoprazole Sodium 40 mg 09/15/20 09:00 09/15/20 09:15 Pantoprazole 40 Mg Tab PO 40 mg DAILY FRANDY Administration Prednisone 5 mg 09/15/20 08:00 09/15/20 09:15 Prednisone 5 Mg Tab PO 5 mg QAM-WM FRANDY Administration Saccharomyces Boulardii 250 mg 09/03/20 09:00 09/15/20 09:15 Saccharomyces Boulardii 250 Mg Cap PO 250 mg DAILY FRANDY Administration Sodium Chloride 10 ml 08/27/20 03:13 09/11/20 08:21 Flush - Normal Saline 10 Ml Syringe IVF 10 ml Q12HR PRN Administration Saline Flush - Exam General Appearance: NAD Eye: PERRL ENT: normocephalic atraumatic Neck: supple Heart: RRR Respiratory: CTAB Gastrointestinal: soft Extremities: no cyanosis Skin: normal turgor Neurological: cranial nerve grossly intact Musculoskeletal: normal tone Psychiatric: normal affect, normal behavior, A&O x 3 Hosp A/P - Plan (1) Pneumonia due to COVID-19 virus Code(s): U07.1 - COVID-19; J12.89 - OTHER VIRAL PNEUMONIA Status: Acute (2) Acute respiratory failure with hypoxemia Code(s): J96.01 - ACUTE RESPIRATORY FAILURE WITH HYPOXIA Status: Acute (3) h/o mitral and aortic valve replacement Status: Chronic (4) Coagulopathy Status: Resolved (5) Protein-calorie malnutrition, moderate Code(s): E44.0 - MODERATE PROTEIN-CALORIE MALNUTRITION Status: Chronic (6) Acute worsening of stage 3 chronic kidney disease Code(s): N18.30 - CHRONIC KIDNEY DISEASE, STAGE 3 UNSPECIFIED Status: Chronic (7) Chronic anemia Code(s): D64.9 - ANEMIA, UNSPECIFIED Status: Chronic (8) Atrial fibrillation Code(s): I48.91 - UNSPECIFIED ATRIAL FIBRILLATION Status: Chronic Qualifiers: Atrial fibrillation type: paroxysmal Qualified Code(s): I48.0 - Paroxysmal atrial fibrillation (9) Cirrhosis Code(s): K74.60 - UNSPECIFIED CIRRHOSIS OF LIVER Status: Suspected Qualifiers: Hepatic cirrhosis type: unspecified hepatic cirrhosis Ascites presence: with ascites Qualified Code(s): K74.60 - Unspecified cirrhosis of liver; R18.8 - Other ascites - Plan Pt was treated for COVID pna with Decadron. I don't think he is infectious anymore since symptoms resolved, and he is on his hospital day #19 His INR is trending down to 4.3, s/p reversal with FFP Will need to restart him back on Coumadin when INR is in appropriate range given hx of mechanical valve chronic anemia with Hg around 7g and needing coumadin for mech valve, prior h/o av malformations as well. PT to mobilize as tolerated encourage po intake of fluids and diet. Pending placement
[2020-09-15] MEDS: EPOETIN ALFA-EPBX (ESRD) 4,000 UNIT/ML VIAL SC SCH (20:04)
[2020-09-16 05:43] LABS: INR-International Normal Ratio 3.4; Prothrombin Time 34.7 sec (12.0-14.7)
[2020-09-16] MEDS: predniSONE 5 MG TAB PO SCH (10:14)
[2020-09-16] MEDS: Saccharomyces boulardii 250 MG CAP PO SCH (10:15)
[2020-09-16] MEDS: Metoprolol Tartrate 50 MG TAB PO SCH ×2 (10:15→20:03)
[2020-09-16] MEDS: Warfarin Sodium 2.5 MG TAB PO SCH ×3 (13:30→17:58)
--- NOTE | 2020-09-16 14:07 | PDOC.HOSPP ---
- Subjective Subjective: Patient was seen examined at bedside. I have update daughter with regard to his condition. His INR trended down to 3.4 today. We will resume his Coumadin. His hemoglobin has been remained stable. - Objective Vital Signs & Weight: Vital Signs (12 hours) Temp Pulse Resp BP BP Pulse Ox 09/16/20 12:35 97.8 F 69 18 124/73 97 09/16/20 09:00 98.0 F 68 18 127/62 98 09/16/20 08:00 98 09/16/20 05:30 97.7 F 63 22 H 116/68 95 Weight Admit Weight 147 lb 9.6 oz Weight 140 lb 14.4 oz Most Recent Monitor Data Heart Rate from ECG 69 NIBP 109/49 NIBP BP-Mean 69 Respiration from ECG 21 SpO2 93 I&O: 09/15/20 09/16/20 09/17/20 06:59 06:59 06:59 Intake Total 1160 610 Output Total 575 950 Balance 585 -340 Result Diagrams: 09/15/20 08:42 09/15/20 08:41 Radiology Reviewed by me: Yes EKG Reviewed by me: Yes Hospitalist ROS - Medication Medications: Active Medications Generic Name Dose Route Start Last Admin Trade Name Freq PRN Reason Stop Dose Admin Acetaminophen 650 mg 08/27/20 20:56 09/15/20 04:40 Acetaminophen 325 Mg Tab PO 650 mg Q4H PRN Administration Headache/Fever or Pain Epoetin Stas-epbx 7,500 unit 09/01/20 20:00 09/15/20 20:04 Epoetin Stas-Epbx (Esrd) 4,000 Unit/Ml Vial SC 7,500 unit Q7D FRANDY Administration Metoprolol Tartrate 50 mg 08/27/20 21:00 09/16/20 10:15 Metoprolol Tartrate 50 Mg Tab PO 50 mg BID FRANDY Administration Ondansetron HCl 4 mg 09/13/20 12:35 09/13/20 20:33 Ondansetron Pf 4 Mg/2 Ml Vial IVP 4 mg Q6H PRN Administration Nausea/Vomiting Pantoprazole Sodium 40 mg 09/15/20 09:00 09/16/20 10:14 Pantoprazole 40 Mg Tab PO 40 mg DAILY FRANDY Administration Prednisone 5 mg 09/15/20 08:00 09/16/20 10:14 Prednisone 5 Mg Tab PO 5 mg QAM-WM FRANDY Administration Saccharomyces Boulardii 250 mg 09/03/20 09:00 09/16/20 10:15 Saccharomyces Boulardii 250 Mg Cap PO 250 mg DAILY FRANDY Administration Sodium Chloride 10 ml 08/27/20 03:13 09/11/20 08:21 Flush - Normal Saline 10 Ml Syringe IVF 10 ml Q12HR PRN Administration Saline Flush - Exam General Appearance: NAD Eye: PERRL ENT: normocephalic atraumatic Neck: supple Heart: RRR Respiratory: CTAB Gastrointestinal: soft Skin: normal turgor Musculoskeletal: generalized weakness Psychiatric: normal affect, normal behavior Hosp A/P - Plan (1) Pneumonia due to COVID-19 virus Code(s): U07.1 - COVID-19; J12.89 - OTHER VIRAL PNEUMONIA Status: Acute (2) Acute respiratory failure with hypoxemia Code(s): J96.01 - ACUTE RESPIRATORY FAILURE WITH HYPOXIA Status: Acute (3) h/o mitral and aortic valve replacement Status: Chronic (4) Coagulopathy Status: Resolved (5) Protein-calorie malnutrition, moderate Code(s): E44.0 - MODERATE PROTEIN-CALORIE MALNUTRITION Status: Chronic (6) Acute worsening of stage 3 chronic kidney disease Code(s): N18.30 - CHRONIC KIDNEY DISEASE, STAGE 3 UNSPECIFIED Status: Chronic (7) Chronic anemia Code(s): D64.9 - ANEMIA, UNSPECIFIED Status: Chronic (8) Atrial fibrillation Code(s): I48.91 - UNSPECIFIED ATRIAL FIBRILLATION Status: Chronic Qualifiers: Atrial fibrillation type: paroxysmal Qualified Code(s): I48.0 - Paroxysmal atrial fibrillation (9) Cirrhosis Code(s): K74.60 - UNSPECIFIED CIRRHOSIS OF LIVER Status: Suspected Qualifiers: Hepatic cirrhosis type: unspecified hepatic cirrhosis Ascites presence: with ascites Qualified Code(s): K74.60 - Unspecified cirrhosis of liver; R18.8 - Other ascites - Plan Pt was treated for COVID pna with Decadron. I don't think he is infectious anymore since symptoms resolved, and he is on his hospital day #20. d/c isolation His INR is trending down to 3.4, s/p reversal with FFP Restart him back on Coumadin as his INR is in appropriate range given hx of mechanical valve chronic anemia with Hg around 7g and needing coumadin for mech valve, prior h/o av malformations as well. PT to mobilize as tolerated encourage po intake of fluids and diet. Pending placement updated pt's daughter, Lulu
[2020-09-17 06:25] LABS: Hemoglobin 7.7 g/dL (14.0-18.0); Mean Corpuscular HGB CONC 31.5 g/dL (32.0-36.0); Mean Corpuscular Hemoglobin 28.1 pg (27.0-31.0); Mean Platelet Volume 9.9 fL (7.4-10.4); Platelet Count 91 thou/uL (130-400); RBC Distribution Width 20.1 % (11.5-14.5); Red Blood Cell (RBC) Count 2.74 mill/uL (4.70-6.10); White Blood Cell (WBC) Count 6.1 thou/uL (4.8-10.8)
[2020-09-17 06:31] LABS: INR-International Normal Ratio 2.4; Prothrombin Time 26.8 sec (12.0-14.7)
[2020-09-17 06:41] LABS: Anion Gap 12 mmol/L (10-20); BUN (Urea Nitrogen) 37 mg/dL (8.4-25.7); Calc. Creatinine Clearance 38 mL/min (70-130); Carbon Dioxide 28 mmol/L (23-31); Chloride 106 mmol/L (98-107); Estimated GFR-MDRD 50; Glucose 107 mg/dL (83-110); Sodium 142 mmol/L (136-145)
[2020-09-17 08:31] LABS: Eosinophils 1 % (0-10); Lymphocytes 11 % (21-51); MDiff Complete? YES; Monocytes 5 % (0-10); Neutrophil 82 % (42-75); Platelet Morphology Comment Appears Decreased; RBC Morphology Normal
[2020-09-17] MEDS: predniSONE 5 MG TAB PO SCH (08:46)
[2020-09-17] MEDS: Metoprolol Tartrate 50 MG TAB PO SCH (08:46)
[2020-09-17] MEDS: Saccharomyces boulardii 250 MG CAP PO SCH (08:46)
--- NOTE | 2020-09-17 12:45 | PDOC.DS.DS ---
Provider - Provider Date of Admission: 08/27/20 03:02 Date of Discharge: 09/17/20 Admitting Provider: Meliton Price MD Consultations: Gastroentrology, Nephrology, Pulmonary Primary Care Physician: Teresa Miller MD Course - Hospital Course Hospital Course: DISCHARGE DIAGNOSES: 1. COVID-19 pneumonia 2. Acute hypoxic respiratory failure 3. Chronic atrial fib 4. Cryptogenic liver cirrhosis 5. History of mitral valve and aortic valve replacement 6. Chronic anemia 7. SHANTELL on CKD stage III 8. Coagulopathy 9. Moderate protein calorie malnutrition PERTINENT IMAGING STUDIES: Renal ultrasound: No evidence of urinary tract obstruction, findings of nonspecific chronic medical renal disease. Ascites. Chest x-ray: Worsening appearance to the right infrahilar lung changes. Also some associated fluoroscopy changes. Elevation of the right hemidiaphragm. Repeated chest x-ray on 09/08/2020: Worsened bilateral airspace disease is suspicious for his worsening pneumonia. Components of airspace edema may not be responsible for this finding. HISTORY OF PRESENT ILLNESS AND BRIEF HOSPITAL COURSE: The patient is a pleasant but unfortunate 79 years old gentleman with multiple comorbidities including COPD, atrial fibrillation, hypertension, congestive heart failure, CAD with status post CABG, status post aortic and arben ral valve replacements on Coumadin, cryptogenic liver cirrhosis, CKD, who was admitted to the hospital for acute on chronic renal failure, and was found to have severe persistent coagulopathy despite 5 units of FFP transfusion. He was also diagnosed with pneumonia, required high flow oxygen. Multiple specialist were consulted during his hospital stay including ID, pulmonology, GI, nephrology. Patient was placed on IV steroid, and gradually wean. Patient was not a candidate for antiviral rhythm severe due to his renal function. Given his heart failure, ID forego convalescent plasma. At any rate, patient responded well. His INR was corrected. He gradually weaned down to 3 L. Nephrology, and other specialist has signed off. Patient is quite debilitated during his hospital stay. At this time, he has been accepted to senior living facility, [facility], for further physical therapy and rehab. His INR has normalized, his Coumadin was restarted. We recommend to monitor his INR, reche ck in 3-day, and adjust his Coumadin doses as necessary. INR goal 2.5-3.5. It should be noted that, he had chronic anemia, and was getting people changes while in the hospital. He did not require any packed RBC transfusion as his hemoglobin remaining above 7, and steadily trending upward. PROCEDURE PERFORMED: NONE DISCHARGE CONDITION: STABLE DISPOSITION: SNF, [facility] PHYSICAL EXAM: General Appearance: Alert, oriented, resting comfortably, no apparent distress HEENT: Normocephalic/atraumatic, moist mucous membrane, normal ENT inspection, normal tones. PERRLA, no scleral icterus, normal conjunctiva Neck: Supple, normal inspection, no JVD Respiratory: Lungs are clear bilaterally, normal breath sounds, no accessory muscle use Cardiovascular: Regular rate, regular rhythm, no murmur, no rubs Abdomen: Soft, nontender, nondistended, normal bowel sounds, no organomegaly, no guarding no rebound Extremities: No clubbing, no cyanosis, no edema Psych/Mental Status: Normal affect, speech, non-pressured, AAO x 3 Neurologic: CN II-XII are intact. Generalized weakness Skin: Warm/Dry, Normal Color, no rashes DISCHARGE TIME SPENT: >30 MINUTES Resuscitation Status: 08/27/20 03:13 Resuscitation Status Routine Resuscitation Status: FULL: Full Resuscitation - Labs Lab Results: 09/17/20 06:11 09/17/20 06:11 Abnormal Lab Results - Last 48 hrs 09/16/20 05:23: PT 34.7 H 09/17/20 06:11: PT 26.8 H 09/17/20 06:11: BUN 37 H, Creatinine 1.37 H 09/17/20 06:11: RBC 2.74 L, Hgb 7.7 L, Hct 24.4 L, MCHC 31.5 L, RDW 20.1 H, Plt Count 91 L, Neutrophils % (Manual) 82 H, Lymphocytes % (Manual) 11 L, Plt Morphology Comment Appears Decreased L Microbiology - Entire Visit 08/27/20 08:53 Venous blood - Right Arm Blood Culture - Final NO GROWTH IN 5 DAYS 08/27/20 08:53 Venous blood - Left Hand Blood Culture - Final NO GROWTH IN 5 DAYS - Physical Exam Vitals: Vital Signs (12 hours) Temp Pulse Resp BP BP Pulse Ox 09/17/20 11:27 97.5 F L 64 18 122/70 94 L 09/17/20 09:16 97.4 F L 65 18 133/52 L 95 09/17/20 05:00 97.9 F 68 17 101/56 L 97 Weight Admit Weight 147 lb 9.6 oz Weight 134 lb 14.4 oz Most Recent Monitor Data Heart Rate from ECG 69 NIBP 109/49 NIBP BP-Mean 69 Respiration from ECG 21 SpO2 93 Physical Exam: The patient was seen and examined on the day of discharge. Plan - Discharge Medications Prescriptions: Warfarin Sodium [Coumadin] 2.5 mg PO 1700 #30 tab Home Medications: Medication Instructions Recorded Confirmed Type Metoprolol Tartrate [Lopressor] 50 mg PO BID 05/15/14 08/27/20 History Hydrocodone Bit/Acetaminophen 1 tablet PO Q4HR PRN 08/27/20 08/27/20 History [HYDROcodone Bit/Acetaminophen] Magnesium Hydroxide [Milk of 30 ml PO HS PRN 08/27/20 08/27/20 History Magnesia] Warfarin Sodium [Coumadin] 2.5 mg PO 1700 #30 tab 09/17/20 Rx Allergies: No Known Allergies Allergy (Verified 07/24/20 23:49) - Discharge Instructions Discharge Instructions:: Follow up with PCP in 1-2 weeks Recheck INR tomorrow. Your INR 2.4 at discharge. Activity:: Activity as Tolerated Nourishment:: Coumadin Prudent Diet, Heart Healthy Diet, Low Sodium Diet Therapies:: Physical Therapy - Follow up Plan Referrals: Andrés Ward MD [Active] - Teresa Miller MD [Primary Care Provider] - Marcus Cabrales MD [Active] - Baldo Ferguson MD [Active] - Disposition: DETENTION FACILITY Quality - Care Measures CORE MEASURES:: N/A
[2020-09-17 16:00] VITALS: BP 136/61; TEMP 98.2
[2020-09-17] MEDS: Warfarin Sodium 2.5 MG TAB PO SCH (17:33)
== END 2020-09-17 17:59 | DRG 177 ==
LOC: ERS 01:39 → T4-A 03:02 → T4-B 17:01 → T4-A 17:08 → IMCU/EMU 08-29 14:09 → T4-A 09-08 19:46
PROVIDERS: ADMIT Internal Medicine; ATTEND Family Medicine
PROC: 8E0ZXY6 Isolation (ICD-10-PCS; principal; 2020-08-27)
PROC: 30233K1 Transfusion of Nonautologous Frozen Plasma into Peripheral Vein, Percutaneous Approach (ICD-10-PCS; 2020-08-28)
DX: U07.1 COVID-19 (principal); J12.89 Other viral pneumonia; J96.01 Acute respiratory failure with hypoxia; K31.811 Angiodysplasia of stomach and duodenum with bleeding; N17.9 Acute kidney failure, unspecified; E44.0 Moderate protein-calorie malnutrition; D68.9 Coagulation defect, unspecified; J44.0 Chronic obstructive pulmonary disease with (acute) lower respiratory infection; I13.0 Hypertensive heart and chronic kidney disease with heart failure and stage 1 through stage 4 chronic kidney disease, or unspecified chronic kidney disease; R18.8 Other ascites; I50.32 Chronic diastolic (congestive) heart failure; J91.8 Pleural effusion in other conditions classified elsewhere; K74.69 Other cirrhosis of liver; I48.0 Paroxysmal atrial fibrillation; I25.10 Atherosclerotic heart disease of native coronary artery without angina pectoris; E78.5 Hyperlipidemia, unspecified; E88.09 Other disorders of plasma-protein metabolism, not elsewhere classified; D53.1 Other megaloblastic anemias, not elsewhere classified; K72.90 Hepatic failure, unspecified without coma; I25.5 Ischemic cardiomyopathy; K62.7 Radiation proctitis; E86.0 Dehydration; N18.30 Chronic kidney disease, stage 3 unspecified; Z79.01 Long term (current) use of anticoagulants; Z95.1 Presence of aortocoronary bypass graft; Z95.2 Presence of prosthetic heart valve; Z28.21 Immunization not carried out because of patient refusal; Z95.0 Presence of cardiac pacemaker; Z79.899 Other long term (current) drug therapy; Z99.81 Dependence on supplemental oxygen; Z68.21 Body mass index [BMI] 21.0-21.9, adult; E87.6 Hypokalemia; D69.6 Thrombocytopenia, unspecified
CPT/HCPCS: 36415; 36430; 71045; 76770; 80048; 80053; 80069; 82140; 82570; 82728; 83540; 83550; 83735; 83880; 83970; 84132; 84156; 84300; 85007; 85014; 85018; 85025; 85027; 85610; 85730; 86140; 86850; 86900; 86901; 87040; 87635; 93005; C9113; J1100; J1650; J2405; J2543; J3490; J7030; J7512; P9059; Q5105; U0003

== ENCOUNTER 2020-10-02 19:16 | Emergency (ER) | payer MEDICARE | END 2020-10-02 20:30 | LOC: ERS 19:16 | DX: L03.317 Cellulitis of buttock (principal); I11.0 Hypertensive heart disease with heart failure; I50.9 Heart failure, unspecified; E78.5 Hyperlipidemia, unspecified; J44.9 Chronic obstructive pulmonary disease, unspecified | CPT/HCPCS: 99283 ==